=== PATIENT | male | born 1945 | race Caucasian/White ===

== ENCOUNTER → 2017-05-29 12:20 | Outpatient (CLI) | payer MEDICARE, OTHER, SELFPAY ==
[2017-05-29 12:52] LABS: Basophils # 0.1 K/mm3 (0-0.2); Basophils % 0.8 % (0.1-2.0); Eosinophils # 0.3 K/mm3 (0.0-0.4); Eosinophils % 3.7 % (0.1-12.0); Hematocrit 47.1 % (42.0-52.0); Hemoglobin 15.2 g/dL (14.1-18.0); Lymphocytes # 3.8 K/mm3 (0.7-4.5); Lymphocytes % 43.4 K/mm3 (10-50); Mean Corpuscular HGB Conc 32.3 g/dL (31.8-35.4); Mean Corpuscular Hemoglobin 28.6 pg (27.0-31.2); Mean Corpuscular Volume 88.5 fl (80-94); Mean Platelet Volume 9.5 fl (7.4-10.4); Monocytes # 0.6 K/mm3 (0.1-1.0); Monocytes % 6.9 % (1.7-9.3); Neutrophils % 45.2 % (37.0-80.0); Platelet Count 217 K/mm3 (142-424); Red Blood Count 5.32 M/mm3 (4.60-6.20); White Blood Count 8.8 K/mm3 (4.8-10.8)
[2017-05-29 14:01] LABS: Alanine Aminotransferase 44 U/L (12-78); Albumin Level 3.7 gm/dL (3.4-5.0); Alkaline Phosphatase 70 U/L (46-116); Amylase 60 U/L (25-125); Anion Gap 8.4 mEq/L (5-15); Aspartate Amino Transferase 29 U/L (15-37); Bilirubin,Total 0.7 mg/dL (0.2-1.0); Blood Urea Nitrogen 17 mg/dL (7-18); Calcium 9.2 mg/dL (8.5-10.1); Carbon Dioxide 32 mmol/L (21.0-32.0); Chloride 104 mmol/L (98-107); Estimated Glomerular Filt Rate > 60 ml/min (>60); GFR (African American) > 60 ML/MIN (>60); Globulin 3.8 gm/dl (1.3-3.2); Glucose 97 mg/dL (74-106); Lipase 125 u/L (73-393); Potassium 4.4 mmoL/L (3.5-5.1); Sodium 140 mmol/L (136-145); Total Protein,Serum 7.5 gm/dL (6.4-8.2)
== END ==
PROVIDERS: PCP Internal Medicine Adolescent Medicine; Visit Provider Internal Medicine Adolescent Medicine
DX: R10.11 Right upper quadrant pain (principal)
CPT/HCPCS: 36415; 80053; 82150; 83690; 85025

== ENCOUNTER → 2018-08-11 09:55 | Outpatient (CLI) | payer MEDICARE, OTHER, SELFPAY ==
--- NOTE | 2018-08-11 10:04 | XR_ITS ---
XR calcaneus RT min 2V CLINICAL INDICATION: ITS.REASON: ACHILLES TENDINITIS ORDERING PHYSICIAN: Rakesh Jones MD PATIENT AGE: 73 years Comparison: None FINDINGS: Prominent enthesophyte is present at the Achilles insertion. Calcaneal spur is noted at 8 mm. Anterior to the spur there is a lobular area of calcification measuring 1.9 x 0.4 cm consistent with calcification within the plantar fascia which may be seen with chronic plantar fasciitis or old trauma trauma. IMPRESSION: Calcification along the plantar fascia suggesting chronic plantar fasciitis or old trauma
== END ==
PROVIDERS: PCP Internal Medicine Adolescent Medicine; Visit Provider Internal Medicine Adolescent Medicine
DX: M76.61 Achilles tendinitis, right leg (principal)
CPT/HCPCS: 73650

== ENCOUNTER 2018-10-07 08:00 | Outpatient (RCR) | payer MEDICARE, OTHER, SELFPAY ==
--- NOTE | 2018-08-30 08:51 | HMH.PTOPEV ---
PT Outpatient Evaluation Rehab PT Outpatient Evaluation Start: 08/30/18 08:26 Freq: Status: Active Protocol: Document 08/30/18 08:26 WIL (Rec: 08/30/18 08:50 WIL [id number]) Electronically Signed By Case Ozuna, PT 08/30/18 08:26 Outpatient Therapy Subjective History Subjective History Pt reports h/o chronic heel pain since exacerbation ~2 months ago. Pt reports using shoe horn to don R shoe, 'I've got a calcium deposit back there, and I irriatated putting that shoe on'. Pt reports posterior R heel pain since insult, and reports some R heel pain on bottom of heel intermittently d/t 'bone spur '. Chief Complaint Pain Symptom Type Ache Dull Symptoms Relieved By Rest/Positioning Symptoms Aggravated By Standing Walking Prior Functional Limitations Housework Standing Walking Current Functional Limitations Housework Standing Walking Stairs Symptom Description Constant but Variable Level of pain today (0-10) 5 Pain scale - at its best (0-10) 5 Pain scale - at its worst (0-10) 7 Ankle/Foot Eval Gait Observation General Gait Pattern Observation Antalgic Gait Assistive Device Ambulation Assistive Device None Palpation Tenderness right Ankle/Foot Palpation Findings Tenderness Ankle/Foot Palpation Overall Comment 2-3/4 ACHILLES INSERTION/ CALCIUM DEPOSIT ROM Ankle/Foot Dorsiflexion w/Knee Extended 0-5 Active Range Motion (degrees) Ankle/Foot Plantar Flexion Active Range 0-45 of Motion (degrees) Ankle/Foot Eversion Active Range of 0-15 Motion (degrees) Ankle/Foot Inversion Active Range of 0-25 Motion (degrees) MMT Ankle Dorsiflexion Strength Grade 4 Good Ankle Plantarflexion Strength Grade 4 Good Foot Eversion Strength Grade 4 Good Foot Inversion Strength Grade 4 Good Special Tests Talar Tilt Test Negative Left Negative Right Ankle Posterior Drawer Test Negative Left Negative Right Foot Compression Test Negative Left Negative Right Foot/Heel Tap/Percussion Test Negative Left
== END 2018-10-07 08:15 | disposition home or self-care (01) ==
LOC: PT 08:00
PROVIDERS: Visit Provider Podiatrist
DX: M76.61 Achilles tendinitis, right leg (principal)
CPT/HCPCS: 97010; 97014; 97033; 97035; 97110; 97163; G0283

== ENCOUNTER 2019-06-05 10:55 | Observation (INO) ==
[2019-06-05 11:41] LABS: Basophils # 0.1 K/mm3 (0-0.2); Basophils % 0.6 % (0.1-2.0); Eosinophils # 0.3 K/mm3 (0.0-0.4); Eosinophils % 2.6 % (0.1-12.0); Hematocrit 51.9 % (42.0-52.0); Hemoglobin 16.4 g/dL (14.1-18.0); Lymphocytes # 4.6 K/mm3 (0.7-4.5); Lymphocytes % 46.6 % (10-50); Mean Corpuscular HGB Conc 31.6 g/dL (31.8-35.4); Mean Corpuscular Volume 90.4 fl (80-94); Mean Platelet Volume 8.9 fl (7.4-10.4); Monocytes # 0.5 K/mm3 (0.1-1.0); Monocytes % 4.6 % (1.7-9.3); Neutrophils # 4.5 K/mm3 (1.8-7.8); Neutrophils % 45.5 % (37.0-80.0); Platelet Count 257 K/mm3 (142-424); Red Blood Count 5.74 M/mm3 (4.60-6.20); Red Cell Distribution Width 13.3 % (11.5-17.5); White Blood Count 9.8 K/mm3 (4.8-10.8)
[2019-06-05 11:58] LABS: Anion Gap 11.9 mEq/L (5-15); Blood Urea Nitrogen 15 mg/dL (7-18); Calcium 8.9 mg/dL (8.5-10.1); Carbon Dioxide 29 mmol/L (21.0-32.0); Chloride 100 mmol/L (98-107); Glucose 180 mg/dL (74-106); Sodium 137 mmol/L (136-145); Thyroid Stimulating Hormone 1.69 uIU/ml (0.358-3.740)
--- NOTE | 2019-06-05 12:28 | Emergency Department Note ---
ED Disposition Clinical Impression: Obesity (BMI 30.0-34.9) Chest pain Qualifiers: Chest pain type: precordial pain Qualified Code(s): R07.2 - Precordial pain HTN (hypertension) Qualifiers: Hypertension type: essential hypertension Qualified Code(s): I10 - Essential (primary) hypertension Hyperlipidemia Qualifiers: Hyperlipidemia type: unspecified Qualified Code(s): E78.5 - Hyperlipidemia, unspecified Disposition: Admitted as Observation Condition on Discharge: Good Referrals: Rakesh Jones MD [Primary Care Provider] - - Critical Care Critical Care Time: No Attestation: On 06/05/19, the high probability of a clinically significant, sudden or life threatening deterioration of the following system(s) required my full and direct attention, intervention and personal management. The time I documented below is in addition to time spent performing reported procedures but includes the following listed in this critical care notation. Medical Decision Making - Medical Records Medical records reviewed: Yes: I reviewed the patient's medical records. - Colt Inquiry Pt receiving controlled substance: No Vital Signs: 06/05/19 10:56 06/05/19 11:56 06/05/19 12:00 Temperature 98 F Temperature Source Oral Pulse Rate [Right] 95 H 84 83 Respiratory Rate 18 Blood Pressure [Right Arm] 133/94 H 121/70 136/64 Blood Pressure Mean [Right Arm] 107 87 88 02 Sat by Pulse Oximetry 97 93 L 95 Oxygen Delivery Method Room Air 06/05/19 12:30 06/05/19 13:00 06/05/19 13:30 Temperature Temperature Source Pulse Rate [Right] 85 85 90 Respiratory Rate Blood Pressure [Right Arm] 153/72 H 151/86 H 154/87 H Blood Pressure Mean [Right Arm] 99 107 109 02 Sat by Pulse Oximetry 95 95 95 Oxygen Delivery Method 06/05/19 13:44 06/05/19 14:30 Temperature Temperature Source Pulse Rate [Right] 85 82 Respiratory Rate Blood Pressure [Right Arm] 159/82 H 159/90 H Blood Pressure Mean [Right Arm] 107 113 02 Sat by Pulse Oximetry 96 95 Oxygen Delivery Method - Lab Data Lab results reviewed: Yes: I reviewed the patient's lab results. Lab Results 06/05/19 11:08: WBC 9.8, RBC 5.74, Hgb 16.4, Hct 51.9, MCV 90.4, MCH 28.6, MCHC 31.6 L, RDW 13.3, Plt Count 257, MPV 8.9, Neut % (Auto) 45.5, Lymph % (Auto) 46.6, [place] % (Auto) 4.6, Eos % (Auto) 2.6, Baso % (Auto) 0.6, Neut # (Auto) 4.5, Lymph # (Auto) 4.6 H, [place] # (Auto) 0.5, Eos # (Auto) 0.3, Baso # (Auto) 0.1 06/05/19 11:08: Sodium 137, Potassium 3.9, Chloride 100, Carbon Dioxide 29, Anion Gap 11.9, BUN 15, Creatinine 1.05, Estimated Creat Clear 89, Estimated GFR 69, Est GFR ( Amer) 83, Glucose 180 H, Calcium 8.9, Troponin I < 0.02, T SH 1.69, Thyroxine (T4) 8.4 06/05/19 11:08: Hemoglobin A1c 6.3 06/05/19 14:15: Troponin I < 0.02 Result diagrams: 06/05/19 11:08 06/05/19 11:08 Orders (Tests/Meds): ED MEDICATIONS Discontinued Medications Generic Name Dose Route Start Last Admin Trade Name Freq PRN Reason Stop Dose Admin Aspirin 324 mg 06/05/19 11:12 06/05/19 11:29 Aspirin 81mg Chewable Tablet PO 06/05/19 11:13 Not Given ONCE ONE Aspirin 243 mg 06/06/19 09:00 Aspirin 81mg Enteric Coated Tablet PO 07/06/19 08:59 DAILY CARLOS ALBERTO Aspirin 243 mg 06/05/19 11:28 06/05/19 11:33 Aspirin 81mg Chewable Tablet PO 06/05/19 11:29 243 mg ONCE ONE Administration ORDERS Category Date Time Status Troponin I Q3H Lab 06/05/19 17:15 Ordered - Radiology Data #1 Image(s): Chest Image Reviewed: Yes I reviewed the patient's radiology image Preliminary Findings: Normal/NAD - ECG Data Tracing #1 Normal Sinus Rhythm: Yes Ischemic changes: non-specific ST-T wave changes Chest Pain HPI - General Chief Complaint: Chest Pain Stated Complaint: High blood pressure and tightness in chest Time Seen by Provider: 06/05/19 12:00 Mode of Arrival: Ambulatory Source of Information: Patient, Spouse, Medical Record Limitations: No Limitations Description of Symptoms (Recalled from ER Triage Doc. by RN): Pt states this morning pt began to have sweats and feeling a tightness in his chest and a fluttering in his heart. PT states he tooks his BP at 10am this morning and it was elevated. Pt states he did take his BP medication this morning. Denies feve r, NVD, or any pain. - History of Present Illness HPI narrative: pt with episode of diaphoresis last pm and he has chest tightness for 20-30 min this am with no other c/o - had cath several yrs ago- no stents MD complaint: chest pain indicative of cardiac Onset (ago): hour(s) Duration: now resolved Activity at onset: during rest Pain location: substernal Severity: moderate Quality: tightness Pain radiation: none Associated symptoms: diaphoresis Risk Factors for CAD: Hypertension, Hypercholesterolemia, Family Hx of CAD Treatments prior to or on arrival for Cardiac Chest Pain: none - WARNER Score for Non-Stemi Age of Patient: 70-79 years old Heart Rate: 90-109 bpm Systolic Blood Pressure: 120-139 mmhg Serum Creatinine: 0.80-1.19 mg/dl CHF [place] Class: I-No CHF Other Risk Factors: None Non-Stemi Risk Score: 131 - Related Data Prior Cardiac Testing/Procedures: Cardiac Angiogram Home Medications Medication Instructions Recorded Confirmed aspirin 81 mg tablet,delayed 81 mg PO ONCE 07/27/17 06/05/19 release lisinopril 20 mg tablet 20 mg PO ONCE 07/27/17 06/05/19 rosuvastatin 20 mg tablet 20 mg PO DAILY 90 Days #90 tab 08/23/18 06/05/19 Allergies Allergy/AdvReac Type Severity Reaction Status Date / Time No Known Allergies Allergy Verified 08/23/18 08:19 [facility] History - Hepatitis A Screen Drug use history?: No High risk sexual behaviors?: No History of sexually transmitted infection?: No Currently employed?: No Childcare worker?: No Do you have indoor plumbing?: Yes Do you have electricity?: Yes Attestation statement:: This patient has been screened for Hepatitis A risk factors. I have reviewed the patient's past medical history: Yes Medical History: Reports:: Diabetes Mellitus Type 2, Hyperlipidemia, Hypertension Other Medical History: Reports: Arthritis Laterality Cases: Right: Cataract Other Surgeries: Yes: Cholecystectomy Comment: RT thumb, Heart cath 2015, back sx 2016, Gallbladder removed 2017, RT elbow ulnar nerve 2017, - Social History Smoking Status: Former smoker Tobacco Type: cigarettes Alcohol Intake: never Alcohol Intake Frequency:: holidays/special occasions only Occupational Status: retired Family Hx:: Cancer, Coronary Artery Disease, Heart Attack ROS Obtained: Yes All systems reviewed & no additional complaints - Constitutional Constitutional: Denies fever(s) - Eyes Eyes: Denies change in vision - ENT Ears, Nose, Mouth, and Throat: Denies sore throat - Cardiovascular Cardiovascular: Reports as per HPI, Reports chest pain, Reports diaphoresis - Respiratory Respiratory: No cough - Gastrointestinal Gastrointestingal: Denies: abdominal pain - Genitourinary Male Genitourinary: Denies hematuria - Musculoskeletal Musculoskeletal: Denies joint pain, Denies joint swelling - Integumentary/Breasts Skin/Breast: Denies rash - Neurologic Neurologic: Denies seizure-like activity Physical Exam - General General appearance: alert, obese - Head Head exam: normocephalic - Eye Eye exam: Present: PERRL, EOMI - ENT ENT exam: Present: mucous membranes moist - Neck Neck exam: Present: trachea midline - Respiratory Respiratory exam: Present: normal lung sounds bilaterally. Absent: respiratory distress - Cardiovascular Cardiovascular exam: Present: regular rate, systolic murmur, +S4 - Abdominal Exam Abdominal exam: Present: soft - Extremities Exam Extremities exam: Present: full ROM. Absent: pedal edema - Neurological Exam Neurological exam: Present: alert, oriented X3, CN II-XII intact - Psychiatric Psychiatric exam: Present: normal affect - Skin Skin exam: Absent: rash
[2019-06-06 05:56] LABS: Basophils # 0.1 K/mm3 (0-0.2); Basophils % 0.6 % (0.1-2.0); Eosinophils # 0.3 K/mm3 (0.0-0.4); Eosinophils % 3.1 % (0.1-12.0); Hematocrit 47.1 % (42.0-52.0); Hemoglobin 14.8 g/dL (14.1-18.0); Lymphocytes # 3.6 K/mm3 (0.7-4.5); Lymphocytes % 39.1 % (10-50); Mean Corpuscular HGB Conc 31.4 g/dL (31.8-35.4); Mean Corpuscular Volume 88.2 fl (80-94); Mean Platelet Volume 8.4 fl (7.4-10.4); Monocytes # 0.6 K/mm3 (0.1-1.0); Monocytes % 6.4 % (1.7-9.3); Neutrophils # 4.7 K/mm3 (1.8-7.8); Neutrophils % 50.9 % (37.0-80.0); Platelet Count 233 K/mm3 (142-424); Red Blood Count 5.34 M/mm3 (4.60-6.20); Red Cell Distribution Width 13.4 % (11.5-17.5); White Blood Count 9.3 K/mm3 (4.8-10.8)
[2019-06-06 06:10] LABS: Anion Gap 10.4 mEq/L (5-15); Blood Urea Nitrogen 13 mg/dL (7-18); Calcium 8.9 mg/dL (8.5-10.1); Carbon Dioxide 30 mmol/L (21.0-32.0); Chloride 104 mmol/L (98-107); Chol/HDL Ratio 3.4 (1-3.5); Cholesterol 146 mg/dL (140-200); Glucose 131 mg/dL (74-106); HDL Cholesterol 43 mg/dL (27-67); LDL Cholesterol 70 mg/dL (0-130); Sodium 140 mmol/L (136-145); Triglycerides 165 mg/dL (30-200); VLDL Cholesterol 33 mg/dL (0-40)
--- NOTE | 2019-06-06 07:53 | Pharmacy Consult Notes ---
[facility] Pharmacy VTE Monitoring - Patient Demographics Admission date: 06/06/19 Report Date: 06/06/19 Time: 07:53 Allergies/Adverse Reactions: Patient Allergies No Known Allergies Allergy (Verified 08/23/18 08:19) Height: 1.7 m Weight: 103.901 kg Patient Problems: Current Active Problems Chest pain (Acute) HTN (hypertension) (Acute) Hyperlipidemia (Acute) Obesity (BMI 30.0-34.9) (Acute) - VTE Risk Labs: VTE Related Lab Results Hgb 14.8 g/dL (14.1-18.0) 06/06/19 05:24 Hct 47.1 % (42.0-52.0) 06/06/19 05:24 Plt Count 233 K/mm3 (142-424) 06/06/19 05:24 BUN 13 mg/dL (7-18) 06/06/19 05:24 Creatinine 1.09 mg/dL (0.70-1.30) 06/06/19 05:24 Estimated Creat Clear 85 mL/min (50-200) 06/06/19 05:24 Was VTE Risk Assessment Performed: Yes VTE Score: 2 VTE Risk Level: Very Low Risk Clinical Trial Participant: No - Prophylaxis VTE Prophylaxis Ordered?: Yes Types of VTE Prophylaxis: TEDS Knee High Location of Applied Device: Bilateral Lower Extremeties, Refused
--- NOTE | 2019-06-06 07:58 | Pharmacy Consult Notes ---
[facility] Pharmacy VTE Monitoring - Patient Demographics Admission date: 06/05/19 Report Date: 06/06/19 Time: 07:57 Allergies/Adverse Reactions: Patient Allergies No Known Allergies Allergy (Verified 08/23/18 08:19) Height: 1.7 m Weight: 103.901 kg Patient Problems: Current Active Problems Chest pain (Acute) HTN (hypertension) (Acute) Hyperlipidemia (Acute) Obesity (BMI 30.0-34.9) (Acute) - VTE Risk Labs: VTE Related Lab Results Hgb 14.8 g/dL (14.1-18.0) 06/06/19 05:24 Hct 47.1 % (42.0-52.0) 06/06/19 05:24 Plt Count 233 K/mm3 (142-424) 06/06/19 05:24 BUN 13 mg/dL (7-18) 06/06/19 05:24 Creatinine 1.09 mg/dL (0.70-1.30) 06/06/19 05:24 Estimated Creat Clear 85 mL/min (50-200) 06/06/19 05:24 Was VTE Risk Assessment Performed: Yes VTE Score: 2 VTE Risk Level: Very Low Risk Clinical Trial Participant: No - Prophylaxis VTE Prophylaxis Ordered?: Yes Types of VTE Prophylaxis: TEDS Knee High Location of Applied Device: Bilateral Lower Extremeties
--- NOTE | 2019-06-06 08:50 | History & Physical Report ---
*Admission Date: 06/05/19 *Chief complaint: Chest pain and sweating *History of present illness: 74-year-old white male with history of diabetes, hyperlipidemia and hypertension who awoke at 3 AM yesterday morning with sweating and chest pain with some nausea. This improved but throughout the rest of the day his blood pressure remained high and he came to the emergency department last night where he was admitted for rule out AL. [facility] History I have reviewed the patient's past medical history: Yes Medical History: Reports:: Coronary Artery Disease, Hyperlipidemia, Hypertension Denies:: Diabetes Mellitus Type 2 *Have you ever received a pneumonia vaccine?: Yes *Have you received a flu vaccine this season?: Yes Other Medical History: Reports: Arthritis, Cataracts Laterality Cases: Right: Cataract, Other Other Surgeries: Yes: Cardiac Catheterization, Cholecystectomy Amputation: No Fractures: No ((R) thumb, nose) - *Social History Educational Level: Attended College Smoking Status: Former smoker Tobacco Type: cigarettes Alcohol Intake: never Alcohol Intake Frequency:: holidays/special occasions only *Occupational Status:: retired Housing: house Household Members: spouse *Travel in the last 8 weeks: None Family Hx:: Cancer, Coronary Artery Disease, Heart Attack Review of Systems - Review of Systems Review of systems:: pertinent systems reviewed and negative unless documented below 10 point review of systems negative except as detailed in HPI - *Neurologic Denies seizure-like activity Meds Home Medications Medication Instructions Recorded Confirmed Type aspirin 81 mg tablet,delayed 81 mg PO HS 07/27/17 06/06/19 History release lisinopril 20 mg tablet 20 mg PO DAILY 07/27/17 06/06/19 History Pitavastatin Calcium [Livalo] 4 mg PO HS 06/06/19 06/06/19 History Allergies Allergy/AdvReac Type Severity Reaction Status Date / Time No Known Allergies Allergy Verified 08/23/18 08:19 Exam Vital signs and Labs for Last 24 Hours: Temp Pulse Resp BP Pulse Ox 97.9 F 65 18 115/60 97 06/06/19 08:00 06/06/19 08:00 06/06/19 08:00 06/06/19 08:00 06/06/19 08:00 Laboratory Results - last 24 hr 06/05/19 11:08: WBC 9.8, RBC 5.74, Hgb 16.4, Hct 51.9, MCV 90.4, MCH 28.6, MCHC 31.6 L, RDW 13.3, Plt Count 257, MPV 8.9, Neut % (Auto) 45.5, Lymph % (Auto) 46.6, [place] % (Auto) 4.6, Eos % (Auto) 2.6, Baso % (Auto) 0.6, Neut # (Auto) 4.5, Lymph # (Auto) 4.6 H, [place] # (Auto) 0.5, Eos # (Auto) 0.3, Baso # (Auto) 0.1 06/05/19 11:08: Sodium 137, Potassium 3.9, Chloride 100, Carbon Dioxide 29, Anion Gap 11.9, BUN 15, Creatinine 1.05, Estimated Creat Clear 89, Estimated GFR 69, Est GFR ( Amer) 83, Glucose 180 H, Calcium 8.9, Troponin I < 0.02, TSH 1.69, Thyroxine (T4) 8.4 06/05/19 11:08: Hemoglobin A1c 6.3 06/05/19 14:15: Troponin I < 0.02 06/05/19 17:30: Troponin I < 0.02 06/06/19 05:24: WBC 9.3, RBC 5.34, Hgb 14.8, Hct 47.1, MCV 88.2, MCH 27.7, MCHC 31.4 L, RDW 13.4, Plt Count 233, MPV 8.4, Neut % (Auto) 50.9, Lymph % (Auto) 39.1, [place] % (Auto) 6.4, Eos % (Auto) 3.1, Baso % (Auto) 0.6, Neut # (Auto) 4.7, Lymph # (Auto) 3.6, [place] # (Auto) 0.6, Eos # (Auto) 0.3, Baso # (Auto) 0.1 06/06/19 05:24: Sodium 140, Potassium 4.4, Chloride 104, Carbon Dioxide 30, Anion Gap 10.4, BUN 13, Creatinine 1.09, Estimated Creat Clear 85, Estimated GFR 66, Est GFR ( Amer) 80, Glucose 131 H D, Calcium 8.9, Magnesium 2.1, Troponin I < 0.02, Triglycerides 165, Cholesterol 146, LDL Cholesterol 70, VLDL Cholesterol 33, HDL Cholesterol 43, Cholesterol/HDL Ratio 3.4 I & O for Last 24 hours: Intake & Output 06/03/19 06/04/19 06/05/19 06/06/19 11:59 11:59 11:59 11:59 Intake Total 900 / 900 Balance 900 / 900 Weight 232 lb 229 lb 1 oz - *Routine HEENT Exam Head: Present: normocephalic Eye: Present: EOMI, PERRL ENT: Present: mucous membranes moist - *Routine Neck Exam Present: supple. Absent: lymphadenopathy - *Routine Respiratory Exam Present: CTA bilaterally - *Routine Cardiovascular Exam Present: RRR - *Routine Abdominal Exam Present: soft, normoactive bowel sounds. Absent: tenderness - *Routine Extremities Exam Absent: cyanosis, clubbing, edema - *Routine Skin Exam Present: warm. Absent: rash - *Routine Neurological Exam Present: alert, oriented X3 - Detailed Eye Exam Eyelids: Left normal inspection Assessment and Plan (1) Diabetes mellitus type 2, noninsulin dependent Current visit: Yes Status: Acute Category: Medical Code(s): E11.9 - Type 2 diabetes mellitus without complications Well-controlled at home. However is a cardiac risk factor (2) Chest pain Current visit: Yes Status: Acute Qualifiers: Chest pain type: precordial pain Qualified Code(s): R07.2 - Precordial pain Category: Medical Code(s): R07.9 - Chest pain, unspecified Given risk factors and history of abnormal stress test in the past we will evaluate for cardiac cath through cardiology service (3) HTN (hypertension) Current visit: Yes Status: Acute Qualifiers: Hypertension type: essential hypertension Qualified Code(s): I10 - Essential (primary) hypertension Category: Medical Code(s): I10 - Essential (primary) hypertension (4) Hyperlipidemia Current visit: Yes Status: Acute Qualifiers: Hyperlipidemia type: unspecified Qualified Code(s): E78.5 - Hyperlipidemia, unspecified Category: Medical Code(s): E78.5 - Hyperlipidemia, unspecified (5) Obesity (BMI 30.0-34.9) Current visit: Yes Status: Acute Category: Medical Code(s): E66.9 - Obesity, unspecified Complicates all aspects of his care
--- NOTE | 2019-06-06 09:11 | Consult Report ---
History of Present Illness Consult date: 06/06/19 Requesting physician: Rakesh Jones Consult reason: chest pain Chief complaint: chest pain Additional Medical History:: 1. Hypertension 2. Remote tobacco use, [id number] history, discontinued 30 years ago 3. Diabetes mellitus, treated for greater than 10 years 4. Hyperlipidemia 5. Family history of coronary artery disease 6. History of knee surgery 7. Abnormal stress test, 2016 with subsequent cardiac catheterization without need for intervention History of present illness: 74-year-old white male with history of diabetes, hyperlipidemia and hypertension who awoke at 3 AM yesterday morning with sweating and chest pain with some nausea. This improved but throughout the rest of the day his blood pressure remained high and he came to the emergency department last night where he was admitted for rule out MD. The above per Dr. Jones Patient relates waking up in the last few days with some discomfort in the chest which he does not relate as pain but more of a tightness or pressure that has been associated with diaphoresis. He has been under some stress due to family issues but is concerned about heart disease. Patient had a abnormal stress test in 2016 for which he went to see Dr. Jorgensen in [place] and reportedly had a cardiac catheterization but did not need coronary stents. He was told he had some calcifications but does not remember if he was told how much blockage was noted. He has been trying to exercise lately, walking about 10 minutes/day. He denies chest pain with this but does note some shortness of breath. He has been intolerant of most statin therapy and until recently has not been taking a statin on a regular basis. He is currently on Livalo without complications. He has been a diabetic for more than 10 years. He did smoke up to 4 packs/day for about 20 years but discontinued approximately 30 years ago. EKG is sinus with ST segment depression in the colette-lateral leads. Troponins have been normal. [facility] History Medical History: Reports:: Coronary Artery Disease, Hyperlipidemia, Hypertension Denies:: Diabetes Mellitus Type 2 *Have you ever received a pneumonia vaccine?: Yes *Have you received a flu vaccine this season?: Yes Other Medical History: Reports: Arthritis, Cataracts Laterality Cases: Right: Cataract, Other Other Surgeries: Yes: Cardiac Catheterization, Cholecystectomy Amputation: No Fractures: No ((R) thumb, nose) - *Social History Educational Level: Attended College Smoking Status: Former smoker Tobacco Type: cigarettes Alcohol Intake: never Alcohol Intake Frequency:: holidays/special occasions only *Occupational Status:: retired Housing: house Household Members: spouse *Travel in the last 8 weeks: None Family Hx:: Cancer, Coronary Artery Disease, Heart Attack Meds Home Medications Medication Instructions Recorded Confirmed Type aspirin 81 mg tablet,delayed 81 mg PO HS 07/27/17 06/06/19 History release lisinopril 20 mg tablet 20 mg PO DAILY 07/27/17 06/06/19 History Pitavastatin Calcium [Livalo] 4 mg PO HS 06/06/19 06/06/19 History Allergies Allergy/AdvReac Type Severity Reaction Status Date / Time No Known Allergies Allergy Verified 08/23/18 08:19 Review of Systems - Review of Systems Review of systems:: pertinent systems reviewed and negative unless documented below - *Cardiovascular Reports chest pain, Reports shortness of breath - *Respiratory Reports shortness of breath with activity - *Gastrointestinal Denies abdominal pain, Denies nausea, Denies vomiting - *Genitourinary Denies blood in urine - *Musculoskeletal Reports joint pain, Reports back pain - *Neurologic Denies seizure-like activity Exam Vital signs and Labs for Last 24 Hours: Temp Pulse Resp BP Pulse Ox 97.9 F 65 18 115/60 97 06/06/19 08:00 06/06/19 08:00 06/06/19 08:00 06/06/19 08:00 06/06/19 08:00 Laboratory Results - last 24 hr 06/05/19 11:08: WBC 9.8, RBC 5.74, Hgb 16.4, Hct 51.9, MCV 90.4, MCH 28.6, MCHC 31.6 L, RDW 13.3, Plt Count 257, MPV 8.9, Neut % (Auto) 45.5, Lymph % (Auto) 46.6, [place] % (Auto) 4.6, Eos % (Auto) 2.6, Baso % (Auto) 0.6, Neut # (Auto) 4.5, Lymph # (Auto) 4.6 H, [place] # (Auto) 0.5, Eos # (Auto) 0.3, Baso # (Auto) 0.1 06/05/19 11:08: Sodium 137, Potassium 3.9, Chloride 100, Carbon Dioxide 29, An ion Gap 11.9, BUN 15, Creatinine 1.05, Estimated Creat Clear 89, Estimated GFR 69, Est GFR ( Amer) 83, Glucose 180 H, Calcium 8.9, Troponin I < 0.02, TSH 1.69, Thyroxine (T4) 8.4 06/05/19 11:08: Hemoglobin A1c 6.3 06/05/19 14:15: Troponin I < 0.02 06/05/19 17:30: Troponin I < 0.02 06/06/19 05:24: WBC 9.3, RBC 5.34, Hgb 14.8, Hct 47.1, MCV 88.2, MCH 27.7, MCHC 31.4 L, RDW 13.4, Plt Count 233, MPV 8.4, Neut % (Auto) 50.9, Lymph % (Auto) 39.1, [place] % (Auto) 6.4, Eos % (Auto) 3.1, Baso % (Auto) 0.6, Neut # (Auto) 4.7, Lymph # (Auto) 3.6, [place] # (Auto) 0.6, Eos # (Auto) 0.3, Baso # (Auto) 0.1 06/06/19 05:24: Sodium 140, Potassium 4.4, Chloride 104, Carbon Dioxide 30, Anion Gap 10.4, BUN 13, Creatinine 1.09, Estimated Creat Clear 85, Estimated GFR 66, Est GFR ( Amer) 80, Glucose 131 H D, Calcium 8.9, Magnesium 2.1, Troponin I < 0.02, Triglycerides 165, Cholesterol 146, LDL Cholesterol 70, VLDL Cholesterol 33, HDL Cholesterol 43, Cholesterol/HDL Ratio 3.4 I & O for Last 24 hours: Intake & Output 06/03/19 06/04/19 06/05/19 06/06/19 11:59 11:59 11:59 11:59 Intake Total 900 / 900 Balance 900 / 900 Weight 232 lb 229 lb 1 oz - *Routine HEENT Exam Head: Present: normocephalic Eye: Present: EOMI, PERRL ENT: Present: mucous membranes moist - *Routine Neck Exam Present: supple. Absent: JVD, carotid bruit - *Routine Respiratory Exam Present: CTA bilaterally. Absent: accessory muscle use, rales, rhonchi, wheezes - *Routine Cardiovascular Exam Present: RRR. Absent: murmur, gallop, rubs - *Routine Abdominal Exam Present: soft. Absent: tenderness, distended, guarding - *Routine Extremities Exam Absent: edema, calf tenderness - *Routine Neurological Exam Present: alert, oriented X3, moving all extremities Assessment and Plan (1) Diabetes mellitus type 2, noninsulin dependent Current visit: Yes Status: Acute Category: Medical Code(s): E11.9 - Type 2 diabetes mellitus without complications (2) Chest pain Current visit: Yes Status: Acute Qualifiers: Chest pain type: precordial pain Qualified Code(s): R07.2 - Precordial pain Category: Medical Code(s): R07.9 - Chest pain, unspecified (3) HTN (hypertension) Current visit: Yes Status: Acute Qualifiers: Hypertension type: essential hypertension Qualified Code(s): I10 - Essential (primary) hypertension Category: Medical Code(s): I10 - Essential (primary) hypertension (4) Hyperlipidemia Current visit: Yes Status: Acute Qualifiers: Hyperlipidemia type: unspecified Qualified Code(s): E78.5 - Hyperlipidemia, unspecified Category: Medical Code(s): E78.5 - Hyperlipidemia, unspecified (5) Obesity (BMI 30.0-34.9) Current visit: Yes Status: Acute Category: Medical Code(s): E66.9 - Obesity, unspecified - Assessment and plan all Dx Assessment and Plan for all problems:: 1. 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 Troponins normal x3, EKG is sinus with some nonspecific ST-T abnorm alities and preliminary echocardiogram showing preserved ejection fraction. Patient would not be able to exercise on a treadmill (back and knee pain) and does not wish to have chemical stress testing. Would recommend proceeding with left heart catheterization to evaluate coronary artery disease. 2. Further recommendations to follow pending above results.
--- NOTE | 2019-06-06 15:56 | Discharge Summary ---
General - General Admission date:: 06/05/19 Discharge date: 06/06/19 HPI HPI: 74-year-old white male with history of diabetes, hyperlipidemia and hypertension who awoke at 3 AM yesterday morning with sweating and chest pain with some nausea. This improved but throughout the rest of the day his blood pressure remained high and he came to the emergency department last night where he was admitted for rule out CA. Hospital Course Hospital Course: Patient was admitted, ruled out for CA, given his abnormal stress test patient was subjected to heart cath, results noted below: IMPRESSION Mild to moderate ostial left main disease which is [id number] Mild and moderate disease in the mid LAD with a moderate to severe stenosis in the distal LAD as the LAD wraps the apex Normal ejection fraction Normal left ventricular end-diastolic pressure PLAN 1. Medical management 2. The distal LAD is best treated medically. Should patient experience recalcitrant angina pectoris refractory to maximum medications only then would I consider stenting. I believe this medicine will be perfectly amenable to medical management 3. LDL less than 55 4. Avoidance of tobacco products Patient did well post cath, recovered well, he will be discharged home with pravastatin therapy given his intolerance to rosuvastatin and atorvastatin, will also do very low-dose beta-mikayla, I will see him in 2 weeks. Objective Vital signs: Temp Pulse Resp BP Pulse Ox 98.5 F 61 16 122/56 L 96 06/06/19 12:00 06/06/19 12:00 06/06/19 12:00 06/06/19 12:00 06/06/19 12:00 no acute distress - *Routine HEENT Exam Head: Present: normocephalic, facial swelling - *Routine Neck Exam Present: supple - *Routine Respiratory Exam Present: CTA bilaterally. Absent: accessory muscle use - *Routine Cardiovascular Exam Present: RRR, Normal S1, Normal S2 - *Routine Abdominal Exam Present: soft, normoactive bowel sounds - *Routine Neurological Exam Present: alert, oriented X3 - Detailed Eye Exam Eyelids: Left normal inspection Results Labs on day of discharge: Labs from last 24 hours 06/06/19 06/06/19 06/05/19 05:24 05:24 17:30 WBC 9.3 RBC 5.34 Hgb 14.8 Hct 47.1 MCV 88.2 MCH 27.7 MCHC 31.4 L RDW 13.4 Plt Count 233 MPV 8.4 Neut % (Auto) 50.9 Lymph % (Auto) 39.1 [place] % (Auto) 6.4 Eos % (Auto) 3.1 Baso % (Auto) 0.6 Neut # (Auto) 4.7 Lymph # (Auto) 3.6 [place] # (Auto) 0.6 Eos # (Auto) 0.3 Baso # (Auto) 0.1 Sodium 140 Potassium 4.4 Chloride 104 Carbon Dioxide 30 Anion Gap 10.4 BUN 13 Creatinine 1.09 Estimated Creat Clear 85 Estimated GFR 66 Est GFR ( Amer) 80 Glucose 131 H D Calcium 8.9 Magnesium 2.1 Troponin I < 0.02 < 0.02 Triglycerides 165 Cholesterol 146 LDL Cholesterol 70 VLDL Cholesterol 33 HDL Cholesterol 43 Cholesterol/HDL Ratio 3.4 DS: Diagnosis - Discharge Diagnosis (1) Diabetes mellitus type 2, noninsulin dependent Status: Chronic (2) Chest pain Status: Resolved (3) HTN (hypertension) Status: Acute (4) Hyperlipidemia Status: Chronic (5) Obesity (BMI 30.0-34.9) Status: Chronic (6) Coronary atherosclerosis of [place] coronary artery Status: Chronic Discharge Plan - Patient Discharge Instructions ACTIVITY: Continue current activity DIET: continue same diet Patient Instructions: DI for Chest Pain - Follow up Plan Follow up with: Rakesh Jones MD [Primary Care Provider] - 2 weeks Disposition: Home, Self-Intermediate Medications: Home Medications Medication Instructions Recorded Confirmed Type aspirin 81 mg tablet,delayed 81 mg PO HS 07/27/17 06/06/19 History release lisinopril 20 mg tablet 20 mg PO DAILY 07/27/17 06/06/19 History Bisoprolol Fumarate [Bisoprolol 5 mg PO DAILY #30 tab 06/06/19 Rx 5mg Tablet] Pitavastatin Calcium [Livalo] 4 mg PO HS 06/06/19 06/06/19 History Pravastatin Sodium 80 mg PO DAILY #30 tab 06/06/19 Rx Prescriptions/Medication Reconciliation: New Bisoprolol Fumarate [Bisoprolol 5mg Tablet] 5 mg PO DAILY #30 tab Pravastatin Sodium 80 mg PO DAILY #30 tab Continued lisinopril 20 mg tablet 20 mg PO DAILY aspirin 81 mg tablet,delayed release 81 mg PO HS Discontinued Pitavastatin Calcium [Livalo] 4 mg PO HS - Problem Reconciliation Problems Reviewed?: Yes
--- NOTE | 2019-06-07 05:52 | Cardiology Report ---
APPROVED REPORT EXAM: Comprehensive 2D, Doppler, and color-flow Echocardiogram Teacher Resource: Eileen Shah CRT Ht: 5 ft 10 in Wt: 232lbs BSA: 2.22 BP: 159/90 mmHg Indications: cp, htn, hld 2D Dimensions LVOT 1.33 cm (M/F) 1.5-2.5 M-Mode Dimensions RVDd 3.29 cm (0.9-2.6)LVDd 4.59 cm (3.5-5.7) LVDs 2.85 cm (3.5-5.7)IVSd 1.71 cm (0.6-1.1) PWd 1.31 cm (0.6-1.1)EF (Teich) 68.10% FS 37.90% EDV (Teich) 96.80 mL ESV (Teich) 30.90 mL LV Diastology E/A Ratio 0.78 Mitral Valve MV A Velocity 81.00 (40-130 cm/s) Left Ventricle Left atrium is mildly enlarged, left ventricle is normal size, mild concentric left ventricular hypertrophy, visually estimated ejection fraction 55% with no regional wall motion abnormality. Grade 1 diastolic dysfunction seen without tissue Doppler evidence of raise left atrial pressure. Right Ventricle Right atrium and right ventricular normal size and contractility. Aortic Valve Aortic valve is thickened and calcified leaflet continue to display mobility, there is no aortic stenosis or aortic insufficiency. Mitral Valve Mitral valve leaflets are minimally thickened, there is mild mitral regurgitation. Tricuspid Valve Tricuspid valve is grossly normal, there is mild tricuspid regurgitation. Pulmonic Valve Pulmonic valve is poorly visualized. Great Vessels Aortic root is normal size. Pericardium No significant pericardial effusion noted. Conclusion 1. Mildly enlarged left atrium, normal left ventricular size, mild concentric left ventricular hypertrophy, visually estimated ejection fraction 55% with no regional wall motion abnormality, grade 1 diastolic dysfunction seen without tissue Doppler evidence of raise left atrial pressure. 2. Thickened and calcified aortic valve without aortic stenosis or aortic insufficiency. 3. Mild mitral and tricuspid regurgitation. 4. No significant pericardial effusion noted. Electronically signed by : Serafin Jaimes, 06/07/2019 05:51:54
--- NOTE | 2019-06-09 07:42 | Electrocardiograph Report ---
APPROVED REPORT Exam: Resting ECG HR:96 bpm ECG Measurements Heart Rate 96 AXES NH 198 P 46 QRSd 78 QRS 13 QT 346 T52 QTc 437 <Conclusion> Normal sinus rhythm ST abnormality, possible digitalis effect Abnormal ECG Electronically signed by : Rakesh Jones, 06/09/2019 07:41:31
== END 2019-06-06 20:30 | disposition home or self-care (01) ==
LOC: 2ND 10:55 → ER 10:55 → 2ND 15:11
PROVIDERS: ADMIT Emergency Medicine; ATTEND Internal Medicine Adolescent Medicine
CPT/HCPCS: 36415; 71020; 71046; 80048; 80061; 83036; 83735; 84436; 84443; 84484; 85025; 93005; 93306; 93458; 99152; 99285; C1725; C1760; C1769; G0378; J1644; Q9967

== ENCOUNTER → 2019-06-17 17:44 | Outpatient (CLI) | payer MEDICARE, OTHER, SELFPAY ==
[2019-06-17 18:10] LABS: Basophils # 0.1 K/mm3 (0-0.2); Basophils % 0.7 % (0.1-2.0); Eosinophils # 0.3 K/mm3 (0.0-0.4); Eosinophils % 2.3 % (0.1-12.0); Hematocrit 46.9 % (42.0-52.0); Hemoglobin 14.9 g/dL (14.1-18.0); Lymphocytes # 4.6 K/mm3 (0.7-4.5); Lymphocytes % 42.1 % (10-50); Mean Corpuscular HGB Conc 31.9 g/dL (31.8-35.4); Mean Corpuscular Hemoglobin 28.6 pg (27.0-31.2); Mean Corpuscular Volume 89.8 fl (80-94); Mean Platelet Volume 8.7 fl (7.4-10.4); Monocytes # 0.6 K/mm3 (0.1-1.0); Monocytes % 5.2 % (1.7-9.3); Neutrophils # 5.4 K/mm3 (1.8-7.8); Neutrophils % 49.8 % (37.0-80.0); Platelet Count 250 K/mm3 (142-424); Red Blood Count 5.23 M/mm3 (4.60-6.20); Red Cell Distribution Width 13.4 % (11.5-17.5); White Blood Count 10.9 K/mm3 (4.8-10.8)
[2019-06-17 18:20] LABS: Anion Gap 10.2 mEq/L (5-15); Blood Urea Nitrogen 18 mg/dL (7-18); CKMB Relative Index 1.3 U/L (0-4.0); Calcium 8.6 mg/dL (8.5-10.1); Carbon Dioxide 30 mmol/L (21.0-32.0); Chloride 107 mmol/L (98-107); Creatine Kinase 108 U/L (39-308); Creatine Kinase MB 1.4 ng/ml (0.0-3.6); Creatinine,Serum 1.26 mg/dL (0.70-1.30); Estimated Glomerular Filt Rate 56 ml/min (>60); GFR (African American) 67 ML/MIN (>60); Glucose 119 mg/dL (74-106); Potassium 4.2 mmoL/L (3.5-5.1); Sodium 143 mmol/L (136-145); Troponin I < 0.02 ng/ml (0.00-0.06)
== END ==
PROVIDERS: Visit Provider Internal Medicine Adolescent Medicine
DX: I25.118 Atherosclerotic heart disease of native coronary artery with other forms of angina pectoris (principal)
CPT/HCPCS: 36415; 80048; 82550; 82553; 84484; 85025

== ENCOUNTER → 2020-06-04 11:39 | Outpatient (CLI) | payer MEDICARE, OTHER, SELFPAY ==
--- NOTE | 2020-06-04 12:00 | XR_ITS ---
PROCEDURE: XR CHEST PORTABLE CLINICAL HISTORY: COVID TESTING Cough COMPARISON: CR CXR CHEST(2 VIEWS-NOT PORTABLE) from 07/30/2016 CR XR CHEST 2V from 06/05/2019 CR XR CHEST 2V from 06/25/2019 FINDINGS: The cardiomediastinal silhouette and pulmonary vascularity are within normal limits. Patchy infiltrate is present in the left lung base laterally. There is a small sclerotic focus overlying the medial aspect of the left humeral head and could be due to a bone island. This could also be within the glenoid fossa. IMPRESSION: Left lower lobe pneumonia Dictated by: Dany Vick MD 06/04/2020 14:17 Dany Vick MD in [place] 06/04/2020 14:17
[2020-06-04 14:25] LABS: Basophils # 0.1 K/mm3 (0-0.2); Basophils % 0.5 % (0.1-2.0); Hematocrit 49.7 % (42.0-52.0); Hemoglobin 16.4 g/dL (14.1-18.0); Lymphocytes # 1.5 K/mm3 (0.7-4.5); Mean Corpuscular Hemoglobin 29.8 pg (27.0-31.2); Mean Corpuscular Volume 90.3 fl (80-94); Mean Platelet Volume 9.6 fl (7.4-10.4); Monocytes # 0.9 K/mm3 (0.1-1.0); Neutrophils # 12.2 K/mm3 (1.8-7.8); Neutrophils % 83.5 % (37.0-80.0); Platelet Count 224 K/mm3 (142-424); Red Blood Count 5.51 M/mm3 (4.60-6.20); Red Cell Distribution Width 13.7 % (11.5-17.5); White Blood Count 14.6 K/mm3 (4.8-10.8)
[2020-06-04 15:26] LABS: Chloride 96 mmol/L (98-107); Potassium 4.3 mmoL/L (3.5-5.1); Sodium 135 mmol/L (136-145)
[2020-06-04 15:28] LABS: Alanine Aminotransferase 37 U/L (12-78); Aspartate Amino Transferase 47 U/L (17-59); Blood Urea Nitrogen 16 mg/dl (9-20); Estimated Glomerular Filt Rate 49 ml/min (>60); GFR (African American) 59 ML/MIN (>60)
[2020-06-04 15:29] LABS: Albumin Level 4.2 g/dl (3.5-5.0); Albumin/Globulin Ratio 1.3 (1.1-1.8); Alkaline Phosphatase 69 U/L (38-126); Anion Gap 18.3 mEq/L (5-15); Bilirubin,Total 2.5 mg/dl (0.2-1.3); Calcium 9.2 mg/dl (8.4-10.2); Carbon Dioxide 25 mmol/L (22.0-30.0); Globulin 3.2 g/dL (1.3-3.2); Glucose 145 mg/dl (74-100); Total Protein,Serum 7.4 g/dl (6.3-8.2)
== END ==
PROVIDERS: PCP Internal Medicine Adolescent Medicine; Visit Provider Internal Medicine Adolescent Medicine
DX: Z20.822 Contact with and (suspected) exposure to COVID-19 (principal); J18.0 Bronchopneumonia, unspecified organism
CPT/HCPCS: 36415; 71045; 80053; 85025; U0003

== ENCOUNTER 2020-06-05 13:51 | Observation (INO) | payer MEDICARE, OTHER, SELFPAY ==
[2020-06-05] VITALS (8 sets, daily range): BP systolic 119–135; BP diastolic 57–68; PULSE 68–80; RESP 14–17; TEMP 36.5–36.8; O2SAT 91–100; BMI 29.1
--- NOTE | 2020-06-05 14:04 | HMH.EDGENADL ---
ED Disposition Clinical Impression: Dehydration, Weakness Pneumonia Qualifiers: Pneumonia type: due to unspecified organism Laterality: left Lung location: lower lobe of lung Qualified Code(s): J18.9 - Pneumonia, unspecified organism Disposition: Admitted as Observation Condition on Discharge: Fair Referrals: Rakesh Jones MD [Primary Care Provider] - - Critical Care Critical Care Time: No Attestation: On , the high probability of a clinically significant, sudden or life threatening deterioration of the following system(s) required my full and direct attention, intervention and personal management. The time I documented below is in addition to time spent performing reported procedures but includes the following listed in this critical care notation. Medical Decision Making - Medical Records Medical records reviewed: Yes: I reviewed the patient's medical records. MR Comment: Reviewed chest x-ray report from yesterday as well as CBC and Covid PCR. Leukocytosis noted. PCR negative. Chest x-ray shows left lower lobe infiltrate. - Colt Inquiry Pt receiving controlled substance: No Vital Signs: 06/05/20 13:52 06/05/20 14:33 06/05/20 16:36 Temperature 97.7 F Temperature Source Oral Pulse Rate [Right] 77 76 72 Respiratory Rate 16 Blood Pressure [Right Arm] 126/61 119/60 135/68 Blood Pressure Mean [Right Arm] 82 79 90 Blood Pressure Source [Right Arm] Automatic Cuff Automatic Cuff Blood Pressure Position [Right Arm] Sitting Sitting 02 Sat by Pulse Oximetry 95 91 L 94 L Oxygen Delivery Method Room Air Room Air Room Air 06/05/20 17:00 Temperature Temperature Source Pulse Rate [Right] 72 Respiratory Rate Blood Pressure [Right Arm] 119/67 Blood Pressure Mean [Right Arm] 84 Blood Pressure Source [Right Arm] Automatic Cuff Blood Pressure Position [Right Arm] Sitting 02 Sat by Pulse Oximetry 92 L Oxygen Delivery Method Room Air - Lab Data Lab Results 06/05/20 14:10: WBC 12.7 H, RBC 5.08, Hgb 15.1, Hct 45.5, MCV 89.5, MCH 29.8, MCHC 33.2, RDW 13.7, Plt Count 200, MPV 8.7, Neut % (Auto) 82.0 H, Lymph % (Auto) 10.9, [place] % (Auto) 6.4, Eos % (Auto) 0.5, Baso % (Auto) 0.1, Neut # (Auto) 10.4 H, Lymph # (Auto) 1.4, [place] # (Auto) 0.8, Eos # (Auto) 0.1, Baso # (Auto) 0.0 06/05/20 14:10: Sodium 131 L, Potassium 3.9, Chloride 98, Carbon Dioxide 24, Anion Gap 12.9, BUN 21 H D, Creatinine 1.20, Estimated Creat Clear 71, Estimated GFR 59, Est GFR ( Amer) 71 D, Glucose 154 H, Calcium 9.3, Total Bilirubin 1.5 H, AST 55, ALT 42, Alkaline Phosphatase 76, Troponin I < 0.01, Total Protein 7.8, Albumin 4.1, Globulin 3.7 H, Albumin/Globulin Ratio 1.1 06/05/20 14:10: Lactate 1.6 06/05/20 14:10: SARS-CoV-2 IgG Ab (Rapid) Negative, SARS-CoV-2 IgM Ab (Rapid) Negative 06/05/20 15:55: Urine Color Dk yellow, Urine Appearance Clear, Urine pH 6.5, Ur Specific [place] >= 1.030, Urine Protein 2+, Urine Glucose (UA) Negative, Urine Ketones Trace, Urine Blood 3+, Urine Nitrate Negative, Urine Bilirubin Negative, Urine Urobilinogen 0.2, Ur Leukocyte Esterase Negative, Urine WBC 3-5, Urine Bacteria Trace Result diagrams: 06/05/20 14:10 06/05/20 14:10 Orders (Tests/Meds): ED MEDICATIONS Generic Name Dose Route Start Last Admin Trade Name Freq PRN Reason Stop Dose Admin Ceftriaxone Sodium 1 gm/ 50 mls @ 100 mls/hr 06/05/20 14:30 06/05/20 15:23 Sodium Chloride IV 06/19/20 14:29 100 mls/hr Q24H CARLOS ALBERTO Administration Protocol Azithromycin 500 mg/ Sodium 250 mls @ 250 mls/hr 06/05/20 14:30 06/05/20 15:53 Chloride IV 06/19/20 14:29 250 mls/hr Q24H CARLOS ALBERTO Administration Protocol Discontinued Medications Generic Name Dose Route Start Last Admin Trade Name Freq PRN Reason Stop Dose Admin Sodium Chloride 1,000 mls @ 999 mls/hr 06/05/20 14:30 06/05/20 14:25 Sod Chlor 0.9% 1000ml Bag IV 06/05/20 15:30 999 mls/hr .Q1H1M CARLOS ALBERTO Administration Ondansetron HCl 4 mg 06/05/20 14:19 06/05
--- NOTE | 2020-06-05 14:15 | XR_ITS ---
PROCEDURE: XR CHEST AP CLINICAL HISTORY: weakness Fall with injury and pain COMPARISON: CR XR CHEST 2V from 06/05/2019 CR XR CHEST 2V from 06/25/2019 CR XR CHEST PORTABLE from 06/04/2020 FINDINGS: The cardiomediastinal silhouette and pulmonary vascularity are within normal limits. The lungs are clear without infiltrates, suspicious nodules, or pleural effusions. No acute bony abnormalities. IMPRESSION: No acute findings. Dictated by: Dany Vick MD 06/05/2020 16:23 Dany Vick MD in [facility] 06/05/2020 16:23
--- NOTE | 2020-06-05 14:15 | CT_ITS ---
PROCEDURE: CT HEAD/BRAIN WO CON CLINICAL INDICATION: fall Head injury with headache/pain, contusion, abrasion or hematoma COMPARISON: No exams were available for comparison TECHNIQUE: Axial images obtained. All CT scans at the facility use one or more dose reduction, viz: automated exposure control, ma/kV adjustment per patient size (including targeted exams where dose is matched to indication, i.e. head), or iterative reconstruction technique. FINDINGS: No midline shift, mass effect, intracranial hemorrhage, hydrocephalus, or extra-axial fluid collection is evident. There is generalized atrophy with hypoattenuation of the periventricular white matter consistent with microangiopathic changes. The calvarium has an unremarkable appearance. No mastoid effusion. There is mild mucosal thickening of the ethmoid sinuses. IMPRESSION: No acute intracranial finding Dictated by: Dany Vick MD 06/05/2020 15:35 Dany Vick MD in [facility] 06/05/2020 15:35
--- NOTE | 2020-06-05 14:18 | CT_ITS ---
PROCEDURE: CT CERVICAL SPINE WO CON CLINICAL INDICATION: fall Neck injury with pain, contusion/abrasion or hematoma, cervical sprain/strain the COMPARISON: No exams were available for comparison TECHNIQUE: Axial images obtained with sagittal and coronal reformats. All CT scans at the facility use one or more dose reduction, viz: automated exposure control, ma/kV adjustment per patient size (including targeted exams where dose is matched to indication, i.e. head), or iterative reconstruction technique. Axial spiral CT scanning performed of the cervical spine beginning at the base of the skull and continuing to the upper T-spine. 3-D multiplanar reconstruction with 3-D manipulation of volumetric data set in image rendering was completed by the radiologist and/or technologist with the supervision of the radiologist on independent workstation. FINDINGS: There is normal alignment. No acute fracture or dislocation is evident. Hypertrophic changes are present along the superior aspect of the atlantoaxial joint. Small central disc protrusion versus prominent posterior longitudinal ligament is present at C2-C3 with mild degenerative disc disease and mild right foraminal narrowing from facet hypertrophy. C3-C4: Mild degenerative disc disease with mild right-sided foraminal narrowing from facet hypertrophy. C4-C5: Degenerate disc disease with right-sided facet and uncovertebral hypertrophy with right foraminal narrowing. C5-C6: Mild degenerative disc disease. C6-C7: Degenerative disc disease with left-sided lateral recess and foraminal narrowing from uncovertebral hypertrophy. C7-T1: Degenerative disc disease. There is degenerative disc disease at T1-T2 and T2-T3. Lung apices are clear. IMPRESSION: There is multilevel cervical spondylosis as detailed above. No acute fracture or dislocation is evident. Dictated by: Dany Vick MD 06/05/2020 15:39 Dany Vick MD in [facility] 06/05/2020 15:39
[2020-06-05 14:28] LABS: Basophils % 0.1 % (0.1-2.0); Eosinophils # 0.1 K/mm3 (0.0-0.4); Eosinophils % 0.5 % (0.1-12.0); Hematocrit 45.5 % (42.0-52.0); Hemoglobin 15.1 g/dL (14.1-18.0); Lymphocytes # 1.4 K/mm3 (0.7-4.5); Lymphocytes % 10.9 % (10-50); Mean Corpuscular HGB Conc 33.2 g/dL (31.8-35.4); Mean Corpuscular Hemoglobin 29.8 pg (27.0-31.2); Mean Corpuscular Volume 89.5 fl (80-94); Mean Platelet Volume 8.7 fl (7.4-10.4); Monocytes # 0.8 K/mm3 (0.1-1.0); Monocytes % 6.4 % (1.7-9.3); Neutrophils # 10.4 K/mm3 (1.8-7.8); Platelet Count 200 K/mm3 (142-424); Red Blood Count 5.08 M/mm3 (4.60-6.20); Red Cell Distribution Width 13.7 % (11.5-17.5); White Blood Count 12.7 K/mm3 (4.8-10.8)
[2020-06-05 14:33] LABS: Chloride 98 mmol/L (98-107); Potassium 3.9 mmoL/L (3.5-5.1); Sodium 131 mmol/L (136-145)
[2020-06-05 14:36] LABS: Alanine Aminotransferase 42 U/L (12-78); Albumin Level 4.1 g/dl (3.5-5.0); Albumin/Globulin Ratio 1.1 (1.1-1.8); Alkaline Phosphatase 76 U/L (38-126); Anion Gap 12.9 mEq/L (5-15); Aspartate Amino Transferase 55 U/L (17-59); Bilirubin,Total 1.5 mg/dl (0.2-1.3); Blood Urea Nitrogen 21 mg/dl (9-20); Calcium 9.3 mg/dl (8.4-10.2); Carbon Dioxide 24 mmol/L (22.0-30.0); Creatinine Clearance Estimated 71 mL/min (50-200); Estimated Glomerular Filt Rate 59 ml/min (>60); GFR (African American) 71 ML/MIN (>60); Globulin 3.7 g/dL (1.3-3.2); Glucose 154 mg/dl (74-100); Lactic Acid 1.6 mmol/L (0.7-2.1); Total Protein,Serum 7.8 g/dl (6.3-8.2)
[2020-06-05 14:49] LABS: Troponin I < 0.01 ng/ml (0.00-0.034)
[2020-06-05 14:52] LABS: Coronavirus 19 IgG Antibody Negative (Negative); Coronavirus 19 IgM Antibody Negative (Negative)
--- NOTE | 2020-06-05 15:15 | PC.NURSE ---
pt gone to CT
--- NOTE | 2020-06-05 15:31 | ECG_ITS ---
APPROVED REPORT Exam: Resting ECG HR:76 bpm ECG Measurements Heart Rate 76 AXES MS 188 P 47 QRSd 78 QRS 25 QT 386 T 16 QTc 434 Conclusion Normal sinus rhythm Left atrial abnormality Borderline ECG Electronically signed by : Rakesh Jones, 06/07/2020 19:31:34
[2020-06-05 16:13] LABS: Microscopic, Urine URINE MICROSCOPIC (MICROSCOPIC)
--- NOTE | 2020-06-05 16:14 | PC.NURSE ---
[facility] office for Dr. Shannan MD speaking with him at this time
[2020-06-05 16:17] LABS: Appearance,Urine CLEAR (Clear); Blood, Urine 3+ (Negative); Color,Urine DK YELLOW (Yellow); Glucose,Urine (UA) Negative (Negative); Ketones,Urine TRACE (Negative); Leukocyte Esterase,Urine Negative (Negative); Nitrate,Urine Negative (Negative); PH,Urine 6.5 (5.0-8.5); Protein,Urine 2+ (Negative); Specific Gravity, Urine >= 1.030 (1.005-1.030); Urobilinogen,Urine 0.2 EU/dl (0.2)
[2020-06-05 16:30] LABS: Bilirubin,Urine Negative (Negative)
[2020-06-05 16:31] LABS: Bacteria,Urine Trace /lpf
--- NOTE | 2020-06-05 17:17 | PC.NURSE ---
energy assistant for Dr Karen brito.
--- NOTE | 2020-06-05 17:18 | PC.NURSE ---
LEEROY ROSA speaking with Dr. Lala
--- NOTE | 2020-06-05 17:25 | PC.NURSE ---
Pt up to restroom
[2020-06-05 18:10] LABS: Troponin I < 0.01 ng/ml (0.00-0.034)
--- NOTE | 2020-06-05 21:25 | PC.NURSE ---
PT ARRIVED TO THE FLOOR VIA W/C FROM ED W/STAFF AT 2122.
[2020-06-05 21:30] LABS: Troponin I < 0.01 ng/ml (0.00-0.034)
[2020-06-06] VITALS: BP 140/67; PULSE 75; PULSE 80; RESP 17; TEMP 36.6; O2SAT 94
[2020-06-06 03:17] VITALS: O2SAT 94
[2020-06-06 04:00] VITALS: BP 134/67; PULSE 79; PULSE 80; RESP 17; TEMP 36.6; O2SAT 94
--- NOTE | 2020-06-06 06:05 | PC.NURSE ---
Pt is A&ox4. Pt continues to tolerate RA w/ o2 sats >94%. Lung sounds are diminished t/o all lung resendiz per auscultation. No cough noted this shift. IS brought into pt's room this shift. Pt educated on it's purpose and how to use it. Pt verbalized understanding. IS @ best 1750 cc. Active bowel sounds in all 4 quads, no BM noted this shift. Pt has had a slightly unsteady gait this shift and has required standby assistance to the bathroom. No other acute change or complaints at this time.
[2020-06-06 06:42] VITALS: BMI 29.1
--- NOTE | 2020-06-06 07:34 | HMH.PHAVTE ---
[facility] VTE Monitoring - Patient Demographics Admission date: 06/06/20 Report Date: 06/06/20 Time: 07:34 Allergies/Adverse Reactions: Patient Allergies No Known Allergies Allergy (Verified 02/13/20 13:53) Height: 1.83 m Weight: 97.522 kg Patient Problems: Current Active Problems Pneumonia (Acute) Dehydration (Acute) Weakness (Acute) - VTE Risk Labs: VTE Related Lab Results Hgb 15.1 g/dL (14.1-18.0) 06/05/20 14:10 Hct 45.5 % (42.0-52.0) 06/05/20 14:10 Plt Count 200 K/mm3 (142-424) 06/05/20 14:10 BUN 21 mg/dl (9-20) H D 06/05/20 14:10 Creatinine 1.20 mg/dl (0.66-1.25) 06/05/20 14:10 Estimated Creat Clear 71 mL/min (50-200) 06/05/20 14:10 Was VTE Risk Assessment Performed: Yes VTE Score: 5 VTE Risk Level: Low Risk Clinical Trial Participant: No - Prophylaxis VTE Prophylaxis Ordered?: Yes Types of VTE Prophylaxis: TEDS Knee High
[2020-06-06 07:43] LABS: Lymphocytes # 1.5 K/mm3 (0.7-4.5); Monocytes # 0.7 K/mm3 (0.1-1.0); Red Cell Distribution Width 13.5 % (11.5-17.5); White Blood Count 9.2 K/mm3 (4.8-10.8)
[2020-06-06 07:56] LABS: Anion Gap 10.8 mEq/L (5-15); Blood Urea Nitrogen 15 mg/dl (9-20); Calcium 8.5 mg/dl (8.4-10.2); Carbon Dioxide 27 mmol/L (22.0-30.0); Chloride 99 mmol/L (98-107); Creatinine Clearance Estimated 85 mL/min (50-200); Estimated Glomerular Filt Rate 72 ml/min (>60); GFR (African American) 88 ML/MIN (>60); Glucose 104 mg/dl (74-100); Potassium 3.8 mmoL/L (3.5-5.1); Sodium 133 mmol/L (136-145)
[2020-06-06 08:00] VITALS: BP 125/67; PULSE 74; RESP 16; TEMP 37.7; O2SAT 91
[2020-06-06 08:00] LABS: Basophils % 0.3 % (0.1-2.0); Eosinophils % 0.3 % (0.1-12.0); Hematocrit 43.1 % (42.0-52.0); Mean Corpuscular HGB Conc 31.4 g/dL (31.8-35.4); Mean Corpuscular Hemoglobin 28.8 pg (27.0-31.2); Mean Corpuscular Volume 91.6 fl (80-94); Mean Platelet Volume 9.5 fl (7.4-10.4); Neutrophils % 75.4 % (37.0-80.0); Platelet Count 190 K/mm3 (142-424); Red Blood Count 4.71 M/mm3 (4.60-6.20)
[2020-06-06 08:06] LABS: Hemoglobin 13.6 g/dL (14.1-18.0)
--- NOTE | 2020-06-06 08:19 | HMH.HPDC ---
General - General Admission date:: 06/05/20 Discharge date: 06/06/20 *Admission Date: 06/06/20 *Chief complaint: Weakness diarrhea, falls *History of present illness: 75-year-old white male with well-controlled diabetes, hyperlipidemia and nonobstructive coronary disease who presented to my office 3 days ago with weakness, chills, low-grade fever, suspicious for coronavirus 19 infection but was evaluated with negative PCR test, normal lab work except for mild leukocytosis and normal electrolytes. I prescribed azithromycin and dexamethasone because of his cough and symptomatology, but he has not picked this up yet. Over the past couple of days has become weaker and had some diarrhea, had a couple of falls at home, did not strike his head or become unconscious but his was unable to get him up out of the floor and she called my office and I recommended coming to the emergency department. In the ER he was found to be feeling a little better but was extremely weak and his was very concerned about safety at home and he was admitted overnight for further observation. [facility] History I have reviewed the patient's past medical history: Yes Medical History: Reports:: Coronary Artery Disease, Diabetes Mellitus Type 2, Hyperlipidemia, Hypertension Denies:: Cancer, MRSA *Have you ever received a pneumonia vaccine?: Yes *Have you received a flu vaccine this season?: Yes Other Medical History: Reports: Arthritis, Cataracts Laterality Cases: Right: Other, Bilateral: Cataract Other Surgeries: Yes: Cardiac Catheterization, Cholecystectomy Amputation: No Fractures: No ((R) thumb, nose) - *Social History Last grade of school completed: Some college Smoking Status: Former smoker Tobacco Type: cigarettes # Packs/Day (cigarettes): 4 Alcohol Intake: current Alcohol Intake Frequency:: holidays/special occasions only *Occupational Status:: retired Housing: house Household Members: spouse *Travel in the last 8 weeks: None Family Hx:: Cancer, Diabetes, Heart Attack, Hyperlipidemia, Hypertension, Stroke, Thyroid Disorder Review of Systems - Review of Systems Review of systems:: pertinent systems reviewed and negative unless documented below Detailed 10 point review of systems performed. Negative except as indicated in HPI. - *Neurologic Reports weakness, Denies localized weakness, Denies headache(s), Denies numbness Exam Vital signs and Labs for Last 24 Hours: Temp Pulse Resp BP Pulse Ox 97.9 F 79 17 134/67 94 L 06/06/20 04:00 06/06/20 04:00 06/06/20 04:00 06/06/20 04:00 06/06/20 04:00 Laboratory Results - last 24 hr 06/05/20 14:10: WBC 12.7 H, RBC 5.08, Hgb 15.1, Hct 45.5, MCV 89.5, MCH 29.8, MCHC 33.2, RDW 13.7, Plt Count 200, MPV 8.7, Neut % (Auto) 82.0 H, Lymph % (Auto) 10.9, [place] % (Auto) 6.4, Eos % (Auto) 0.5, Baso % (Auto) 0.1, Neut # (Auto) 10.4 H, Lymph # (Auto) 1.4, [place] # (Auto) 0.8, Eos # (Auto) 0.1, Baso # (Auto) 0.0 06/05/20 14:10: Sodium 131 L, Potassium 3.9, Chloride 98, Carbon Dioxide 24, Anion Gap 12.9, BUN 21 H D, Creatinine 1.20, Estimated Creat Clear 71, Estimated GFR 59, Est GFR ( Amer) 71 D, Glucose 154 H, Calcium 9.3, Total Bilirubin 1.5 H, AST 55, ALT 42, Alkaline Phosphatase 76, Troponin I < 0.01, Total Protein 7.8, Albumin 4.1, Globulin 3.7 H, Albumin/Globulin Ratio 1.1 06/05/20 14:10: Lactate 1.6 06/05/20 14:10: SARS-CoV-2 IgG Ab (Rapid) Negative, SARS-CoV-2 IgM Ab (Rapid) Negative 06/05/20 15:55: Urine Color Dk yellow, Urine Appearance Clear, Urine pH 6.5, Ur Specific [place] >= 1.030, Urine Protein 2+, Urine Glucose (UA) Negative, Urine Ketones Trace, Urine Blood 3+, Urine Nitrate Negative, Urine Bilirubin Negative, Urine Urobilinogen 0.2, Ur Leukocyte Esterase Negative, Urine WBC 3-5, Urine Bacteria Trace 06/05/20 17:40: Troponin I < 0.01 06/05/20 20:55: Troponin I < 0.01 06/06/20 07:08: WBC 9.2 D, RBC 4.71, Hgb 13.6 L, Hct 43.1, MCV 91.6, MCH 28.8, MCHC 31.4 L, RDW 13.5, Plt Count 190, MPV
--- NOTE | 2020-06-06 11:08 | PC.NURSE ---
Instructed pt to start meds ordered as directed today, to p/u at clinic pharmacy.
== END 2020-06-06 10:40 | disposition home or self-care (01) ==
LOC: ER 17:29 → 2ND 21:16
PROVIDERS: Admitting Provider Emergency Medicine; Emergency Provider Emergency Medicine; PCP Internal Medicine Adolescent Medicine; Visit Provider Internal Medicine Adolescent Medicine
DX: J18.9 Pneumonia, unspecified organism (principal); E86.0 Dehydration; I25.10 Atherosclerotic heart disease of native coronary artery without angina pectoris; I10 Essential (primary) hypertension; E78.5 Hyperlipidemia, unspecified; E87.1 Hypo-osmolality and hyponatremia; Z79.82 Long term (current) use of aspirin; Z87.891 Personal history of nicotine dependence; E11.9 Type 2 diabetes mellitus without complications; Z79.899 Other long term (current) drug therapy; R55 Syncope and collapse; Z91.81 History of falling; R29.6 Repeated falls
CPT/HCPCS: 36415; 70450; 71045; 72125; 80048; 80053; 81001; 83605; 84484; 85025; 86328; 87040; 93005; 96365; 96375; 99284; G0378; J0456; J2405

== ENCOUNTER 2020-09-02 10:39 | Emergency (ER) | payer MEDICARE, OTHER, SELFPAY ==
[2020-09-02 10:45] VITALS: BP 117/59; PULSE 66; RESP 16; TEMP 36.6; O2SAT 97; BMI 27.8
[2020-09-02 11:28] VITALS: BP 117/59; PULSE 66; RESP 16; TEMP 36.6; O2SAT 97; BMI 30.1
--- NOTE | 2020-09-02 11:44 | HMH.EDUTC ---
[facility] [place] Disposition Clinical Impression: Diarrhea Qualifiers: Diarrhea type: unspecified type Qualified Code(s): R19.7 - Diarrhea, unspecified Disposition: Home, Self-Care Condition on Discharge: Good Instructions: Diarrhea Additional Instructions: Drink plenty of fluids. Water or a sports drink like gatorade would be best. We will call you about the results of your stool sample when it is done in 2 hours or so. Take tylenol or ibuprofen for pain or fever. Take the medications as directed. Follow up with your regular doctor. GO TO THE ER FOR ANY WORSENING SYMPTOMS Referrals: Rakesh Jones MD [Primary Care Provider] - Time of Disposition: 11:56 Medical Decision Making - Medical Records Medical records reviewed: No: I reviewed the patient's medical records. - Colt Inquiry Pt receiving controlled substance: No Vital Signs: 09/02/20 10:45 09/02/20 11:28 09/02/20 11:58 Temperature 97.8 F 97.8 F 98.1 F Temperature Source Oral Oral Oral Pulse Rate 82 Pulse Rate [Right] 66 66 Respiratory Rate 16 16 16 Blood Pressure 117/79 Blood Pressure [Right Arm] 117/59 L 117/59 L Blood Pressure Mean [Right Arm] 78 78 02 Sat by Pulse Oximetry 97 97 Oxygen Delivery Method Room Air Room Air Room Air - Lab Data Lab Results 09/02/20 11:30: Stl Aeromonas (PCR) Not detected, Stl C. cayetanensis PCR Not detected, Stool Rotavirus (PCR) Not detected, Stl Adenov F 40/41 PCR Not detected, Stool Astrovirus (PCR) Not detected, Stool Campylobacter PCR Not detected, Stl C.difficile Tox PCR Not detected, Stool Cryptosporidium PCR Not detected, Stl E.coli Shiga Tox PCR Not detected, Stool E coli O157 PCR Not detected, Stl Enterotoxigenic E PCR Not detected, Stool EPEC (PCR) Not detected, Stool EAEC (PCR) Not detected, Stl E. histolytica PCR Not detected, Stool Giardia Lamblia PCR Not detected, Stool Salmonella PCR Not detected, Stool Sapovirus (PCR) Not detected, Stl P. shigelloides PCR Not detected, Stl Shigella/EIEC PCR Not detected, St Y.enterocolitica PCR Not detected, Stool Vibrio (PCR) Not detected, Stl Vibrio cholerae PCR Not detected, Stl Norovirus GI/GII PCR Detected A Medical Decision Narrative: He refused an iv and iv fluids. He states that he is able to drink fluids and not vomit them back up, so he would rather just get his fluids by drinking them. [facility] [place] HPI - General Stated complaint: diarrhea Time Seen by Provider: 09/02/20 11:44 Mode of Arrival: Ambulatory Source of Information: Patient Limitations: No Limitations Description of Symptoms (Recalled from Triage Doc. by RN): Diarrhea HEENT Symptoms (Recalled from RN notes): No Resp Symptoms (Recalled from RN notes): No Skin Symptoms (Recalled from RN notes): No MS Symptoms (Recalled from RN notes): No Functional Status (Recalled from RN notes): na - History of Present Illness Provider Complaint: He states that for the past 2 days he has had frequent diarrhea stools. He denies any abdominal pain. He denies any fever/chills and any other complaints. He has not been on antibiotics recently. He denies any history of c.diff. - Related Data Home Medications Medication Instructions Recorded Confirmed aspirin 81 mg tablet,delayed 81 mg PO HS 07/27/17 06/05/20 release Bisoprolol Fumarate [Bisoprolol 5 mg PO DAILY 06/26/19 06/05/20 5mg Tablet] Pravastatin Sodium 80 mg PO HS 06/26/19 06/06/20 terbinafine HCl 250 mg tablet 250 mg PO DAILY tab 02/13/20 06/05/20 Escitalopram Oxalate 10 mg PO DAILY 06/06/20 06/06/20 Isosorbide Mononitrate [Imdur 60mg 60 mg PO DAILY 06/06/20 06/06/20 ER tablet] lisinopriL [Lisinopril 10mg Tab] 10 mg PO DAILY 06/06/20 06/06/20 Allergies Allergy/AdvReac Type Severity Reaction Status Date / Time No Known Allergies Allergy Verified 02/13/20 13:53 - Worker's Comp Is this a Worker's Comp case?: No [facility] History - Hepatitis A Screen Drug use history?: No High risk sexual behaviors?: No Hist
[2020-09-02 11:51] LABS: Adenovirus F 40/41, stool Not Detected (NotDetected); Astrovirus Not Detected (NotDetected); Campylobacter Not Detected (NotDetected); Clostridium Difficile A/B, PCR Not Detected (NotDetected); Cryptosporidium Not Detected (NotDetected); Cyclospora Cayetanesis Not Detected (NotDetected); Entamoeba histolytica Not Detected (NotDetected); Enteroaggregative E coli Not Detected (NotDetected); Enteropathogenic E coli Not Detected (NotDetected); Enterotoxigenic E coli Not Detected (NotDetected); Giardia lamblia Not Detected (NotDetected); Plesimonas Shigalloides, PCR Not Detected (NotDetected); Rotavirus A Not Detected (NotDetected); Salmonella, PCR Not Detected (NotDetected); Sapovirus Not Detected (NotDetected); Shiga-like toxin E coli Not Detected (NotDetected); Shigella Enterovasive E coli Not Detected (NotDetected); Vibrio Cholerae Not Detected (NotDetected); Vibrio, PCR Not Detected (NotDetected); Yersinia Entercolitica, PCR Not Detected (NotDetected)
[2020-09-02 11:58] VITALS: BP 117/79; PULSE 82; RESP 16; TEMP 36.7; O2SAT 99
[2020-09-02 13:50] LABS: Norovirus Detected (NotDetected)
--- NOTE | 2020-09-02 15:06 | PC.NURSE ---
PATIENT NOTIFIED OF POSITIVE NOROVIRUS FROM DIARRHEA PANEL
== END 2020-09-02 12:00 | disposition home or self-care (01) ==
LOC: ER 10:46 → UTC 10:47
PROVIDERS: Emergency Provider Nurse Practitioner Family; PCP Internal Medicine Adolescent Medicine
DX: A08.11 Acute gastroenteropathy due to Norwalk agent (principal); E78.5 Hyperlipidemia, unspecified; I10 Essential (primary) hypertension; Z87.891 Personal history of nicotine dependence; E11.9 Type 2 diabetes mellitus without complications; Z79.899 Other long term (current) drug therapy
CPT/HCPCS: 87507; 99202; G0463

== ENCOUNTER 2020-09-03 09:30 | Emergency (ER) | payer MEDICARE, OTHER, SELFPAY ==
[2020-09-03 09:32] VITALS: BP 125/70; PULSE 68; RESP 18; TEMP 36.8; O2SAT 98; BMI 29.0
--- NOTE | 2020-09-03 09:37 | HMH.EDGENADL ---
ED Disposition Clinical Impression: Enteritis, Viral illness, Hypokalemia Disposition: Home, Self-Care Condition on Discharge: Good Referrals: Rakesh Jones MD [Primary Care Provider] - 3 days Time of Disposition: 10:58 - Critical Care Critical Care Time: No Attestation: On 09/03/20, the high probability of a clinically significant, sudden or life threatening deterioration of the following system(s) required my full and direct attention, intervention and personal management. The time I documented below is in addition to time spent performing reported procedures but includes the following listed in this critical care notation. Medical Decision Making - Medical Records Medical records reviewed: Yes: I reviewed the patient's medical records. - Colt Inquiry Pt receiving controlled substance: No Vital Signs: 09/03/20 09:32 Temperature 98.2 F Temperature Source Oral Pulse Rate [Right] 68 Respiratory Rate 18 Blood Pressure [Right Arm] 125/70 Blood Pressure Mean [Right Arm] 88 02 Sat by Pulse Oximetry 98 - Lab Data Lab results reviewed: Yes: I reviewed the patient's lab results. Lab Results 09/03/20 10:08: WBC 10.5, RBC 5.44, Hgb 15.3, Hct 46.8, MCV 86.1, MCH 28.1, MCHC 32.7, RDW 14.2, Plt Count 211, MPV 8.5, Neut % (Auto) 65.6, Lymph % (Auto) 25.4, [place] % (Auto) 7.8, Eos % (Auto) 0.9, Baso % (Auto) 0.3, Neut # (Auto) 6.9, Lymph # (Auto) 2.7, [place] # (Auto) 0.8, Eos # (Auto) 0.1, Baso # (Auto) 0.0 09/03/20 10:08: Troponin I < 0.01, NT-Pro-B Natriuret Pep 136 09/03/20 10:08: Sodium 136, Potassium 3.3 L, Chloride 106, Carbon Dioxide 23, Anion Gap 10.3, BUN 16, Creatinine 1.00, Estimated Creat Clear 83, Estimated GFR 72, Est GFR ( Amer) 88, Glucose 125 H, Calcium 8.9 Result diagrams: 09/03/20 10:08 09/03/20 10:08 Orders (Tests/Meds): ED MEDICATIONS Discontinued Medications Generic Name Dose Route Start Last Admin Trade Name Noelle PRN Reason Stop Dose Admin Sodium Chloride 500 mls @ 999 mls/hr 09/03/20 10:15 09/03/20 10:33 Sod Chlor 0.9% 1000ml Bag IV 09/03/20 10:45 999 mls/hr .Q31M CARLOS ALBERTO Administration Potassium Chloride 40 meq 09/03/20 10:41 Potassium Chloride 20meq Tab PO 09/03/20 10:42 ONCE ONE ORDERS Category Date Time Status Urinalysis and Microscopic Stat Lab 09/03/20 09:39 Ordered Medical Decision Narrative: 75yo M evaluated for diarrheal illness and concern for dehydration. Patient in no acute distress on initial evaluation. He reports he is tolerating p.o. intake, however he just has diarrhea immediately thereafter. Denies any fever pain. Patient's exam is benign. Routine labs have been collected. Patient is receiving 500 mL of normal saline at this time. Patient has potassium of 3.3. Will be treated with p.o. repletion. Remainder of patient labs are unremarkable. Patient is appropriate and stable for discharge home. General Adult HPI - General Stated complaint: possible dehydration, weakness Time Seen by Provider: 09/03/20 09:37 Mode of Arrival: Ambulatory - History of Present Illness HPI narrative: 75yo M presents to the emergency department secondary to diarrhea and dehydration. Patient was seen yesterday in the [facility] and told he had a GI viral illness. Patient states his diarrhea has been somewhat slowed down. His appetite is mildly decreased. He denies any fever. Denies any abdominal pain. Reports he still has urinary output. He complains today of bilateral thigh cramps that began this morning. He reports drinking Gatorade. - Related Data Home Medications Medication Instructions Recorded Confirmed aspirin 81 mg tablet,delayed 81 mg PO HS 07/27/17 06/05/20 release Bisoprolol Fumarate [Bisoprolol 5 mg PO DAILY 06/26/19 06/05/20 5mg Tablet] Pravastatin Sodium 80 mg PO HS 06/26/19 06/06/20 terbinafine HCl 250 mg tablet 250 mg PO DAILY tab 02/13/20 06/05/20 Escitalopram Oxalate 10 mg PO DAILY 06/06/20 06/06/20 [place]
[2020-09-03 10:22] LABS: Basophils % 0.3 % (0.1-2.0); Eosinophils # 0.1 K/mm3 (0.0-0.4); Eosinophils % 0.9 % (0.1-12.0); Hematocrit 46.8 % (42.0-52.0); Hemoglobin 15.3 g/dL (14.1-18.0); Lymphocytes # 2.7 K/mm3 (0.7-4.5); Lymphocytes % 25.4 % (10-50); Mean Corpuscular HGB Conc 32.7 g/dL (31.8-35.4); Mean Corpuscular Hemoglobin 28.1 pg (27.0-31.2); Mean Corpuscular Volume 86.1 fl (80-94); Mean Platelet Volume 8.5 fl (7.4-10.4); Monocytes # 0.8 K/mm3 (0.1-1.0); Monocytes % 7.8 % (1.7-9.3); Neutrophils # 6.9 K/mm3 (1.8-7.8); Neutrophils % 65.6 % (37.0-80.0); Platelet Count 211 K/mm3 (142-424); Red Blood Count 5.44 M/mm3 (4.60-6.20); Red Cell Distribution Width 14.2 % (11.5-17.5); White Blood Count 10.5 K/mm3 (4.8-10.8)
[2020-09-03 10:27] LABS: Chloride 106 mmol/L (98-107); Sodium 136 mmol/L (136-145)
[2020-09-03 10:28] LABS: Potassium 3.3 mmoL/L (3.5-5.1)
[2020-09-03 10:30] LABS: Blood Urea Nitrogen 16 mg/dl (9-20); Creatinine Clearance Estimated 83 mL/min (50-200); Estimated Glomerular Filt Rate 72 ml/min (>60); GFR (African American) 88 ML/MIN (>60)
[2020-09-03 10:31] LABS: Anion Gap 10.3 mEq/L (5-15); Calcium 8.9 mg/dl (8.4-10.2); Carbon Dioxide 23 mmol/L (22.0-30.0); Glucose 125 mg/dl (74-100)
[2020-09-03 10:45] LABS: NT Pro Brain Natriuretic Pep. 136 pg/mL (0-450)
[2020-09-03 10:49] LABS: Troponin I < 0.01 ng/ml (0.00-0.034)
[2020-09-03 11:04] LABS: Microscopic, Urine URINE MICROSCOPIC (MICROSCOPIC)
[2020-09-03 11:14] LABS: Appearance,Urine CLEAR (Clear); Bilirubin,Urine Negative (Negative); Blood, Urine 1+ (Negative); Color,Urine YELLOW (Yellow); Glucose,Urine (UA) Negative (Negative); Ketones,Urine Negative (Negative); Leukocyte Esterase,Urine Negative (Negative); Nitrate,Urine Negative (Negative); Protein,Urine TRACE (Negative); Specific Gravity, Urine 1.025 (1.005-1.030); Urobilinogen,Urine 0.2 EU/dl (0.2)
[2020-09-03 12:01] VITALS: BP 122/75; PULSE 87; RESP 15; TEMP 36.6; O2SAT 98
== END 2020-09-03 12:00 | disposition home or self-care (01) ==
PROVIDERS: Emergency Provider Family Medicine; PCP Internal Medicine Adolescent Medicine
DX: K52.9 Noninfective gastroenteritis and colitis, unspecified (principal); E86.0 Dehydration; I10 Essential (primary) hypertension; E78.5 Hyperlipidemia, unspecified; E87.6 Hypokalemia; Z87.891 Personal history of nicotine dependence
CPT/HCPCS: 80048; 81001; 83880; 84484; 85025; 99281

== ENCOUNTER 2020-10-20 12:02 | Observation (INO) | payer MEDICARE, OTHER, SELFPAY ==
[2020-10-20] VITALS (18 sets, daily range): BP systolic 91–142; BP diastolic 41–71; PULSE 59–72; RESP 16–18; TEMP 36.9–37.8; O2SAT 94–98; BMI 34.3; BMI 27.1
[2020-10-20 12:23] LABS: Basophils % 0.2 % (0.1-2.0); Eosinophils % 0.2 % (0.1-12.0); Hematocrit 50.1 % (42.0-52.0); Hemoglobin 16.4 g/dL (14.1-18.0); Lymphocytes # 1.7 K/mm3 (0.7-4.5); Lymphocytes % 11.1 % (10-50); Mean Corpuscular HGB Conc 32.8 g/dL (31.8-35.4); Mean Corpuscular Hemoglobin 28.3 pg (27.0-31.2); Mean Corpuscular Volume 86.4 fl (80-94); Mean Platelet Volume 9.2 fl (7.4-10.4); Monocytes # 0.8 K/mm3 (0.1-1.0); Monocytes % 5.2 % (1.7-9.3); Neutrophils # 12.9 K/mm3 (1.8-7.8); Neutrophils % 83.3 % (37.0-80.0); Platelet Count 234 K/mm3 (142-424); Red Cell Distribution Width 13.4 % (11.5-17.5); White Blood Count 15.4 K/mm3 (4.8-10.8)
--- NOTE | 2020-10-20 12:31 | HMH.EDGENADL ---
ED Disposition Clinical Impression: Near syncope, Productive cough, H/O oral surgery Hypotension Qualifiers: Hypotension type: unspecified hypotension type Qualified Code(s): I95.9 - Hypotension, unspecified Fever Qualifiers: Fever type: unspecified Qualified Code(s): R50.9 - Fever, unspecified Disposition: Admitted as Observation Condition on Discharge: Fair Referrals: Rakesh Jones MD [Primary Care Provider] - - Critical Care Critical Care Time: Yes Attestation: On 10/20/20, the high probability of a clinically significant, sudden or life threatening deterioration of the following system(s) required my full and direct attention, intervention and personal management. The time I documented below is in addition to time spent performing reported procedures but includes the following listed in this critical care notation. Total Critical Care Time: 30 Vital system(s) involved:: Circulatory Failure My critical care processes included: Assessment & monitoring of V/S, Initial and Re-exams, Data Review/Interpretation, Coordinating Care, Medication Orders and management, Documentation Medical Decision Making - Colt Inquiry Pt receiving controlled substance: No Vital Signs: 10/20/20 12:05 10/20/20 12:08 10/20/20 12:27 Temperature 98.4 F Temperature Source Oral Pulse Rate 71 67 Pulse Rate [Right] 72 Respiratory Rate 16 Blood Pressure 96/50 L 91/46 L Blood Pressure [Right Arm] 96/50 L Blood Pressure Mean 61 Blood Pressure Mean [Right Arm] 65 02 Sat by Pulse Oximetry 95 98 95 Oxygen Delivery Method Room Air 10/20/20 12:30 10/20/20 12:46 10/20/20 14:04 Temperature 98.5 F Temperature Source Oral Pulse Rate 69 66 72 Pulse Rate [Right] Respiratory Rate 16 Blood Pressure 93/49 L 91/41 L 101/71 L Blood Pressure [Right Arm] Blood Pressure Mean Blood Pressure Mean [Right Arm] 02 Sat by Pulse Oximetry 94 L 94 L 96 Oxygen Delivery Method Room Air - Lab Data Lab Results 10/20/20 11:38: WBC 15.4 H, RBC 5.80, Hgb 16.4, Hct 50.1, MCV 86.4, MCH 28.3, MCHC 32.8, RDW 13.4, Plt Count 234, MPV 9.2, Neut % (Auto) 83.3 H, Lymph % (Auto) 11.1, [place] % (Auto) 5.2, Eos % (Auto) 0.2, Baso % (Auto) 0.2, Neut # (Auto) 12.9 H, Lymph # (Auto) 1.7, [place] # (Auto) 0.8, Eos # (Auto) 0.0, Baso # (Auto) 0.0, Total Counted 100, Neutrophils % (Manual) 78 H, Band Neutrophils % 2.0, Lymphocytes % (Manual) 16, Monocytes % (Manual) 4, Platelet Estimate Normal, RBC Morphology Normal 10/20/20 11:38: Sodium 137, Potassium 4.5, Chloride 99, Carbon Dioxide 28, Anion Gap 14.5, BUN 16, Creatinine 1.10, Estimated Creat Clear 72, Estimated GFR 65, Est GFR ( Amer) 79, Glucose 138 H, Calcium 9.3, Total Bilirubin 1.7 H, AST 30, ALT 21, Alkaline Phosphatase 69, Total Protein 8.0, Albumin 4.8, Globulin 3.2, Albumin/Globulin Ratio 1.5 10/20/20 11:38: Procalcitonin 0.267 10/20/20 12:27: Lactate 1.2 10/20/20 13:40: Urine Color Yellow, Urine Appearance Clear, Urine pH 5.5, Ur Specific [place] 1.025, Urine Protein Trace, Urine Glucose (UA) Negative, Urine Ketones Trace, Urine Blood 1+, Urine Nitrate Negative, Urine Bilirubin 1+ A, Urine Urobilinogen 0.2, Ur Leukocyte Esterase Negative, Urine RBC Occasional, Urine WBC Occasional, Ur Squamous Epith Cells None, Urine Bacteria None Result diagrams: 10/20/20 11:38 10/20/20 11:38 Orders (Tests/Meds): ED MEDICATIONS Generic Name Dose Route Start Last Admin Trade Name Freq PRN Reason Stop Dose Admin Ceftriaxone Sodium 1 gm/ 50 mls @ 100 mls/hr 10/20/20 13:30 10/20/20 13:45 Sodium Chloride IV 11/03/20 13:29 100 mls/hr Q24H CARLOS ALBERTO Administration Protocol Azithromycin 500 mg/ Sodium 250 mls @ 250 mls/hr 10/20/20 13:30 10/20/20 13:44 Chloride IV 11/03/20 13:29 250 mls/hr Q24H CARLOS ALBERTO Administration Protocol Sodium Chloride 3 ml 10/20/20 12:40 Sodium Chloride 3% 15ml Neb 11/19/20 12:39 ONCE PRN INDUCE SPUTUM COLLECTION Disc
[2020-10-20 12:39] LABS: Chloride 99 mmol/L (98-107); Potassium 4.5 mmoL/L (3.5-5.1); Sodium 137 mmol/L (136-145)
[2020-10-20 12:40] LABS: MANUAL DIFFERENTIAL MANUAL DIFFERENTIAL (MANUAL DIFF)
--- NOTE | 2020-10-20 12:40 | XR_ITS ---
PROCEDURE INFORMATION: Exam: XR Chest Exam date and time: 10/20/2020 12:40 PM Age: 75 years old Clinical indication: Cough TECHNIQUE: Imaging protocol: XR of the chest. Views: 1 view. COMPARISON: CR XR CHEST AP 06/05/2020 2:53 PM FINDINGS: Lungs: No consolidation. Pleural spaces: No pleural effusion. No pneumothorax. Heart/Mediastinum: No cardiomegaly. Bones/joints: There are degenerative changes the spine. IMPRESSION: 1. There is no evidence of active pulmonary disease. 2. A followup PA and lateral radiograph is recommended when the patient is clinically able.
[2020-10-20 12:42] LABS: Alanine Aminotransferase 21 U/L (12-78); Albumin Level 4.8 g/dl (3.5-5.0); Albumin/Globulin Ratio 1.5 (1.1-1.8); Alkaline Phosphatase 69 U/L (38-126); Anion Gap 14.5 mEq/L (5-15); Aspartate Amino Transferase 30 U/L (17-59); Bilirubin,Total 1.7 mg/dl (0.2-1.3); Blood Urea Nitrogen 16 mg/dl (9-20); Calcium 9.3 mg/dl (8.4-10.2); Carbon Dioxide 28 mmol/L (22.0-30.0); Creatinine Clearance Estimated 72 mL/min (50-200); Estimated Glomerular Filt Rate 65 ml/min (>60); GFR (African American) 79 ML/MIN (>60); Globulin 3.2 g/dL (1.3-3.2); Glucose 138 mg/dl (74-100)
[2020-10-20 12:51] LABS: Lymphocytes % 16 % (10-50); Monocytes % 4 % (2-9); Neutrophils % 78 % (42-76); Platelet Estimate Normal; RBC Morphology Normal; Total Cells Counted 100
[2020-10-20 12:53] LABS: Lactic Acid 1.2 mmol/L (0.7-2.1)
[2020-10-20 12:58] LABS: Procalcitonin 0.267 ng/mL (0.0-2.0)
[2020-10-20 13:45] LABS: Microscopic, Urine URINE MICROSCOPIC (MICROSCOPIC)
[2020-10-20 13:49] LABS: Appearance,Urine CLEAR (Clear); Blood, Urine 1+ (Negative); Color,Urine YELLOW (Yellow); Glucose,Urine (UA) Negative (Negative); Ketones,Urine TRACE (Negative); Leukocyte Esterase,Urine Negative (Negative); Nitrate,Urine Negative (Negative); PH,Urine 5.5 (5.0-8.5); Protein,Urine TRACE (Negative); Specific Gravity, Urine 1.025 (1.005-1.030); Urobilinogen,Urine 0.2 EU/dl (0.2)
[2020-10-20 13:55] LABS: Bilirubin,Urine 1+ (Negative)
[2020-10-20 14:01] LABS: RBC,Urine Occasional #/hpf (0-3); WBC,Urine Occasional #/hpf (0-3)
--- NOTE | 2020-10-20 14:20 | PC.NURSE ---
called for a bed to superintendent house
--- NOTE | 2020-10-20 15:20 | PC.NURSE ---
LAB STATED THE PATIENT'S COVID SWAB WILL BE 57 MINUTES
--- NOTE | 2020-10-20 16:03 | PC.NURSE ---
REPORT CALLED TO HOMERO BETANCOURT AT THIS TIME
--- NOTE | 2020-10-20 16:25 | PC.NURSE ---
Pt arrived to the floor at this time.
--- NOTE | 2020-10-21 03:20 | PC.NURSE ---
shift summary pt is alert and oriented X4. pts lung sounds are clear with sats maintained 95% or above on room air. pt has been cooperative with treatment. pt has slept for most of the shift. pt denies any pain, nausea, vomiting, or diarrhea.
[2020-10-21 04:00] VITALS: BP 125/62; PULSE 71; RESP 16; TEMP 36.9; O2SAT 94
[2020-10-21 04:53] VITALS: BMI 27.6
[2020-10-21 07:44] LABS: Basophils % 0.4 % (0.1-2.0); Eosinophils # 0.2 K/mm3 (0.0-0.4); Eosinophils % 1.5 % (0.1-12.0); Lymphocytes # 2.9 K/mm3 (0.7-4.5); Lymphocytes % 24.5 % (10-50); Mean Corpuscular HGB Conc 32.7 g/dL (31.8-35.4); Mean Corpuscular Hemoglobin 28.2 pg (27.0-31.2); Mean Corpuscular Volume 86.3 fl (80-94); Mean Platelet Volume 8.8 fl (7.4-10.4); Monocytes # 0.6 K/mm3 (0.1-1.0); Monocytes % 4.7 % (1.7-9.3); Neutrophils # 8.2 K/mm3 (1.8-7.8); Neutrophils % 68.9 % (37.0-80.0); Platelet Count 173 K/mm3 (142-424); Red Blood Count 4.75 M/mm3 (4.60-6.20); Red Cell Distribution Width 13.4 % (11.5-17.5); White Blood Count 11.9 K/mm3 (4.8-10.8)
[2020-10-21 07:59] VITALS: BP 125/66; PULSE 73; RESP 15; TEMP 37.6; O2SAT 93
[2020-10-21 08:00] VITALS: O2SAT 93
[2020-10-21 08:12] LABS: Hemoglobin 13.4 g/dL (14.1-18.0)
--- NOTE | 2020-10-21 08:54 | P.CONPHA_ITS ---
[facility] Pharm[facility] VTE Monitoring - Patient Demographics Admission date: 10/21/20 Report Date: 10/21/20 Time: 08:54 Allergies/Adverse Reactions: Patient Allergies No Known Allergies Allergy (Verified 10/20/20 17:04) Height: 1.8 m Weight: 89.443 kg Patient Problems: Current Active Problems Hypotension (Acute) Near syncope (Acute) Fever (Acute) Productive cough (Acute) H/O oral surgery (Acute) - VTE Risk Labs: VTE Related Lab Results Hgb 13.4 g/dL (14.1-18.0) L D 10/21/20 07:19 Hct 41.0 % (42.0-52.0) L 10/21/20 07:19 Plt Count 173 K/mm3 (142-424) D 10/21/20 07:19 BUN 16 mg/dl (9-20) 10/20/20 11:38 Creatinine 1.10 mg/dl (0.66-1.25) 10/20/20 11:38 Estimated Creat Clear 72 mL/min (50-200) 10/20/20 11:38 Was VTE Risk Assessment Performed: Yes VTE Score: 2 VTE Risk Level: Very Low Risk - Prophylaxis Types of VTE Prophylaxis: TEDS Knee High Location of Applied Device: Bilateral Lower Extremeties (JENNIE HOSE ORDERED)
--- NOTE | 2020-10-21 13:25 | HMH.HPDC ---
General - General Admission date:: 10/20/20 Discharge date: 10/21/20 *Admission Date: 10/21/20 *Chief complaint: Fatigue, fever *History of present illness: 75-year-old gentleman who had oral surgery on Thursday to remove remaining mandibular teeth. Had been doing well since surgery, seen by his oral surgeon multiple times. Unfortunately Thursday evening began to develop some fatigue, weakness, dizziness and low blood pressure. Subjective fevers at home. Denies nausea or vomiting but was not staying well-hydrated. Presented to the ER yesterday due to progressive fatigue and feverish symptoms. On arrival was found to have slight leukocytosis, normal blood pressure and vitals. Admitted for IV fluids and antibiotics. Observed overnight with improvement in symptoms. Blood pressure medications held, blood pressure normal on assessment this morning. at bedside. Overall patient states he feels better this morning. [facility] History I have reviewed the patient's past medical history: Yes Medical History: Reports:: Coronary Artery Disease, Diabetes Mellitus Type 2, Hyperlipidemia, Hypertension Denies:: Cancer, Diabetes Mellitus Type 1, MRSA *Have you ever received a pneumonia vaccine?: Yes *Have you received a flu vaccine this season?: Yes Other Medical History: Reports: Arthritis, Cataracts Laterality Cases: Right: Other Other Surgeries: Yes: Cardiac Catheterization, Cholecystectomy Amputation: No Fractures: Yes ((R) thumb, nose) - *Social History Last grade of school completed: Some college Smoking Status: Former smoker Tobacco Type: cigarettes # Packs/Day (cigarettes): 4 Alcohol Intake: never Alcohol Intake Frequency:: holidays/special occasions only *Occupational Status:: retired Housing: house Household Members: spouse *Travel in the last 8 weeks: None Family Hx:: Cancer, Diabetes, Heart Attack, Hyperlipidemia, Hypertension, Stroke, Thyroid Disorder Review of Systems - Review of Systems Review of systems:: pertinent systems reviewed and negative unless documented below (14 point review of systems performed, pertinent positives and negatives as per HPI) - *Neurologic Reports weakness Exam Vital signs and Labs for Last 24 Hours: Temp Pulse Resp BP Pulse Ox 99.7 F H 73 15 125/66 93 L 10/21/20 07:59 10/21/20 07:59 10/21/20 07:59 10/21/20 07:59 10/21/20 08:00 Laboratory Results - last 24 hr 10/20/20 13:40: Urine Color Yellow, Urine Appearance Clear, Urine pH 5.5, Ur Specific [place] 1.025, Urine Protein Trace, Urine Glucose (UA) Negative, Urine Ketones Trace, Urine Blood 1+, Urine Nitrate Negative, Urine Bilirubin 1+ A, Urine Urobilinogen 0.2, Ur Leukocyte Esterase Negative, Urine RBC Occasional, Urine WBC Occasional, Ur Squamous Epith Cells None, Urine Bacteria None 10/21/20 07:19: WBC 11.9 H, RBC 4.75, Hgb 13.4 L D, Hct 41.0 L, MCV 86.3, MCH 28.2, MCHC 32.7, RDW 13.4, Plt Count 173 D, MPV 8.8, Neut % (Auto) 68.9, Lymph % (Auto) 24.5, [place] % (Auto) 4.7, Eos % (Auto) 1.5, Baso % (Auto) 0.4, Neut # (Auto) 8.2 H, Lymph # (Auto) 2.9, [place] # (Auto) 0.6, Eos # (Auto) 0.2, Baso # (Auto) 0.0 I & O for Last 24 hours: Intake & Output 10/18/20 10/19/20 10/20/20 10/21/20 23:59 23:59 23:59 23:59 Intake Total 360 / 360 60 / 60 Balance 360 / 360 60 / 60 Weight 88.167 kg 89.443 kg Microbiology Reports for the Last 24 Hours: Microbiology 10/20/20 13:20 Sputum - Expectorated Sputum Gram Stain - Final 10/20/20 13:20 Sputum - Expectorated Sputum Sputum Culture - Preliminary 10/20/20 13:07 Nasopharyngeal Coronavirus COVID-19 PCR - Final - Constitutional no acute distress - *Routine HEENT Exam Head: Present: normocephalic Eye: Present: EOMI, PERRL ENT: Present: mucous membranes moist Comments: Edentulous, healing excision along gumline of mandible, no significant swelling or drainage. - *Routine Neck Exam Present: supple. Absent: lymphadenopathy - *Routine Respiratory Exam Pr
== END 2020-10-21 14:15 | disposition home or self-care (01) ==
LOC: ER 14:11 → 2ND 14:28
PROVIDERS: Admitting Provider Emergency Medicine; Emergency Provider Emergency Medicine; PCP Internal Medicine Adolescent Medicine; Visit Provider Internal Medicine Adolescent Medicine
DX: I95.9 Hypotension, unspecified (principal); B99.9 Unspecified infectious disease; R50.9 Fever, unspecified; I10 Essential (primary) hypertension; E78.5 Hyperlipidemia, unspecified; Z87.891 Personal history of nicotine dependence; I25.10 Atherosclerotic heart disease of native coronary artery without angina pectoris; E11.9 Type 2 diabetes mellitus without complications; M19.90 Unspecified osteoarthritis, unspecified site
CPT/HCPCS: 71045; 80053; 81001; 83605; 84145; 85007; 85025; 87040; 87070; 87205; 96365; 99284; G0378; J0456; U0003

== ENCOUNTER → 2021-04-15 16:53 | Outpatient (CLI) | payer MEDICARE, OTHER, SELFPAY ==
[2021-04-15 17:18] LABS: Basophils # 0.1 K/mm3 (0-0.2); Basophils % 0.7 % (0.1-2.0); Eosinophils # 0.2 K/mm3 (0.0-0.4); Hematocrit 46.4 % (42.0-52.0); Lymphocytes # 3.8 K/mm3 (0.7-4.5); Lymphocytes % 38.3 % (10-50); Mean Corpuscular HGB Conc 32.4 g/dL (31.8-35.4); Mean Corpuscular Hemoglobin 28.9 pg (27.0-31.2); Mean Corpuscular Volume 89.2 fl (80-94); Monocytes # 0.6 K/mm3 (0.1-1.0); Monocytes % 6.5 % (1.7-9.3); Neutrophils # 5.2 K/mm3 (1.8-7.8); Neutrophils % 52.5 % (37.0-80.0); Platelet Count 229 K/mm3 (142-424); Red Cell Distribution Width 13.6 % (11.5-17.5); White Blood Count 9.9 K/mm3 (4.8-10.8)
[2021-04-15 17:48] LABS: Erythrocyte Sedimentation Rate 16 mm/hr (0-20)
[2021-04-15 17:53] LABS: Alanine Aminotransferase 8 U/L (12-78); Albumin Level 4.2 g/dl (3.5-5.0); Albumin/Globulin Ratio 1.8 (1.1-1.8); Alkaline Phosphatase 57 U/L (38-126); Anion Gap 8.4 mEq/L (5-15); Aspartate Amino Transferase 24 U/L (17-59); Bilirubin,Total 0.8 mg/dl (0.2-1.3); Blood Urea Nitrogen 21 mg/dl (9-20); Calcium 9.2 mg/dl (8.4-10.2); Carbon Dioxide 32 mmol/L (22.0-30.0); Chloride 104 mmol/L (98-107); Estimated Glomerular Filt Rate 65 ml/min (>60); GFR (African American) 78 ML/MIN (>60); Globulin 2.4 g/dL (1.3-3.2); Glucose 105 mg/dl (74-100); Potassium 4.4 mmoL/L (3.5-5.1); Sodium 140 mmol/L (136-145); Total Protein,Serum 6.6 g/dl (6.3-8.2)
[2021-04-15 17:58] LABS: C-Reactive Protein 49.8 mg/L (0-4)
== END ==
PROVIDERS: Visit Provider Internal Medicine Adolescent Medicine
DX: I95.1 Orthostatic hypotension (principal)
CPT/HCPCS: 36415; 80053; 85025; 85651; 86140

== ENCOUNTER → 2021-05-23 10:16 | Outpatient (CLI) | payer MEDICARE, OTHER, SELFPAY ==
[2021-05-23 10:46] LABS: Basophils # 0.1 K/mm3 (0-0.2); Basophils % 1.4 % (0.1-2.0); Eosinophils # 0.2 K/mm3 (0.0-0.4); Eosinophils % 2.9 % (0.1-12.0); Hematocrit 48.7 % (42.0-52.0); Hemoglobin 15.8 g/dL (14.1-18.0); Lymphocytes # 2.8 K/mm3 (0.7-4.5); Lymphocytes % 36.5 % (10-50); Mean Corpuscular HGB Conc 32.4 g/dL (31.8-35.4); Mean Corpuscular Volume 89.3 fl (80-94); Mean Platelet Volume 9.5 fl (7.4-10.4); Monocytes # 0.5 K/mm3 (0.1-1.0); Monocytes % 6.8 % (1.7-9.3); Neutrophils % 52.3 % (37.0-80.0); Platelet Count 237 K/mm3 (142-424); Red Blood Count 5.46 M/mm3 (4.60-6.20); Red Cell Distribution Width 13.6 % (11.5-17.5); White Blood Count 7.7 K/mm3 (4.8-10.8)
[2021-05-23 11:21] LABS: Alanine Aminotransferase 19 U/L (12-78); Albumin Level 4.4 g/dl (3.5-5.0); Albumin/Globulin Ratio 1.8 (1.1-1.8); Alkaline Phosphatase 66 U/L (38-126); Anion Gap 12.5 mEq/L (5-15); Aspartate Amino Transferase 27 U/L (17-59); Bilirubin,Total 0.7 mg/dl (0.2-1.3); Blood Urea Nitrogen 20 mg/dl (9-20); Calcium 9.4 mg/dl (8.4-10.2); Carbon Dioxide 31 mmol/L (22.0-30.0); Chloride 102 mmol/L (98-107); Chol/HDL Ratio 3.1 (1-3.5); Cholesterol 175 mg/dl (140-200); Creatine Kinase 75 U/L (55-170); Estimated Glomerular Filt Rate 72 ml/min (>60); GFR (African American) 87 ML/MIN (>60); Globulin 2.4 g/dL (1.3-3.2); Glucose 95 mg/dl (74-100); HDL Cholesterol 56 mg/dl (40-60); Potassium 4.5 mmoL/L (3.5-5.1); Sodium 141 mmol/L (136-145); Total Protein,Serum 6.8 g/dl (6.3-8.2); Triglycerides 120 mg/dl (30-150); VLDL Cholesterol 24 mg/dL (0-40)
[2021-05-23 11:51] LABS: Prostate Specific Ag Screen 1.1 ng/ml (0.0-4.0)
[2021-05-23 11:57] LABS: Direct LDL Cholesterol 99.79 mg/dL (100-129)
[2021-05-23 13:12] LABS: Hemoglobin A1C 5.7 % (4.0-6.0)
== END ==
PROVIDERS: Visit Provider Internal Medicine Adolescent Medicine
DX: E11.9 Type 2 diabetes mellitus without complications (principal); E78.5 Hyperlipidemia, unspecified; N40.1 Benign prostatic hyperplasia with lower urinary tract symptoms; Z12.5 Encounter for screening for malignant neoplasm of prostate
CPT/HCPCS: 36415; 80053; 80061; 82550; 83036; 85025; G0103

== ENCOUNTER 2021-09-17 21:39 | Emergency (ER) | payer MEDICARE, OTHER, SELFPAY ==
[2021-09-17 21:40] VITALS: BP 183/93; PULSE 70; RESP 18; TEMP 36.8; O2SAT 98; BMI 27.8
[2021-09-17 21:49] VITALS: BMI 25.8
--- NOTE | 2021-09-17 21:51 | CT_ITS ---
PROCEDURE INFORMATION: Exam: CT Abdomen And Pelvis Without Contrast Exam date and time: 09/17/2021 9:58 PM Age: 76 years old Clinical indication: Abdominal pain; Flank; Right; Additional info: R flank pain, HX kidney stone TECHNIQUE: Imaging protocol: Computed tomography of the abdomen and pelvis without contrast. Radiation optimization: All CT scans at this facility use at least one of these dose optimization techniques: automated exposure control; mA and/or kV adjustment per patient size (includes targeted exams where dose is matched to clinical indication); or iterative reconstruction. COMPARISON: ABDPELW/O CT ABD PELVIS W/O CONTRAST 07/27/2016 8:04 PM FINDINGS: Heart: Coronary artery calcifications. Liver: Multiple hepatic calcifications. 6 mm hypoattenuating right inferior [place] lesion which is too small to characterize. Gallbladder and bile ducts: No calcified stones. No ductal dilation. Pancreas: Parenchymal enhancement is not evaluated without contrast. No ductal dilation. Spleen: There are multiple splenic calcifications likely on the basis of prior granulomatous exposure. Adrenal glands: No mass. Kidneys and ureters: Cystic renal lesions measuring up to 4.2 cm which are incompletely characterized but grossly stable. Punctate nonobstructing renal calcifications bilaterally. Mild right-sided hydronephrosis with 4 mm calcification along the posterior right paramedian bladder wall near the UVJ. Stomach and bowel: No obstruction. No mucosal thickening. Appendix: No evidence of appendicitis. Intraperitoneal space: No free air. No significant fluid collection. Arteries: Calcified atherosclerosis. No aneurysm. Lymph nodes: No enlarged lymph nodes. Urinary bladder: See above. Reproductive: No acute abnormality. Bones/joints: No acute fracture. Soft tissues: 3.4 cm fat containing left inguinal hernia. IMPRESSION: Mild right-sided hydronephrosis with 4 mm calcification along the posterior right paramedian bladder wall near the UVJ.
--- NOTE | 2021-09-17 21:59 | PC.NURSE ---
Pt gone to RAD
[2021-09-17 22:00] LABS: Microscopic, Urine URINE MICROSCOPIC (MICROSCOPIC)
[2021-09-17 22:04] LABS: Basophils # 0.1 K/mm3 (0-0.2); Basophils % 0.8 % (0.1-2.0); Eosinophils # 0.3 K/mm3 (0.0-0.4); Eosinophils % 2.4 % (0.1-12.0); Hematocrit 50.2 % (42.0-52.0); Hemoglobin 16.3 g/dL (14.1-18.0); Lymphocytes # 5.8 K/mm3 (0.7-4.5); Lymphocytes % 52.6 % (10-50); Mean Corpuscular HGB Conc 32.5 g/dL (31.8-35.4); Mean Corpuscular Hemoglobin 28.6 pg (27.0-31.2); Mean Corpuscular Volume 87.7 fl (80-94); Mean Platelet Volume 8.2 fl (7.4-10.4); Monocytes # 0.6 K/mm3 (0.1-1.0); Monocytes % 5.4 % (1.7-9.3); Neutrophils # 4.3 K/mm3 (1.8-7.8); Neutrophils % 38.8 % (37.0-80.0); Platelet Count 229 K/mm3 (142-424); Red Blood Count 5.72 M/mm3 (4.60-6.20); Red Cell Distribution Width 13.2 % (11.5-17.5); White Blood Count 11.1 K/mm3 (4.8-10.8)
[2021-09-17 22:08] LABS: Alanine Aminotransferase 23 U/L (12-78); Albumin Level 4.5 g/dl (3.5-5.0); Albumin/Globulin Ratio 1.6 (1.1-1.8); Alkaline Phosphatase 74 U/L (38-126); Anion Gap 10.9 mEq/L (5-15); Aspartate Amino Transferase 39 U/L (17-59); Bilirubin,Total 0.7 mg/dl (0.2-1.3); Blood Urea Nitrogen 22 mg/dl (9-20); Carbon Dioxide 30 mmol/L (22.0-30.0); Chloride 105 mmol/L (98-107); Creatinine Clearance Estimated 70 mL/min (50-200); Estimated Glomerular Filt Rate 72 ml/min (>60); GFR (African American) 87 ML/MIN (>60); Globulin 2.9 g/dL (1.3-3.2); Glucose 160 mg/dl (74-100); Potassium 3.9 mmoL/L (3.5-5.1); Sodium 142 mmol/L (136-145); Total Protein,Serum 7.4 g/dl (6.3-8.2)
[2021-09-17 22:10] LABS: MANUAL DIFFERENTIAL MANUAL DIFFERENTIAL (MANUAL DIFF)
[2021-09-17 22:13] LABS: C-Reactive Protein 1.5 mg/L (0-4)
--- NOTE | 2021-09-17 22:25 | HMH.EDNVD ---
ED Disposition Clinical Impression: Renal colic on right side Disposition: Home, Self-Care Condition on Discharge: Good Instructions: DI for Kidney Stones Additional Instructions: fluids and use meds and call pcp and urology for follow up Prescriptions: Tamsulosin HCl [Flomax 0.4mg capsule] 0.4 mg PO HS #10 cap Transmission Status: Pending to [id number] Referrals: Rakesh Jones MD [Primary Care Provider] - Pravin Perea MD [Staff Physician] - - Critical Care Critical Care Time: No Attestation: On 09/17/21, the high probability of a clinically significant, sudden or life threatening deterioration of the following system(s) required my full and direct attention, intervention and personal management. The time I documented below is in addition to time spent performing reported procedures but includes the following listed in this critical care notation. Medical Decision Making - Medical Records Medical records reviewed: Yes: I reviewed the patient's medical records. - [place]t Inquiry Pt receiving controlled substance: No Vital Signs: 09/17/21 21:40 Temperature 98.3 F Temperature Source Oral Pulse Rate [Right] 70 Respiratory Rate 18 Blood Pressure [Right Arm] 183/93 H Blood Pressure Mean [Right Arm] 123 02 Sat by Pulse Oximetry 98 - Lab Data Lab results reviewed: Yes: I reviewed the patient's lab results. Lab Results 09/17/21 21:45: ESR 7 09/17/21 21:45: C-Reactive Protein 1.5, Procalcitonin 0.064 09/17/21 21:45: WBC 11.1 H, RBC 5.72, Hgb 16.3, Hct 50.2, MCV 87.7, MCH 28.6, MCHC 32.5, RDW 13.2, Plt Count 229, MPV 8.2, Neut % (Auto) 38.8, Lymph % (Auto) 52.6 H, [place] % (Auto) 5.4, Eos % (Auto) 2.4, Baso % (Auto) 0.8, Neut # (Auto) 4.3, Lymph # (Auto) 5.8 H, [place] # (Auto) 0.6, Eos # (Auto) 0.3, Baso # (Auto) 0.1 09/17/21 21:45: Sodium 142, Potassium 3.9, Chloride 105, Carbon Dioxide 30, Anion Gap 10.9, BUN 22 H, Creatinine 1.00, Estimated Creat Clear 70, Estimated GFR 72, Est GFR ( Amer) 87, Glucose 160 H, Calcium 9.0, Total Bilirubin 0.7, AST 39, ALT 23, Alkaline Phosphatase 74, Total Protein 7.4, Albumin 4.5, Globulin 2.9, Albumin/Globulin Ratio 1.6 Result diagrams: 09/17/21 21:45 09/17/21 21:45 Orders (Tests/Meds): ED MEDICATIONS Generic Name Dose Route Start Last Admin Trade Name Freq PRN Reason Stop Dose Admin Lactated Ringer's 1,000 mls @ 999 mls/hr 09/17/21 22:00 09/17/21 22:03 Lactated Ringer's 1000 Ml Bag IV 09/17/21 23:00 999 mls/hr .Q1H1M CARLOS ALBERTO Administration Discontinued Medications Generic Name Dose Route Start Last Admin Trade Name Freq PRN Reason Stop Dose Admin Acetaminophen/Codeine Phosphate 1 bulmaro 09/17/21 23:01 Acetaminophen 300mg W/Codeine 30mg Take Home Pack (6) PO 09/17/21 23:02 ONCE ONE Hydrocodone Bitart/Acetaminophen 1 tab 09/17/21 23:01 Hydrocodone/Apap 5/325 Mg Tablet PO 09/17/21 23:02 ONCE ONE Ketorolac Tromethamine 30 mg 09/17/21 21:51 09/17/21 22:03 Ketorolac 30mg/Ml Vial IV 09/17/21 21:52 30 mg ONCE ONE Administration Ondansetron HCl 4 mg 09/17/21 21:51 09/17/21 22:03 Ondansetron 4mg/2ml Vial IV 09/17/21 21:52 4 mg ONCE ONE Administration ORDERS Category Date Time Status Complete Blood Count Auto Diff Stat Lab 09/17/21 21:45 Results Urinalysis and Microscopic Stat Lab 09/17/21 21:45 Received - CT Data CT Scan: Abdomen, Pelvis Time Received: 23:[address] Reviewed: Yes: I have viewed the radiologist's interpretation Preliminary Findings: Abnormal (4 mm rt renal colic ) Medical Decision Narrative: has acute rt renal colic and stable exam and will d/c at this time Nausea/Vomiting/Diarrhea HPI - General Chief complaint: Abdominal Pain Stated complaint: possible kidney stones, sick at stomach Time Seen by Provider: 09/17/21 22:26 Mode of Arrival: Ambulatory Source of Information: Patient, Spouse, Medical Record Limitations: No Limitations Description of Sy
[2021-09-17 22:27] LABS: Procalcitonin 0.064 ng/mL (0.0-2.0)
[2021-09-17 22:42] LABS: Erythrocyte Sedimentation Rate 7 mm/hr (0-20)
[2021-09-17 23:02] LABS: Appearance,Urine CLEAR (Clear); Bilirubin,Urine Negative (Negative); Blood, Urine 1+ (Negative); Color,Urine YELLOW (Yellow); Glucose,Urine (UA) Negative (Negative); Ketones,Urine Negative (Negative); Leukocyte Esterase,Urine Negative (Negative); Nitrate,Urine Negative (Negative); Protein,Urine Negative (Negative); Specific Gravity, Urine >= 1.030 (1.005-1.030); Urobilinogen,Urine 0.2 EU/dl (0.2)
[2021-09-17 23:06] VITALS: BP 164/83; PULSE 64; RESP 20; TEMP 36.9; O2SAT 95
[2021-09-17 23:34] LABS: Eosinophils % 1 % (0-3); Lymphocytes % 62 % (10-50); Monocytes % 3 % (2-9); Neutrophils % 33 % (42-76); Platelet Estimate Normal; Stomatocytes 1+; Total Cells Counted 100
[2021-09-17 23:36] LABS: Squamous Epithelial Cell,Urine Occasional #/hpf (0-5); WBC,Urine Occasional #/hpf (0-3)
== END 2021-09-17 23:13 | disposition home or self-care (01) ==
PROVIDERS: Emergency Provider Emergency Medicine; PCP Internal Medicine Adolescent Medicine
DX: N23 Unspecified renal colic (principal); R11.2 Nausea with vomiting, unspecified; I10 Essential (primary) hypertension; I25.10 Atherosclerotic heart disease of native coronary artery without angina pectoris; E78.5 Hyperlipidemia, unspecified; E11.9 Type 2 diabetes mellitus without complications; M19.90 Unspecified osteoarthritis, unspecified site; H26.9 Unspecified cataract; Z79.82 Long term (current) use of aspirin; Z79.899 Other long term (current) drug therapy; Z87.442 Personal history of urinary calculi; Z82.49 Family history of ischemic heart disease and other diseases of the circulatory system; Z87.891 Personal history of nicotine dependence; Z80.9 Family history of malignant neoplasm, unspecified; Z83.3 Family history of diabetes mellitus; Z83.49 Family history of other endocrine, nutritional and metabolic diseases; Z83.438 Family history of other disorder of lipoprotein metabolism and other lipidemia
CPT/HCPCS: 74176; 80053; 81001; 84145; 85007; 85025; 85651; 86140; 96361; 96374; 96375; 99285; J2405

== ENCOUNTER → 2022-08-15 11:48 | Outpatient (CLI) | payer MEDICARE, OTHER, SELFPAY ==
--- NOTE | 2022-08-15 11:53 | XR_ITS ---
FINAL REPORT CLINICAL HISTORY: wrist pain FINDINGS: Right wrist Three views were obtained. There is no acute fracture or dislocation. There are moderate hypertrophic changes at the basilar joint. The radiocarpal joint is intact. No soft tissue abnormality is identified. IMPRESSION: Moderate hypertrophic changes at the basilar joint. Reviewed, Interpreted and Dictated by Yordy Sung MD Transcribed by Ana Mckeon Authenticated and [facility]
== END ==
PROVIDERS: PCP Internal Medicine Adolescent Medicine; Visit Provider Orthopaedic Surgery
DX: M25.531 Pain in right wrist (principal)
CPT/HCPCS: 73110

== ENCOUNTER → 2023-01-28 09:42 | Outpatient (CLI) | payer MEDICARE, OTHER, SELFPAY ==
--- NOTE | 2023-01-28 09:48 | XR_ITS ---
FINAL REPORT CLINICAL HISTORY: ARTHRITIS Left knee pain in the last month COMPARISON: None FINDINGS: Three views of the left knee reveal no evidence of fracture or dislocation. The bony alignment is normal. Moderate degenerative change. Vascular calcifications are noted. There is no evidence of joint effusion. No localized soft tissue abnormality is seen. IMPRESSION: Moderate degenerative change without acute abnormality identified. Reviewed, Interpreted and Dictated by Varun Edmonds III, MD Transcribed by Renate Pierson Authenticated and [facility]
--- NOTE | 2023-01-28 09:48 | XR_ITS ---
FINAL REPORT CLINICAL HISTORY: ARTHRITIS Right pain since 1965 COMPARISON: None FINDINGS: Three views of the right knee reveal no evidence of fracture or dislocation. The bony alignment is normal. There is mild degenerative change. Mild vascular calcifications are noted. There is no evidence of joint effusion. No localized soft tissue abnormality is identified. IMPRESSION: Mild degenerative change without acute abnormality identified. Reviewed, Interpreted and Dictated by Varun Edmonds III, MD Transcribed by Renate Pierson Authenticated and [facility]
== END ==
PROVIDERS: PCP Internal Medicine Adolescent Medicine; Visit Provider Internal Medicine Adolescent Medicine
DX: M17.0 Bilateral primary osteoarthritis of knee (principal)
CPT/HCPCS: 73562

== ENCOUNTER 2023-03-27 02:07 | Emergency (ER) | payer MEDICARE, OTHER, SELFPAY ==
[2023-03-27 02:08] VITALS: BP 186/101; PULSE 87; RESP 12; TEMP 37.1; O2SAT 96; BMI 29.5
--- NOTE | 2023-03-27 02:33 | CT_ITS ---
PROCEDURE INFORMATION: Exam: CT Abdomen And Pelvis Without Contrast Exam date and time: 03/27/2023 2:50 AM Age: 77 years old Clinical indication: Abdominal pain; Flank; Left; Prior surgery; Surgery date: 6+ months; Surgery type: Cholecystectomy; Additional info: Left flank pain poss stone TECHNIQUE: Imaging protocol: Computed tomography of the abdomen and pelvis without contrast. Radiation optimization: All CT scans at this facility use at least one of these dose optimization techniques: automated exposure control; mA and/or kV adjustment per patient size (includes targeted exams where dose is matched to clinical indication); or iterative reconstruction. REPORTING DATA: Count of CT and Cardiac NM exams in prior 12 months: This patient has received 0 known CTs and 0 known cardiac nuclear medicine studies in the 12 months prior to the current study. COMPARISON: CT ABDOMEN PELVIS WO CON 09/17/2021 9:58 PM FINDINGS: Coronary arteries: Coronary atherosclerosis. Liver: Normal. No mass. Gallbladder and bile ducts: Prior cholecystectomy. Pancreas: Normal. No ductal dilation. Spleen: Normal. No splenomegaly. Adrenal glands: Normal. No mass. Kidneys and ureters: Bilateral simple appearing renal cysts. Multiple intrarenal stones are present bilaterally measuring up to 3 mm in maximum diameter. 4 mm left UVJ stone with moderate left-sided hydroureter and hydronephrosis. Stomach and bowel: Unremarkable. No obstruction. No mucosal thickening. Appendix: No evidence of appendicitis. Intraperitoneal space: Unremarkable. No free air. No significant fluid collection. Vasculature: Unremarkable. No abdominal aortic aneurysm. Lymph nodes: Unremarkable. No enlarged lymph nodes. Urinary bladder: Unremarkable as visualized. Reproductive: Unremarkable as visualized. Bones/joints: Unremarkable. No acute fracture. Soft tissues: Unremarkable. IMPRESSION: 1. 4 mm left UVJ stone with moderate left-sided hydroureter and hydronephrosis. 2. Bilateral nephrolithiasis. 3. Coronary atherosclerosis. 4. Prior cholecystectomy. COMMENTS: Consistent with the [employer]'s Incidental Findings Committee white paper (J Am Patrizia Radiol 2018): Any incidental renal lesion less than 1 cm or classified as too small to characterize, or any incidental cystic renal lesion characterized as simple-appearing, is likely benign. No follow-up imaging is recommended for these lesions per consensus recommendations based on imaging criteria.
--- NOTE | 2023-03-27 02:38 | HMH.EDGENADL ---
Discharge Plan Disposition Patient Disposition: Home, Self-Care Prescriptions Prescriptions: New tamsulosin 0.4 mg capsule 0.4 mg PO DAILY Qty: 10 0RF ondansetron HCl 4 mg tablet 4 mg PO Q8H PRN (Reason: nausea and vomiting) 5 Days Qty: 30 0RF No Action terbinafine HCl 250 mg tablet 250 mg PO DAILY Patient Comments: TAKE ONE TABLET BY MOUTH EVERY DAY escitalopram oxalate 10 MG tablet 10 mg PO DAILY atorvastatin 40 mg tablet 40 mg PO DAILY Patient Comments: TAKE ONE TABLET BY MOUTH EVERY DAY Referrals Follow up/Referrals: Rakesh Jones MD [Primary Care Provider] - See instructions Activity Restrictions/Add. Instructions Additional Instructions/Restrictions: You have a small stone on the left side. It will almost certainly pass on its own. Please take Zofran as needed for nausea and vomiting. Please take tamsulosin as it might help the stone pass. Please take Tylenol and ibuprofen as needed for pain. Please follow-up with your primary care provider. Please return to the emergency department if you develop any new or worsening symptoms or become concerned for your health. Clinical Impressions Clinical Impression: Ureterolithiasis, HTN (hypertension), Acute flank pain Instructions Patient Instructions: DI for Urinary Tract Infection (UTI), DI for Urinary Tract Infection in Children Discharge ED Provider: Peter Lopez Adult HPI General Chief complaint: Urogenital-Male Stated complaint: left side/back pain Time Seen by Provider: 03/27/23 02:08 Mode of Arrival: Ambulatory Source of Information: Patient Limitations: No Limitations Description of Symptoms (Recalled from ER Triage Doc. by RN): Patient is having left flank pain that he thinks is a kidney stone. History of Present Illness HPI narrative: 77-year-old male, history as reported below including prior kidney stones that have not required any surgical intervention, presents with acute onset of left flank pain. He reports walking around at home to try to relieve the pain for approximately 3 hours prior to arrival. He reports mild nausea without vomiting. Reports no recent fevers. Reports no history of aortic issues. He was able to urinate prior to arrival without any symptoms. Related Data Home Medications Medication Instructions Recorded Confirmed terbinafine HCl 250 mg tablet 250 mg PO DAILY FUNGAL INFECTION 02/13/20 03/27/23 escitalopram oxalate 10 mg tablet 10 mg PO DAILY Depression 10/21/20 03/27/23 atorvastatin 40 mg tablet 40 mg PO DAILY 03/27/23 03/27/23 Previous Rx's Medication Instructions Recorded ondansetron HCl 4 mg tablet 4 mg PO Q8H PRN nausea and 03/27/23 vomiting 5 days #30 tabs tamsulosin 0.4 mg capsule 0.4 mg PO DAILY #10 caps 03/27/23 Allergies Allergy/AdvReac Type Severity Reaction Status Date / Time No Known Allergies Allergy Verified 02/26/23 11:37 [facility] Disclaimer: The information contained in this section may have been updated after the patient was seen, as this information can be updated by other users. Medical History CAD (coronary artery disease) Social History Smoking Status: Never smoker second hand exposure: No alcohol intake: current substance use type: denies use current occupational status: retired Travel in the last 8 weeks: None household members: spouse housing: house current occupational exposures/hazards: No caffeine: Yes ROS Obtained: Yes All systems reviewed & no additional complaints except as documented Physical Exam General General appearance: alert and in no apparent distress Head Head exam: atraumatic and normocephalic Eye Eye exam: Present normal appearance, PERRL and EOMI ENT ENT exam: Present normal oropharynx and normal external ear exam Neck Neck exam: Present normal inspection
[2023-03-27 02:57] LABS: Microscopic, Urine URINE MICROSCOPIC (MICROSCOPIC)
[2023-03-27 02:58] LABS: Basophils # 0.1 K/mm3 (0-0.2); Basophils % 0.8 % (0.1-2.0); Eosinophils # 0.2 K/mm3 (0.0-0.4); Eosinophils % 1.9 % (0.1-12.0); Hematocrit 47.2 % (42.0-52.0); Hemoglobin 16.1 g/dL (14.1-18.0); Lymphocytes # 5.8 K/mm3 (0.7-4.5); Lymphocytes % 47.3 % (10-50); Mean Corpuscular HGB Conc 34.2 g/dL (31.8-35.4); Mean Corpuscular Hemoglobin 29.8 pg (27.0-31.2); Mean Corpuscular Volume 87.1 fl (80-94); Mean Platelet Volume 8.7 fl (7.4-10.4); Monocytes # 0.7 K/mm3 (0.1-1.0); Monocytes % 5.3 % (1.7-9.3); Neutrophils # 5.5 K/mm3 (1.8-7.8); Neutrophils % 44.6 % (37.0-80.0); Platelet Count 206 K/mm3 (142-424); Red Blood Count 5.42 M/mm3 (4.60-6.20); Red Cell Distribution Width 14.2 % (11.5-17.5); White Blood Count 12.3 K/mm3 (4.8-10.8)
[2023-03-27 03:00] LABS: Chloride 105 mmol/L (98-107); Potassium 3.9 mmoL/L (3.5-5.1); Sodium 140 mmol/L (136-145)
[2023-03-27 03:01] VITALS: BP 150/67
[2023-03-27 03:03] LABS: Alanine Aminotransferase 30 U/L (12-78); Albumin Level 4.5 g/dl (3.5-5.0); Albumin/Globulin Ratio 1.6 (1.1-1.8); Alkaline Phosphatase 95 U/L (38-126); Anion Gap 11.9 mEq/L (5-15); Aspartate Amino Transferase 39 U/L (17-59); Bilirubin,Total 0.6 mg/dl (0.2-1.3); Blood Urea Nitrogen 23 mg/dl (9-20); Carbon Dioxide 27 mmol/L (22.0-30.0); Creatinine Clearance Estimated 68 mL/min (50-200); Estimated Glomerular Filt Rate 58 ml/min (>60); GFR (African American) 71 ML/MIN (>60); Globulin 2.9 g/dL (1.3-3.2); Total Protein,Serum 7.4 g/dl (6.3-8.2)
[2023-03-27 03:04] LABS: Glucose 144 mg/dl (74-100)
[2023-03-27 03:05] LABS: Appearance,Urine CLEAR (Clear); Blood, Urine 2+ (Negative); Color,Urine YELLOW (Yellow); Glucose,Urine (UA) Negative (Negative); Ketones,Urine Negative (Negative); Leukocyte Esterase,Urine Negative (Negative); Nitrate,Urine Negative (Negative); Protein,Urine Negative (Negative); Specific Gravity, Urine >= 1.030 (1.005-1.030); Urobilinogen,Urine 0.2 EU/dl (0.2)
[2023-03-27 03:06] LABS: Bilirubin,Urine Negative (Negative)
[2023-03-27 03:10] LABS: Bacteria,Urine Trace /lpf; WBC,Urine Occasional #/hpf (0-3)
[2023-03-27 03:30] VITALS: BP 161/82; PULSE 82; RESP 12; O2SAT 92
[2023-03-27 03:54] VITALS: BP 161/82; PULSE 82; RESP 12; TEMP 36.8; O2SAT 92
== END 2023-03-27 03:59 | disposition home or self-care (01) ==
PROVIDERS: Emergency Provider Emergency Medicine; PCP Internal Medicine Adolescent Medicine
DX: N13.0 Hydronephrosis with ureteropelvic junction obstruction (principal); N13.4 Hydroureter; N20.2 Calculus of kidney with calculus of ureter; R10.32 Left lower quadrant pain; R11.0 Nausea; I11.9 Hypertensive heart disease without heart failure; I25.10 Atherosclerotic heart disease of native coronary artery without angina pectoris; E11.9 Type 2 diabetes mellitus without complications
CPT/HCPCS: 74176; 80053; 81001; 85025; 96374; 96375; 99284; J2405

== ENCOUNTER 2023-09-15 06:48 | Outpatient (CLI) | payer MEDICARE, OTHER, SELFPAY ==
--- NOTE | 2023-09-15 | CT_ITS ---
FINAL REPORT TECHNIQUE: Thin section axial CT images with coronal reformats were obtained through the neck after the administration of IV contrast. This study was performed with techniques to keep radiation doses as low as reasonably achievable (ALARA). Individualized dose reduction techniques using automated exposure control or adjustment of mA and/or kV according to the patient''s size were employed. CLINICAL HISTORY: SWELLING OF LEFT PAROTID GLAND COMPARISON: None FINDINGS: The parotid glands are prominent bilaterally. There is no definite parotid mass is seen. There is no adenopathy or mass lesion present. The thyroid is unremarkable. There are dense vascular calcifications of the carotid bifurcations. Limited images of the lung apices are unremarkable. The glottis and supraglottic areas are unremarkable. No acute osseous abnormality is identified. IMPRESSION: No significant parotid mass or adenopathy. Reviewed, Interpreted and Dictated by Yordy Sung MD Transcribed by Renate Pierson Authenticated and [facility]
--- NOTE | 2023-09-15 | CT_ITS ---
FINAL REPORT CLINICAL HISTORY: SWELLING OF LEFT PAROTID GLAND COMPARISON: None FINDINGS: The paranasal sinuses are well aerated. The ostiomeatal units are patent. There are no air-fluid levels. There is no fracture. IMPRESSION: Unremarkable. Reviewed, Interpreted and Dictated by Yordy Sung MD Transcribed by Renate Pierson Authenticated and [facility]
[2023-09-15 07:34] LABS: Blood Urea Nitrogen 21 mg/dl (9-20); Estimated Glomerular Filt Rate 72 ml/min (>60); GFR (African American) 87 ML/MIN (>60)
[2023-09-15] MEDS: SODIUM CHLORIDE 0.9% 10ML SYR (RAD ONLY) 10 ML IV (08:08)
[2023-09-15] MEDS: IOPAMIDOL-370 (76%);100ML BOTTLE 75 ML IV (08:08)
== END 2023-09-15 23:59 | disposition home or self-care (01) ==
LOC: RAD 06:48
PROVIDERS: PCP Internal Medicine Adolescent Medicine; Visit Provider Internal Medicine Adolescent Medicine
DX: R22.1 Localized swelling, mass and lump, neck (principal); I88.9 Nonspecific lymphadenitis, unspecified
CPT/HCPCS: 36415; 70486; 70491; 82565; 84520; Q9967

== ENCOUNTER 2023-10-01 06:50 | Outpatient (CLI) | payer MEDICARE, OTHER, SELFPAY ==
--- NOTE | 2023-10-01 06:55 | CT_ITS ---
FINAL REPORT CLINICAL HISTORY: ALZHEIMERS DEMENTIA COMPARISON: 06/05/2020 FINDINGS: Axial images of the head were obtained without contrast. Coronal reformatted images were also obtained. This study was performed with techniques to keep radiation doses as low as reasonably achievable (ALARA). Individualized dose reduction techniques using automated exposure control or adjustment of mA and/or kV according to the patient''s size were employed. There is generalized age-appropriate atrophy. Periventricular low-attenuation areas are seen consistent with mild chronic ischemic changes. There is no evidence of intracranial hemorrhage or mass. There is no evidence of acute infarct. There is no evidence of shift of the midline structures. No skull abnormality is seen on the bone window images. IMPRESSION: Atrophy and mild periventricular chronic ischemic changes. No acute intracranial abnormality identified. Reviewed, Interpreted and Dictated by Varun Edmonds III, MD Transcribed by Ana Mckeon Authenticated and . [facility]
== END 2023-10-01 23:59 | disposition home or self-care (01) ==
LOC: RAD 06:51
PROVIDERS: PCP Internal Medicine Adolescent Medicine; Visit Provider Internal Medicine Adolescent Medicine
DX: G30.9 Alzheimer's disease, unspecified (principal)
CPT/HCPCS: 70450

== ENCOUNTER 2023-10-11 06:36 | Observation (INO) | payer MEDICARE, OTHER, SELFPAY ==
[2023-10-11] VITALS (9 sets, daily range): BP systolic 114–145; BP diastolic 57–72; PULSE 56–79; RESP 12–18; TEMP 36.4–36.7; O2SAT 95–98; BMI 30.1; BMI 29.7
--- NOTE | 2023-10-11 06:46 | CT_ITS ---
PROCEDURE INFORMATION: Exam: CTA Abdomen and Pelvis With Contrast Exam date and time: 10/11/2023 7:57 AM Age: 78 years old Clinical indication: Other: Bleed; Additional info: Gi bleed TECHNIQUE: Imaging protocol: Computed tomographic angiography of the abdomen and pelvis with contrast. Exam focused on the arteries. 3D rendering (Not supervised by radiologist): MIP and/or 3D reconstructed images were created by the technologist. Radiation optimization: All CT scans at this facility use at least one of these dose optimization techniques: automated exposure control; mA and/or kV adjustment per patient size (includes targeted exams where dose is matched to clinical indication); or iterative reconstruction. Contrast material: ISOVUE; Contrast volume: 75 ml; Contrast route: INTRAVENOUS (IV); COMPARISON: CT ABDOMEN PELVIS WO CON 03/27/2023 2:50 AM FINDINGS: Lungs: Atelectasis in the lingula Heart: There is calcification of the aortic valve annulus. Coronary arteries: Coronary artery calcifications may indicate coronary artery disease. Aorta: No aortic aneurysm. No aortic dissection. Celiac trunk and mesenteric arteries: No occlusion or significant stenosis. Renal arteries: No occlusion or significant stenosis. Right iliac arteries: No occlusion or significant stenosis. Left iliac arteries: No occlusion or significant stenosis. Liver: No mass. Gallbladder and bile ducts: Cholecystectomy Pancreas: Unremarkable. No mass. No ductal dilation. Spleen: The spleen demonstrates punctate calcifications, consistent with remote granulomatous organism exposure. Adrenal glands: Unremarkable. No mass. Kidneys and ureters: Simple cysts in the kidneys. 4.7 cm on the right; 2.1 cm on the left; 3.5 cm on the left; 12 mm on the left . No follow-up imaging recommended . Nonobstructing renal calculi bilaterally Stomach and bowel: Unremarkable. No obstruction. No mucosal thickening. Appendix: Normal appendix Intraperitoneal space: Unremarkable. No free air. No significant fluid collection. Lymph nodes: Unremarkable. No enlarged lymph nodes. Urinary bladder: Bladder measures 8.8 cm Reproductive: The prostate is enlarged, greater than 5 cm. Recommend urology consult Bones/joints: No acute fracture. Soft tissues: Unremarkable. Other findings: No evidence of active extravasation. IMPRESSION: No evidence of active extravasation.
--- NOTE | 2023-10-11 06:46 | ED_ITS ---
Discharge Plan Disposition Patient Disposition: Admitted Prescriptions Prescriptions: No Action terbinafine HCl 250 mg tablet 250 mg PO DAILY Patient Comments: TAKE ONE TABLET BY MOUTH EVERY DAY escitalopram oxalate 10 MG tablet 10 mg PO DAILY atorvastatin 40 mg tablet 40 mg PO DAILY Patient Comments: TAKE ONE TABLET BY MOUTH EVERY DAY tamsulosin 0.4 mg capsule 0.4 mg PO DAILY Qty: 10 0RF ondansetron HCl 4 mg tablet 4 mg PO Q8H PRN (Reason: nausea and vomiting) 5 Days Qty: 30 0RF Referrals Follow up/Referrals: Rakesh Jones MD [Primary Care Provider] - See instructions Clinical Impressions Clinical Impression: GI bleed Instructions Patient Instructions: DI for Gastrointestinal Bleeding Discharge ED Provider: Peter Lopez General Adult HPI <Peter Lopez MD - Last Filed: 10/11/23 07:01> General Chief complaint: GI Bleed Stated complaint: rectal bleeding Time Seen by Provider: 10/11/23 06:40 History of Present Illness HPI narrative: 78-year-old male with history of hypertension, type 2 diabetes, coronary artery disease presents for GI bleeding. He reports that he had to bloody bowel movements yesterday, a mixture of dark and light. Reports they were moderate volume. He had a episode this morning where he had more bleeding and he felt fainted briefly. He did not pass out. He denies any abdominal pain. He reports that he has never had any blood in his stool before. He denies any history of coagulopathy. He is on baby aspirin daily. His last colonoscopy was 6 or 7 years ago and was normal. He has had a cholecystectomy but no other abdominal surgery. No recent fever or illness. No history of constipation. Related Data Home Medications Medication Instructions Recorded Confirmed terbinafine HCl 250 mg tablet 250 mg PO DAILY FUNGAL INFECTION 02/13/20 09/10/23 escitalopram oxalate 10 mg tablet 10 mg PO DAILY Depression 10/21/20 09/10/23 atorvastatin 40 mg tablet 40 mg PO DAILY 03/27/23 09/10/23 Previous Rx's Medication Instructions Recorded ondansetron HCl 4 mg tablet 4 mg PO Q8H PRN nausea and 03/27/23 vomiting 5 days #30 tabs tamsulosin 0.4 mg capsule 0.4 mg PO DAILY #10 caps 03/27/23 Allergies Allergy/AdvReac Type Severity Reaction Status Date / Time No Known Allergies Allergy Verified 09/10/23 10:08 [facility] <Peter Lopez MD - Last Filed: 10/11/23 07:01> [facility] Disclaimer: The information contained in this section may have been updated after the patient was seen, as this information can be updated by other users. Medical History CAD (coronary artery disease) Social History Smoking Status: Former smoker tobacco type: cigarettes packs per day: 4 second hand exposure: No alcohol intake: current alcohol intake frequency: holidays/special occasions only substance use type: denies use current occupational status: retired Travel in the last 8 weeks: None household members: spouse housing: house current occupational exposures/hazards: No caffeine: Yes <Peter Lopez MD - Last Filed: 10/11/23 07:01> ROS Obtained: Yes All systems reviewed & no additional complaints except as documented Physical Exam <Peter Lopez MD - Last Filed: 10/11/23 07:01> General General appearance: alert and in no apparent distress Head Head exam: atraumatic and normocephalic Eye Eye exam: Present normal appearance, PERRL and EOMI ENT ENT exam: Present normal oropharynx and normal external ear exam Neck Neck exam: Present normal inspection and full ROM Chest Chest inspection: Present normal inspection and symmetric chest wall rise; Absent tenderness Respiratory Respiratory exam: Present normal lung sounds bilaterally; Absent respiratory distress Cardiovascular Cardiovascular exam: Present regular rate and normal rhythm Abdominal Exam Abdominal exam: Present soft; Absent distention, tenderness or guarding exam: Present other (No anal fissure or hemorrhoid, dried dark blood noted) Extremities Exam Extremities exam: Present normal inspection; Absent edema or joint swelling Back Exam Back exam: Present normal inspection; Absent tenderness Neurological Exam Neurological exam: Present alert and oriented X3; Absent motor sensory deficit Psychiatric Psychiatric exam: Present normal affect and normal mood Skin Skin exam: Present warm, dry and normal color Lymphatic Lymphatic Findings: no adenopathy Medical Decision Making <Peter Lopez MD - Last Filed: 10/11/23 07:01> Medical Records Medical records reviewed: Yes I reviewed the patient's medical records. Colt Inquiry Pt receiving controlled substance: No Colt was queried for this patient: No Vital Signs: 10/11/23 06:36 10/11/23 07:01 10/11/23 08:23 Temperature 97.8 F Temperature Source Oral Pulse Rate 63 60 Pulse Rate [Left Radial] 69 Respiratory Rate 18 16 16 Blood Pressure 130/66 145/72 H Blood Pressure [Right Arm] 137/57 L Blood Pressure Mean 87 83 Blood Pressure Mean [Right Arm] 83 Blood Pressure Source [Right Arm] Automatic Cuff Blood Pressure Position [Right Arm] Sitting 02 Sat by Pulse Oximetry 97 97 97 10/11/23 09:00 Temperature Temperature Source Pulse Rate Pulse Rate [Left Radial] Respiratory Rate 12 Blood Pressure 131/70 Blood Pressure [Right Arm] Blood Pressure Mean 90 Blood Pressure Mean [Right Arm] Blood Pressure Source [Right Arm] Blood Pressure Position [Right Arm] 02 Sat by Pulse Oximetry 98 Lab Data Lab results reviewed: Yes I reviewed the patient's lab results. Lab Results 10/11/23 06:47: WBC 10.7, RBC 3.54 L, Hgb 12.5 L, Hct 33.3 L, MCV 94.0, MCH 35.2 H, MCHC 37.4 H, RDW 14.5, Plt Count 203, MPV 8.7, Neut % (Auto) 65.8, Lymph % (Auto) 26.2, [place] % (Auto) 5.6, Eos % (Auto) 1.6, Baso % (Auto) 0.8, Neut # (Auto) 7.0, Lymph # (Auto) 2.8, [place] # (Auto) 0.6, Eos # (Auto) 0.2, Baso # (Auto) 0.1, PT 11.0, INR 1.02, APTT 23.5, Sodium 139, Potassium 4.2, Chloride 108 H, Carbon Dioxide 27, Anion Gap 8.2, BUN 32 H, Creatinine 1.10, Estimated Creat Clear 74, Estimated GFR 64, Est GFR ( Amer) 78, Glucose 122 H, Lactate 1.6, Calcium 8.4, Magnesium 1.9, Total Bilirubin 0.5, AST 36, ALT 20, Alkaline Phosphatase 74, Total Protein 5.6 L, Albumin 3.2 L, Globulin 2.4, Albumin/Globulin Ratio 1.3, Lipase 82 10/11/23 06:58: Blood Type A Positive 10/11/23 06:47 10/11/23 06:47 Orders (Tests/Meds): ED MEDICATIONS Discontinued Medications Generic Name Dose Route Start Last Admin Trade Name Noelle PRN Reason Stop Dose Admin Pantoprazole Sodium 80 mg/ 100 mls @ 100 mls/hr 10/11/23 06:46 10/11/23 07:48 Sodium Chloride IV 10/11/23 07:45 100 mls/hr ONCE ONE Administration Iopamidol 70 ml 10/11/23 08:09 10/11/23 08:10 Iopamidol-370 (76%);100ml Bottle IV 10/11/23 08:10 70 ml ONCE ONE Administration Sodium Chloride 10 ml 10/11/23 08:09 10/11/23 08:10 Sodium Chloride 0.9% 10ml Syr (Rad Only) IV 10/11/23 08:10 10 ml ONCE ONE Administration ORDERS Category Date Time Status Type and Screen Stat BBK 10/11/23 06:[address] angio abdomen pelvis Stat Cat Scan 10/11/23 06:46 Completed CBC w/Auto Diff [Complete Blood Count Auto Diff] Stat Lab 10/11/23 06:47 Completed CMP [Comprehensive Metabolic Panel] Stat Lab 10/11/23 06:47 Completed INR [Prothrombin Time INR] Stat Lab 10/11/23 06:47 Completed Lactic Acid Stat Lab 10/11/23 06:47 Completed Lipase Stat Lab 10/11/23 06:47 Completed Magnesium Stat Lab 10/11/23 06:47 Completed PTT [Activated Partial Thrombo Time] Stat Lab 10/11/23 06:47 Completed Medical Decision Narrative: 78-year-old male with history of hypertension coronary artery disease and type 2 diabetes presents with GI bleeding.. History was obtained interactive discussion with patient, EMS, chart review. On arrival, patient is [afebrile, hemodynamically stable, satting appropriately, alert, oriented x4, GCS 15], moving all extremities spontaneously. Full physical exam performed and significant for dried blood around the anus, benign abdominal exam Differential includes but is not limited to upper GI bleeding, lower GI bleeding, coagulopathy, anemia. Patient was given 1 L fluid bolus, IV PPI for symptomatic management and correction of underlying abnormalities. Workup initiated including CBC CMP PT/INR PTT type and screen CTA abdomen pelvis. At this time care is handed off to oncoming physician. <Alex Fajardo MD - Last Filed: 10/11/23 09:30> Vital Signs: 10/11/23 06:36 10/11/23 07:01 10/11/23 08:23 Temperature 97.8 F Temperature Source Oral Pulse Rate 63 60 Pulse Rate [Left Radial] 69 Respiratory Rate 18 16 16 Blood Pressure 130/66 145/72 H Blood Pressure [Right Arm] 137/57 L Blood Pressure Mean 87 83 Blood Pressure Mean [Right Arm] 83 Blood Pressure Source [Right Arm] Automatic Cuff Blood Pressure Position [Right Arm] Sitting 02 Sat by Pulse Oximetry 97 97 97 10/11/23 09:00 Temperature Temperature Source Pulse Rate Pulse Rate [Left Radial] Respiratory Rate 12 Blood Pressure 131/70 Blood Pressure [Right Arm] Blood Pressure Mean 90 Blood Pressure Mean [Right Arm] Blood Pressure Source [Right Arm] Blood Pressure Position [Right Arm] 02 Sat by Pulse Oximetry 98 Lab Data Lab results reviewed: Yes I reviewed the patient's lab results. Lab Results 10/11/23 06:47: WBC 10.7, RBC 3.54 L, Hgb 12.5 L, Hct 33.3 L, MCV 94.0, MCH 35.2 H, MCHC 37.4 H, RDW 14.5, Plt Count 203, MPV 8.7, Neut % (Auto) 65.8, Lymph % (Auto) 26.2, [place] % (Auto) 5.6, Eos % (Auto) 1.6, Baso % (Auto) 0.8, Neut # (Auto) 7.0, Lymph # (Auto) 2.8, [place] # (Auto) 0.6, Eos # (Auto) 0.2, Baso # (Auto) 0.1, PT 11.0, INR 1.02, APTT 23.5, Sodium 139, Potassium 4.2, Chloride 108 H, Carbon Dioxide 27, Anion Gap 8.2, BUN 32 H, Creatinine 1.10, Estimated Creat Clear 74, Estimated GFR 64, Est GFR ( Amer) 78, Glucose 122 H, Lactate 1.6, Calcium 8.4, Magnesium 1.9, Total Bilirubin 0.5, AST 36, ALT 20, Alkaline Phosphatase 74, Total Protein 5.6 L, Albumin 3.2 L, Globulin 2.4, Albumin/Globulin Ratio 1.3, Lipase 82 10/11/23 06:58: Blood Type A Positive Orders (Tests/Meds): ED MEDICATIONS Discontinued Medications Generic Name Dose Route Start Last Admin Trade Name Noelle PRN Reason Stop Dose Admin Pantoprazole Sodium 80 mg/ 100 mls @ 100 mls/hr 10/11/23 06:46 10/11/23 07:48 Sodium Chloride IV 10/11/23 07:45 100 mls/hr ONCE ONE Administration Iopamidol 70 ml 10/11/23 08:09 10/11/23 08:10 Iopamidol-370 (76%);100ml Bottle IV 10/11/23 08:10 70 ml ONCE ONE Administration Sodium Chloride 10 ml 10/11/23 08:09 10/11/23 08:10 Sodium Chloride 0.9% 10ml Syr (Rad Only) IV 10/11/23 08:10 10 ml ONCE ONE Administration ORDERS Category Date Time Status Type and Screen Stat BBK 10/11/23 06:[address] angio abdomen pelvis Stat Cat Scan 10/11/23 06:46 Completed CBC w/Auto Diff [Complete Blood Count Auto Diff] Stat Lab 10/11/23 06:47 Completed CMP [Comprehensive Metabolic Panel] Stat Lab 10/11/23 06:47 Completed INR [Prothrombin Time INR] Stat Lab 10/11/23 06:47 Completed Lactic Acid Stat Lab 10/11/23 06:47 Completed Lipase Stat Lab 10/11/23 06:47 Completed Magnesium Stat Lab 10/11/23 06:47 Completed PTT [Activated Partial Thrombo Time] Stat Lab 10/11/23 06:47 Completed Medical Decision Narrative: 78-year-old male with history of hypertension coronary artery disease and type 2 diabetes presents with GI bleeding.. History was obtained interactive discussion with patient, EMS, chart review. On arrival, patient is [afebrile, hemodynamically stable, satting appropriately, alert, oriented x4, GCS 15], moving all extremities spontaneously. Full physical exam performed and significant for dried blood around the anus, benign abdominal exam Differential includes but is not limited to upper GI bleeding, lower GI bleeding, coagulopathy, anemia. Patient was given 1 L fluid bolus, IV PPI for symptomatic management and correction of underlying abnormalities. Workup initiated including CBC CMP PT/INR PTT type and screen CTA abdomen pelvis. At this time care is handed off to oncoming physician. This is Dr. Fajardo I took over from Dr. Lopez at [address] scan was performed which I first interpreted shows no active extravasation or other intra-abdominal pathology. Patient's hemoglobin is 12 baseline seems to be around 16 so it is acutely lower than normal. Also patient's BUN is above 30 with BUN/creatinine ratio of around 30. The suggests likely an upper gastrointestinal bleed with the patient's history. After further discussion he does believe it has been very dark and Dr. Lopez also did a rectal exam and felt as though it was melena. Patient remains very hemodynamically stable. We are attempting to contact Dr. Albarado to discuss this with him but the patient has no need to be transferred elsewhere at the moment and I spoke with Dr. Huddleston with hospital medicine who agreed to admit the patient for further evaluation and management. Procedures <Peter Lopez MD - Last Filed: 10/11/23 07:01> Risk/Benefits of Procedure(s) Were Explained: Yes Critical Care <Peter Lopez MD - Last Filed: 10/11/23 07:01> Critical Care Time Critical Care Time: No <Alex Fajardo MD - Last Filed: 10/11/23 09:30> Critical Care Time Critical Care Time: Yes Attestation: On 10/11/23, the high probability of a clinically significant, sudden or life threatening deterioration of the following system(s) required my full and direct attention, intervention and personal management. The time I documented below is in addition to time spent performing reported procedures but includes the following listed in this critical care notation. Total Time Total Critical Care Time: 35
[2023-10-11 07:13] LABS: Basophils # 0.1 K/mm3 (0-0.2); Basophils % 0.8 % (0.1-2.0); Eosinophils # 0.2 K/mm3 (0.0-0.4); Eosinophils % 1.6 % (0.1-12.0); Hematocrit 33.3 % (42.0-52.0); Hemoglobin 12.5 g/dL (14.1-18.0); Lymphocytes # 2.8 K/mm3 (0.7-4.5); Lymphocytes % 26.2 % (10-50); Mean Corpuscular HGB Conc 37.4 g/dL (31.8-35.4); Mean Corpuscular Hemoglobin 35.2 pg (27.0-31.2); Mean Platelet Volume 8.7 fl (7.4-10.4); Monocytes # 0.6 K/mm3 (0.1-1.0); Monocytes % 5.6 % (1.7-9.3); Neutrophils % 65.8 % (37.0-80.0); Platelet Count 203 K/mm3 (142-424); Red Blood Count 3.54 M/mm3 (4.60-6.20); Red Cell Distribution Width 14.5 % (11.5-17.5); White Blood Count 10.7 K/mm3 (4.8-10.8)
[2023-10-11 07:14] LABS: Chloride 108 mmol/L (98-107); Potassium 4.2 mmoL/L (3.5-5.1); Sodium 139 mmol/L (136-145)
[2023-10-11 07:16] LABS: Lipase 82 U/L (23-300)
[2023-10-11 07:17] LABS: Alanine Aminotransferase 20 U/L (12-78); Albumin Level 3.2 g/dl (3.5-5.0); Albumin/Globulin Ratio 1.3 (1.1-1.8); Alkaline Phosphatase 74 U/L (38-126); Anion Gap 8.2 mEq/L (5-15); Aspartate Amino Transferase 36 U/L (17-59); Bilirubin,Total 0.5 mg/dl (0.2-1.3); Blood Urea Nitrogen 32 mg/dl (9-20); Calcium 8.4 mg/dl (8.4-10.2); Carbon Dioxide 27 mmol/L (22.0-30.0); Creatinine Clearance Estimated 74 mL/min (50-200); Estimated Glomerular Filt Rate 64 ml/min (>60); GFR (African American) 78 ML/MIN (>60); Globulin 2.4 g/dL (1.3-3.2); Glucose 122 mg/dl (74-100); Lactic Acid 1.6 mmol/L (0.7-2.1); Magnesium 1.9 mg/dl (1.6-2.3); Total Protein,Serum 5.6 g/dl (6.3-8.2)
[2023-10-11 07:19] LABS: Activated Partial Thrombo Time 23.5 seconds (22.8-30.6); INR 1.02 (0.9-1.1)
--- NOTE | 2023-10-11 07:30 | PC.NURSE ---
Pt gone to RAD via wheelchair
[2023-10-11] MEDS: PANTOPRAZOLE SODIUM 80 MG in 0.9 % SODIUM CHLORIDE 100 ML 100 MG IV (07:48)
[2023-10-11] MEDS: IOPAMIDOL-370 (76%);100ML BOTTLE 70 ML IV (08:10)
[2023-10-11] MEDS: SODIUM CHLORIDE 0.9% 10ML SYR (RAD ONLY) 10 ML IV (08:10)
--- NOTE | 2023-10-11 08:20 | PC.NURSE ---
Pt returned from RAD
--- NOTE | 2023-10-11 09:06 | PC.NURSE ---
Dr. Fajardo at BS to update pt/family on POC
--- NOTE | 2023-10-11 09:17 | PC.NURSE ---
DR RUSH PAGED AT THIS TIME
--- NOTE | 2023-10-11 09:24 | PC.NURSE ---
DR VALENCIA SPEAKING WITH DR BLANKENSHIP
--- NOTE | 2023-10-11 09:26 | PC.NURSE ---
CABLE DISPATCHER NOTIFIED OF BED REQUEST
--- NOTE | 2023-10-11 09:32 | PC.NURSE ---
DR VALENCIA SPEAKING WITH DR RUSH
--- NOTE | 2023-10-11 09:38 | PC.NURSE ---
report called to Richy BETANCOURT, tech coming to get pt for transportation
--- NOTE | 2023-10-11 09:54 | PC.NURSE ---
Pt arrived to the floor at this time via w/c
[2023-10-11] MEDS: 0.9 % SODIUM CHLORIDE 1000ML 1,000 ML 50 ML IV (10:08)
[2023-10-11] MEDS: PANTOPRAZOLE 40MG VIAL 40 MG IV ×2 (11:10→21:24)
--- NOTE | 2023-10-11 11:19 | EXP.SURG.CON ---
History of Present Illness *Admission Date: 10/11/23 *Reason for visit:: GI bleed *History of present illness: Mr. Walters is an 78-year-old gentleman that presents with bloody bowel movements. He had 3 episodes of bleeding yesterday and 1 large episode this morning. He admits to cold chills and nearly passing out this morning. The stool is dark maroon in color. His last colonoscopy was 6 or 7 years ago and he had a few polyps. He denies any weight loss or other episodes similar to this. He denies taking ibuprofen or other NSAIDs. He did have a steroid injection in his knee last month. [facility] Disclaimer: The information contained in this section may have been updated after the patient was seen, as this information can be updated by other users. Medical History CAD (coronary artery disease) Social History Smoking Status: Former smoker tobacco type: cigarettes packs per day: 4 second hand exposure: No alcohol intake: current alcohol intake frequency: holidays/special occasions only substance use type: denies use current occupational status: retired Travel in the last 8 weeks: None household members: spouse housing: house current occupational exposures/hazards: No caffeine: Yes Review of Systems Review of Systems Review of systems:: pertinent systems reviewed and negative unless documented below Meds Home Medications and Allergies Home Medications Medication Instructions Recorded Confirmed Type terbinafine HCl 250 mg tablet 250 mg PO DAILY FUNGAL INFECTION 02/13/20 10/11/23 History escitalopram oxalate 10 mg tablet 10 mg PO DAILY Depression 10/21/20 10/11/23 History atorvastatin 40 mg tablet 40 mg PO DAILY 03/27/23 10/11/23 History ondansetron HCl 4 mg tablet 4 mg PO Q8H PRN nausea and 03/27/23 09/10/23 Rx vomiting 5 days #30 tabs tamsulosin 0.4 mg capsule 0.4 mg PO DAILY #10 caps 03/27/23 09/10/23 Rx donepezil 5 mg tablet 5 mg PO HS 10/11/23 10/11/23 History memantine 10 mg tablet 10 mg PO BID 10/11/23 10/11/23 History nystatin 100,000 unit/gram topical 1 applic topical TID 10/11/23 10/11/23 History ointment New Prescriptions to Start Prescriptions: Allergies Allergy/AdvReac Type Severity Reaction Status Date / Time No Known Allergies Allergy Verified 09/10/23 10:08 Exam (Inpt) Vital signs and Labs for Last 24 Hours: Temp Pulse Resp BP Pulse Ox O2 Del Method 97.5 F L 79 18 134/63 97 Room Air 10/11/23 09:54 10/11/23 09:54 10/11/23 09:54 10/11/23 09:54 10/11/23 09:54 10/11/23 09:54 Laboratory Results - last 24 hr 10/11/23 06:47: WBC 10.7, RBC 3.54 L, Hgb 12.5 L, Hct 33.3 L, MCV 94.0, MCH 35.2 H, MCHC 37.4 H, RDW 14.5, Plt Count 203, MPV 8.7, Neut % (Auto) 65.8, Lymph % (Auto) 26.2, [place] % (Auto) 5.6, Eos % (Auto) 1.6, Baso % (Auto) 0.8, Neut # (Auto) 7.0, Lymph # (Auto) 2.8, [place] # (Auto) 0.6, Eos # (Auto) 0.2, Baso # (Auto) 0.1, PT 11.0, INR 1.02, APTT 23.5, Sodium 139, Potassium 4.2, Chloride 108 H, Carbon Dioxide 27, Anion Gap 8.2, BUN 32 H, Creatinine 1.10, Estimated Creat Clear 74, Estimated GFR 64, Est GFR ( Amer) 78, Glucose 122 H, Lactate 1.6, Calcium 8.4, Magnesium 1.9, Total Bilirubin 0.5, AST 36, ALT 20, Alkaline Phosphatase 74, Total Protein 5.6 L, Albumin 3.2 L, Globulin 2.4, Albumin/Globulin Ratio 1.3, Lipase 82 10/11/23 06:58: Blood Type A Positive I & O for Labs for Last 24 Hours: Intake & Output 10/08/23 10/09/23 10/10/23 10/11/23 23:59 23:59 23:59 23:59 Weight 212 lb 5 oz Constitutional: no acute distress Head: Present normocephalic and atraumatic Respiratory: Present CTA bilaterally Cardiac: Present Reg Rate and Rhythm GI: Present soft; Absent distention, tenderness or guarding Comments:: Dark maroon stool in the rectal vault Extremities: Present normal inspection Results Labs 10/11/23 06:47 10/11/23 06:47 Labs: Laboratory Results - last 24 hr 10/11/23 06:47: WBC 10.7, RBC 3.54 L, Hgb 12.5 L, Hct 33.3 L, MCV 94.0, MCH 35.2 H, MCHC 37.4 H, RDW 14.5, Plt Count 203, MPV 8.7, Neut % (Auto) 65.8, Lymph % (Auto) 26.2, [place] % (Auto) 5.6, Eos % (Auto) 1.6, Baso % (Auto) 0.8, Neut # (Auto) 7.0, Lymph # (Auto) 2.8, [place] # (Auto) 0.6, Eos # (Auto) 0.2, Baso # (Auto) 0.1, PT 11.0, INR 1.02, APTT 23.5, Sodium 139, Potassium 4.2, Chloride 108 H, Carbon Dioxide 27, Anion Gap 8.2, BUN 32 H, Creatinine 1.10, Estimated Creat Clear 74, Estimated GFR 64, Est GFR ( Amer) 78, Glucose 122 H, Lactate 1.6, Calcium 8.4, Magnesium 1.9, Total Bilirubin 0.5, AST 36, ALT 20, Alkaline Phosphatase 74, Total Protein 5.6 L, Albumin 3.2 L, Globulin 2.4, Albumin/Globulin Ratio 1.3, Lipase 82 10/11/23 06:58: Blood Type A Positive Imaging US - abdomen: report reviewed Assessment and Plan *Assessment and plan (1) GI bleed: Problem Comment: This most likely represents an upper GI bleed given his signs and symptoms. This could also be a diverticular bleed or lower GI but this is less likely. I would recommend twice daily Protonix and every 6 hours H&H. Plan for EGD in the morning. Status: Acute Category: Medical Code(s): K92.2 - Gastrointestinal hemorrhage, unspecified Plan: Protonix, serial hemoglobin, EGD in a.m.
--- NOTE | 2023-10-11 15:53 | P.HP_ITS ---
History of Present Illness *Admission Date: 10/11/23 *Reason for visit:: blood in stool *History of present illness: Patient is a 78-year-old male who presented to hospital due to concern for bleeding per rectum. According to the patient he has been noticing a lot of blood, he also has noticed some fresh blood. Denies chest pain shortness of breath nausea vomiting diarrhea constipation dysuria fevers and chills. He denies any abdominal discomfort. [facility] Disclaimer: The information contained in this section may have been updated after the patient was seen, as this information can be updated by other users. Medical History CAD (coronary artery disease) Social History Smoking Status: Former smoker tobacco type: cigarettes packs per day: 4 second hand exposure: No alcohol intake: current alcohol intake frequency: holidays/special occasions only substance use type: denies use current occupational status: retired Travel in the last 8 weeks: None household members: spouse housing: house current occupational exposures/hazards: No caffeine: Yes Review of Systems Review of Systems Review of systems:: pertinent systems reviewed and negative unless documented below Meds Home Medications and Allergies Home Medications Medication Instructions Recorded Confirmed Type terbinafine HCl 250 mg tablet 250 mg PO DAILY FUNGAL INFECTION 02/13/20 10/11/23 History escitalopram oxalate 10 mg tablet 10 mg PO DAILY Depression 10/21/20 10/11/23 History atorvastatin 40 mg tablet 40 mg PO DAILY 03/27/23 10/11/23 History ondansetron HCl 4 mg tablet 4 mg PO Q8H PRN nausea and 03/27/23 09/10/23 Rx vomiting 5 days #30 tabs tamsulosin 0.4 mg capsule 0.4 mg PO DAILY #10 caps 03/27/23 09/10/23 Rx donepezil 5 mg tablet 5 mg PO HS 10/11/23 10/11/23 History memantine 10 mg tablet 10 mg PO BID 10/11/23 10/11/23 History nystatin 100,000 unit/gram topical 1 applic topical TID 10/11/23 10/11/23 History ointment New Prescriptions to Start Prescriptions: Allergies Allergy/AdvReac Type Severity Reaction Status Date / Time No Known Allergies Allergy Verified 09/10/23 10:08 Exam Data for Last 24 hours Vital signs and Labs for Last 24 Hours: Temp Pulse Resp BP Pulse Ox O2 Del Method 97.7 F 56 L 16 125/66 96 Room Air 10/11/23 11:10/11/23 11:10/11/23 11:10/11/23 11:10/11/23 11:10/11/23 13:00 Laboratory Results - last 24 hr 10/11/23 06:47: WBC 10.7, RBC 3.54 L, Hgb 12.5 L, Hct 33.3 L, MCV 94.0, MCH 35.2 H, MCHC 37.4 H, RDW 14.5, Plt Count 203, MPV 8.7, Neut % (Auto) 65.8, Lymph % (A uto) 26.2, [place] % (Auto) 5.6, Eos % (Auto) 1.6, Baso % (Auto) 0.8, Neut # (Auto) 7.0, Lymph # (Auto) 2.8, [place] # (Auto) 0.6, Eos # (Auto) 0.2, Baso # (Auto) 0.1, PT 11.0, INR 1.02, APTT 23.5, Sodium 139, Potassium 4.2, Chloride 108 H, Carbon Dioxide 27, Anion Gap 8.2, BUN 32 H, Creatinine 1.10, Estimated Creat Clear 74, Estimated GFR 64, Est GFR ( Amer) 78, Glucose 122 H, Lactate 1.6, Calcium 8.4, Magnesium 1.9, Total Bilirubin 0.5, AST 36, ALT 20, Alkaline Phosphatase 74, Total Protein 5.6 L, Albumin 3.2 L, Globulin 2.4, Albumin/Globulin Ratio 1.3, Lipase 82 10/11/23 06:58: Blood Type A Positive, Antibody Screen Negative I & O for Last 24 hours: Intake & Output 10/08/23 10/09/23 10/10/23 10/11/23 23:59 23:59 23:59 23:59 Intake Total 540 / 540 Balance 540 / 540 Weight 96.303 kg Constitutional Constitutional: no acute distress *Routine HEENT Exam Head: Present normocephalic Eye: Present EOMI and PERRL ENT: Present mucous membranes moist *Routine Neck Exam Neck: Present supple; Absent lymphadenopathy *Routine Respiratory Exam Respiratory: Present CTA bilaterally *Routine Cardiovascular Exam Cardiovascular: Present RRR *Routine Abdominal Exam Abdominal: Present soft and normoactive bowel sounds; Absent tenderness *Routine Rectal Exam Rectal:: deferred *Routine Genitalia Exam Genitalia:: deferred *Routine Extremities Exam Extremities: Absent cyanosis, clubbing or edema *Routine Skin Exam Skin: Present warm; Absent rash *Routine Neurological Exam Neurological: Present alert and oriented X3 Assessment and Plan *Assessment and plan (1) GI bleed: Problem Comment: This most likely represents an upper GI bleed given his signs and symptoms. This could also be a diverticular bleed or lower GI but this is less likely. I would recommend twice daily Protonix and every 6 hours H&H. Plan for EGD in the morning. Status: Acute Category: Medical Code(s): K92.2 - Gastrointestinal hemorrhage, unspecified (2) HTN (hypertension): Status: Acute Category: Medical Code(s): I10 - Essential (primary) hypertension (3) Hyperlipidemia: Status: Chronic Qualifiers: Hyperlipidemia type: unspecified Qualified Code(s): E78.5 - Hyperlipidemia, unspecified Category: Medical Code(s): E78.5 - Hyperlipidemia, unspecified (4) Coronary atherosclerosis of [place] coronary artery: Status: Chronic Category: Medical Code(s): I25.10 - Atherosclerotic heart disease of [place] coronary artery without angina pectoris Plan Patient is a 78-year-old male who presented to hospital due to concern for bleeding per rectum. According to the patient he has been noticing a lot of blood, he also has noticed some fresh blood. Denies chest pain shortness of breath nausea vomiting diarrhea constipation dysuria fevers and chills. He denies any abdominal discomfort. Assessment and plan GI bleed Acute blood loss anemia Start IV Protonix IV fluids Monitor H&H Liquid diet for now Consult general surgery for possible EGD tomorrow Hold home aspirin Stool occult test performed in ED-positive History of hypertension Hyperlipidemia CAD Resume home statin, hold home aspirin DVT prophylaxis-SCDs for now due to concern for GI bleed
--- NOTE | 2023-10-11 17:23 | PC.NURSE ---
aox4, pt not requiring o2 support. currently sitting up in bed. no complaints since arrival to floor. home medications placed in omni.
[2023-10-11 17:42] LABS: Hemoglobin 11.5 g/dL (14.1-18.0)
[2023-10-11 20:36] LABS: POC Glucose,Bedside 105 (70-110)
[2023-10-11] MEDS: SODIUM CHLORIDE 0.9% 10ML VIAL 10 ML IV (21:24)
[2023-10-11] MEDS: MEMANTINE 10MG TABLET 10 MG PO (21:25)
[2023-10-11] MEDS: DONEPEZIL 5MG TAB 5 MG PO (21:25)
[2023-10-11 21:53] LABS: Hematocrit 38.1 % (42.0-52.0); Hemoglobin 12.3 g/dL (14.1-18.0)
[2023-10-11 23:32] LABS: Hematocrit 33.4 % (42.0-52.0)
[2023-10-11 23:55] LABS: Hemoglobin 10.7 g/dL (14.1-18.0)
[2023-10-12] VITALS (15 sets, daily range): BP systolic 91–133; BP diastolic 37–79; PULSE 57–90; RESP 16–20; TEMP 36.4–36.7; O2SAT 92–99; BMI 29.9
--- NOTE | 2023-10-12 06:03 | PC.NURSE ---
Alert and oriented. Pt ambulates to the restroom. Pt reports no bowel movement, just gas that can sometimes have some bloody stool in trace amounts. Pt has had no complaints throughout the shift. Bowel sounds active, abdomen nontender and soft. SCDs bilateral lower extremities. Call light in reach.
--- NOTE | 2023-10-12 07:11 | P.PN_ITS ---
Subjective Narrative: Patient is an 78-year-old male with history of hypertension, diabetes, hyperlipidemia, coronary artery disease who presented to the emergency department yesterday with passage of blood with bowel movement. Apparently had near syncopal episode. He has had a previous colonoscopy several years ago. Denies any history of ulcer disease. He presented to the emergency department and underwent evaluation. He underwent CTA of the abdomen and pelvis which reveals no evidence of active extravasation. He was admitted for inpatient management yesterday and seen by on-call surgeon. Recommendations were for upper endoscopy. Exam Data for Last 24 hours Vital signs and Labs for Last 24 Hours: Temp Pulse Resp BP Pulse Ox O2 Del Method 98.1 F 57 L 18 119/56 L 96 Room Air 10/12/23 04:00 10/12/23 04:00 10/12/23 04:00 10/12/23 04:00 10/12/23 04:00 10/12/23 05:00 Laboratory Results - last 24 hr 10/11/23 06:47: WBC 10.7, RBC 3.54 L, Hgb 12.5 L, Hct 33.3 L, MCV 94.0, MCH 35.2 H, MCHC 37.4 H, RDW 14.5, Plt Count 203, MPV 8.7, Neut % (Auto) 65.8, Lymph % (Auto) 26.2, [place] % (Auto) 5.6, Eos % (Auto) 1.6, Baso % (Auto) 0.8, Neut # (Auto) 7.0, Lymph # (Auto) 2.8, [place] # (Auto) 0.6, Eos # (Auto) 0.2, Baso # (Auto) 0.1, PT 11.0, INR 1.02, APTT 23.5, Sodium 139, Potassium 4.2, Chloride 108 H, Carbon Dioxide 27, Anion Gap 8.2, BUN 32 H, Creatinine 1.10, Estimated Creat Clear 74, Estimated GFR 64, Est GFR ( Amer) 78, Glucose 122 H, Lactate 1.6, Calcium 8.4, Magnesium 1.9, Total Bilirubin 0.5, AST 36, ALT 20, Alkaline Phosphatase 74, Total Protein 5.6 L, Albumin 3.2 L, Globulin 2.4, Albumin/Globulin Ratio 1.3, Lipase 82 10/11/23 06:58: Blood Type A Positive, Antibody Screen Negative 10/11/23 17:15: Hgb 11.5 L, Hct 35.0 L 10/11/23 20:04: POC Glucose 105 10/11/23 21:30: Hgb 12.3 L, Hct 38.1 L 10/11/23 23:00: Hgb 10.7 L D, Hct 33.4 L I & O for Last 24 hours: Intake & Output 10/09/23 10/10/23 10/11/23 10/12/23 11:59 11:59 11:59 11:59 Intake Total 1728 / 1728 Output Total 0 / 0 Balance 1728 / 1728 Weight 212 lb 5 oz 213 lb 12.8 oz Constitutional Constitutional: no acute distress *Routine Abdominal Exam Abdominal: Present soft Progress Note: A&P Assessment and plan (1) GI bleed: Problem details: This most likely represents an upper GI bleed given his signs and symptoms. This could also be a diverticular bleed or lower GI but this is less likely. I would recommend twice daily Protonix and every 6 hours H&H. Plan for EGD in the morning. Status: Acute (2) HTN (hypertension): Status: Acute (3) Hyperlipidemia: Status: Chronic (4) Coronary atherosclerosis of [place] coronary artery: Status: Chronic
[2023-10-12 07:41] LABS: Anion Gap 8.9 mEq/L (5-15); Blood Urea Nitrogen 18 mg/dl (9-20); Calcium 8.1 mg/dl (8.4-10.2); Carbon Dioxide 27 mmol/L (22.0-30.0); Chloride 106 mmol/L (98-107); Creatinine Clearance Estimated 81 mL/min (50-200); Estimated Glomerular Filt Rate 81 ml/min (>60); GFR (African American) 98 ML/MIN (>60); Glucose 99 mg/dl (74-100); Potassium 3.9 mmoL/L (3.5-5.1); Sodium 138 mmol/L (136-145)
[2023-10-12 08:06] LABS: Basophils # 0.1 K/mm3 (0-0.2); Basophils % 0.8 % (0.1-2.0); Eosinophils # 0.2 K/mm3 (0.0-0.4); Eosinophils % 2.2 % (0.1-12.0); Hematocrit 34.5 % (42.0-52.0); Lymphocytes # 2.8 K/mm3 (0.7-4.5); Lymphocytes % 37.2 % (10-50); Mean Corpuscular HGB Conc 31.8 g/dL (31.8-35.4); Mean Corpuscular Hemoglobin 29.3 pg (27.0-31.2); Mean Corpuscular Volume 92.1 fl (80-94); Mean Platelet Volume 9.3 fl (7.4-10.4); Monocytes # 0.4 K/mm3 (0.1-1.0); Monocytes % 5.2 % (1.7-9.3); Neutrophils % 54.6 % (37.0-80.0); Platelet Count 185 K/mm3 (142-424); Red Blood Count 3.74 M/mm3 (4.60-6.20); Red Cell Distribution Width 14.5 % (11.5-17.5); White Blood Count 7.4 K/mm3 (4.8-10.8)
[2023-10-12] MEDS: PANTOPRAZOLE 40MG VIAL 40 MG IV ×2 (09:00→21:00)
[2023-10-12] MEDS: ESCITALOPRAM 10 MG 1 EACH PO (09:01)
[2023-10-12] MEDS: MEMANTINE 10 MG 1 EACH PO ×2 (09:01→21:01)
[2023-10-12 11:24] LABS: Hematocrit 33.6 % (42.0-52.0); Hemoglobin 10.7 g/dL (14.1-18.0)
--- NOTE | 2023-10-12 12:56 | HMH.PHAINT1 ---
Pharmacy Intervention Comments: MEDICATION RECONCILIATION COMPLETED ON PATIENT USING EXTERNAL FILL HISTORY FROM PHARMACY. -MANASA WINN, JJD
--- NOTE | 2023-10-12 14:01 | P.PN_ITS ---
Subjective *Date: 10/12/23 *Time: 14:01 Interval history: patient is seen at bedside, denied CP, SOB, denied rectal bleed Exam Data for Last 24 hours Vital signs and Labs for Last 24 Hours: Temp Pulse Resp BP Pulse Ox O2 Del Method 97.6 F 57 L 16 133/65 92 L Room Air 10/12/23 07:48 10/12/23 07:48 10/12/23 07:48 10/12/23 07:48 10/12/23 07:48 10/12/23 13:55 Laboratory Results - last 24 hr 10/11/23 06:58: Antibody Screen Negative 10/11/23 17:15: Hgb 11.5 L, Hct 35.0 L 10/11/23 20:04: POC Glucose 105 10/11/23 21:30: Hgb 12.3 L, Hct 38.1 L 10/11/23 23:00: Hgb 10.7 L D, Hct 33.4 L 10/12/23 06:50: WBC 7.4 D, RBC 3.74 L, Hgb Cancelled 10/12/23 06:50: Hgb 11.0 L, Hct Cancelled 10/12/23 06:50: Hct 34.5 L, MCV 92.1, MCH 29.3, MCHC 31.8, RDW 14.5, Plt Count 185, MPV 9.3, Neut % (Auto) 54.6, Lymph % (Auto) 37.2, [place] % (Auto) 5.2, Eos % (Auto) 2.2, Baso % (Auto) 0.8, Neut # (Auto) 4.0, Lymph # (Auto) 2.8, [place] # (Auto) 0.4, Eos # (Auto) 0.2, Baso # (Auto) 0.1, Sodium 138, Potassium 3.9, Chloride 106, Carbon Dioxide 27, Anion Gap 8.9, BUN 18 D, Creatinine 0.90, Estimated Creat Clear 81, Estimated GFR 81, Est GFR ( Amer) 98 D, Glucose 99, Calcium 8.1 L 10/12/23 10:55: Hgb 10.7 L, Hct 33.6 L I & O for Last 24 hours: Intake & Output 10/09/23 10/10/23 10/11/23 10/12/23 23:59 23:59 23:59 23:59 Intake Total 1313 / 1313 415 / 415 Output Total 0 / 0 500 / 500 Balance 1313 / 1313 -85 / -85 Weight 96.303 kg 96.978 kg Constitutional Constitutional: no acute distress *Routine HEENT Exam Head: Present normocephalic Eye: Present EOMI and PERRL ENT: Present mucous membranes moist *Routine Neck Exam Neck: Present supple; Absent lymphadenopathy *Routine Respiratory Exam Respiratory: Present CTA bilaterally *Routine Cardiovascular Exam Cardiovascular: Present RRR *Routine Abdominal Exam Abdominal: Present soft and normoactive bowel sounds; Absent tenderness *Routine Extremities Exam Extremities: Absent cyanosis, clubbing or edema *Routine Skin Exam Skin: Present warm; Absent rash *Routine Neurological Exam Neurological: Present alert and oriented X3 Assessment and Plan *Assessment and plan (1) GI bleed: Problem Comment: This most likely represents an upper GI bleed given his signs and symptoms. This could also be a diverticular bleed or lower GI but this is less likely. I would recommend twice daily Protonix and every 6 hours H&H. Plan for EGD in the morning. Status: Acute Category: Medical Code(s): K92.2 - Gastrointestinal hemorrhage, unspecified (2) HTN (hypertension): Status: Acute Category: Medical Code(s): I10 - Essential (primary) hypertension (3) Hyperlipidemia: Status: Chronic Qualifiers: Hyperlipidemia type: unspecified Qualified Code(s): E78.5 - Hyperlipidemia, unspecified Category: Medical Code(s): E78.5 - Hyperlipidemia, unspecified (4) Coronary atherosclerosis of [place] coronary artery: Status: Chronic Category: Medical Code(s): I25.10 - Atherosclerotic heart disease of [place] coronary artery without angina pectoris Plan Patient is a 78-year-old male who presented to hospital due to concern for bleeding per rectum. According to the patient he has been noticing a lot of blood, he also has noticed some fresh blood. Denies chest pain shortness of breath nausea vomiting diarrhea constipation dysuria fevers and chills. He denies any abdominal discomfort. Assessment and plan GI bleed Acute blood loss anemia continue IV Protonix IV fluids Monitor H&H Liquid diet for now Consult general surgery for possible EGD tomorrow, NPO after MN, plan for EGD tomorrow per Hold home aspirin Stool occult test performed in ED-positive History of hypertension Hyperlipidemia CAD Resume home statin, hold home aspirin DVT prophylaxis- SCDs for now due to concern for GI bleed potential dc tomorrow after EGD
[2023-10-12 14:06] LABS: Hematocrit 31.4 % (42.0-52.0); Hemoglobin 10.5 g/dL (14.1-18.0)
--- NOTE | 2023-10-12 14:06 | PC.NURSE ---
1406- Pt off floor with pre op staff for scheduled EGD
--- NOTE | 2023-10-12 14:16 | EXP.ANES.CKL ---
[facility] Disclaimer: The information contained in this section may have been updated after the patient was seen, as this information can be updated by other users. Medical History CAD (coronary artery disease) Social History Smoking Status: Former smoker tobacco type: cigarettes packs per day: 4 second hand exposure: No alcohol intake: current alcohol intake frequency: holidays/special occasions only substance use type: denies use current occupational status: retired Travel in the last 8 weeks: None household members: spouse housing: house current occupational exposures/hazards: No caffeine: Yes [facility] Anesthesia Checklist Patient Identification Patient Identification: Arm Band and Verbal (Name & ) Structural Data Admitted From: Inpatient Planned Operative Procedure/s: EGD Consent for Planned Operative Procedure(s) Verified: Yes Verified Documents: Surgical Consent and History and Physical NPO Status Verified Time NPO: 00:00 Chart Verification Results Verified: CBC and BMP Additional verifications Anesthesia Reactions: No Airway Assessment Mallampati Score:: Class III C-Spine Mobility Assessed: Yes TMJ Mobility Assessed: Yes Dentition: Edentulous Neurological Assessment Level of Consciousness: Awake Hx Seizures: No Numbness or tingling in extremities: No Anesthesia Plan Anesthesia Risk discussed: Yes Anesthesia Plan: Verified ASA Class: III (III E) Anesthesia Type: MAC
--- NOTE | 2023-10-12 15:33 | HMH.SCOPE ---
Procedure: Date: 10/12/23 Patient Date of :: 1945 Procedure Performed:: Esophagogastroduodenoscopy Indications:: Patient is an 78-year-old male with history of hypertension, diabetes, hyperlipidemia, coronary artery disease who presented to the emergency department yesterday with passage of blood with bowel movement. Apparently had near syncopal episode. He has had a previous colonoscopy several years ago. Denies any history of ulcer disease. He presented to the emergency department and underwent evaluation. He underwent CTA of the abdomen and pelvis which reveals no evidence of active extravasation. He was admitted for inpatient management yesterday and seen by on-call surgeon. Recommendations were for upper endoscopy. Performing Provider:: Varun Edwards MD Referring Provider:: . Sedation:: MAC sedation Procedure:: Patient history was obtained and appropriate physical examination was performed. Patient's medications and allergies were reviewed. Informed consent was obtained after explaining the benefits, alternatives, and risks of the procedure including, but not limited to, bleeding, perforation, missed lesions, and adverse reaction to anesthesia medications. Patient was transported to endoscopy procedure room. Patient was connected to monitoring devices. Throughout the procedure the patient's blood pressure, pulse, and oxygen saturations were monitored continuously. Patient identification and planned procedure were verified by the staff. Patient was positioned in lateral decubitus position. Olympus endoscope was inserted. Esophagus was cannulated. There was some minor tortuosity to the esophagus consistent with mild esophageal dysmotility. Gastroesophageal junction was encountered at approximately 43 cm from the incisors. Stomach was cannulated and insufflated. There were a few scattered polyps consistent with fundic gland polyps. Retroflexion revealed no evidence of any appreciable hiatal hernia. There was moderate nonerosive diffuse gastropathy. There was evidence of some mild bile reflux. Pylorus was traversed. Duodenal bulb and duodenal sweep was carefully inspected. Ampulla of Vater was noted and appeared to be normal. There was no evidence of any appreciable duodenitis or ulcers. Stomach was desufflated and the endoscope was withdrawn. . Findings:: Gastroesophageal junction at 43 cm. Diffuse gastropathy Probable fundic gland polyps . Recommendations:: Essentially no source of active or obvious recent bleeding on upper endoscopy. Source may be distal. He has seemingly stabilized with negative CT angiogram at this time. Continue to monitor and treat medically. May need follow-up colonoscopy and if negative could potentially need small bowel evaluation as an outpatient in the near future. Complications:: None immediately apparent Estimated blood obtained (mL): 0 Colonoscopy Component Colonoscopy Component Was a colonoscopy performed during today's procedure?: No
--- NOTE | 2023-10-12 17:25 | PC.NURSE ---
Pt returned from his EGD at 1605 this afternoon. He tolerated the procedure well and has ambulated to the bathroom twice with standby assist. He has not had any bloody stool noted today. Diet was advanced to full liquids this evening. Post MAC VS are stable as charted.
--- NOTE | 2023-10-12 18:59 | PC.NURSE ---
18:20- Called to pt's room by his . Patient was sitting on toilet in the bathroom and copious amounts of dark tarry diarrhea was noted in and around toilet. Assisted pt in cleaning up. Dr Edwards notified, no new orders.
[2023-10-12] MEDS: SODIUM CHLORIDE 0.9% 10ML VIAL 10 ML IV (21:00)
[2023-10-12] MEDS: DONEPEZIL 5 MG 1 EACH PO (21:01)
[2023-10-12 21:21] LABS: Hematocrit 24.6 % (42.0-52.0); Hemoglobin 9.9 g/dL (14.1-18.0)
[2023-10-13] VITALS: BP 126/62; PULSE 63; RESP 16; TEMP 36.9; O2SAT 97
[2023-10-13 04:00] VITALS: BP 122/63; PULSE 63; RESP 17; TEMP 36.4; O2SAT 95; BMI 30.6
--- NOTE | 2023-10-13 06:04 | PC.NURSE ---
Pt is alert and oriented. Ambulates to the restroom. No bloody stools throughout the night. Pt has rested well through the night. No complaints. SCDs in place. Remains on room air. Call light in reach.
--- NOTE | 2023-10-13 07:35 | EXP.SURG.PN ---
Subjective Patient reports: no new complaints Narrative: Patient is tolerating full liquid diet. Reportedly had a dark bowel movement characterized by dark tarry diarrhea. Patient states that he has some right suprapubic tenderness . This is nothing new. Labs are pending this morning. EGD yesterday relatively unremarkable. Exam Data for Last 24 hours Vital signs and Labs for Last 24 Hours: Temp Pulse Resp BP Pulse Ox O2 Del Method 97.6 F 63 17 122/63 95 Room Air 10/13/23 04:00 10/13/23 04:00 10/13/23 04:00 10/13/23 04:00 10/13/23 04:00 10/13/23 06:49 Laboratory Results - last 24 hr 10/12/23 06:50: WBC 7.4 D, RBC 3.74 L, Hgb Cancelled 10/12/23 06:50: Hgb 11.0 L, Hct Cancelled 10/12/23 06:50: Hct 34.5 L, MCV 92.1, MCH 29.3, MCHC 31.8, RDW 14.5, Plt Count 185, MPV 9.3, Neut % (Auto) 54.6, Lymph % (Auto) 37.2, [place] % (Auto) 5.2, Eos % (Auto) 2.2, Baso % (Auto) 0.8, Neut # (Auto) 4.0, Lymph # (Auto) 2.8, [place] # (Auto) 0.4, Eos # (Auto) 0.2, Baso # (Auto) 0.1, Sodium 138, Potassium 3.9, Chloride 106, Carbon Dioxide 27, Anion Gap 8.9, BUN 18 D, Creatinine 0.90, Estimated Creat Clear 81, Estimated GFR 81, Est GFR ( Amer) 98 D, Glucose 99, Calcium 8.1 L 10/12/23 10:55: Hgb 10.7 L, Hct 33.6 L 10/12/23 13:25: Hgb 10.5 L, Hct 31.4 L 10/12/23 21:11: Hgb 9.9 L, Hct 24.6 L I & O for Last 24 hours: Intake & Output 10/10/23 10/11/23 10/12/23 10/13/23 11:59 11:59 11:59 11:59 Intake Total 1728 / 1728 475 / 475 Output Total 250 / 250 550 / 550 Balance 1478 / 1478 -75 / -75 Weight 212 lb 5 oz 213 lb 12.8 oz 218 lb 14.4 oz *Routine Abdominal Exam Abdominal: Present soft; Absent tenderness Progress Note: A&P Assessment and plan (1) GI bleed: Status: Acute Assessment and plan: Check labs today. Continue medical management. No source for active GI bleeding on upper endoscopy yesterday. Possible he had a small upper GI source which had stopped such as a [place] lesion. May need colonoscopy as an outpatient at the near future but no indications for inpatient colonoscopy at this time. Potential exists for small bowel etiology. (2) HTN (hypertension): Status: Acute (3) Hyperlipidemia: Status: Chronic (4) Coronary atherosclerosis of [place] coronary artery: Status: Chronic
[2023-10-13 07:50] LABS: Basophils % 0.6 % (0.1-2.0); Eosinophils # 0.2 K/mm3 (0.0-0.4); Eosinophils % 2.3 % (0.1-12.0); Hematocrit 32.9 % (42.0-52.0); Hemoglobin 10.6 g/dL (14.1-18.0); Lymphocytes # 2.5 K/mm3 (0.7-4.5); Lymphocytes % 35.3 % (10-50); Mean Corpuscular HGB Conc 32.2 g/dL (31.8-35.4); Mean Corpuscular Hemoglobin 29.5 pg (27.0-31.2); Mean Corpuscular Volume 91.7 fl (80-94); Mean Platelet Volume 9.1 fl (7.4-10.4); Monocytes # 0.4 K/mm3 (0.1-1.0); Monocytes % 5.9 % (1.7-9.3); Neutrophils % 55.9 % (37.0-80.0); Platelet Count 201 K/mm3 (142-424); Red Blood Count 3.59 M/mm3 (4.60-6.20); Red Cell Distribution Width 14.4 % (11.5-17.5); White Blood Count 7.2 K/mm3 (4.8-10.8)
[2023-10-13 08:00] VITALS: BP 119/65; PULSE 57; RESP 16; TEMP 36.6; O2SAT 96
[2023-10-13 08:00] LABS: Anion Gap 7.7 mEq/L (5-15); Blood Urea Nitrogen 18 mg/dl (9-20); Calcium 8.4 mg/dl (8.4-10.2); Carbon Dioxide 30 mmol/L (22.0-30.0); Chloride 104 mmol/L (98-107); Creatinine Clearance Estimated 83 mL/min (50-200); Estimated Glomerular Filt Rate 72 ml/min (>60); GFR (African American) 87 ML/MIN (>60); Glucose 102 mg/dl (74-100); Potassium 3.7 mmoL/L (3.5-5.1); Sodium 138 mmol/L (136-145)
[2023-10-13] MEDS: ESCITALOPRAM 10 MG 1 EACH PO (08:11)
[2023-10-13] MEDS: PANTOPRAZOLE 40MG VIAL 40 MG IV (08:11)
[2023-10-13] MEDS: MEMANTINE 10 MG 1 EACH PO (08:11)
[2023-10-13 11:38] VITALS: BP 116/61; PULSE 56; RESP 16; TEMP 36.7; O2SAT 94
--- NOTE | 2023-10-13 11:48 | P.DS_ITS ---
General Admission date:: 10/11/23 Discharge date: 10/13/23 HPI HPI HPI: Patient is a 78-year-old male who presented to hospital due to concern for bleeding per rectum. According to the patient he has been noticing a lot of blood, he also has noticed some fresh blood. Denies chest pain shortness of breath nausea vomiting diarrhea constipation dysuria fevers and chills. He denies any abdominal discomfort. Hospital Course Hospital Course Hospital Course: Patient is a 78-year-old male who presented to hospital due to concern for bleeding per rectum. According to the patient he has been noticing a lot of blood, he also has noticed some fresh blood. Denies chest pain shortness of breath nausea vomiting diarrhea constipation dysuria fevers and chills. He denies any abdominal discomfort. Does report that he takes a baby aspirin daily. Surgery was consulted. Hemoglobin stable. Meeting criteria for d ischarge home with further management as an outpatient. Problems addressed as follows: GI bleed Acute blood loss anemia -Patient admitted to medicine. Serial labs obtained showing hemoglobin change from 12.5 on admission to 9.5 on 10/11. Surgery consulted, patient was taken for EGD on 10/11. Found to have mild gastropathy. No active source of bleeding on the upper endoscopy. With discussion with surgery, suspect he may have had a small upper GI source which had stopped such as a [place]ul[place] lesion. Repeat hemoglobin on morning of discharge increased to 10.6. No transfusions administered during admission. Patient was started on pantoprazole during admission. Will continue pantoprazole at discharge. Recommend close follow-up with surgery in 1 to 2 weeks for consideration of colonoscopy. Will have repeat labs in 3 days to monitor stability of hemoglobin. Recommend close follow-up with primary care for further management as an outpatient. Okay to resume regular diet and advance to normal on discharge. Recommend avoiding NSAIDs, aspirin. Continue medic and for hyperlipidemia, memory, mood. Stable to discharge home. Exam Data for Last 24 hours Vital signs and Labs for Last 24 Hours: Temp Pulse Resp BP Pulse Ox O2 Del Method 98.0 F 56 L 16 116/61 94 L Room Air 10/13/23 11:38 10/13/23 11:38 10/13/23 11:38 10/13/23 11:38 10/13/23 11:38 10/13/23 11:38 Laboratory Results - last 24 hr 10/12/23 10:55: Hgb 10.7 L, Hct 33.6 L 10/12/23 13:25: Hgb 10.5 L, Hct 31.4 L 10/12/23 21:11: Hgb 9.9 L, Hct 24.6 L 10/13/23 06:41: WBC 7.2, RBC 3.59 L, Hgb 10.6 L, Hct 32.9 L, MCV 91.7, MCH 29.5, MCHC 32.2, RDW 14.4, Plt Count 201, MPV 9.1, Neut % (Auto) 55.9, Lymph % (Auto) 35.3, [place] % (Auto) 5.9, Eos % (Auto) 2.3, Baso % (Auto) 0.6, Neut # (Auto) 4.0, Lymph # (Auto) 2.5, [place] # (Auto) 0.4, Eos # (Auto) 0.2, Baso # (Auto) 0.0, Sodium 138, Potassium 3.7, Chloride 104, Carbon Dioxide 30, Anion Gap 7.7, BUN 18, Creatinine 1.00, Estimated Creat Clear 83, Estimated GFR 72, Est GFR ( Amer) 87, Glucose 102 H, Calcium 8.4 I & O for Last 24 hours: Intake & Output 10/10/23 10/11/23 10/12/23 10/13/23 23:59 23:59 23:59 23:59 Intake Total 1313 / 1313 890 / 890 120 / 120 Output Total 0 / 0 800 / 800 0 / 0 Balance 1313 / 1313 90 / 90 120 / 120 Weight 96.303 kg 96.978 kg 99.291 kg Constitutional Constitutional: no acute distress, obese and cooperative *Routine HEENT Exam Head: Present normocephalic Eye: Present EOMI and PERRL ENT: Present mucous membranes moist *Routine Neck Exam Neck: Present supple; Absent lymphadenopathy *Routine Respiratory Exam Respiratory: Present CTA bilaterally; Absent rhonchi, wheezes or crackles *Routine Cardiovascular Exam Cardiovascular: Present RRR *Routine Abdominal Exam Abdominal: Present soft and normoactive bowel sounds; Absent tenderness *Routine Rectal Exam Patient deferred: visual exam *Routine Exam Patient deferred: penile exam *Routine Extremities Exam Extremities: Absent cyanosis, clubbing or edema *Routine Skin Exam Skin: Present warm; Absent rash *Routine Neurological Exam Neurological: Present alert, oriented X3 and moving all extremities; Absent altered mental status Results Data Completed and Pending Labs on day of discharge: Labs from last 24 hours 10/13/23 10/12/23 10/12/23 06:41 21:11 13:25 WBC 7.2 RBC 3.59 L Hgb 10.6 L 9.9 L 10.5 L Hct 32.9 L 24.6 L 31.4 L MCV 91.7 MCH 29.5 MCHC 32.2 RDW 14.4 Plt Count 201 MPV 9.1 Neut % (Auto) 55.9 Lymph % (Auto) 35.3 [place] % (Auto) 5.9 Eos % (Auto) 2.3 Baso % (Auto) 0.6 Neut # (Auto) 4.0 Lymph # (Auto) 2.5 [place] # (Auto) 0.4 Eos # (Auto) 0.2 Baso # (Auto) 0.0 Sodium 138 Potassium 3.7 Chloride 104 Carbon Dioxide 30 Anion Gap 7.7 BUN 18 Creatinine 1.00 Estimated Creat Clear 83 Estimated GFR 72 Est GFR ( Amer) 87 Glucose 102 H Calcium 8.4 10/12/23 10:55 WBC RBC Hgb 10.7 L Hct 33.6 L MCV MCH MCHC RDW Plt Count MPV Neut % (Auto) Lymph % (Auto) [place] % (Auto) Eos % (Auto) Baso % (Auto) Neut # (Auto) Lymph # (Auto) [place] # (Auto) Eos # (Auto) Baso # (Auto) Sodium Potassium Chloride Carbon Dioxide Anion Gap BUN Creatinine Estimated Creat Clear Estimated GFR Est GFR ( Amer) Glucose Calcium DS: Diagnosis Discharge Diagnosis (1) GI bleed: Status: Acute Code(s): K92.2 - Gastrointestinal hemorrhage, unspecified (2) HTN (hypertension): Status: Acute Code(s): I10 - Essential (primary) hypertension (3) Hyperlipidemia: Status: Chronic Code(s): E78.5 - Hyperlipidemia, unspecified Qualifiers: Hyperlipidemia type: unspecified Qualified Code(s): E78.5 - Hyperlipidemia, unspecified (4) Coronary atherosclerosis of [place] coronary artery: Status: Chronic Code(s): I25.10 - Atherosclerotic heart disease of [place] coronary artery without angina pectoris Meds Home Medications and Allergies Home Medications Medication Instructions Recorded Confirmed Type escitalopram oxalate 10 mg tablet 10 mg PO DAILY 10/21/20 10/11/23 History atorvastatin 40 mg tablet 40 mg PO DAILY 03/27/23 10/11/23 History donepezil 5 mg tablet 5 mg PO HS 10/11/23 10/11/23 History memantine 10 mg tablet 10 mg PO BID 10/11/23 10/11/23 History Bifidobacterium infantis 4 mg 4 mg PO DAILY 10/12/23 10/12/23 History capsule (Align) cyanocobalamin (vitamin B-12) 1,000 mcg PO DAILY 10/12/23 10/12/23 History 1,000 mcg tablet thiamine HCl (vitamin B1) 50 mg 50 mg PO DAILY 10/12/23 10/12/23 History tablet pantoprazole 40 mg tablet,delayed 40 mg PO DAILY #30 tabs 10/13/23 Rx release New Prescriptions to Start Prescriptions: Gian Adamson Allergies Allergy/AdvReac Type Severity Reaction Status Date / Time No Known Allergies Allergy Verified 09/10/23 10:08 Discharge Plan Disposition Patient Disposition: Home, Self-Care Condition: Fair Follow up Plan Follow up with: Varun Edwards MD [Staff Physician] - 11/03/23 9:00 am Rakesh Jones MD [Primary Care Provider] - 10/21/23 3:15 pm Prescriptions/Medication Reconciliation: New pantoprazole 40 mg tablet,delayed release (DR/EC) 40 mg PO DAILY Qty: 30 0RF Continued escitalopram oxalate 10 MG tablet 10 mg PO DAILY atorvastatin 40 mg tablet 40 mg PO DAILY Patient Comments: TAKE ONE TABLET BY MOUTH EVERY DAY donepezil 5 mg tablet 5 mg PO HS Patient Comments: TAKE ONE TABLET BY MOUTH EVERY DAY AT BEDTIME memantine 10 mg tablet 10 mg PO BID Patient Comments: TAKE ONE TABLET BY MOUTH TWICE DAILY cyanocobalamin (vitamin B-12) 1,000 mcg Tablet 1,000 mcg PO DAILY thiamine HCl (vitamin B1) 50 mg Tablet 50 mg PO DAILY Align 4 mg Capsule 4 mg PO DAILY Other Ambulatory Orders: Complete Blood Count Auto Diff (Routine) Timeframe: 3 Days Facility: [facility] - Location: Laboratory Ordered By: Gian Campbell Problem Reconciliation Problems Reviewed?: Yes Patient Discharge Instructions ACTIVITY: Continue current activity DIET: continue same diet Patient Instructions: DI for Gastrointestinal Bleeding Providers Primary Care Provider: Rakesh Jones Admmurali Provider: Kaveh Huddleston Attending Provider: Kaveh Huddleston
--- NOTE | 2023-10-14 13:20 | CARE MANAGER ---
Contacted patient/ related to hospital discharge. He is doing well. Aware of medications and follow up appointments. Denies any questions or concerns at this time. ASIA Guzman
== END 2023-10-13 13:00 | disposition home or self-care (01) ==
LOC: ER 09:27 → 2ND 10:33
PROVIDERS: Student in an Organized Health Care Education/Training Program; Surgery; Admitting Provider Internal Medicine; Emergency Provider Emergency Medicine; PCP Internal Medicine Adolescent Medicine; Visit Provider Internal Medicine
PROC: 0DJ08ZZ Inspection of Upper Intestinal Tract, Via Natural or Artificial Opening Endoscopic (ICD-10-PCS; CPT 43235; principal; 2023-10-12 13:00)
DX: K92.2 Gastrointestinal hemorrhage, unspecified (principal); I10 Essential (primary) hypertension; E78.5 Hyperlipidemia, unspecified; I25.10 Atherosclerotic heart disease of native coronary artery without angina pectoris; Z87.891 Personal history of nicotine dependence; E11.9 Type 2 diabetes mellitus without complications; F17.210 Nicotine dependence, cigarettes, uncomplicated; D62 Acute posthemorrhagic anemia
CPT/HCPCS: 43235; 36415; 74174; 80048; 80053; 82962; 83605; 83690; 83735; 85014; 85018; 85025; 85610; 85730; 86850; 99291; G0378; Q9967

== ENCOUNTER 2023-10-16 11:41 | Outpatient (CLI) | payer MEDICARE, OTHER, SELFPAY ==
[2023-10-16 12:02] LABS: Basophils # 0.1 K/mm3 (0-0.2); Basophils % 0.7 % (0.1-2.0); Eosinophils # 0.2 K/mm3 (0.0-0.4); Eosinophils % 2.3 % (0.1-12.0); Hematocrit 33.6 % (42.0-52.0); Hemoglobin 10.7 g/dL (14.1-18.0); Lymphocytes # 3.8 K/mm3 (0.7-4.5); Lymphocytes % 36.4 % (10-50); Mean Corpuscular HGB Conc 31.9 g/dL (31.8-35.4); Mean Corpuscular Hemoglobin 29.8 pg (27.0-31.2); Mean Corpuscular Volume 93.4 fl (80-94); Mean Platelet Volume 8.9 fl (7.4-10.4); Monocytes # 0.5 K/mm3 (0.1-1.0); Neutrophils # 5.8 K/mm3 (1.8-7.8); Neutrophils % 55.6 % (37.0-80.0); Platelet Count 291 K/mm3 (142-424); Red Cell Distribution Width 15.3 % (11.5-17.5); White Blood Count 10.5 K/mm3 (4.8-10.8)
== END 2023-10-16 23:59 | disposition home or self-care (01) ==
LOC: LAB 11:43
PROVIDERS: PCP Internal Medicine Adolescent Medicine; Visit Provider Internal Medicine Adolescent Medicine
DX: K92.2 Gastrointestinal hemorrhage, unspecified (principal)
CPT/HCPCS: 36415; 85025

== ENCOUNTER 2023-11-23 07:03 | Day surgery (SDC) | payer MEDICARE, OTHER, SELFPAY ==
[2023-11-23] VITALS (7 sets, daily range): BP systolic 100–134; BP diastolic 59–78; PULSE 51–58; RESP 16–18; TEMP 36.1–37.2; O2SAT 95–98; BMI 29.2
--- NOTE | 2023-11-23 08:29 | P.PNANES_ITS ---
[facility] Disclaimer: The information contained in this section may have been updated after the patient was seen, as this information can be updated by other users. Medical History CAD (coronary artery disease) Surgical History History of cholecystectomy Family History Father Family history of cancer Mother Family history of acute congestive heart failure Mother Family history of diabetes mellitus type II Social History Smoking Status: Former smoker tobacco type: cigarettes packs per day: 4 second hand exposure: No alcohol intake: current alcohol intake frequency: holidays/special occasions only substance use type: denies use current occupational status: retired Travel in the last 8 weeks: None household members: spouse housing: house current occupational exposures/hazards: No caffeine: Yes [facility] Anesthesia Checklist Patient Identification Patient Identification: Arm Band and Verbal (Name & ) Structural Data Admitted From: Home Planned Operative Procedure/s: Colonoscopy Consent for Planned Operative Procedure(s) Verified: Yes NPO Status Verified Time NPO: 00:00 Additional verifications Anesthesia Reactions: No Airway Assessment Mallampati Score:: Class III C-Spine Mobility Assessed: Yes TMJ Mobility Assessed: Yes Dentition: Edentulous Neurological Assessment Level of Consciousness: Awake Hx Seizures: No Numbness or tingling in extremities: No Anesthesia Plan Anesthesia Risk discussed: Yes Anesthesia Plan: Verified ASA Class: III Anesthesia Type: MAC
--- NOTE | 2023-11-23 09:22 | P.HP_ITS ---
HPI HPI HPI: Patient presents for colonoscopy. Patient is an 78-year-old male with history of hypertension, diabetes, hyperlipidemia, coronary artery disease who presented to the emergency department on 10/11/2023 with passage of blood with bowel movement. Apparently had near syncopal episode. He has had a previous colonoscopy several years ago. Denies any history of ulcer disease. He presented to the emergency department and underwent evaluation. He underwent CTA of the abdomen and pelvis which reveals no evidence of active extravasation. He was admitted for inpatient management yesterday and seen by on-call surgeon. He underwent upper endoscopy on 10/12/2023 which revealed some diffuse gastropathy and fundic gland polyps but no active bleeding. It was felt that he may need follow-up colonoscopy as an outpatient with possible small bowel evaluation. His hemoglobin on admission was 12.5 and had decreased to 9.5. He did not require transfusion and hemoglobin on discharge was 10.6. He had a follow-up outpatient hemoglobin and several days later on 10/16/2023 which was 10.7. [facility] Disclaimer: The information contained in this section may have been updated after the patient was seen, as this information can be updated by other users. Medical History CAD (coronary artery disease) Surgical History History of cholecystectomy Family History Father Family history of cancer Mother Family history of acute congestive heart failure Mother Family history of diabetes mellitus type II Social History Smoking Status: Former smoker tobacco type: cigarettes packs per day: 4 second hand exposure: No alcohol intake: current alcohol intake frequency: holidays/special occasions only substance use type: denies use current occupational status: retired Travel in the last 8 weeks: None household members: spouse housing: house current occupational exposures/hazards: No caffeine: No Review of Systems Review of Systems Review of systems:: pertinent systems reviewed and negative unless documented below Meds Home Medications and Allergies Home Medications Medication Instructions Recorded Confirmed Type escitalopram oxalate 10 mg tablet 10 mg PO DAILY 10/21/20 11/23/23 History (Lexapro) atorvastatin 40 mg tablet 40 mg PO DAILY 03/27/23 11/23/23 History donepezil 5 mg tablet (Aricept) 5 mg PO HS 10/11/23 11/23/23 History memantine 10 mg tablet 10 mg PO BID 10/11/23 11/23/23 History Bifidobacterium infantis 4 mg 4 mg PO DAILY 10/12/23 11/23/23 History capsule (Align) cyanocobalamin (vitamin B-12) 1,000 mcg PO DAILY 10/12/23 11/23/23 History 1,000 mcg tablet thiamine HCl (vitamin B1) 50 mg 50 mg PO DAILY 10/12/23 11/23/23 History tablet New Prescriptions to Start Prescriptions: Allergies Allergy/AdvReac Type Severity Reaction Status Date / Time No Known Allergies Allergy Verified 11/23/23 08:36 Exam Data for Last 24 hours Vital signs and Labs for Last 24 Hours: Temp Pulse Resp BP Pulse Ox O2 Del Method 97 F L 58 L 18 134/62 98 Room Air 11/23/23 08:27 11/23/23 08:27 11/23/23 08:27 11/23/23 08:27 11/23/23 08:27 11/23/23 08:27 I & O for Last 24 hours: Intake & Output 11/20/23 11/21/23 11/22/23 11/23/23 11:59 11:59 11:59 11:59 Weight 210 lb Constitutional Constitutional: no acute distress *Routine HEENT Exam Head: Present normocephalic Eye: Present EOMI and PERRL ENT: Present mucous membranes moist *Routine Neck Exam Neck: Present supple; Absent lymphadenopathy *Routine Respiratory Exam Respiratory: Present CTA bilaterally *Routine Cardiovascular Exam Cardiovascular: Present RRR *Routine Abdominal Exam Abdominal: Present soft and normoactive bowel sounds; Absent tenderness *Routine Rectal Exam Rectal:: deferred *Routine Genitalia Exam Genitalia:: deferred *Routine Extremities Exam Extremities: Absent cyanosis, clubbing or edema *Routine Skin Exam Skin: Present warm; Absent rash *Routine Neurological Exam Neurological: Present alert and oriented X3 Assessment and Plan *Assessment and plan (1) GI bleed: Status: Acute Category: Medical Code(s): K92.2 - Gastrointestinal hemorrhage, unspecified Plan Plan to proceed with colonoscopy.
[2023-11-23 09:24] LABS: POC Glucose,Bedside 106 (70-110)
--- NOTE | 2023-11-23 10:20 | P.PCN_ITS ---
Procedure: Date: 11/23/23 Patient Date of :: 1945 Procedure Performed:: Total colonoscopy to ileocecal valve with polypectomy using snare and biopsy forceps Indications:: Patient presents for colonoscopy. Patient is an 78-year-old male with history of hypertension, diabetes, hyperlipidemia, coronary artery disease who presented to the emergency department on 10/11/2023 with passage of blood with bowel movement. Apparently had near syncopal episode. He has had a previous colonoscopy several years ago. Denies any history of ulcer disease. He presented to the emergency department and underwent evaluation. He underwent CTA of the abdomen and pelvis which reveals no evidence of active extravasation. He was admitted for inpatient management yesterday and seen by on-call surgeon. He underwent upper endoscopy on 10/12/2023 which revealed some diffuse gastropathy and fundic gland polyps but no active bleeding. It was felt that he may need follow-up colonoscopy as an outpatient with possible small bowel evaluation. His hemoglobin on admission was 12.5 and had decreased to 9.5. He did not require transfusion and hemoglobin on discharge was 10.6. He had a follow-up outpatient hemoglobin and several days later on 10/16/2023 which was 10.7. . Performing Provider:: Varun Edwards MD Referring Provider:: Rakesh Jones MD Sedation:: MAC sedation Procedure:: Patient history was obtained and appropriate physical examination was performed. Patient's medications and allergies were reviewed. Informed consent was obtained after explaining the benefits, alternatives, and risks of the procedure including, but not limited to, bleeding, perforation, missed lesions, and adverse reaction to anesthesia medications. Patient was transported to endoscopy procedure room. Patient was connected to monitoring devices. Throughout the procedure the patient's blood pressure, pulse, and oxygen saturations were monitored continuously. Patient identification and planned procedure were verified by the staff. Patient was positioned in lateral decubitus position. Digital anorectal exam was performed. Variable stiffness Olympus colonoscope was inserted and advanced under direct visualization to the cecum. Adequacy of the colonic preparation was noted. The colonoscope was advanced a short distance into the terminal ileum. The colonoscope was then slowly withdrawn while carefully exam ining the color, texture, anatomy, and integrity of the mucosoa circumferentially. Within the rectum retroflexion was performed. Colonoscope was then withdrawn. Impression: Colonic preparation was good. However there was appreciable amount of liquid with bubbles throughout the colon. This required high-volume trans colonoscopic irrigation and suctioning. There was also some hyperperistalsis and lack of relaxation. The colonoscope could only be advanced brief distance into the ileocecal valve. In the distal transverse colon there was a small possible adenomatous appearing polyp removed with cold snare. There were a few sigmoid diverticulosis. Within the rectum there were some potential rectal varices and minimal internal hemorrhoids. Colonoscope was withdrawn. . Findings:: Tiny distal transverse polyp Mild sigmoid diverticulosis Potential rectal varices Internal hemorrhoids . Recommendations:: Follow-up colonoscopy pending pathology. Given the nature of his rectal bleeding previously with the findings on colonoscopy this could have been a self-limited diverticular bleed or bleeding from potential rectal varices or less likely internal hemorrhoids. If he has recurrent anemia with blood loss may require small bowel evaluation. Complications:: None immediately apparent Estimated blood obtained (mL): 1 Colonoscopy Component Colonoscopy Component Was a colonoscopy performed during today's procedure?: Yes Recommended follow up colonoscopy of at least 10 years?: No If no, follow up colonoscopy recommended in ___ years?: See above Reason for not recommending >/= 10 yr follow-up interval?: See above
== END 2023-11-23 10:55 | disposition home or self-care (01) ==
PROVIDERS: PCP Internal Medicine Adolescent Medicine; Visit Provider Surgery
PROC: 0DJD8ZZ Inspection of Lower Intestinal Tract, Via Natural or Artificial Opening Endoscopic (ICD-10-PCS; CPT 45385; principal; 2023-11-23 09:30)
DX: K62.5 Hemorrhage of anus and rectum (principal); D12.7 Benign neoplasm of rectosigmoid junction; D12.3 Benign neoplasm of transverse colon; K57.30 Diverticulosis of large intestine without perforation or abscess without bleeding; K64.8 Other hemorrhoids; E11.9 Type 2 diabetes mellitus without complications
CPT/HCPCS: 45385; 82962; J2704

== ENCOUNTER 2024-01-01 08:48 | Outpatient (CLI) | payer MEDICARE, OTHER, SELFPAY ==
--- NOTE | 2024-01-01 08:48 | FL_ITS ---
FINAL REPORT CLINICAL HISTORY: NAUSEA 150.47 MGY DAP 3034.93 FT: 2:34 FINDINGS: UPPER GI WITH SBFT UPPER GI EXAM HISTORY: Abdominal pain, nausea. PROCEDURE: The patient ingested barium. Effervescent crystals were also administered. Spot and overhead films were obtained. FINDINGS: The esophagus is normal. There is a small sliding type hiatal hernia. There is mild gastroesophageal reflux. Peristalsis is normal. The rugal fold pattern of the stomach is normal. The duodenal bulb is normal. Fluoroscopy time: 2 minutes 34 seconds Radiation exposure in Reference air Kerma: 150.47 mGy IMPRESSION: Normal upper GI. SBFT: The marine equipment engineer film is normal. There is no evidence of obstruction. The mucosal fold pattern is normal. The terminal ilium is not well demonstrated despite contrast throughout the small bowel and in the cecum. There is a small diverticulum seen in the distal small bowel. IMPRESSION: 1. No obstruction. 2. Small bowel diverticulosis. Films reviewed , interpreted and dictated by Dr. Edmonds Transcribed by Harley Mckeon PA-C. Reviewed, Interpreted and Dictated by Varun Edmonds III, MD Transcribed by JACOB Aldana Authenticated and [facility]
[2024-01-01] MEDS: BARIUM SULFATE(LIQUID E-Z-PAQUE);355ML BOTTLE 355 ML PO (10:05)
[2024-01-01] MEDS: BARIUM SULFATE (E-Z-HD 340GM);135ML BOTTLE 135 ML PO (10:05)
[2024-01-01] MEDS: E-Z-GASII EFFERVESCENT GRANULES;1PK 1 EACH PO (10:05)
== END 2024-01-01 23:59 | disposition home or self-care (01) ==
LOC: RAD 08:48
PROVIDERS: PCP Internal Medicine Adolescent Medicine; Visit Provider Surgery
DX: K92.2 Gastrointestinal hemorrhage, unspecified (principal)
CPT/HCPCS: 74246; 74248

== ENCOUNTER 2024-02-09 13:58 | Emergency (ER) | payer MEDICARE, OTHER, SELFPAY ==
[2024-02-09] VITALS (9 sets, daily range): BP systolic 97–181; BP diastolic 50–102; PULSE 55–85; RESP 18; TEMP 36.6; O2SAT 88–98; BMI 30.4
--- NOTE | 2024-02-09 13:59 | ECG_ITS ---
APPROVED REPORT Exam: Resting ECG HR:55 bpm ECG Measurements Heart Rate 55 AXES WV 233 P 60 QRSd 85 QRS 33 QT 421 T 35 QTc 411 Conclusion SINUS BRADYCARDIA WITH FIRST DEGREE AV BLOCK ABNORMAL ECG Electronically signed by : HALEY MADRIGAL, 02/09/2024 23:25:53
--- NOTE | 2024-02-09 14:06 | XR_ITS ---
FINAL REPORT CLINICAL HISTORY: CP COMPARISON: 10/10/2020 FINDINGS: TWO-VIEW CHEST The heart size is normal. The mediastinum is normal. The lungs are clear. There is no pneumothorax. IMPRESSION: No acute cardiopulmonary process. Reviewed, Interpreted and Dictated by Yordy Sung MD Transcribed by Ana Mckeon Authenticated and [facility]
--- NOTE | 2024-02-09 14:17 | CT_ITS ---
FINAL REPORT TECHNIQUE: After the administration of oral and intravenous contrast, axial images were obtained through the abdomen and pelvis by computed tomography. The study was performed with techniques to keep radiation dose as low as reasonably achievable, (ALARA). Individual dose reduction techniques using automated exposure control or adjustment of mA and/or kV according to the patient's size were employed. CLINICAL HISTORY: abd pain COMPARISON: 10/11/2023 FINDINGS: Abdomen: There is scarring in the left lung base. The liver parenchyma is homogeneous. The gallbladder is absent. There are calcified granulomas in the spleen. The adrenals are normal. The pancreas is unremarkable. There are multiple small bilateral nonobstructing kidney stones. Bilateral benign-appearing cysts are seen measuring up to 5 cm. The aorta is normal in caliber. There is no free fluid or adenopathy. Pelvis: The appendix is normal. There is scattered diverticula in the sigmoid colon. The urinary bladder is incompletely distended. There is no free fluid or adenopathy. Streak artifact is seen from posterior fusion hardware bridging L4-5. IMPRESSION: Bilateral nephrolithiasis. Bilateral renal cysts. Reviewed, Interpreted and Dictated by Yordy Sung MD Transcribed by Ana Mckeon Authenticated and . [facility]
[2024-02-09 14:18] LABS: Basophils # 0.1 K/mm3 (0-0.2); Basophils % 1.1 % (0.1-2.0); Eosinophils # 0.5 K/mm3 (0.0-0.4); Eosinophils % 4.5 % (0.1-12.0); Hematocrit 52.2 % (42.0-52.0); Hemoglobin 16.2 g/dL (14.1-18.0); Lymphocytes # 3.9 K/mm3 (0.7-4.5); Lymphocytes % 37.8 % (10-50); Mean Corpuscular HGB Conc 31.1 g/dL (31.8-35.4); Mean Corpuscular Hemoglobin 27.6 pg (27.0-31.2); Mean Corpuscular Volume 88.7 fl (80-94); Mean Platelet Volume 7.8 fl (7.4-10.4); Monocytes # 0.6 K/mm3 (0.1-1.0); Monocytes % 5.9 % (1.7-9.3); Neutrophils # 5.2 K/mm3 (1.8-7.8); Neutrophils % 50.6 % (37.0-80.0); Platelet Count 249 K/mm3 (142-424); Red Blood Count 5.88 M/mm3 (4.60-6.20); Red Cell Distribution Width 15.1 % (11.5-17.5); White Blood Count 10.3 K/mm3 (4.8-10.8)
--- NOTE | 2024-02-09 14:19 | ED_ITS ---
<Statement entered by Carolina Canales DO - 02/09/24 18:30> I was consulted by the AUGUSTINE, and we discussed the complexity of the problems being addressed. I approved the treatment and management plan for this patient's care in the emergency department, thus performing a substantive portion of the medical decision making. Carolina Canales DO Discharge Plan Disposition Patient Disposition: Home, Self-Care Condition: Good Prescriptions Prescriptions: New sucralfate [Carafate] 1 gram tablet 1 g PO ONCE Qty: 14 0RF Rx Instructions: Take once a day for 2 weeks omeprazole 20 mg capsule,delayed release(DR/EC) 20 mg PO DAILY Qty: 30 0RF Rx Instructions: Take daily for 4 weeks No Action escitalopram oxalate [Lexapro] 10 MG tablet 10 mg PO DAILY atorvastatin 40 mg tablet 40 mg PO DAILY Patient Comments: TAKE ONE TABLET BY MOUTH EVERY DAY donepezil [Aricept] 5 mg tablet 5 mg PO HS Patient Comments: TAKE ONE TABLET BY MOUTH EVERY DAY AT BEDTIME memantine 10 mg tablet 10 mg PO BID Patient Comments: TAKE ONE TABLET BY MOUTH TWICE DAILY cyanocobalamin (vitamin B-12) 1,000 mcg Tablet 1,000 mcg PO DAILY thiamine HCl (vitamin B1) 50 mg Tablet 50 mg PO DAILY Align 4 mg Capsule 4 mg PO DAILY Referrals Follow up/Referrals: Rakesh Jones MD [Primary Care Provider] - See instructions Activity Restrictions/Add. Instructions Additional Instructions/Restrictions: Follow-up with Dr. Gibson follow-up with GI physician as directed. Return to the emergency department any worsening signs or symptoms. Take medicine as prescribed. Clinical Impressions Clinical Impression: Chest pain, Abdominal pain Instructions Patient Instructions: DI for Abdominal Pain-Adult, DI for Atypical Chest Pain Print Language Print Language: Thai Discharge ED Provider: Carolina Canales General Adult HPI General Chief complaint: Chest Pain Stated complaint: Chest pain Time Seen by Provider: 02/09/24 14:09 Mode of Arrival: Ambulatory Source of Information: Patient Limitations: No Limitations Description of Symptoms (Recalled from ER Triage Doc. by RN): c/o right chest pain that started one hour ago, reports it as a burning. History of Present Illness HPI narrative: 78-year-old male presents the emergency department with a 1 hour history of chest pain/midepigastric right upper quadrant pain, patient states nothing makes this pain better or worse, he noticed it when he was driving, he denies any real shortness of breath, fever chills, admits to nausea, denies vomiting, has any recent illness, cough congestion, sore throat, denies any hematochezia, hematemesis, melena, hematuria, urinary symptomatology, no dizziness, no headache, no lower extremity swelling. Other past medical history consistent with prior GI bleed, recent endoscopy this last , hypertension, osteoarthritis, CAD, type 2 diabetes, hyperlipidemia. Patient is a former smoker, denies any alcohol or drug use, initial triage vitals are notable for bradycardia 55 bpm otherwise grossly unremarkable. Onset (ago): hour(s) Related Data Home Medications ?Medication ?Instructions ?Recorded ?Confirmed escitalopram oxalate 10 mg tablet 10 mg PO DAILY 10/21/20 12/15/23 (Lexapro) atorvastatin 40 mg tablet 40 mg PO DAILY 03/27/23 12/15/23 donepezil 5 mg tablet (Aricept) 5 mg PO HS 10/11/23 12/15/23 memantine 10 mg tablet 10 mg PO BID 10/11/23 12/15/23 Bifidobacterium infantis 4 mg 4 mg PO DAILY 10/12/23 12/15/23 capsule (Align) cyanocobalamin (vitamin B-12) 1,000 mcg PO DAILY 10/12/23 12/15/23 1,000 mcg tablet thiamine HCl (vitamin B1) 50 mg 50 mg PO DAILY 10/12/23 12/15/23 tablet Previous Rx's ?Medication ?Instructions ?Recorded omeprazole 20 mg capsule,delayed 20 mg PO DAILY #30 caps 02/09/24 release sucralfate 1 gram tablet (Carafate) 1 g PO ONCE #14 tabs 02/09/24 Allergies Allergy/AdvReac Type Severity Reaction Status Date / Time No Known Allergies Allergy Verified 12/15/23 10:41 [facility] Disclaimer: The information contained in this section may have been updated after the patient was seen, as this information can be updated by other users. Medical History (Updated 02/09/24 @ 18:17 by JACOB Felipe) CAD (coronary artery disease) Surgical History (Updated 12/15/23 @ 10:41 by AYAZ Ospina) History of colonoscopy History of cholecystectomy Family History Father Family history of cancer Mother Family history of acute congestive heart failure Mother Family history of diabetes mellitus type II Social History Smoking Status: Former smoker tobacco type: cigarettes packs per day: 4 second hand exposure: No alcohol intake: current alcohol intake frequency: holidays/special occasions only substance use type: denies use current occupational status: retired Travel in the last 8 weeks: None household members: spouse housing: house current occupational exposures/hazards: No caffeine: No ROS Obtained: Yes All systems reviewed & no additional complaints except as documented Physical Exam General General appearance: alert and in no apparent distress Head Head exam: atraumatic and normocephalic Eye Eye exam: Present normal appearance, PERRL and EOMI Neck Neck exam: Present full ROM; Absent meningismus Chest Chest inspection: Present normal inspection Respiratory Respiratory exam: Absent respiratory distress, wheezes, stridor, accessory muscle use or prolonged expiratory phase Cardiovascular Cardiovascular exam: Present bradycardia and other (Pulses equal and symmetric in bilateral upper and lower extremities) Abdominal Exam Abdominal exam: Present tenderness and guarding; Absent distention or rebound Abdominal tenderness: Present RUQ and epigastrium Comment: Mild voluntary guarding Extremities Exam Extremities exam: Absent edema Neurological Exam Neurological exam: Present alert Psychiatric Psychiatric exam: Present normal affect Skin Skin exam: Present warm and dry Medical Decision Making Medical Records Screening: Per USPSTF and CDC recommendations, given the prevalence of disease in our region, it is our hospital?s policy to screen for HIV and viral Hepatitis for all patients aged 18 and over and those with ongoing risk factors. Colt Inquiry Pt receiving controlled substance: No Colt was queried for this patient: No Vital Signs: 02/09/24 13:58 02/09/24 14:31 02/09/24 15:01 Temperature 97.8 F Temperature Source Oral Pulse Rate 63 60 Pulse Rate [Left Radial] 58 L Respiratory Rate 18 Blood Pressure 181/90 H 174/88 H Blood Pressure [Right Arm] 180/102 H Blood Pressure Mean 109 110 Blood Pressure Mean [Right Arm] 128 Blood Pressure Source [Right Arm] Automatic Cuff Blood Pressure Position [Right Arm] Sitting 02 Sat by Pulse Oximetry 98 95 96 Oxygen Delivery Method Room Air Room Air Room Air 02/09/24 15:30 02/09/24 16:01 02/09/24 16:31 Temperature Temperature Source Pulse Rate 55 L 66 75 Pulse Rate [Left Radial] Respiratory Rate Blood Pressure 176/90 H 158/75 H 132/64 Blood Pressure [Right Arm] Blood Pressure Mean 107 102 86 Blood Pressure Mean [Right Arm] Blood Pressure Source [Right Arm] Blood Pressure Position [Right Arm] 02 Sat by Pulse Oximetry 96 96 91 L Oxygen Delivery Method Room Air Room Air Room Air 02/09/24 17:00 02/09/24 18:13 Temperature Temperature Source Pulse Rate 74 85 Pulse Rate [Left Radial] Respiratory Rate Blood Pressure 122/55 L 97/50 L Blood Pressure [Right Arm] Blood Pressure Mean Blood Pressure Mean [Right Arm] Blood Pressure Source [Right Arm] Blood Pressure Position [Right Arm] 02 Sat by Pulse Oximetry 94 L 88 L Oxygen Delivery Method Room Air Lab Data Lab results reviewed: Yes I reviewed the patient's lab results. Lab Results 02/09/24 14:02: WBC 10.3, RBC 5.88, Hgb 16.2, Hct 52.2 H, MCV 88.7, MCH 27.6, M CHC 31.1 L, RDW 15.1, Plt Count 249, MPV 7.8, Neut % (Auto) 50.6, Lymph % (Auto) 37.8, Cuming % (Auto) 5.9, Eos % (Auto) 4.5, Baso % (Auto) 1.1, Neut # (Auto) 5.2, Lymph # (Auto) 3.9, Cuming # (Auto) 0.6, Eos # (Auto) 0.5 H, Baso # (Auto) 0.1, Sodium 140, Potassium 4.0, Chloride 106, Carbon Dioxide 30, Anion Gap 8.0, BUN 17, Creatinine 1.10, Estimated Creat Clear 75, Estimated GFR 64, Est GFR ( Amer) 78, Glucose 119 H, Calcium 9.1, Total Bilirubin 0.8, AST 34, ALT 19, Alkaline Phosphatase 85, Troponin I < 0.01 02/09/24 14:02: Troponin I < 0.01, NT-Pro-B Natriuret Pep 279, Total Protein 7.4 D, Albumin 4.3, Globulin 3.1, Albumin/Globulin Ratio 1.4, Lipase 88, HIV 1&2 Antibody Rapid Nonreactive 02/09/24 16:05: Lactate 1.4 02/09/24 17:10: Troponin I < 0.01 02/09/24 14:02 02/09/24 14:02 Orders (Tests/Meds): ED MEDICATIONS Discontinued Medications Generic Name Dose Route Start Last Admin Trade Name Noelle PRN Reason Stop Dose Admin Aspirin 324 mg 02/09/24 14:06 02/09/24 15:18 Aspirin 81mg Chewable Tablet PO 02/09/24 14:07 Not Given ONCE ONE Belladonna Alkaloids 60 ml 02/09/24 18:03 Belladonna Alkaloids 60 Ml Ml PO 02/09/24 18:04 ONCE ONE Iopamidol 75 ml 02/09/24 14:47 02/09/24 14:48 Iopamidol-370 (76%);100ml Bottle IV 02/09/24 14:48 75 ml ONCE ONE Administration Morphine Sulfate 4 mg 02/09/24 15:32 02/09/24 15:40 Morphine 4mg/Ml Syringe IV 02/09/24 15:33 4 mg ONCE ONE Administration Ondansetron HCl 4 mg 02/09/24 14:41 02/09/24 15:40 Ondansetron 4mg/2ml Vial IV 02/09/24 14:42 4 mg ONCE ONE Administration Sodium Chloride 10 ml 02/09/24 14:47 02/09/24 14:48 Sodium Chloride 0.9% 10ml Syr (Rad Only) IV 02/09/24 14:48 10 ml ONCE ONE Administration ORDERS Category Date Time Status CT abdomen pelvis w con Stat Cat Scan 02/09/24 14:17 Completed XR chest 2V Stat Exams 02/09/24 14:06 Completed Complete Blood Count Auto Diff Stat Lab 02/09/24 14:02 Completed Comprehensive Metabolic Panel Stat Lab 02/09/24 14:02 Completed HIV (1&2) Antibody Rapid Stat Lab 02/09/24 14:02 Completed Hep C Ab with Reflex to RNA Stat Lab 02/09/24 14:02 Received Lactic Acid Stat Lab 02/09/24 16:05 Completed Lipase Stat Lab 02/09/24 14:02 Completed NT Pro Brain Natriuretic Pep. Stat Lab 02/09/24 14:02 Completed Troponin I Q3H Lab 02/09/24 17:10 Completed Troponin I Q3H Lab 02/09/24 20:15 Ordered Troponin I Stat Lab 02/09/24 14:02 Completed HEART Score History (anamnesis): Moderately suspicious ECG: Normal Age: >65 years Risk factors: 3 or more risk factors Medical Decision Narrative: 78-year-old male presents emergency department with chest pain/midepigastric pain started 1 hour ago, differential diagnose include but not limited to, ACS, pneumonia, gastritis, GERD, GI disorder, cholelithiasis, arrhythmia, electrolyte disturbance, costochondritis. Discussed patient case with attending physician Dr. Han and Dr. 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 There is no STEMI. Will give 4 mg IV Zofran for nausea. HIV, rapid antigen is nonreactive. Initial troponin within normal limits Patient complaining of pain after come back from CT scan, will give 4 mg morphine IV. He states that the pain has now migrated to the abdomen generally, moved from epigastric region, will add on lactic acid level. Repeat troponin within normal limits I reviewed the patient's chest x-ray along the corresponding radiologic report, there is no acute cardiopulmonary process The patient CT abdomen pelvis with and without contrast on the corresponding radiologic report, bilateral nephrolithiasis, bilateral renal cyst, appearing to be measured up to 5 cm. Otherwise no acute process. Lactic acid and lipase level are normal. Final repeat troponin within normal limits. Will give GI cocktail/dermatitis cocktail for gastrointestinal pain. I along with the attending physician had a long discussion with the patient and family the bedside, patient most likely has gastritis, hemodynamically stable throughout his time in the emergency department, ruled out acute GI bleed, any abdominal pelvic process, and cardiopulmonary process, low risk for cardiac ischemia. Will sent patient home on PPI and Carafate for PUD prophylaxis until he obtains the results of his endoscopic strict ED return precaution discussed with the patient at the bedside, patient in agreement current treatment plan/discharge plan, follow-up PCP and GI as directed. Critical Care Critical Care Time Critical Care Time: No
[2024-02-09 14:28] LABS: Alanine Aminotransferase 19 U/L (12-78); Albumin Level 4.3 g/dl (3.5-5.0); Albumin/Globulin Ratio 1.4 (1.1-1.8); Alkaline Phosphatase 85 U/L (38-126); Aspartate Amino Transferase 34 U/L (17-59); Bilirubin,Total 0.8 mg/dl (0.2-1.3); Blood Urea Nitrogen 17 mg/dl (9-20); Calcium 9.1 mg/dl (8.4-10.2); Carbon Dioxide 30 mmol/L (22.0-30.0); Chloride 106 mmol/L (98-107); Creatinine Clearance Estimated 75 mL/min (50-200); Estimated Glomerular Filt Rate 64 ml/min (>60); GFR (African American) 78 ML/MIN (>60); Globulin 3.1 g/dL (1.3-3.2); Glucose 119 mg/dl (74-100); Sodium 140 mmol/L (136-145); Total Protein,Serum 7.4 g/dl (6.3-8.2)
[2024-02-09 14:34] LABS: NT Pro Brain Natriuretic Pep. 279 pg/mL (0-450)
[2024-02-09 14:37] LABS: Troponin I < 0.01 ng/ml (0.00-0.034)
[2024-02-09] MEDS: IOPAMIDOL-370 (76%);100ML BOTTLE 75 ML IV (14:48)
[2024-02-09] MEDS: SODIUM CHLORIDE 0.9% 10ML SYR (RAD ONLY) 10 ML IV (14:48)
[2024-02-09 14:56] LABS: HIV (1&2) Antibody Rapid NONREACTIVE (NONREACTIVE)
[2024-02-09] MEDS: ONDANSETRON 4MG/2ML VIAL 4 MG IV (15:40)
[2024-02-09] MEDS: MORPHINE 4MG/ML SYRINGE 4 MG IV (15:40)
[2024-02-09 16:19] LABS: Lipase 88 U/L (23-300)
[2024-02-09 16:25] LABS: Lactic Acid 1.4 mmol/L (0.7-2.1)
[2024-02-09 17:53] LABS: Troponin I < 0.01 ng/ml (0.00-0.034)
[2024-02-09] MEDS: BELLADONNA ALKALOIDS 60 ML ML PO (18:19)
[2024-02-10 08:21] LABS: HCV Ab Non Reactive (Non Reactive)
== END 2024-02-09 18:57 | disposition home or self-care (01) ==
PROVIDERS: Emergency Medicine; Physician Assistant; Emergency Provider Emergency Medicine; PCP Internal Medicine Adolescent Medicine
DX: R07.89 Other chest pain (principal); R10.11 Right upper quadrant pain; I44.0 Atrioventricular block, first degree; R00.1 Bradycardia, unspecified
CPT/HCPCS: 71046; 74177; 80053; 83605; 83690; 83880; 84484; 85025; 86803; 87389; 93005; 96374; 96375; 99285; J2270; J2405; Q9967

== ENCOUNTER 2024-02-16 10:39 | Outpatient (POV) | payer MEDICARE, OTHER, SELFPAY | END 2024-02-16 23:59 | disposition home or self-care (01) | LOC: SC 10:39 | PROVIDERS: Visit Provider Dermatology | DX: Z00.00 Encounter for general adult medical examination without abnormal findings (principal) ==

== ENCOUNTER 2024-04-26 15:00 | Outpatient (POV) | payer MEDICARE, OTHER, SELFPAY | END 2024-04-26 23:59 | disposition home or self-care (01) | LOC: SC 04-27 07:09 | PROVIDERS: Visit Provider Dermatology | DX: Z00.00 Encounter for general adult medical examination without abnormal findings (principal) ==

== ENCOUNTER 2024-06-14 11:04 | Outpatient (CLI) | payer MEDICARE, OTHER, SELFPAY ==
--- NOTE | 2024-06-14 11:09 | XR_ITS ---
FINAL REPORT CLINICAL HISTORY: left knee pain COMPARISON: 01/28/2023 FINDINGS: LEFT KNEE 3 views of the left knee were obtained. There is no acute fracture or dislocation. There is moderately advanced medial compartment joint space narrowing. Subchondral sclerosis is noted. There is small osteophyte formation along the undersurface of the patella. Mild genu varum is noted. Soft tissues are unremarkable. IMPRESSION: Degenerative changes without acute bony abnormality. Reviewed, Interpreted and Dictated by Yordy Sung MD Transcribed by Renate Pierson Authenticated and [facility]
== END 2024-06-14 23:59 | disposition home or self-care (01) ==
LOC: RAD 11:05
PROVIDERS: PCP Internal Medicine Adolescent Medicine; Visit Provider Physician Assistant
DX: M25.562 Pain in left knee (principal)
CPT/HCPCS: 73562

== ENCOUNTER 2024-08-07 09:11 | Emergency (ER) | payer MEDICARE, OTHER, SELFPAY ==
--- NOTE | 2024-08-07 09:20 | ED_ITS ---
Discharge Plan Disposition Patient Disposition: Home, Self-Care Condition: Good Prescriptions Prescriptions: No Action escitalopram oxalate [Lexapro] 10 MG tablet 10 mg PO DAILY atorvastatin 40 mg tablet 40 mg PO DAILY Patient Comments: TAKE ONE TABLET BY MOUTH EVERY DAY donepezil [Aricept] 5 mg tablet 5 mg PO HS Patient Comments: TAKE ONE TABLET BY MOUTH EVERY DAY AT BEDTIME memantine 10 mg tablet 10 mg PO BID Patient Comments: TAKE ONE TABLET BY MOUTH TWICE DAILY cyanocobalamin (vitamin B-12) 1,000 mcg Tablet 1,000 mcg PO DAILY thiamine HCl (vitamin B1) 50 mg Tablet 50 mg PO DAILY Align (B.infantis) 4 mg Capsule 4 mg PO DAILY sucralfate [Carafate] 1 gram tablet 1 g PO ONCE Qty: 14 0RF Rx Instructions: Take once a day for 2 weeks omeprazole 20 mg capsule,delayed release(DR/EC) 20 mg PO DAILY Qty: 30 0RF Rx Instructions: Take daily for 4 weeks Referrals Follow up/Referrals: Rakesh Jones MD [Primary Care Provider] - See instructions Activity Restrictions/Add. Instructions Additional Instructions/Restrictions: Follow-up with Dr. Jones for evaluation of your high blood pressure. You may need to be started on high blood pressure medicine if your blood pressure continues to remain elevated. If you develop any new or worsening symptoms, such as chest pain, shortness of breath, confusion, blurry vision, or if you become concerned for your health for any reason, return to the emergency department for evaluation Clinical Impressions Clinical Impression: High blood pressure Print Language Print Language: Macanese Discharge ED Provider: Elmo Kothari General Adult HPI General Chief complaint: Recheck/Abnormal Lab/Rx Stated complaint: High blood pressure Time Seen by Provider: 08/07/24 09:20 History of Present Illness HPI narrative: Cole Walters is an 79-year-old male with a past medical history of coronary artery disease on daily baby aspirin who presents to the emergency department for complaints of high blood pressure. Patient states that he has had high blood pressure in the past and was previously on medication for it but was taken off because his medication causes blood pressure to drop too low. He states that last night, his blood pressure before bed was over 200 systolic. He slept well throughout the night and then checked his blood pressure again this morning and it was 211 systolic. He states his blood pressure is normally 110 systolic. He states that throughout all this, he has been completely asymptomatic, denying any chest pain, chest tightness, shortness of breath, abdominal pain, vomiting, blurry vision, confusion. He states that he tried to go to the urgent treatment center but was told that he needed to come to the emergency department for evaluation. He does note that he has done more strenuous activity over the last several days, such as shoveling gravel and watching [employer] basketball late into the night. Related Data Home Medications ?Medication ?Instructions ?Recorded ?Confirmed escitalopram oxalate 10 mg tablet 10 mg PO DAILY 10/21/20 06/14/24 (Lexapro) atorvastatin 40 mg tablet 40 mg PO DAILY 03/27/23 06/14/24 donepezil 5 mg tablet (Aricept) 5 mg PO HS 10/11/23 06/14/24 memantine 10 mg tablet 10 mg PO BID 10/11/23 06/14/24 Bifidobacterium infantis 4 mg 4 mg PO DAILY 10/12/23 06/14/24 capsule (Align (B.infantis)) cyanocobalamin (vitamin B-12) 1,000 mcg PO DAILY 10/12/23 06/14/24 1,000 mcg tablet thiamine HCl (vitamin B1) 50 mg 50 mg PO DAILY 10/12/23 06/14/24 tablet Previous Rx's ?Medication ?Instructions ?Recorded omeprazole 20 mg capsule,delayed 20 mg PO DAILY #30 caps 02/09/24 release sucralfate 1 gram tablet (Carafate) 1 g PO ONCE #14 tabs 02/09/24 Allergies Allergy/AdvReac Type Severity Reaction Status Date / Time No Known Allergies Allergy Verified 06/14/24 10:15 [facility] Disclaimer: The information contained in this section may have been updated after the patient was seen, as this information can be updated by other users. Medical History CAD (coronary artery disease) Surgical History History of colonoscopy History of cholecystectomy Family History Father Family history of cancer Mother Family history of acute congestive heart failure Mother Family history of diabetes mellitus type II Social History Smoking Status: Former smoker tobacco type: cigarettes packs per day: 4 second hand exposure: No alcohol intake: current alcohol intake frequency: holidays/special occasions only substance use type: denies use current occupational status: retired Travel in the last 8 weeks: None household members: spouse housing: house current occupational exposures/hazards: No caffeine: No Have you lived/traveled outside [place] in past 30 days?: No Contact w/someone who lives/traveled outside US past 30 days?: No Exposure to someone with infectious disease in past 14 days?: No Do you have a fever (greater than 100.4 F or 38 C)?: No Have you tested positive for COVID-19: No Exposed to someone with COVID-19 in past 14 days?: No Do you have a sore throat?: No Do you have a cough?: No Do you have any weakness?: No Do you have any diarrhea?: No Are you experiencing any unusual bleeding?: No Do you have any muscle aches/pain?: No Do you have any abdominal pain?: No Are you experiencing loss of taste or smell?: No Other Medical History Have you received the Flu Vaccine for this season: No Have you received the Pneumonia Vaccine: Yes ROS Obtained: Yes Systems reviewed as appropriate & no additional complaints except as documented Physical Exam General General appearance: alert and in no apparent distress Head Head exam: atraumatic Eye Eye exam: Present normal appearance ENT ENT exam: Present normal external ear exam Neck Neck exam: Present full ROM Chest Chest inspection: Present symmetric chest wall rise Respiratory Respiratory exam: Present normal lung sounds bilaterally; Absent respiratory distress Cardiovascular Cardiovascular exam: Present regular rate and normal rhythm Abdominal Exam Abdominal exam: Present soft; Absent tenderness or guarding exam: Present deferred Extremities Exam Extremities exam: Present normal inspection Back Exam Back exam: Present normal inspection Neurological Exam Neurological exam: Present alert and oriented X3 Psychiatric Psychiatric exam: Present normal affect Skin Skin exam: Present warm and dry Medical Decision Making Medical Records Screening: Per USPSTF and CDC recommendations, given the prevalence of disease in our region, it is our hospital?s policy to screen for HIV and viral Hepatitis for all patients aged 18 and over and those with ongoing risk factors. Colt Inquiry Pt receiving controlled substance: No Vital Signs: 08/07/24 09:21 08/07/24 09:21 08/07/24 09:31 Temperature 98 F 98 F Temperature Source Oral Pulse Rate 81 76 Pulse Rate [Right Radial] 76 Respiratory Rate 15 15 Blood Pressure 145/72 H 131/68 Blood Pressure [Right Arm] 177/110 H Blood Pressure Mean [Right Arm] 132 Blood Pressure Source [Right Arm] Automatic Cuff Blood Pressure Position [Right Arm] Supine 02 Sat by Pulse Oximetry 97 97 97 Oxygen Delivery Method Room Air Room Air Medical Decision Narrative: Cole Walters is an 79-year-old male with a past medical history of coronary artery disease on daily baby aspirin who presents to the emergency department for complaints of high blood pressure. Patient states that he has had high blood pressure in the past and was previously on medication for it but was taken off because his medication causes blood pressure to drop too low. He states that last night, his blood pressure before bed was over 200 systolic. He slept well throughout the night and then checked his blood pressure again this morning and it was 211 systolic. He states his blood pressure is normally 110 systolic. He states that throughout all this, he has been completely asymptomatic, denying any chest pain, chest tightness, shortness of breath, abdominal pain, vomiting, blurry vision, confusion. He states that he tried to go to the urgent treatment center but was told that he needed to come to the emergency department for evaluation. He does note that he has done more strenuous activity over the last several days, such as shoveling gravel and watching [employer] basketball late into the night. On arrival patient's initial blood pressure was 177/110 but improved to 131/68 without intervention. Heart rate within normal limits, breathing comfortably on room air with oxygen saturation at 97% SpO2. Afebrile. Physical exam, stated above, revealed a completely well-appearing male in no distress. Cardiopulmonary exam is unremarkable. Abdomen is soft and nontender. He is not confused and is answering questions appropriately. Completely unremarkable physical exam. Given patient is asymptomatic in the setting of transient elevations in blood pressure, there is low concern for hypertensive emergency/end organ damage at this time. Discussed with patient that there is no indication for lab work or CT imaging at this time given that he is asymptomatic and blood pressure is improving without intervention. He was also discussed that he may need to be on chronic antihypertensive medications if his blood pressure continues to remain elevated. He has to follow-up with his primary care physician and was encouraged to continue monitoring of his blood pressure. Patient notes that he is going to buy a new blood pressure machine to use at home and was advised to ensure that he has the proper cuff size and is following the directions appropriately to ensure accurate measurements. He was given strict return precautions on when to return to the emergency department. All questions were answered. He demonstrated understanding and was in agreement with this plan. He was then discharged from the emergency department in stable condition Critical Care Critical Care Time Critical Care Time: No
[2024-08-07 09:21] VITALS: BP 145/72; BP 177/110; PULSE 76; PULSE 81; RESP 15; TEMP 36.6; O2SAT 97; BMI 30.7
[2024-08-07 09:31] VITALS: BP 131/68; PULSE 76; RESP 15; TEMP 36.6; O2SAT 97
[2024-08-07 09:49] VITALS: BP 125/68; PULSE 65; RESP 15; TEMP 36.6
[2024-08-07 09:51] VITALS: BP 125/68; PULSE 65; RESP 15; TEMP 36.6; O2SAT 95
== END 2024-08-07 09:50 | disposition home or self-care (01) ==
PROVIDERS: Emergency Provider Student in an Organized Health Care Education/Training Program; PCP Internal Medicine Adolescent Medicine
DX: R03.0 Elevated blood-pressure reading, without diagnosis of hypertension (principal)
CPT/HCPCS: 99283

== ENCOUNTER 2024-09-15 13:13 | Outpatient (CLI) | payer MEDICARE, OTHER, SELFPAY ==
--- OUTSIDE RECORDS SUMMARY | 2024-09-15 13:15 | XMS_ITS ---
Author Name [facility] Organization [facility] [place] Address [address] [place] [id number] Care Team Providers Care Cleaning Custodian Name Role Phone COMERPERI Primary Care Provider Unavailabl e Insurance Providers: All historical and current Section Date Range: From patient's date of to the date document was created. This section includes the names of all active insurance providers for the patient. Insurance Provider Type of Coverage Plan Name Start of Policy Coverage End of Policy Coverage Group Number Member ID Insurance Provider's Telephone Number Policy Chávez's Name Patient's Relationship to Policy Chávez MEDICARE (WNR) MEDICARE (M) PART A Mar 25, 2008 PART A [id number] [place] PATIENT MEDICARE (WNR) MEDICARE (M) PART B Mar 25, 2008 PART B [id number] [phone] [place] PATIENT MEDICARE ([place]NR) MEDICARE (M) PART A Mar 25, 2008 PART A [id number] [place] PATIENT MEDICARE ([place]NR) MEDICARE (M) PART B Mar 25, 2008 PART B [id number] [place] PATIENT MEDICARE (WNR) MEDICARE (M) PART A Mar 25, 2008 PART A [id number] [phone] [place] PATIENT MEDICARE ([place]NR) MEDICARE (M) PART B Mar 25, 2008 PART B [id number] [place] PATIENT MEDICARE PART D (WNR) PRESCRIPT ION PART D May 25, 2016 PART D [id number] [place] PATIENT MEDICARE PART D (WNR) PRESCRIPT ION PART D May 25, 2016 PART D [id number] [place] PATIENT MEDICARE PART D (WNR) MEDICARE (M) PART D May 25, 2016 PART D [id number] [place] PATIENT MEDICARE PART D (WNR) MEDICARE (M) PART D May 25, 2016 PART D [id number] [place] PATIENT [facility] [facility] PLAN G MED SUPP Mar 25, 2008 PLAN G [id number] [place] PATIENT Selected Encounter This section includes the information on record at [place] for the Encounter. Date/Time Encounter Type Encounter Description Reason Pro vider Source Mar 22, 2024 11:32 AM Outpatient Encounter ADMIN PAT ACTIVTIES (MASNONCT) [facility] Encounter Template [facility] not used by [facility] Lab Results: +/- 30 days of the encounter This section includes the Chemistry and Hematology Lab Results on record with [place] for the patient. Radiology Reports and Pathology Reports are provided separately, in subsequent sections. Lab Results This section contains the Chemistry/Hematology Results that were resulted 30 days before or 30 daysafter the date of the Encounter. Date/Time Source Result Type Result - Unit Interpretation Reference Range Specimen Type Comment Mar 10, 2024 12:08 PM [facility] GLYCOHEMOGLOBIN BLOOD Specimen Type: BLOOD Comment: [place] guidelines for A1c interpretation: Glycemic control targets are based on Shared Decision Making between clinicians and patients. Criteria used to establish an A1c target recommendation can be found at https://www.wy.g ov/qualityandpat ientsafety/ and include the use of result accuracy and precision(CV) of the A1c tests clinicians utilize at their own sites of practice. Values obtained from A1C measurements can vary. For typical A1C assays, a reported value of 7.0 could actually be between 6.72 and 7.28 if measured by a reference method. A reported value of 9.0 could actually be between 8.73 and 9.27. Ref: https://ngsp.org /CAPdata.asp. The in-house [employer] D-100 analyzer has a historical CV <= 2%. Contact the laboratory for further performance characteristics of this assay. Ordering Provider: PERI GARVEY Report Released Date/Time: Mar 10, 2024 11:35 AM Reporting Lab: [address] [id number] Performing Lab: [address] [address] GLYCOHEMOGLOBIN 6.3 4.4-6.4 Mar 10, 2024 12:08 PM [facility] LIPID PROFILE PLASMA Specimen Type: PLASM A Comment: Estimated Glomerular Filtration Rate (eGFR) calculated using the 2020 Chronic Kidney Disease-Epidemiology (CKD-EPI) Collaboration creatinine equation; units of measure are mL/min/1.73 m2. Results are only valid for adults (>=18 years) whose serum creatinine is in a steady state. eGFR calculations are not valid for patients with acute kidney injury and for patients on dialysis. Creatinine-based estimates of kidney function may also be inaccurate in patients with reduced creatinine generation due to decreased muscle mass (e.g., malnutrition, severe hypoalbuminemia, sarcopenia, chronic neuromuscular disease, amputations, severe heart failure or liver disease) and in patients with increased creatinine generation due to increased muscle mass (e.g., muscle builders, anabolic steroids) or increased dietary intake. As drug clearance is proportional to total GFR and not GFR indexed to body surface area (BSA), in individuals with a BSA substantially different than 1.73 m2, drug dosing should be based on the reported eGFR value de-indexed from BSA by multiplying by the individual's BSA and dividing by 1.73. CKD is diagnosed based on abnormalities of kidney structure or function, present for >3 months, with implications for health and disease. CKD is classified and staged based on cause, eGFR and albuminuria (quantified as urine albumin to creatinine ratio). An eGFR >60 mL/min/1.73 m2 in the absence of increased urine albumin excretion or structural abnormalities does not represent CKD. eGFR CKD Interpretation (mL/min/1.73 m2) stage >=90 G1 Normal 60-89 G2 Mild decrease 45-59 G3A Mild to moderate decrease 30-44 G3B Moderate to severe decrease 15-29 G4 Severe decrease <15 G5 Kidney failure Vitamin B12 test may not yield results when protein level of sample is too elevated. Ordering Provider: PERI GARVEY Report Released Date/Time: Mar 10, 2024 11:35 AM Reporting Lab: [address] [phone] Performing Lab: [address] [phone] CHOLESTEROL 158 mg/dL 0-199 TRIGLYCERIDE 214 mg/dL H 0-149 HDL CHOLESTEROL 45 mg/dL 40-69 DIRECT LDL CHOL. 88 mg/dL 0-100 Mar 10, 2024 12:08 PM [facility] CBC/PLT BLOOD Specimen Type: BLOOD No comment entered. Ordering Provider: PERI GARVEY Report Released Date/Time: Mar 10, 2024 11:35 AM Reporting Lab: [address] [phone] Performing Lab: [address] [phone] WBC 9.1 10*3/uL 5.0-10.0 RBC 5.67 10*6/uL 4.6-6.2 HGB 15.3 g/dL 14.0-18.0 HCT 48.9 42.0-52.0 MCV 86.2 fL 80.0-94.0 MCH 27.0 pg 27.0-31.0 MCHC 31.3 g/dL L 32.0-36.0 PLT 225 10*3/uL 150-450 MPV 11.1 fL 9.0-13.1 RDW 15.7 11.0-16.0 NRBC 0.0 0.0-0.0 Mar 10, 2024 12:08 PM [facility] PANEL 5 PLASMA Specimen Type: PLASM A Comment: Estimated Glomerular Filtration Rate (eGFR) calculated using the 2020 Chronic Kidney Disease-Epidemiology (CKD-EPI) Collaboration creatinine equation; units of measure are mL/min/1.73 m2. Results are only valid for adults (>=18 years) whose serum creatinine is in a steady state. eGFR calculations are not valid for patients with acute kidney injury and for patients on dialysis. Creatinine-based estimates of kidney function may also be inaccurate in patients with reduced creatinine generation due to decreased muscle mass (e.g., malnutrition, severe hypoalbuminemia, sarcopenia, chronic neuromuscular disease, amputations, severe heart failure or liver disease) and in patients with increased creatinine generation due to increased muscle mass (e.g., muscle builders, anabolic steroids) or increased dietary intake. As drug clearance is proportional to total GFR and not GFR indexed to body surface area (BSA), in individuals with a BSA substantially different than 1.73 m2, drug dosing should be based on the reported eGFR value de-indexed from BSA by multiplying by the individual's BSA and dividing by 1.73. CKD is diagnosed based on abnormalities of kidney structure or function, present for >3 months, with implications for health and disease. CKD is classified and staged based on cause, eGFR and albuminuria (quantified as urine albumin to creatinine ratio). An eGFR >60 mL/min/1.73 m2 in the absence of increased urine albumin excretion or structural abnormalities does not represent CKD. eGFR CKD Interpretation (mL/min/1.73 m2) stage >=90 G1 Normal 60-89 G2 Mild decrease 45-59 G3A Mild to moderate decrease 30-44 G3B Moderate to severe decrease 15-29 G4 Severe decrease <15 G5 Kidney failure Vitamin B12 test may not yield results when protein level of sample is too elevated. Ordering Provider: PERI GARVEY Report Released Date/Time: Mar 10, 2024 11:35 AM Reporting Lab: [address] [phone] Performing Lab: [address] [address] CREATININE 1.20 mg/dL 0.72-1.25 UREA NITROGEN 14 mg/dL 9-25 GLUCOSE 106 mg/dL H 74-100 SODIUM 140 mmol/L 136-145 POTASSIUM 4.1 mmol/L 3.5-5.1 CHLORIDE 107 mmol/L 98-107 CO2 28 mmol/L 22-29 CALCIUM 9.5 mg/dL 8.4-10.2 TOTAL PROTEIN 7.2 g/dL 6.4-8.3 ALBUMIN 4.1 g/dL 3.5-5.2 TOTAL BILIRUBIN 1.0 mg/dL 0.2-1.2 AST 22 U/L 5-34 ALT 17 U/L 0-55 ANION GAP 5 meq/L 3-19 ALK PHOS 90 U/L 40-150 eGFR (CKD-EPI) 61 Mar 10, 2024 12:08 PM [facility] 25-OH VITAMIN D SERUM Specime n Type: SERUM Comment: The National Institutes of Health (NIH) recommendations state: <12 ng/mL - Deficient 20 - 50 ng/mL - Optimal Levels - adequate for most people. >50 ng/mL - Increased risk of hypercalciuria/other health problems - clinical correlation is required. These reference ranges represent clinical decision values rather than population-based reference values. Ordering Provider: PERI GARVEY Report Released Date/Time: Mar 10, 2024 11:35 AM Reporting Lab: [address] [phone] Performing Lab: [address] [phone] 25-OH VITAMIN D 33.4 ng/mL 20.0-50.0 Mar 10, 2024 12:08 PM [facility] B12 VITAMIN PLASMA Specimen Type: PLASM A Comment: Estimated Glomerular Filtration Rate (eGFR) calculated using the 2020 Chronic Kidney Disease-Epidemiology (CKD-EPI) Collaboration creatinine equation; units of measure are mL/min/1.73 m2. Results are only valid for adults (>=18 years) whose serum creatinine is in a steady state. eGFR calculations are not valid for patients with acute kidney injury and for patients on dialysis. Creatinine-based estimates of kidney function may also be inaccurate in patients with reduced creatinine generation due to decreased muscle mass (e.g., malnutrition, severe hypoalbuminemia, sarcopenia, chronic neuromuscular disease, amputations, severe heart failure or liver disease) and in patients with increased creatinine generation due to increased muscle mass (e.g., muscle builders, anabolic steroids) or increased dietary intake. As drug clearance is proportional to total GFR and not GFR indexed to body surface area (BSA), in individuals with a BSA substantially different than 1.73 m2, drug dosing should be based on the reported eGFR value de-indexed from BSA by multiplying by the individual's BSA and dividing by 1.73. CKD is diagnosed based on abnormalities of kidney structure or function, present for >3 months, with implications for health and disease. CKD is classified and staged based on cause, eGFR and albuminuria (quantified as urine albumin to creatinine ratio). An eGFR >60 mL/min/1.73 m2 in the absence of increased urine albumin excretion or structural abnormalities does not represent CKD. eGFR CKD Interpretation (mL/min/1.73 m2) stage >=90 G1 Normal 60-89 G2 Mild decrease 45-59 G3A Mild to moderate decrease 30-44 G3B Moderate to severe decrease 15-29 G4 Severe decrease <15 G5 Kidney failure Vitamin B12 test may not yield results when protein level of sample is too elevated. Ordering Provider: PERI GARVEY Report Released Date/Time: Mar 10, 2024 11:35 AM Reporting Lab: [address] [phone] Performing Lab: [address] [address] B12 VITAMIN 688 pg/mL 213-816 Mar 10, 2024 12:08 PM [facility] TSH PLASMA Specimen Type: PLASM A Comment: Estimated Glomerular Filtration Rate (eGFR) calculated using the 2020 Chronic Kidney Disease-Epidemiology (CKD-EPI) Collaboration creatinine equation; units of measure are mL/min/1.73 m2. Results are only valid for adults (>=18 years) whose serum creatinine is in a steady state. eGFR calculations are not valid for patients with acute kidney injury and for patients on dialysis. Creatinine-based estimates of kidney function may also be inaccurate in patients with reduced creatinine generation due to decreased muscle mass (e.g., malnutrition, severe hypoalbuminemia, sarcopenia, chronic neuromuscular disease, amputations, severe heart failure or liver disease) and in patients with increased creatinine generation due to increased muscle mass (e.g., muscle builders, anabolic steroids) or increased dietary intake. As drug clearance is proportional to total GFR and not GFR indexed to body surface area (BSA), in individuals with a BSA substantially different than 1.73 m2, drug dosing should be based on the reported eGFR value de-indexed from BSA by multiplying by the individual's BSA and dividing by 1.73. CKD is diagnosed based on abnormalities of kidney structure or function, present for >3 months, with implications for health and disease. CKD is classified and staged based on cause, eGFR and albuminuria (quantified as urine albumin to creatinine ratio). An eGFR >60 mL/min/1.73 m2 in the absence of increased urine albumin excretion or structural abnormalities does not represent CKD. eGFR CKD Interpretation (mL/min/1.73 m2) stage >=90 G1 Normal 60-89 G2 Mild decrease 45-59 G3A Mild to moderate decrease 30-44 G3B Moderate to severe decrease 15-29 G4 Severe decrease <15 G5 Kidney failure Ordering Provider: PERI GARVEY Report Released Date/Time: Mar 10, 2024 11:35 AM Reporting Lab: [address] [phone] Performing Lab: [address] [address] TSH 1.2729 m[IU]/mL 0.3500-4.9400 Encounter Notes: All associated encounter notes This section contains the clinical notes associated to the Encounter. Date/Time Encounter Note(s) Provider Source Mar 22, 2024 11:32 AM ADMINISTRATIVE NOT E: LOCAL TITLE: HEALTH BENEFITS ADMINISTRATIVE NOTE STANDARD TITLE: ADMINISTRATIVE NOTE DATE OF NOTE: MAR 22, 2024@11:32 ENTRY DATE: MAR 22, 2024@11:32:29 AUTHOR: RON AYERS EXP COSIGNER: URGENCY: STATUS: COMPLETED HEALTH BENEFITS ADMINISTRATIVE NOTE Has ADDENDA Eligible for enrollment: Yes has been enrolled and assigned to priority group 8C HBA enrolled Feb /eva/ RON AYERS Signed: 03/22/2024 11:32 03/22/2024 ADDENDUM STATUS: COMPLETED [place] presesnted for a new ID card. Card submitted. /eva/ RON AYERS Signed: 03/22/2024 11:33 RON AYERS-CDD [facility]
--- OUTSIDE RECORDS SUMMARY | 2024-09-15 13:15 | XMS_ITS | Data Portability ---
Author Organization [facility] [place] Address [address] [place] [address] Care Team Providers Care Promotion Specialist Name Role Phone RAKESH CARRILLO Primary Care Provider [phone] Assessment No assessment recorded. Plan of Treatment Reminders Order Date Submit Date Provider Last Modified By Organization Details Last Modified Time Details Appointments None record ed. Lab None record ed. Referral None record ed. Procedures None record ed. Surgeries None record ed. Imaging None record ed. Medication Orders None record ed. Patient TargetsNo targets recorded. Patient Instructions Encounter Date Encounter Id Patient Instructions Last Modified By Organization Details Last Modified Time 02/17/2024 [id number] Arthritis Thumb-LC sum[place]ky Not available 02/17/2024 14:26:55 Trigger Finger-LC sum[place]ky Not availabl e 02/17/2024 14:26:54 Reason for Referral None Reported. Results Created Date Observation Date Name Description Value Unit Range Abnormal Flag Note LastModifiedBy Organization Detail LastModifiedTime 03/02/20 23 03/02/2023 XR, wrist , 3 or more view [place] [facility] [address] [place] [address] Triston son Name: JACK son : 941 Patialex t 0 Orderi ng Provid er: JOSE RIOS Y EXAM DATE: 2022 EXAM: XR RT WRIST COMPLE TE HISTOR Y: Follow up of prior surger y. COMPAR PARISH: Intrao perati ve images dated 023 FINDIN GS: The patien t is status post right first carpom etacar pal arthro plasty . There is no eviden ce of compli cation . There are mild residu al degene rative change s. No fractu re is identi fied. IMPRES RIZWAN: 1. The patien t is status post right first carpom etacar pal arthro plasty withou t eviden ce of compli cation . Interp reted By: Roberto oh MD Electr onical ly Signed By: Roberto oh MD on 023 9:39 AM [facility] [place] [address] , [place], [address], 03/02/2023 10:00:00 02/05/20 24 07/28/2022 elect romyo gram + nerve condu ction study No observ ation record ed. [email or web address] Not Available 2023 12:52:10 Result Notes None recorded. Problems Name Problem SNOMED Code Status Onset Date Resolution Date Notes Provider Name and Address Organization Details Recorded Time Chest pain Active 2015 From Automated Load;Provi zuleika: Richy Jorgensen;Statu s: Active Not Available [facility]ly [facility] 7 07:42:16 Spinal stenosis of lumbar region 89172252 Active 2014 From Automated Load;Provi zuleika: Dg Arambula;St atus: Active Not Available [facility] 6 03:10:55 Problem Notes None recorded. Procedures Surgical History Date Name Laterality Status Provider Name and Address Organization Details Recorded Time 3 Orthotic Management; Subsequent Encounter completed GORDY HOLM JR, OTR/L, CHT [address] [place] [address], [phone], [facility] 03/02/2023 10:13:07 3 Op Note completed RAKESH KAUR MD [address] [place] [address], [phone], [facility] 02/17/2023 11:54:24 3 Op Note completed RAKESH KAUR MD [address] [place] [address], [phone], [facility] 12/04/2022 09:21:15 Orthotic, WHFO, Static Custom completed GORDY HOLM JR, OTR/L, CHT [address] [place], [address], [facility] 09/03/2022 13:59:27 Imaging Results Imaging Date Name Status LastModified by Organization Details LastModified Time 03/02/2023 XR, wrist, 3 or more view completed [facility] [place] [address] , [place], [address], 03/02/2023 10:00:00 07/28/2022 electromyogram + nerve conduction study completed Information not available 02/05/2024 12:52:10 Procedure Notes None recorded. Medical Equipment None Reported. Allergies No known drug allergies Medications Name Sig Start Date Stop Date Status Note LastModified by Organization Details LastModified Time lisinopri l 20 mg tablet Bedtime 09/03 completed Duration : 30 days;Dennis quency: hs;Medic ation Descript ion: lisinopr il; Dosage:1 ; Route:or al; refills: 5; Quantity :30 tablet Not Available Not Available Not Available hydrocodo ne 10 mg-acetam inophen 325 mg tablet TAKE 1/2 - 1 TABLET EVERY 6 HOURS NEEDED FOR SEVERE POST SURGICAL PAIN 03/02 completed Not Available Not Available Not Available simvastat in 40 mg tablet 09/03 completed Medicati on Descript ion: simvasta tin; Route:or al; refills: 0 Not Available Not Available Not Available meloxicam 7.5 mg tablet TAKE 1 TABLET PO DAILY WITH FOOD REGARDLE SS OF PAIN FOR 1 WEEK, THEN ONLY NEEDED FOR PAIN RELIEF THEREAFT ER 03/02 completed Not Available Not Available Not Available terbinafi ne HCl 250 mg tablet Take 1 tablet every day by oral route. active Not Available Not Available No t Available aspirin 81 mg tablet Daily active Duration : 30 days;Dennis quency: daily;Me dication Descript ion: aspirin; Dosage:1 ; Route:or al; refills: 0; Quantity :30 tablet Not Available Not Available Not Available gabapenti n 100 mg capsule TAKE 1 CAPSULE EVERY NIGHT BEFORE BED FOR 1 WEEK 03/02 completed Not Available Not Available Not Available escitalop albaro 10 mg tablet Take 1 tablet every day by oral route. active Not Available Not Available No t Available atorvasta tin active Not Available Not Available Not Available nystatin active Not Available Not Avai lable Not Available tamsulosi n active Not Available Not Available Not Available mupirocin active Not Available Not Kari ilable Not Available Vitals Date Recorded Body height Body mass index (BMI) Body weight Provider Name and Address Organization Details Last Updated DateTime 03/02/2023 180.34 cm 28.6 kg/m2 21260.44 g [facility] 03/02/2023 09:29:36 Date Recorded Body height Body mass index (BMI) Body weight Pain severity - 0-10 verbal numeric rating [Score] - Reported Provider Name and Address Organization Details Last Updated DateTime 03/30/2023 180.34 cm 28.6 kg/m2 85868.44 g Nusrat Kirkpatrick [facility] 03/30/2023 13:39:17 Date Recorded Body height Body mass index (BMI) Body weight Provider Name and Address Organization Details Last Updated DateTime 02/17/2024 180.34 cm 30.1 kg/m2 89299.95 g [facility] 02/17/2024 14:06:29 Social History None recorded. Functional Status None recorded. Mental Status None recorded. Family History Nothing Reported. Medical History No medical history recorded. Past Encounters Encounter ID Performer Location Encounter Start Date Encounter Closed Date Diagnosis/Indication Diagnosis SNOMED-CT Code Diagnosis ICD10 Code Diagnosis Note [id number] RAKESH KAUR MD [facility]EDI [facility] [place] [address] [place] [address] 09/03/2022 12:52:00 09/03/2022 13:54:28 Osteoarthrosis of the carpometacarpal joint of the thumb 07521198 M18.9 And STT joint. 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-year status post ulnar nerve release, recommend subcutaneo us ulnar nerve transposit ion Acquired t direct support staff member finger 4501426 M65.30 Long andRight ring finger, release at the same time as cubital tunnel surgery, can consider basal joint surgery as a second stage after recovery if still symptomati c despite splint [id number] GORDY HOLM JR, OTR/L, CHT PHYSICAL THERAPY / HAND THERAPY [place] [address] [place] [address] 09/03/2022 13:48:23 09/04/2022 04:21:09 Osteoarthrosis of the carpometacarpal joint of the thumb 62778122 M18.9 [id number] RAKESH KAUR MD [facility]THOPEDI [place] [address] [place] [address] 12/03/2022 11:28:55 12/03/2022 11:58:15 Abrasion of skin of hand 023166341 S60.511A I assured him this injury will not interfere with trigger finger release schedule for tomorrow. Minor injury; no interventi on necessary. F/U PRN. Acquired t direct support staff member finger [id number] M65.30 Upcoming Surgery Scheduled for 12/04/22 [id number] RAKESH KAUR MD SURGERY SCHEDULE [address] [place] [address] 1 12/04/2022 06:39:31 12/04/2022 06:40:05 [id number] RAKESH KAUR MD [facility]THOPEDI [place] [address] [place] [address] 12/17/2022 13:17:20 12/17/2022 14:04:37 Postoperative care [id number] Z48.89 2 weeks s/p Release right long and ring trigger finger; Right subcutaneo us ulnar nerve transposit ion.Doing well, wants to schedule basal joint arthroplas ty. We will set this up. [id number] RAKESH KAUR MD SURGERY SCHEDULE [address] [place] [address] 1 02/17/2023 08:47:22 02/17/2023 08:48:55 [id number] RAKESH KAUR MD ORTHOPEDI [facility] [place] [address] 03/02/2023 09:05:58 03/02/2023 09:59:56 Postoperative care [id number] Z48.89 2 week s/p right thumb CMC arthroplas ty, suture suspensiop lasty, and partial trapezoid excision. Doing well postoperat ively. able to get incision wet now.We reviewed and discussed {{x-ray* E MG MRI}} imaging in the office today, which showed good alignment. Discontinu e sling. Referred to hand therapist to be fitted for a splint for 4 weeks.Rest ricted to heavy lifting, nothing over 5lbs.Follo w up 4 weeks [id number] GORDY HOLM JR, OTR/L, CHT PHYSICAL THERAPY / HAND THERAPY [place] [address] [place] [address] 03/02/2023 10:03:33 03/03/2023 04:54:31 Osteoarthrosis of the carpometacarpal joint of the thumb 25618329 M18.9 [id number] OLE CAVAZOS PA-C [place] [address] [place] [address] 03/30/2023 13:36:50 03/30/2023 13:51:04 Postoperative care [id number] Z48.89 6 weeks status post right thumb CMC arthroplas ty with FCR ligament reconstruc tion, partial trapezoid excision. He can begin using his hand normally over the next several weeks. He will work on motion on his own. We will schedule him to follow-up only as needed. He is reminded that he can have some swelling and some soreness for up to 6 months after the surgery. 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 If this bothers him enough or gets worse then he would benefit from a repeat EMG/NCV Health Concerns Section Related Observation LastModified by Organization Detai ls LastModified Time None Recorded Concern Status LastModified by Organization Details LastModified Time None Recorded Advance Directives Directive None Recorded Payers Encounter Date Sequence Insurance Name Policy Number Policy Chávez Covered Member ID Chávez Member ID Guarantor Name 02/17/2023 1 [place] Gene R Romeo [id number] Gene R Romeo 02/17/2023 2 [employer] (MEDICARE SUPPLEMENT) Gene R Romeo [id number] Gene R Romeo 03/02/2023 1 [place] Gene R Romeo [id number] Gene R Romeo 03/02/2023 2 [employer] (MEDICARE SUPPLEMENT) Gene R Romeo [id number] Gene R Romeo 03/02/2023 1 [place] Gene R Romeo [id number] Gene R Romeo 03/02/2023 2 [employer] (MEDICARE SUPPLEMENT) Gene R Romeo [id number] Gene R Romeo 03/30/2023 1 [place] Gene R Romeo [id number] Gene R Romeo 03/30/2023 2 [employer] (MEDICARE SUPPLEMENT) Gene R Romeo [id number] Gene R Romeo 02/17/2024 1 [place] Gene R Romeo [id number] Gene R Romeo 02/17/2024 2 [employer] (MEDICARE SUPPLEMENT) Gene R Romeo [id number] Gene R Romeo Notes Date Note Type Note Provider Name and Address Organization Details Recorded Time text/html POST OP GLOBAL VISITDATE OF SURGERY: 02/17/2023TIME POST SURGERY:{{10-14 DAYS* 2 WKS 6 WKS 12WKS OTHER:}}SURGERY:R ight thumb CMC arthroplastySuture suspensioplastyPartial trapezoid excisionINTERVAL HISTORY: PREOP SYMPTOMS{{RESOLVED BETTER* WORSE SAME}} PAIN LEVEL (VAS)2/10 OVERALL ASSESSMENT{{IMPROVING* WORS ENING SAME}} NEW SYMPTOMS OR QUESTIONS: Mr. Walters is here for a post op visit. XOA. He says he feels better than before. Has some soreness and swelling. OTHER RECENT SURGERIES: EMPLOYMENT STATUS: RAKESH KAUR MD [address] [place] [address], [phone], [facility] 03/02/2023 09:57:49 3 text/html [id number] THUMB CMC ARTHROPLASTY, PARTIAL TRAPEZOID EXCISION, FCR LIG RECONSTRUCTIONPerformed by MD GORDY Hernandez JR, OTR/L, T [address] [place] [address], [address] [place] [address], [facility] 03/02/2023 10:35:35 3 text/html Patient arrives for scheduled follow-up 6 weeks status post surgery as listed below. He has been compliant with the splint. He reports very minimal pain. He is pleased with his results at this point. POST OP GLOBAL VISIT DATE OF SURGERY: 02/17/2023 TIME POST SURGERY:{{10-14 DAYS 2 WKS 6 WKS 12WKS OTHER: 6 wks#}}SURGERY: Right thumb CMC arthroplasty ; Suture suspensioplasty ; Partial trapezoid excision INTERVAL HISTORY: PREOP SYMPTOMS{{RESOLVED BETTER* WORSE SAME}} PAIN LEVEL minimal (VAS) /10 OVERALL ASSESSMENT{{IMPROVING* WORS ENING SAME}} NEW SYMPTOMS OR QUESTIONS: Mr. Walters is here for a post op visit. OTHER RECENT SURGERIES: na EMPLOYMENT STATUS: Retired OLE CAVAZOS PA-C [address] [place] [address], [phone], [facility] 03/30/2023 16:06:18 4 text/html Consult [facility] Phys[facility]: Dr. Rakesh Carrillo Hand dominance: {{Right* Left ambidextrous} }Location: {{Right* Left Bilateral}} {{Hand* Wrist Elbow Other}} Pain level: {{0 1* 2 3 4 5 6 7 8 9 10}} /10 Duration: a few months Recent Surgery: {{Yes No*}}Procedure:Date of surgery:Surgeon(If Known): In office procedure? {{Yes No*}} Previous upper extremity surgery? {{Yes* No}}Procedure: Right thumb CMC arthroplastySuture suspensionplastyPartial trapezoid excisionApproximate date of surgery: 02/17/2023Surgeon (if known): Dr. Kaur Procedure: Release right long trigger fingerRelease right ring trigger fingerRight subcutaneous ulnar nerve transpositionDate: 12/04/2022Have you or an immediate family member ever seen our hand surgeons before? 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 Walters is here for n/t in rt hand and elbow. He reports he still has n/t in his fingers and have occasional catching. He also reports the pain radiates up to his elbow. He reports his lt thumb has started to bother him like the right side did. No new EMG. No injury RAKESH KAUR MD [facility] [place], [address], [facility] 02/17/2024 14:27:07
--- OUTSIDE RECORDS SUMMARY | 2024-09-15 13:15 | XMS_ITS | Continuity of Care Document ---
Author Name [facility] Organization [facility] Care Team Providers Care Manager Ecommerce Name Role Phone [facility] Unavailable Unavailable Problems Combined list of problems from [facility] and [facility] facilities. It does not include entries that were removed or entered in error. Problem Status Onset Date Problem Type Date of Resolution Comments Source Age-related cognitive decline Active Condition [place] [facility] Elev Bp W/O Dx Hypertension Active Condition [facility] Generalized anxiety disorder Active Condition [facility] Hearing loss Active Condition [facility] Hyperlipidemia Active Condition [place] [facility] Hyperlipidemia Active [facility] [place] [facility] Hypertension Active Condition [facility] Obesity Active Condition [facility] Simple obesity Active Condition [place] [facility] Vision, Subnormal * (ICD-9-CM 369.9/369.20) Active Condition [facility] Diagnosis: ICD-10-CM Z65.9 Problem related to unspecified psychosocial circumstances Active Diagnosis [facility] Diagnosis: ICD-10-CM Z71.89 Other specified counseling Active Diagnosis [facility] Diagnosis: ICD-10-CM R41.81 Age-related cognitive decline Active Diagnosis [place] [facility] Medications Combined list of outpatient medications from Department [facility] and [facility] facilities.Medications provided include 1) outpatient medications from the last 15 months, and 2) patient-reported medications. Medication Details Route Status Patient Instructions Prescription Expires Prescription Number Last Dispense Date Ordering Provider Order Date Order Qty Source ACETYLCYSTE INE 600MG CAP,ORAL TAKE 1 CAPSULE BY MOUTH DAILY ORAL ACTIVE PERI GARVEY 2023 [place] [facility] ASPIRIN 81MG TAB,EC TAKE ONE TABLET BY MOUTH DAILY ORAL ACTIVE JOSE G CASTELLANO 2015 [place] [facility] ATORVASTATI N CA 40MG TAB TAKE ONE TABLET BY MOUTH AT BEDTIME ORAL ACTIVE COMER,PERI Reaves 2023 [place] [facility] CAMPHOR 0.2%/MENTHO L 3.5% GEL,TOP APPLY APPLY TO AFFECTED AREA DIRECTED TOPICA L ACTIVE COMER,PERI Reaves 2023 [place] [facility] CYANOCOBALA MIN 1000MCG TAB TAKE ONE TABLET BY MOUTH DAILY ORAL ACTIVE COMER,PERI Reaves 2023 [place] [facility] DICLOFENAC NA 1% GEL,TOP APPLY 4 GRAM STRIP TO AFFECTED AREA EVERY 6 HOURS NEEDED TOPICA L ACTIVE COMER,PERI Reaves 2023 [place] [facility] DONEPEZIL HCL 10MG TAB TAKE ONE-HALF TABLET BY MOUTH AT BEDTIME ORAL ACTIVE COMER,PERI Reaves 2023 [place] [facility] ESCITALOPRA M OXALATE 10MG TAB TAKE ONE TABLET BY MOUTH DAILY ORAL ACTIVE COMER,PERI Reaves 2023 [place] [facility] FLUTICASONE PROPIONATE 50MCG/SPRAY SOLN,NASAL, 16GM USE 2 SPRAYS IN EACH NOSTRIL DAILY NASAL ACTIVE COMER,PERI Reaves 2023 [place] [facility] MEMANTINE HCL 10MG TAB TAKE ONE TABLET BY MOUTH DAILY ORAL ACTIVE COMER,PERI Reaves 2023 [place] [facility] MUPIROCIN 2% OINT,TOP APPLY SMALL AMOUNT TO NARES TO AFFECTED AREA DAILY NEEDED TOPICA L ACTIVE COMER,PERI Reaves 2023 [place] [facility] NYSTATIN [id number] M CREAM,TOP APPLY SMALL AMOUNT TO AFFECTED AREA DAILY NEEDED TOPICA L ACTIVE COMER,PERI Reaves 2023 [place] [facility] THIAMINE 50MG TAB TAKE ONE TABLET BY MOUTH EVERY MORNING ORAL ACTIVE COMER,PERI Reaves 2023 [place] [facility] Immunizations Combined list of available immunizations from the Department of Defense and Veterans Affairs facilities. Immunization Series Date Given Administered By Site Reaction Lot Number CVX Code Drug Patient Financial Services Specialist Status Comments Source INFLUENZA, HIGH-DOSE, TRIVALENT, PF 6 2023 135 complet ed HISTORICA L INFORMATI ON - [facility] [place] [facility], RECOMBINANT, PROTEIN SUBUNIT RSVPREF, ADJUVANT RECONSTITUTED , 0.5 ML, PF 2023 303 complet ed HISTORICA L INFORMATI ON - FROM OTHER REGISTRY, [place] [facility] [place] ZOSTER RECOMBINANT 2 2023 187 complet ed HISTORICA L INFORMATI ON - [facility] OTHER REGISTRY, [place] [facility], RECOMBINANT, PROTEIN SUBUNIT RSVPREF, ADJUVANT RECONSTITUTED , 0.5 ML, PF 1 2022 303 complet ed HISTORICA L INFORMATI ON - FROM OTHER REGISTRY, [place] [facility] [place] INFLUENZA, HIGH-DOSE, TRIVALENT, PF 5 2022 135 complet ed HISTORICA L INFORMATI ON - FROM OTHER REGISTRY, [place] [facility] [place] ZOSTER RECOMBINANT 1 2022 187 complet ed HISTORICA L INFORMATI ON - FROM OTHER REGISTRY, [place] [facility] [place] INFLUENZA, HIGH-DOSE, TRIVALENT, PF 4 2021 135 complet ed HISTORICA L INFORMATI ON - [facility] OTHER REGISTRY, [place] [facility] COVID-19 ([facility]le), MRNA, LNP-S, PF, 30 MCG/0.3 ML DOSE, JOSE G-SUCROSE (AGES 12+ YEARS) 4 2021 217 complet ed HISTORICA L INFORMATI ON - FROM OTHER REGISTRY, [place] [facility] COVID-19 (Workle), MRNA, LNP-S, PF, 30 MCG/0.3 ML DOSE 3 2020 208 complet ed HISTORICA L INFORMATI ON - FROM OTHER REGISTRY, [place] [facility] [place] COVID-19 (Workle), MRNA, LNP-S, PF, 30 MCG/0.3 ML DOSE 2 2020 208 complet ed HISTORICA L INFORMATI ON - FROM OTHER REGISTRY, [place] [facility] COVID-19 (Workle), MRNA, LNP-S, PF, 30 MCG/0.3 ML DOSE 1 2020 208 complet ed HISTORICA L INFORMATI ON - FROM OTHER REGISTRY, [place] [facility] INFLUENZA, HIGH-DOSE, TRIVALENT, PF 3 2019 135 complet ed HISTORICA L INFORMATI ON - FROM OTHER REGISTRY, [place] [facility] INFLUENZA, SEASONAL, INJECTABLE 2018 141 complet ed [place] [facility] INFLUENZA, SEASONAL, INJECTABLE 2017 141 complet ed [place] [facility] INFLUENZA, SPLIT VIRUS, QUADRIVALENT, PRESERVATIVE 2 2017 158 complet ed HISTORICA L INFORMATI ON - FROM OTHER REGISTRY, [place] [facility] PNEUMOCOCCAL POLYSACCHARID E PPV23 1 2016 33 complet ed HISTORICA L INFORMATI ON - FROM OTHER REGISTRY, [place] [facility] INFLUENZA, SPLIT VIRUS, QUADRIVALENT, PRESERVATIVE 1 2016 158 complet ed HISTORICA L INFORMATI ON - FROM OTHER REGISTRY, [place] [facility] INFLUENZA A & B (HISTORICAL) 2015 88 complet ed locally [place] [facility] TD(ADULT) UNSPECIFIED FORMULATION 2006 139 complet ed [place] [facility] TDAP (HISTORICAL) 2006 115 complet ed [place] [facility] TD (ADULT), 2 LF TETANUS TOXOID, PRESERVATIVE FREE, ADSORBED 1 1996 09 complet ed HISTORICA L INFORMATI ON - FROM OTHER REGISTRY, [place] [facility] Results Combined list of recent chemistry, hematology and other laboratory results from Department of Defense and Veterans Affairs, ranging from 15 months to all on record, depending upon the facility. Order Name Results Value Reference Range Date Interpretation Specimen Comments Source GLYCOHEMO GLOBIN HEMOGLOBIN A1C/HEMOGLO BIN.TOTAL IN BLOOD BY HPLC 6.3 4.4 - 6.4 03/10 Specimen Type: BLOOD Comment: [place]-Do[place] guidelines for A1c interpretat ion: Glycemic control targets are based on Shared Decision Making between clinicians and patients. Criteria used to establish an A1c target recommendat ion can be found at https://www .va.gov/sis lityandpati entsafety/ and include the use of result accuracy and precision(C V) of the A1c tests clinicians utilize at their own sites of practice. Values obtained from A1C measurement s can vary. For typical A1C assays, a reported value of 7.0 could actually be between 6.72 and 7.28 if measured by a reference method. A reported value of 9.0 could actually be between 8.73 and 9.27. Ref: https://ngs p.org/CAPda ta.asp. The in-house [employer]metricks-[employer] D-100 analyzer has a historical CV <= 2%. Contact the laboratory for further performance characteris tics of this assay. Ordering Provider: PERI GARVEY Report Released Date/Time: Mar 10, 2024 11:35 AM Reporting Lab: [facility] [address] [address] Performing Lab: [address] [address] [facility] LIPID PROFILE CHOLESTEROL [MASS/VOLUM E] IN SERUM OR PLASMA 158 mg/dL 0 - 199 03/10 Specimen Type: PLASMA Comment: Estimated Glomerular Filtration Rate (eGFR) calculated using the 2020 Chronic Kidney Disease-Epi demiology (CKD-EPI) Collaborati on creatinine equation; units of measure are mL/min/1.73 m2. Results are only valid for adults (>=18 years) whose serum creatinine is in a steady state. eGFR calculation s are not valid for patients with acute kidney injury and for patients on dialysis. Creatinine- based estimates of kidney function may also be inaccurate in patients with reduced creatinine generation due to decreased muscle mass (e.g., malnutritio n, severe hypoalbumin emia, sarcopenia, chronic neuromuscul ar disease, amputations , severe heart failure or liver disease) and in patients with increased creatinine generation due to increased muscle mass (e.g., muscle builders, anabolic steroids) or increased dietary intake. As drug clearance is proportiona l to total GFR and not GFR indexed to body surface area (BSA), in individuals with a BSA substantial ly different than 1.73 m2, drug dosing should be based on the reported eGFR value de-indexed from BSA by multiplying by the individual' s BSA and dividing by 1.73. CKD is diagnosed based on abnormaliti es of kidney structure or function, present for >3 months, with implication s for health and disease. CKD is classified and staged based on cause, eGFR and albuminuria (quantified as urine albumin to creatinine ratio). An eGFR >60 mL/min/1.73 m2 in the absence of increased urine albumin excretion or structural abnormaliti es does not represent CKD. eGFR CKD Interpretat ion (mL/min/1.7 3 m2) stage >=90 G1 Normal 60-89 G2 Mild decrease 45-59 G3A Mild to moderate decrease 30-44 G3B Moderate to severe decrease 15-29 G4 Severe decrease <15 G5 Kidney failure Vitamin B12 test may not yield results when protein level of sample is too elevated. Ordering Provider: PERI GARVEY Report Released Date/Time: Mar 10, 2024 11:35 AM Reporting Lab: [facility] [address] [address] Performing Lab: [facility] [address] [address] [facility] LIPID PROFILE TRIGLYCERID E [MASS/VOLUM E] IN SERUM OR PLASMA 214 mg/dL 0 - 149 03/10 H Specimen Type: PLASMA Comment: Estimated Glomerular Filtration Rate (eGFR) calculated using the 2020 Chronic Kidney Disease-Epi demiology (CKD-EPI) Collaborati on creatinine equation; units of measure are mL/min/1.73 m2. Results are only valid for adults (>=18 years) whose serum creatinine is in a steady state. eGFR calculation s are not valid for patients with acute kidney injury and for patients on dialysis. Creatinine- based estimates of kidney function may also be inaccurate in patients with reduced creatinine generation due to decreased muscle mass (e.g., malnutritio n, severe hypoalbumin emia, sarcopenia, chronic neuromuscul ar disease, amputations , severe heart failure or liver disease) and in patients with increased creatinine generation due to increased muscle mass (e.g., muscle builders, anabolic steroids) or increased dietary intake. As drug clearance is proportiona l to total GFR and not GFR indexed to body surface area (BSA), in individuals with a BSA substantial ly different than 1.73 m2, drug dosing should be based on the reported eGFR value de-indexed from BSA by multiplying by the individual' s BSA and dividing by 1.73. CKD is diagnosed based on abnormaliti es of kidney structure or function, present for >3 months, with implication s for health and disease. CKD is classified and staged based on cause, eGFR and albuminuria (quantified as urine albumin to creatinine ratio). An eGFR >60 mL/min/1.73 m2 in the absence of increased urine albumin excretion or structural abnormaliti es does not represent CKD. eGFR CKD Interpretat ion (mL/min/1.7 3 m2) stage >=90 G1 Normal 60-89 G2 Mild decrease 45-59 G3A Mild to moderate decrease 30-44 G3B Moderate to severe decrease 15-29 G4 Severe decrease <15 G5 Kidney failure Vitamin B12 test may not yield results when protein level of sample is too elevated. Ordering Provider: PERI GARVEY Report Released Date/Time: Mar 10, 2024 11:35 AM Reporting Lab: [facility] [address] [address] Performing Lab: [facility] [address] [address] [facility] LIPID PROFILE CHOLESTEROL IN HDL [MASS/VOLUM E] IN SERUM OR PLASMA 45 mg/dL 40 - 69 03/10 Specimen Type: PLASMA Comment: Estimated Glomerular Filtration Rate (eGFR) calculated using the 2020 Chronic Kidney Disease-Epi demiology (CKD-EPI) Collaborati on creatinine equation; units of measure are mL/min/1.73 m2. Results are only valid for adults (>=18 years) whose serum creatinine is in a steady state. eGFR calculation s are not valid for patients with acute kidney injury and for patients on dialysis. Creatinine- based estimates of kidney function may also be inaccurate in patients with reduced creatinine generation due to decreased muscle mass (e.g., malnutritio n, severe hypoalbumin emia, sarcopenia, chronic neuromuscul ar disease, amputations , severe heart failure or liver disease) and in patients with increased creatinine generation due to increased muscle mass (e.g., muscle builders, anabolic steroids) or increased dietary intake. As drug clearance is proportiona l to total GFR and not GFR indexed to body surface area (BSA), in individuals with a BSA substantial ly different than 1.73 m2, drug dosing should be based on the reported eGFR value de-indexed from BSA by multiplying by the individual' s BSA and dividing by 1.73. CKD is diagnosed based on abnormaliti es of kidney structure or function, present for >3 months, with implication s for health and disease. CKD is classified and staged based on cause, eGFR and albuminuria (quantified as urine albumin to creatinine ratio). An eGFR >60 mL/min/1.73 m2 in the absence of increased urine albumin excretion or structural abnormaliti es does not represent CKD. eGFR CKD Interpretat ion (mL/min/1.7 3 m2) stage >=90 G1 Normal 60-89 G2 Mild decrease 45-59 G3A Mild to moderate decrease 30-44 G3B Moderate to severe decrease 15-29 G4 Severe decrease <15 G5 Kidney failure Vitamin B12 test may not yield results when protein level of sample is too elevated. Ordering Provider: PERI GARVEY Report Released Date/Time: Mar 10, 2024 11:35 AM Reporting Lab: [facility] [address] [address] Performing Lab: [facility] [address] [address] [facility] LIPID PROFILE CHOLESTEROL IN LDL [MASS/VOLUM E] IN SERUM OR PLASMA BY DIRECT ASSAY 88 mg/dL 0 - 100 03/10 Specimen Type: PLASMA Comment: Estimated Glomerular Filtration Rate (eGFR) calculated using the 2020 Chronic Kidney Disease-Epi demiology (CKD-EPI) Collaborati on creatinine equation; units of measure are mL/min/1.73 m2. Results are only valid for adults (>=18 years) whose serum creatinine is in a steady state. eGFR calculation s are not valid for patients with acute kidney injury and for patients on dialysis. Creatinine- based estimates of kidney function may also be inaccurate in patients with reduced creatinine generation due to decreased muscle mass (e.g., malnutritio n, severe hypoalbumin emia, sarcopenia, chronic neuromuscul ar disease, amputations , severe heart failure or liver disease) and in patients with increased creatinine generation due to increased muscle mass (e.g., muscle builders, anabolic steroids) or increased dietary intake. As drug clearance is proportiona l to total GFR and not GFR indexed to body surface area (BSA), in individuals with a BSA substantial ly different than 1.73 m2, drug dosing should be based on the reported eGFR value de-indexed from BSA by multiplying by the individual' s BSA and dividing by 1.73. CKD is diagnosed based on abnormaliti es of kidney structure or function, present for >3 months, with implication s for health and disease. CKD is classified and staged based on cause, eGFR and albuminuria (quantified as urine albumin to creatinine ratio). An eGFR >60 mL/min/1.73 m2 in the absence of increased urine albumin excretion or structural abnormaliti es does not represent CKD. eGFR CKD Interpretat ion (mL/min/1.7 3 m2) stage >=90 G1 Normal 60-89 G2 Mild decrease 45-59 G3A Mild to moderate decrease 30-44 G3B Moderate to severe decrease 15-29 G4 Severe decrease <15 G5 Kidney failure Vitamin B12 test may not yield results when protein level of sample is too elevated. Ordering Provider: PERI GARVEY Report Released Date/Time: Mar 10, 2024 11:35 AM Reporting Lab: [facility] [address] [address] Performing Lab: [facility] [address] [address] [facility] CBC/PLT LEUKOCYTES [#/VOLUME] IN BLOOD BY AUTOMATED COUNT 9.1 10*3/u L 5.0 - 10.0 03/10 Specimen Type: BLOOD No comment entered. Ordering Provider: PERI GARVEY Report Released Date/Time: Mar 10, 2024 11:35 AM Reporting Lab: [facility] [address] [address] Performing Lab: [address] [address] [facility] CBC/PLT ERYTHROCYTE S [#/VOLUME] IN BLOOD BY AUTOMATED COUNT 5.67 10*6/u L 4.6 - 6.2 03/10 Specimen Type: BLOOD No comment entered. Ordering Provider: PERI GARVEY Report Released Date/Time: Mar 10, 2024 11:35 AM Reporting Lab: [address] [address] Performing Lab: [address] [address] [facility] CBC/PLT HEMOGLOBIN [MASS/VOLUM E] IN BLOOD 15.3 g/dL 14.0 - 18.0 03/10 Specimen Type: BLOOD No comment entered. Ordering Provider: PERI GARVEY Report Released Date/Time: Mar 10, 2024 11:35 AM Reporting Lab: [place] [phone] Performing Lab: [address] [address] [facility] CBC/PLT HEMATOCRIT [VOLUME FRACTION] OF BLOOD BY AUTOMATED COUNT 48.9 42.0 - 52.0 03/10 Specimen Type: BLOOD No comment entered. Ordering Provider: PERI GARVEY Report Released Date/Time: Mar 10, 2024 11:35 AM Reporting Lab: [address] [address] Performing Lab: [address] [address] [facility] CBC/PLT MCV [ENTITIC VOLUME] BY AUTOMATED COUNT 86.2 fL 80.0 - 94.0 03/10 Specimen Type: BLOOD No comment entered. Ordering Provider: PERI GARVEY Report Released Date/Time: Mar 10, 2024 11:35 AM Reporting Lab: [address] [address] Performing Lab: [address] [address] [facility] CBC/PLT MCH [ENTITIC MASS] BY AUTOMATED COUNT 27.0 pg 27.0 - 31.0 03/10 Specimen Type: BLOOD No comment entered. Ordering Provider: PERI GARVEY Report Released Date/Time: Mar 10, 2024 11:35 AM Reporting Lab: [place] [address] Performing Lab: [address] CBC/PLT MCHC [MASS/VOLUM E] BY AUTOMATED COUNT 31.3 g/dL 32.0 - 36.0 03/10 L Specimen Type: BLOOD No comment entered. Ordering Provider: PERI GARVEY Report Released Date/Time: Mar 10, 2024 11:35 AM Reporting Lab: [place] [address] Performing Lab: [address] CBC/PLT PLATELETS [#/VOLUME] IN BLOOD 225 10*3/u L 150 - 450 03/10 Specimen Type: BLOOD No comment entered. Ordering Provider: PERI GARVEY Report Released Date/Time: Mar 10, 2024 11:35 AM Reporting Lab: [place] [address] Performing Lab: [address] CBC/PLT PLATELET MEAN VOLUME [ENTITIC VOLUME] IN BLOOD 11.1 fL 9.0 - 13.1 03/10 Specimen Type: BLOOD No comment entered. Ordering Provider: PERI GARVEY Report Released Date/Time: Mar 10, 2024 11:35 AM Reporting Lab: [place] [address] Performing Lab: [address] CBC/PLT ERYTHROCYTE DISTRIBUTIO N WIDTH [ENTITIC VOLUME] BY AUTOMATED COUNT 15.7 11.0 - 16.0 03/10 Specimen Type: BLOOD No comment entered. Ordering Provider: PERI GARVEY Report Released Date/Time: Mar 10, 2024 11:35 AM Reporting Lab: [address] [address] Performing Lab: [address] [address] [facility] CBC/PLT NUCLEATED ERYTHROCYTE S/100 ERYTHROCYTE S IN BLOOD 0.0 0.0 - 0.0 03/10 Specimen Type: BLOOD No comment entered. Ordering Provider: PERI GARVEY Report Released Date/Time: Mar 10, 2024 11:35 AM Reporting Lab: [address] [address] Performing Lab: [address] [address] [facility] PANEL 5 CREATININE [MASS/VOLUM E] IN SERUM OR PLASMA 1.20 mg/dL 0.72 - 1.25 03/10 Specimen Type: PLASMA Comment: Estimated Glomerular Filtration Rate (eGFR) calculated using the 2020 Chronic Kidney Disease-Epi demiology (CKD-EPI) Collaborati on creatinine equation; units of measure are mL/min/1.73 m2. Results are only valid for adults (>=18 years) whose serum creatinine is in a steady state. eGFR calculation s are not valid for patients with acute kidney injury and for patients on dialysis. Creatinine- based estimates of kidney function may also be inaccurate in patients with reduced creatinine generation due to decreased muscle mass (e.g., malnutritio n, severe hypoalbumin emia, sarcopenia, chronic neuromuscul ar disease, amputations , severe heart failure or liver disease) and in patients with increased creatinine generation due to increased muscle mass (e.g., muscle builders, anabolic steroids) or increased dietary intake. As drug clearance is proportiona l to total GFR and not GFR indexed to body surface area (BSA), in individuals with a BSA substantial ly different than 1.73 m2, drug dosing should be based on the reported eGFR value de-indexed from BSA by multiplying by the individual' s BSA and dividing by 1.73. CKD is diagnosed based on abnormaliti es of kidney structure or function, present for >3 months, with implication s for health and disease. CKD is classified and staged based on cause, eGFR and albuminuria (quantified as urine albumin to creatinine ratio). An eGFR >60 mL/min/1.73 m2 in the absence of increased urine albumin excretion or structural abnormaliti es does not represent CKD. eGFR CKD Interpretat ion (mL/min/1.7 3 m2) stage >=90 G1 Normal 60-89 G2 Mild decrease 45-59 G3A Mild to moderate decrease 30-44 G3B Moderate to severe decrease 15-29 G4 Severe decrease <15 G5 Kidney failure Vitamin B12 test may not yield results when protein level of sample is too elevated. Ordering Provider: PERI GARVEY Report Released Date/Time: Mar 10, 2024 11:35 AM Reporting Lab: [facility] [address] [address] Performing Lab: [facility] [address] [address] [facility] PANEL 5 UREA NITROGEN [MASS/VOLUM E] IN SERUM OR PLASMA 14 mg/dL 03/10 Specimen Type: PLASMA Comment: Estimated Glomerular Filtration Rate (eGFR) calculated using the 2020 Chronic Kidney Disease-Epi demiology (CKD-EPI) Collaborati on creatinine equation; units of measure are mL/min/1.73 m2. Results are only valid for adults (>=18 years) whose serum creatinine is in a steady state. eGFR calculation s are not valid for patients with acute kidney injury and for patients on dialysis. Creatinine- based estimates of kidney function may also be inaccurate in patients with reduced creatinine generation due to decreased muscle mass (e.g., malnutritio n, severe hypoalbumin emia, sarcopenia, chronic neuromuscul ar disease, amputations , severe heart failure or liver disease) and in patients with increased creatinine generation due to increased muscle mass (e.g., muscle builders, anabolic steroids) or increased dietary intake. As drug clearance is proportiona l to total GFR and not GFR indexed to body surface area (BSA), in individuals with a BSA substantial ly different than 1.73 m2, drug dosing should be based on the reported eGFR value de-indexed from BSA by multiplying by the individual' s BSA and dividing by 1.73. CKD is diagnosed based on abnormaliti es of kidney structure or function, present for >3 months, with implication s for health and disease. CKD is classified and staged based on cause, eGFR and albuminuria (quantified as urine albumin to creatinine ratio). An eGFR >60 mL/min/1.73 m2 in the absence of increased urine albumin excretion or structural abnormaliti es does not represent CKD. eGFR CKD Interpretat ion (mL/min/1.7 3 m2) stage >=90 G1 Normal 60-89 G2 Mild decrease 45-59 G3A Mild to moderate decrease 30-44 G3B Moderate to severe decrease 15-29 G4 Severe decrease <15 G5 Kidney failure Vitamin B12 test may not yield results when protein level of sample is too elevated. Ordering Provider: PERI GARVEY Report Released Date/Time: Mar 10, 2024 11:35 AM Reporting Lab: [facility] [address] [phone] Performing Lab: [facility] [address] [address] [facility] PANEL 5 GLUCOSE [MASS/VOLUM E] IN SERUM OR PLASMA 106 mg/dL 74 - 100 03/10 H Specimen Type: PLASMA Comment: Estimated Glomerular Filtration Rate (eGFR) calculated using the 2020 Chronic Kidney Disease-Epi demiology (CKD-EPI) Collaborati on creatinine equation; units of measure are mL/min/1.73 m2. Results are only valid for adults (>=18 years) whose serum creatinine is in a steady state. eGFR calculation s are not valid for patients with acute kidney injury and for patients on dialysis. Creatinine- based estimates of kidney function may also be inaccurate in patients with reduced creatinine generation due to decreased muscle mass (e.g., malnutritio n, severe hypoalbumin emia, sarcopenia, chronic neuromuscul ar disease, amputations , severe heart failure or liver disease) and in patients with increased creatinine generation due to increased muscle mass (e.g., muscle builders, anabolic steroids) or increased dietary intake. As drug clearance is proportiona l to total GFR and not GFR indexed to body surface area (BSA), in individuals with a BSA substantial ly different than 1.73 m2, drug dosing should be based on the reported eGFR value de-indexed from BSA by multiplying by the individual' s BSA and dividing by 1.73. CKD is diagnosed based on abnormaliti es of kidney structure or function, present for >3 months, with implication s for health and disease. CKD is classified and staged based on cause, eGFR and albuminuria (quantified as urine albumin to creatinine ratio). An eGFR >60 mL/min/1.73 m2 in the absence of increased urine albumin excretion or structural abnormaliti es does not represent CKD. eGFR CKD Interpretat ion (mL/min/1.7 3 m2) stage >=90 G1 Normal 60-89 G2 Mild decrease 45-59 G3A Mild to moderate decrease 30-44 G3B Moderate to severe decrease 15-29 G4 Severe decrease <15 G5 Kidney failure Vitamin B12 test may not yield results when protein level of sample is too elevated. Ordering Provider: PERI GARVEY Report Released Date/Time: Mar 10, 2024 11:35 AM Reporting Lab: [facility] [address] [phone] Performing Lab: [facility] [address] [phone] [facility] PANEL 5 SODIUM [MOLES/VOLU ME] IN SERUM OR PLASMA 140 mmol/L 136 - 145 03/10 Specimen Type: PLASMA Comment: Estimated Glomerular Filtration Rate (eGFR) calculated using the 2020 Chronic Kidney Disease-Epi demiology (CKD-EPI) Collaborati on creatinine equation; units of measure are mL/min/1.73 m2. Results are only valid for adults (>=18 years) whose serum creatinine is in a steady state. eGFR calculation s are not valid for patients with acute kidney injury and for patients on dialysis. Creatinine- based estimates of kidney function may also be inaccurate in patients with reduced creatinine generation due to decreased muscle mass (e.g., malnutritio n, severe hypoalbumin emia, sarcopenia, chronic neuromuscul ar disease, amputations , severe heart failure or liver disease) and in patients with increased creatinine generation due to increased muscle mass (e.g., muscle builders, anabolic steroids) or increased dietary intake. As drug clearance is proportiona l to total GFR and not GFR indexed to body surface area (BSA), in individuals with a BSA substantial ly different than 1.73 m2, drug dosing should be based on the reported eGFR value de-indexed from BSA by multiplying by the individual' s BSA and dividing by 1.73. CKD is diagnosed based on abnormaliti es of kidney structure or function, present for >3 months, with implication s for health and disease. CKD is classified and staged based on cause, eGFR and albuminuria (quantified as urine albumin to creatinine ratio). An eGFR >60 mL/min/1.73 m2 in the absence of increased urine albumin excretion or structural abnormaliti es does not represent CKD. eGFR CKD Interpretat ion (mL/min/1.7 3 m2) stage >=90 G1 Normal 60-89 G2 Mild decrease 45-59 G3A Mild to moderate decrease 30-44 G3B Moderate to severe decrease 15-29 G4 Severe decrease <15 G5 Kidney failure Vitamin B12 test may not yield results when protein level of sample is too elevated. Ordering Provider: PERI GARVEY Report Released Date/Time: Mar 10, 2024 11:35 AM Reporting Lab: [facility] [address] [phone] Performing Lab: [facility] [address] [phone] [facility] PANEL 5 POTASSIUM [MOLES/VOLU ME] IN SERUM OR PLASMA 4.1 mmol/L 3.5 - 5.1 03/10 Specimen Type: PLASMA Comment: Estimated Glomerular Filtration Rate (eGFR) calculated using the 2020 Chronic Kidney Disease-Epi demiology (CKD-EPI) Collaborati on creatinine equation; units of measure are mL/min/1.73 m2. Results are only valid for adults (>=18 years) whose serum creatinine is in a steady state. eGFR calculation s are not valid for patients with acute kidney injury and for patients on dialysis. Creatinine- based estimates of kidney function may also be inaccurate in patients with reduced creatinine generation due to decreased muscle mass (e.g., malnutritio n, severe hypoalbumin emia, sarcopenia, chronic neuromuscul ar disease, amputations , severe heart failure or liver disease) and in patients with increased creatinine generation due to increased muscle mass (e.g., muscle builders, anabolic steroids) or increased dietary intake. As drug clearance is proportiona l to total GFR and not GFR indexed to body surface area (BSA), in individuals with a BSA substantial ly different than 1.73 m2, drug dosing should be based on the reported eGFR value de-indexed from BSA by multiplying by the individual' s BSA and dividing by 1.73. CKD is diagnosed based on abnormaliti es of kidney structure or function, present for >3 months, with implication s for health and disease. CKD is classified and staged based on cause, eGFR and albuminuria (quantified as urine albumin to creatinine ratio). An eGFR >60 mL/min/1.73 m2 in the absence of increased urine albumin excretion or structural abnormaliti es does not represent CKD. eGFR CKD Interpretat ion (mL/min/1.7 3 m2) stage >=90 G1 Normal 60-89 G2 Mild decrease 45-59 G3A Mild to moderate decrease 30-44 G3B Moderate to severe decrease 15-29 G4 Severe decrease <15 G5 Kidney failure Vitamin B12 test may not yield results when protein level of sample is too elevated. Ordering Provider: PERI GARVEY Report Released Date/Time: Mar 10, 2024 11:35 AM Reporting Lab: [facility] [address] [phone] Performing Lab: [facility] [address] [phone] [facility] PANEL 5 CHLORIDE [MOLES/VOLU ME] IN SERUM OR PLASMA 107 mmol/L 98 - 107 03/10 Specimen Type: PLASMA Comment: Estimated Glomerular Filtration Rate (eGFR) calculated using the 2020 Chronic Kidney Disease-Epi demiology (CKD-EPI) Collaborati on creatinine equation; units of measure are mL/min/1.73 m2. Results are only valid for adults (>=18 years) whose serum creatinine is in a steady state. eGFR calculation s are not valid for patients with acute kidney injury and for patients on dialysis. Creatinine- based estimates of kidney function may also be inaccurate in patients with reduced creatinine generation due to decreased muscle mass (e.g., malnutritio n, severe hypoalbumin emia, sarcopenia, chronic neuromuscul ar disease, amputations , severe heart failure or liver disease) and in patients with increased creatinine generation due to increased muscle mass (e.g., muscle builders, anabolic steroids) or increased dietary intake. As drug clearance is proportiona l to total GFR and not GFR indexed to body surface area (BSA), in individuals with a BSA substantial ly different than 1.73 m2, drug dosing should be based on the reported eGFR value de-indexed from BSA by multiplying by the individual' s BSA and dividing by 1.73. CKD is diagnosed based on abnormaliti es of kidney structure or function, present for >3 months, with implication s for health and disease. CKD is classified and staged based on cause, eGFR and albuminuria (quantified as urine albumin to creatinine ratio). An eGFR >60 mL/min/1.73 m2 in the absence of increased urine albumin excretion or structural abnormaliti es does not represent CKD. eGFR CKD Interpretat ion (mL/min/1.7 3 m2) stage >=90 G1 Normal 60-89 G2 Mild decrease 45-59 G3A Mild to moderate decrease 30-44 G3B Moderate to severe decrease 15-29 G4 Severe decrease <15 G5 Kidney failure Vitamin B12 test may not yield results when protein level of sample is too elevated. Ordering Provider: PERI GARVEY Report Released Date/Time: Mar 10, 2024 11:35 AM Reporting Lab: [facility] [address] [phone] Performing Lab: [facility] [address] [address] [facility] PANEL 5 CARBON DIOXIDE, TOTAL [MOLES/VOLU ME] IN SERUM OR PLASMA 28 mmol/L 22 - 29 03/10 Specimen Type: PLASMA Comment: Estimated Glomerular Filtration Rate (eGFR) calculated using the 2020 Chronic Kidney Disease-Epi demiology (CKD-EPI) Collaborati on creatinine equation; units of measure are mL/min/1.73 m2. Results are only valid for adults (>=18 years) whose serum creatinine is in a steady state. eGFR calculation s are not valid for patients with acute kidney injury and for patients on dialysis. Creatinine- based estimates of kidney function may also be inaccurate in patients with reduced creatinine generation due to decreased muscle mass (e.g., malnutritio n, severe hypoalbumin emia, sarcopenia, chronic neuromuscul ar disease, amputations , severe heart failure or liver disease) and in patients with increased creatinine generation due to increased muscle mass (e.g., muscle builders, anabolic steroids) or increased dietary intake. As drug clearance is proportiona l to total GFR and not GFR indexed to body surface area (BSA), in individuals with a BSA substantial ly different than 1.73 m2, drug dosing should be based on the reported eGFR value de-indexed from BSA by multiplying by the individual' s BSA and dividing by 1.73. CKD is diagnosed based on abnormaliti es of kidney structure or function, present for >3 months, with implication s for health and disease. CKD is classified and staged based on cause, eGFR and albuminuria (quantified as urine albumin to creatinine ratio). An eGFR >60 mL/min/1.73 m2 in the absence of increased urine albumin excretion or structural abnormaliti es does not represent CKD. eGFR CKD Interpretat ion (mL/min/1.7 3 m2) stage >=90 G1 Normal 60-89 G2 Mild decrease 45-59 G3A Mild to moderate decrease 30-44 G3B Moderate to severe decrease 15-29 G4 Severe decrease <15 G5 Kidney failure Vitamin B12 test may not yield results when protein level of sample is too elevated. Ordering Provider: PERI GARVEY Report Released Date/Time: Mar 10, 2024 11:35 AM Reporting Lab: [facility] [address] [facility] [address] Performing Lab: [facility] [address] [facility] [address] [facility] PANEL 5 CALCIUM [MASS/VOLUM E] IN SERUM OR PLASMA 9.5 mg/dL 8.4 - 10.2 03/10 Specimen Type: PLASMA Comment: Estimated Glomerular Filtration Rate (eGFR) calculated using the 2020 Chronic Kidney Disease-Epi demiology (CKD-EPI) Collaborati on creatinine equation; units of measure are mL/min/1.73 m2. Results are only valid for adults (>=18 years) whose serum creatinine is in a steady state. eGFR calculation s are not valid for patients with acute kidney injury and for patients on dialysis. Creatinine- based estimates of kidney function may also be inaccurate in patients with reduced creatinine generation due to decreased muscle mass (e.g., malnutritio n, severe hypoalbumin emia, sarcopenia, chronic neuromuscul ar disease, amputations , severe heart failure or liver disease) and in patients with increased creatinine generation due to increased muscle mass (e.g., muscle builders, anabolic steroids) or increased dietary intake. As drug clearance is proportiona l to total GFR and not GFR indexed to body surface area (BSA), in individuals with a BSA substantial ly different than 1.73 m2, drug dosing should be based on the reported eGFR value de-indexed from BSA by multiplying by the individual' s BSA and dividing by 1.73. CKD is diagnosed based on abnormaliti es of kidney structure or function, present for >3 months, with implication s for health and disease. CKD is classified and staged based on cause, eGFR and albuminuria (quantified as urine albumin to creatinine ratio). An eGFR >60 mL/min/1.73 m2 in the absence of increased urine albumin excretion or structural abnormaliti es does not represent CKD. eGFR CKD Interpretat ion (mL/min/1.7 3 m2) stage >=90 G1 Normal 60-89 G2 Mild decrease 45-59 G3A Mild to moderate decrease 30-44 G3B Moderate to severe decrease 15-29 G4 Severe decrease <15 G5 Kidney failure Vitamin B12 test may not yield results when protein level of sample is too elevated. Ordering Provider: PERI GARVEY Report Released Date/Time: Mar 10, 2024 11:35 AM Reporting Lab: [facility] [address] [phone] Performing Lab: [facility] [address] [address] [facility] PANEL 5 PROTEIN [MASS/VOLUM E] IN SERUM OR PLASMA 7.2 g/dL 6.4 - 8.3 03/10 Specimen Type: PLASMA Comment: Estimated Glomerular Filtration Rate (eGFR) calculated using the 2020 Chronic Kidney Disease-Epi demiology (CKD-EPI) Collaborati on creatinine equation; units of measure are mL/min/1.73 m2. Results are only valid for adults (>=18 years) whose serum creatinine is in a steady state. eGFR calculation s are not valid for patients with acute kidney injury and for patients on dialysis. Creatinine- based estimates of kidney function may also be inaccurate in patients with reduced creatinine generation due to decreased muscle mass (e.g., malnutritio n, severe hypoalbumin emia, sarcopenia, chronic neuromuscul ar disease, amputations , severe heart failure or liver disease) and in patients with increased creatinine generation due to increased muscle mass (e.g., muscle builders, anabolic steroids) or increased dietary intake. As drug clearance is proportiona l to total GFR and not GFR indexed to body surface area (BSA), in individuals with a BSA substantial ly different than 1.73 m2, drug dosing should be based on the reported eGFR value de-indexed from BSA by multiplying by the individual' s BSA and dividing by 1.73. CKD is diagnosed based on abnormaliti es of kidney structure or function, present for >3 months, with implication s for health and disease. CKD is classified and staged based on cause, eGFR and albuminuria (quantified as urine albumin to creatinine ratio). An eGFR >60 mL/min/1.73 m2 in the absence of increased urine albumin excretion or structural abnormaliti es does not represent CKD. eGFR CKD Interpretat ion (mL/min/1.7 3 m2) stage >=90 G1 Normal 60-89 G2 Mild decrease 45-59 G3A Mild to moderate decrease 30-44 G3B Moderate to severe decrease 15-29 G4 Severe decrease <15 G5 Kidney failure Vitamin B12 test may not yield results when protein level of sample is too elevated. Ordering Provider: PERI GARVEY Report Released Date/Time: Mar 10, 2024 11:35 AM Reporting Lab: [facility] [address] [facility] [address] Performing Lab: [facility] [address] [place] [phone] [facility] PANEL 5 ALBUMIN [MASS/VOLUM E] IN SERUM OR PLASMA 4.1 g/dL 3.5 - 5.2 03/10 Specimen Type: PLASMA Comment: Estimated Glomerular Filtration Rate (eGFR) calculated using the 2020 Chronic Kidney Disease-Epi demiology (CKD-EPI) Collaborati on creatinine equation; units of measure are mL/min/1.73 m2. Results are only valid for adults (>=18 years) whose serum creatinine is in a steady state. eGFR calculation s are not valid for patients with acute kidney injury and for patients on dialysis. Creatinine- based estimates of kidney function may also be inaccurate in patients with reduced creatinine generation due to decreased muscle mass (e.g., malnutritio n, severe hypoalbumin emia, sarcopenia, chronic neuromuscul ar disease, amputations , severe heart failure or liver disease) and in patients with increased creatinine generation due to increased muscle mass (e.g., muscle builders, anabolic steroids) or increased dietary intake. As drug clearance is proportiona l to total GFR and not GFR indexed to body surface area (BSA), in individuals with a BSA substantial ly different than 1.73 m2, drug dosing should be based on the reported eGFR value de-indexed from BSA by multiplying by the individual' s BSA and dividing by 1.73. CKD is diagnosed based on abnormaliti es of kidney structure or function, present for >3 months, with implication s for health and disease. CKD is classified and staged based on cause, eGFR and albuminuria (quantified as urine albumin to creatinine ratio). An eGFR >60 mL/min/1.73 m2 in the absence of increased urine albumin excretion or structural abnormaliti es does not represent CKD. eGFR CKD Interpretat ion (mL/min/1.7 3 m2) stage >=90 G1 Normal 60-89 G2 Mild decrease 45-59 G3A Mild to moderate decrease 30-44 G3B Moderate to severe decrease 15-29 G4 Severe decrease <15 G5 Kidney failure Vitamin B12 test may not yield results when protein level of sample is too elevated. Ordering Provider: PERI GARVEY Report Released Date/Time: Mar 10, 2024 11:35 AM Reporting Lab: [facility] [address] [phone] Performing Lab: [facility] [address] [address] [facility] PANEL 5 BILIRUBIN.T OTAL [MASS/VOLUM E] IN SERUM OR PLASMA 1.0 mg/dL 0.2 - 1.2 03/10 Specimen Type: PLASMA Comment: Estimated Glomerular Filtration Rate (eGFR) calculated using the 2020 Chronic Kidney Disease-Epi demiology (CKD-EPI) Collaborati on creatinine equation; units of measure are mL/min/1.73 m2. Results are only valid for adults (>=18 years) whose serum creatinine is in a steady state. eGFR calculation s are not valid for patients with acute kidney injury and for patients on dialysis. Creatinine- based estimates of kidney function may also be inaccurate in patients with reduced creatinine generation due to decreased muscle mass (e.g., malnutritio n, severe hypoalbumin emia, sarcopenia, chronic neuromuscul ar disease, amputations , severe heart failure or liver disease) and in patients with increased creatinine generation due to increased muscle mass (e.g., muscle builders, anabolic steroids) or increased dietary intake. As drug clearance is proportiona l to total GFR and not GFR indexed to body surface area (BSA), in individuals with a BSA substantial ly different than 1.73 m2, drug dosing should be based on the reported eGFR value de-indexed from BSA by multiplying by the individual' s BSA and dividing by 1.73. CKD is diagnosed based on abnormaliti es of kidney structure or function, present for >3 months, with implication s for health and disease. CKD is classified and staged based on cause, eGFR and albuminuria (quantified as urine albumin to creatinine ratio). An eGFR >60 mL/min/1.73 m2 in the absence of increased urine albumin excretion or structural abnormaliti es does not represent CKD. eGFR CKD Interpretat ion (mL/min/1.7 3 m2) stage >=90 G1 Normal 60-89 G2 Mild decrease 45-59 G3A Mild to moderate decrease 30-44 G3B Moderate to severe decrease 15-29 G4 Severe decrease <15 G5 Kidney failure Vitamin B12 test may not yield results when protein level of sample is too elevated. Ordering Provider: PERI GARVEY Report Released Date/Time: Mar 10, 2024 11:35 AM Reporting Lab: [facility] [address] [phone] Performing Lab: [facility] [address] [address] [facility] PANEL 5 ASPARTATE AMINOTRANSF ERASE [ENZYMATIC ACTIVITY/VO LUME] IN SERUM OR PLASMA 22 U/L 5 - 34 03/10 Specimen Type: PLASMA Comment: Estimated Glomerular Filtration Rate (eGFR) calculated using the 2020 Chronic Kidney Disease-Epi demiology (CKD-EPI) Collaborati on creatinine equation; units of measure are mL/min/1.73 m2. Results are only valid for adults (>=18 years) whose serum creatinine is in a steady state. eGFR calculation s are not valid for patients with acute kidney injury and for patients on dialysis. Creatinine- based estimates of kidney function may also be inaccurate in patients with reduced creatinine generation due to decreased muscle mass (e.g., malnutritio n, severe hypoalbumin emia, sarcopenia, chronic neuromuscul ar disease, amputations , severe heart failure or liver disease) and in patients with increased creatinine generation due to increased muscle mass (e.g., muscle builders, anabolic steroids) or increased dietary intake. As drug clearance is proportiona l to total GFR and not GFR indexed to body surface area (BSA), in individuals with a BSA substantial ly different than 1.73 m2, drug dosing should be based on the reported eGFR value de-indexed from BSA by multiplying by the individual' s BSA and dividing by 1.73. CKD is diagnosed based on abnormaliti es of kidney structure or function, present for >3 months, with implication s for health and disease. CKD is classified and staged based on cause, eGFR and albuminuria (quantified as urine albumin to creatinine ratio). An eGFR >60 mL/min/1.73 m2 in the absence of increased urine albumin excretion or structural abnormaliti es does not represent CKD. eGFR CKD Interpretat ion (mL/min/1.7 3 m2) stage >=90 G1 Normal 60-89 G2 Mild decrease 45-59 G3A Mild to moderate decrease 30-44 G3B Moderate to severe decrease 15-29 G4 Severe decrease <15 G5 Kidney failure Vitamin B12 test may not yield results when protein level of sample is too elevated. Ordering Provider: PERI GARVEY Report Released Date/Time: Mar 10, 2024 11:35 AM Reporting Lab: [facility] [address] [phone] Performing Lab: [facility] [address] [address] [facility] PANEL 5 ALANINE AMINOTRANSF ERASE [ENZYMATIC ACTIVITY/VO LUME] IN SERUM OR PLASMA 17 U/L 0 - 55 03/10 Specimen Type: PLASMA Comment: Estimated Glomerular Filtration Rate (eGFR) calculated using the 2020 Chronic Kidney Disease-Epi demiology (CKD-EPI) Collaborati on creatinine equation; units of measure are mL/min/1.73 m2. Results are only valid for adults (>=18 years) whose serum creatinine is in a steady state. eGFR calculation s are not valid for patients with acute kidney injury and for patients on dialysis. Creatinine- based estimates of kidney function may also be inaccurate in patients with reduced creatinine generation due to decreased muscle mass (e.g., malnutritio n, severe hypoalbumin emia, sarcopenia, chronic neuromuscul ar disease, amputations , severe heart failure or liver disease) and in patients with increased creatinine generation due to increased muscle mass (e.g., muscle builders, anabolic steroids) or increased dietary intake. As drug clearance is proportiona l to total GFR and not GFR indexed to body surface area (BSA), in individuals with a BSA substantial ly different than 1.73 m2, drug dosing should be based on the reported eGFR value de-indexed from BSA by multiplying by the individual' s BSA and dividing by 1.73. CKD is diagnosed based on abnormaliti es of kidney structure or function, present for >3 months, with implication s for health and disease. CKD is classified and staged based on cause, eGFR and albuminuria (quantified as urine albumin to creatinine ratio). An eGFR >60 mL/min/1.73 m2 in the absence of increased urine albumin excretion or structural abnormaliti es does not represent CKD. eGFR CKD Interpretat ion (mL/min/1.7 3 m2) stage >=90 G1 Normal 60-89 G2 Mild decrease 45-59 G3A Mild to moderate decrease 30-44 G3B Moderate to severe decrease 15-29 G4 Severe decrease <15 G5 Kidney failure Vitamin B12 test may not yield results when protein level of sample is too elevated. Ordering Provider: PERI GARVEY Report Released Date/Time: Mar 10, 2024 11:35 AM Reporting Lab: [facility] [address] [address] Performing Lab: [facility] [address] [address] [facility] PANEL 5 ANION GAP 3 IN SERUM OR PLASMA 5 meq/L 3 - 19 03/10 Specimen Type: PLASMA Comment: Estimated Glomerular Filtration Rate (eGFR) calculated using the 2020 Chronic Kidney Disease-Epi demiology (CKD-EPI) Collaborati on creatinine equation; units of measure are mL/min/1.73 m2. Results are only valid for adults (>=18 years) whose serum creatinine is in a steady state. eGFR calculation s are not valid for patients with acute kidney injury and for patients on dialysis. Creatinine- based estimates of kidney function may also be inaccurate in patients with reduced creatinine generation due to decreased muscle mass (e.g., malnutritio n, severe hypoalbumin emia, sarcopenia, chronic neuromuscul ar disease, amputations , severe heart failure or liver disease) and in patients with increased creatinine generation due to increased muscle mass (e.g., muscle builders, anabolic steroids) or increased dietary intake. As drug clearance is proportiona l to total GFR and not GFR indexed to body surface area (BSA), in individuals with a BSA substantial ly different than 1.73 m2, drug dosing should be based on the reported eGFR value de-indexed from BSA by multiplying by the individual' s BSA and dividing by 1.73. CKD is diagnosed based on abnormaliti es of kidney structure or function, present for >3 months, with implication s for health and disease. CKD is classified and staged based on cause, eGFR and albuminuria (quantified as urine albumin to creatinine ratio). An eGFR >60 mL/min/1.73 m2 in the absence of increased urine albumin excretion or structural abnormaliti es does not represent CKD. eGFR CKD Interpretat ion (mL/min/1.7 3 m2) stage >=90 G1 Normal 60-89 G2 Mild decrease 45-59 G3A Mild to moderate decrease 30-44 G3B Moderate to severe decrease 15-29 G4 Severe decrease <15 G5 Kidney failure Vitamin B12 test may not yield results when protein level of sample is too elevated. Ordering Provider: PERI GARVEY Report Released Date/Time: Mar 10, 2024 11:35 AM Reporting Lab: [facility] [address] [address] Performing Lab: [facility] [address] [address] [facility] PANEL 5 ALKALINE PHOSPHATASE [ENZYMATIC ACTIVITY/VO LUME] IN SERUM OR PLASMA 90 U/L 40 - 150 03/10 Specimen Type: PLASMA Comment: Estimated Glomerular Filtration Rate (eGFR) calculated using the 2020 Chronic Kidney Disease-Epi demiology (CKD-EPI) Collaborati on creatinine equation; units of measure are mL/min/1.73 m2. Results are only valid for adults (>=18 years) whose serum creatinine is in a steady state. eGFR calculation s are not valid for patients with acute kidney injury and for patients on dialysis. Creatinine- based estimates of kidney function may also be inaccurate in patients with reduced creatinine generation due to decreased muscle mass (e.g., malnutritio n, severe hypoalbumin emia, sarcopenia, chronic neuromuscul ar disease, amputations , severe heart failure or liver disease) and in patients with increased creatinine generation due to increased muscle mass (e.g., muscle builders, anabolic steroids) or increased dietary intake. As drug clearance is proportiona l to total GFR and not GFR indexed to body surface area (BSA), in individuals with a BSA substantial ly different than 1.73 m2, drug dosing should be based on the reported eGFR value de-indexed from BSA by multiplying by the individual' s BSA and dividing by 1.73. CKD is diagnosed based on abnormaliti es of kidney structure or function, present for >3 months, with implication s for health and disease. CKD is classified and staged based on cause, eGFR and albuminuria (quantified as urine albumin to creatinine ratio). An eGFR >60 mL/min/1.73 m2 in the absence of increased urine albumin excretion or structural abnormaliti es does not represent CKD. eGFR CKD Interpretat ion (mL/min/1.7 3 m2) stage >=90 G1 Normal 60-89 G2 Mild decrease 45-59 G3A Mild to moderate decrease 30-44 G3B Moderate to severe decrease 15-29 G4 Severe decrease <15 G5 Kidney failure Vitamin B12 test may not yield results when protein level of sample is too elevated. Ordering Provider: PERI GARVEY Report Released Date/Time: Mar 10, 2024 11:35 AM Reporting Lab: [facility] [address] [address] Performing Lab: [facility] [address] [address] [facility] PANEL 5 GLOMERULAR FILTRATION RATE/1.73 SQ M.PREDICTED [VOLUME RATE/AREA] IN SERUM, PLASMA OR BLOOD BY CREATININE- BASED FORMULA (CKD-EPI 2020) 61 03/10 Specimen Type: PLASMA Comment: Estimated Glomerular Filtration Rate (eGFR) calculated using the 2020 Chronic Kidney Disease-Epi demiology (CKD-EPI) Collaborati on creatinine equation; units of measure are mL/min/1.73 m2. Results are only valid for adults (>=18 years) whose serum creatinine is in a steady state. eGFR calculation s are not valid for patients with acute kidney injury and for patients on dialysis. Creatinine- based estimates of kidney function may also be inaccurate in patients with reduced creatinine generation due to decreased muscle mass (e.g., malnutritio n, severe hypoalbumin emia, sarcopenia, chronic neuromuscul ar disease, amputations , severe heart failure or liver disease) and in patients with increased creatinine generation due to increased muscle mass (e.g., muscle builders, anabolic steroids) or increased dietary intake. As drug clearance is proportiona l to total GFR and not GFR indexed to body surface area (BSA), in individuals with a BSA substantial ly different than 1.73 m2, drug dosing should be based on the reported eGFR value de-indexed from BSA by multiplying by the individual' s BSA and dividing by 1.73. CKD is diagnosed based on abnormaliti es of kidney structure or function, present for >3 months, with implication s for health and disease. CKD is classified and staged based on cause, eGFR and albuminuria (quantified as urine albumin to creatinine ratio). An eGFR >60 mL/min/1.73 m2 in the absence of increased urine albumin excretion or structural abnormaliti es does not represent CKD. eGFR CKD Interpretat ion (mL/min/1.7 3 m2) stage >=90 G1 Normal 60-89 G2 Mild decrease 45-59 G3A Mild to moderate decrease 30-44 G3B Moderate to severe decrease 15-29 G4 Severe decrease <15 G5 Kidney failure Vitamin B12 test may not yield results when protein level of sample is too elevated. Ordering Provider: PERI GARVEY Report Released Date/Time: Mar 10, 2024 11:35 AM Reporting Lab: [address] [address] Performing Lab: [address] [address] [facility] 25-OH VITAMIN D 25-HYDROXYV ITAMIN D3 [MASS/VOLUM E] IN SERUM OR PLASMA 33.4 ng/mL 20.0 - 50.0 03/10 Specimen Type: SERUM Comment: The National Institutes of Health (NIH) recommendat ions state: <12 ng/mL - Deficient 20 - 50 ng/mL - Optimal Levels - adequate for most people. >50 ng/mL - Increased risk of hypercalciu sri/other health problems - clinical correlation is required. These reference ranges represent clinical decision values rather than population- based reference values. Ordering Provider: PERI GARVEY Report Released Date/Time: Mar 10, 2024 11:35 AM Reporting Lab: [address] [phone] Performing Lab: [address] [phone] [facility] B12 VITAMIN COBALAMIN (VITAMIN B12) [MASS/VOLUM E] IN SERUM OR PLASMA 688 pg/mL 213 - 816 03/10 Specimen Type: PLASMA Comment: Estimated Glomerular Filtration Rate (eGFR) calculated using the 2020 Chronic Kidney Disease-Epi demiology (CKD-EPI) Collaborati on creatinine equation; units of measure are mL/min/1.73 m2. Results are only valid for adults (>=18 years) whose serum creatinine is in a steady state. eGFR calculation s are not valid for patients with acute kidney injury and for patients on dialysis. Creatinine- based estimates of kidney function may also be inaccurate in patients with reduced creatinine generation due to decreased muscle mass (e.g., malnutritio n, severe hypoalbumin emia, sarcopenia, chronic neuromuscul ar disease, amputations , severe heart failure or liver disease) and in patients with increased creatinine generation due to increased muscle mass (e.g., muscle builders, anabolic steroids) or increased dietary intake. As drug clearance is proportiona l to total GFR and not GFR indexed to body surface area (BSA), in individuals with a BSA substantial ly different than 1.73 m2, drug dosing should be based on the reported eGFR value de-indexed from BSA by multiplying by the individual' s BSA and dividing by 1.73. CKD is diagnosed based on abnormaliti es of kidney structure or function, present for >3 months, with implication s for health and disease. CKD is classified and staged based on cause, eGFR and albuminuria (quantified as urine albumin to creatinine ratio). An eGFR >60 mL/min/1.73 m2 in the absence of increased urine albumin excretion or structural abnormaliti es does not represent CKD. eGFR CKD Interpretat ion (mL/min/1.7 3 m2) stage >=90 G1 Normal 60-89 G2 Mild decrease 45-59 G3A Mild to moderate decrease 30-44 G3B Moderate to severe decrease 15-29 G4 Severe decrease <15 G5 Kidney failure Vitamin B12 test may not yield results when protein level of sample is too elevated. Ordering Provider: PERI GARVEY Report Released Date/Time: Mar 10, 2024 11:35 AM Reporting Lab: [facility] [address] [address] Performing Lab: [facility] [address] [address] [facility] TSH THYROTROPIN [UNITS/VOLU ME] IN SERUM OR PLASMA 1.2729 m[IU]/ mL 0.3500 - 4.9400 03/10 Specimen Type: PLASMA Comment: Estimated Glomerular Filtration Rate (eGFR) calculated using the 2020 Chronic Kidney Disease-Epi demiology (CKD-EPI) Collaborati on creatinine equation; units of measure are mL/min/1.73 m2. Results are only valid for adults (>=18 years) whose serum creatinine is in a steady state. eGFR calculation s are not valid for patients with acute kidney injury and for patients on dialysis. Creatinine- based estimates of kidney function may also be inaccurate in patients with reduced creatinine generation due to decreased muscle mass (e.g., malnutritio n, severe hypoalbumin emia, sarcopenia, chronic neuromuscul ar disease, amputations , severe heart failure or liver disease) and in patients with increased creatinine generation due to increased muscle mass (e.g., muscle builders, anabolic steroids) or increased dietary intake. As drug clearance is proportiona l to total GFR and not GFR indexed to body surface area (BSA), in individuals with a BSA substantial ly different than 1.73 m2, drug dosing should be based on the reported eGFR value de-indexed from BSA by multiplying by the individual' s BSA and dividing by 1.73. CKD is diagnosed based on abnormaliti es of kidney structure or function, present for >3 months, with implication s for health and disease. CKD is classified and staged based on cause, eGFR and albuminuria (quantified as urine albumin to creatinine ratio). An eGFR >60 mL/min/1.73 m2 in the absence of increased urine albumin excretion or structural abnormaliti es does not represent CKD. eGFR CKD Interpretat ion (mL/min/1.7 3 m2) stage >=90 G1 Normal 60-89 G2 Mild decrease 45-59 G3A Mild to moderate decrease 30-44 G3B Moderate to severe decrease 15-29 G4 Severe decrease <15 G5 Kidney failure Ordering Provider: PERI GARVEY Report Released Date/Time: Mar 10, 2024 11:35 AM Reporting Lab: [facility] [address] [address] Performing Lab: [facility] [address] [address] [facility] Vital Signs Combined list of inpatient and outpatient Vital Signs from Department of Defense and Veterans Affairs, ranging from 12 months to all on record, depending upon the facility. Vital Sign Value Date Comments Source SYSTOLIC BLOOD PRESSURE 153 03/10/2024 10:44:04 [facility] DIASTOLIC BLOOD PRESSURE 83 03/10/2024 10:44:04 [facility] PULSE OXIMETRY 95 03/10/2024 10:44:04 Eleanor URRUTIA [facility] WEIGHT 218 03/10/2024 10:44:04 FRAN TILLMAN [facility] BMI 30 kg/m2 03/10/2024 10:44:04 FRAN TILLMAN [facility] PAIN 5 03/10/2024 10:44:04 FRAN TILLMAN [facility] TEMPERATURE 97.7 03/10/2024 10:44:04 IGOR CADENA [facility] PULSE 69 03/10/2024 10:44:04 [facility] Encounters Combined list of: 1) Encounters from Department of [facility] Affairs facilities going backup to the last 18 months, not all [place] inpatient encounters are included; 2) Encounters from the Department of [facility] facilities going backup to 280 months. Location Location Details Encounter Type Encounter Number Reason For Visit Attending Provider ADM Date DC Date Status Disposition Source [facility] Outpatient Encounter [id number] 03/[address] [place] [address] [facility] Outpatient Encounter [id number] 06/[address] [place] [address] [facility] Outpatient Encounter [id number] 01/[address] [place] [address] [facility] Outpatient Encounter [id number] 03/[address] [place] [address] [facility] Outpatient Encounter [id number] 03/02 [place] [facility] Outpatient Encounter [id number] 03/03 [place] HC PRO PHONE CALL 21-30 MIN [id number] Diagnos is: ICD-10- CM Z65.9 Problem related to unspeci fied psychos ocial circums SHAWNA Bills 03/[address] [place] [address] [facility] OFFICE O/P NEW MOD 45 MIN [id number] Diagnos is: ICD-10- CM R41.81 Age-rel ated cogniti ve decline COMER,PERI Reaves 03/[address] [place] [address] [facility] CASE MANAGEMENT [id number] Diagnos is: ICD-10- CM Z65.9 Problem related to unspeci fied psychos ocial circums tanSHAWNA Prieto J 03/[address] [place] [address] 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 HC PRO PHONE CALL 5-10 MIN [id number] Diagnos is: ICD-10- CM Z65.9 Problem related to unspeci fied psychos ocial circums SHAWNA Bills 03/11 [place] [facility] Outpatient Encounter [id number] 03/22 [place] Social History Combined list of available smoking, tobacco, and other social history from Department of Defense and [facility] Affairs facilities. Social History Type Response Date Comment Sourc e Tobacco smoking status NHIS [place] FORMER USER 03/10/2024 [facility] History of tobacco use [place]-TO[place] QUIT 15 YRS OR MORE 03/10/2024 [facility]2019 [facility] History of tobacco use V9 QUIT TOBACCO >7 YEARS AGO 01/12/2018 [facility] History of tobacco use V9 QUIT TOBACCO >7 YEARS AGO 04/21/2016 [facility] History of tobacco use V9 QUIT TOBACCO >7 YEARS AGO 05/24/2014 [facility] History of tobacco use V9 QUIT TOBACCO >7 YEARS AGO 05/03/2013 [facility] History of tobacco use V9 QUIT TOBACCO >7 YEARS AGO 02/11/2012 [facility] History of tobacco use VBennie QUIT TOBACCO >7 YEARS AGO 01/22/2011 [facility]
--- NOTE | 2024-09-15 13:30 | CT_ITS ---
FINAL REPORT CLINICAL HISTORY: Lt Knee Pre Op, my knee protocol FINDINGS: CT LEFT KNEE WITHOUT CONTRAST TECHNIQUE: Axial and reformatted sagittal and coronal images were obtained of the . This study was performed with techniques to keep radiation doses as low as reasonably achievable, (ALARA). Individualized dose reduction techniques using automated exposure control or adjustment of mA and/or kV according to the patient's size were employed. FINDINGS: No fracture is identified. There is moderate medial compartment joint space narrowing. There is subchondral sclerosis and degenerative cyst formation. There is moderate osteophyte formation at the medial joint margin. There appears to be an intra articular loose body in the intercondylar region measuring 1.3 cm in greatest dimension. There is prominent tibial tuberosity ossific density measuring 1.5 cm. IMPRESSION: Moderate changes of osteoarthritis in the medial compartment. Large intra-articular loose body. Prominent tibial tuberosity. Reviewed, Interpreted and Dictated by Yordy Sung MD Transcribed by Rea Duran Authenticated and [facility]
== END 2024-09-15 23:59 | disposition home or self-care (01) ==
LOC: RAD 13:14
PROVIDERS: PCP Internal Medicine Adolescent Medicine; Visit Provider Orthopaedic Surgery
DX: M17.12 Unilateral primary osteoarthritis, left knee (principal)
CPT/HCPCS: 73700

== ENCOUNTER 2024-09-19 11:17 | Outpatient (CLI) | payer MEDICARE, OTHER, SELFPAY ==
--- OUTSIDE RECORDS SUMMARY | 2024-09-19 11:20 | XMS_ITS | Data Portability ---
Author Organization [facility] [facility] Address 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 Plan of Treatment [...] By Organization Details Last Modified Time 02/17/2024 [id number] Arthritis Thumb-LC [email or web address] Not available 02/17/2024 14:26:55 Trigger Finger-LC [email or web address] Not availabl e 02/17/2024 14:26:54 Reason for Referral None Reported. Results Created Date Observation Date Name Description Value Unit Range Abnormal Flag Note LastModifiedBy Organization Detail LastModifiedTime 03/02/20 23 03/02/2023 XR, wrist , 3 or more view Beth carrillo [facility] [address] [place] [address] Triston son Name: JACK son : [phone] [...] Roberto oh MD on 023 9:39 AM [facility] [address] , [place], [address], 03/02/2023 10:00:00 02/05/20 24 07/28/2022 elect romyo gram + nerve condu ction study No observ ation record ed. [email or web address] Not Available 2023 12:52:10 Result Notes None recorded. Problems Name Problem SNOMED Code Status Onset Date Resolution Date Notes Provider Name and Address Organization Details Recorded Time Chest pain Active 2015 From Automated Load;Provi zuleika: Richy Jorgensen;Statu s: Active Not Available [facility] 7 07:42:16 Spinal stenosis of lumbar region 47152885 Active 2014 From Automated Load;Provi zuleika: Dg Arambula;St atus: Active Not Available [facility] 6 03:10:55 Problem Notes None recorded. Procedures Surgical History Date Name Laterality Status Provider Name and Address Organization Details Recorded Time 3 Orthotic Management; Subsequent Encounter completed GORDY HOLM JR, OTR/L, CHT [address] [place] [address], [phone], [facility] 03/02/2023 10:13:07 3 Op Note completed RAKESH KAUR MD [address] [place] [address], [phone], [facility] 02/17/2023 11:54:24 3 Op Note completed RAKESH KAUR MD [address] [place] [address], [phone], [facility] 12/04/2022 09:21:15 Orthotic, WHFO, Static Custom completed GORDY HOLM JR, OTR/L, CHT [address] [place], [phone], [facility] 09/03/2022 13:59:27 Imaging Results Imaging Date Name Status LastModified by Organization Details LastModified Time 03/02/2023 XR, wrist, 3 or more view completed [facility] [address] , [place], [address], 03/02/2023 10:00:00 07/28/2022 electromyogram + nerve conduction [...] Updated DateTime 03/02/2023 180.34 cm 28.6 kg/m2 11038.44 g [facility] 03/02/2023 09:29:36 Date Recorded Body height Body mass index (BMI) Body weight Pain severity - 0-10 verbal numeric rating [Score] - Reported Provider Name and Address Organization Details Last Updated DateTime 03/30/2023 180.34 cm 28.6 kg/m2 79610.44 g Nusrat Kirkpatrick [facility] 03/30/2023 13:39:17 Date Recorded Body height Body mass index (BMI) Body weight Provider Name and Address Organization Details Last Updated DateTime 02/17/2024 180.34 cm 30.1 kg/m2 84910.95 g [facility] 02/17/2024 14:06:29 Social History None recorded. Functional Status None recorded. Mental Status None recorded. Family History Nothing Reported. Medical History No medical history recorded. Past Encounters Encounter ID Performer Location Encounter Start Date Encounter Closed Date Diagnosis/Indication Diagnosis SNOMED-CT Code Diagnosis ICD10 Code Diagnosis Note [id number] RAKESH KAUR MD [facility] [address] [place] [address] 09/03/2022 12:52:00 09/03/2022 13:54:28 Osteoarthrosis of the carpometacarpal joint of the thumb 80926566 M18.9 And STT joint. 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 6-year status post ulnar nerve release, recommend subcutaneo us ulnar nerve transposit ion Acquired t lining vamper finger 4123949 M65.30 Long andRight ring finger, release at the same time as cubital tunnel surgery, can consider basal joint surgery as a second stage after recovery if still symptomati c despite splint [id number] GORDY HOLM JR, OTR/L, CHT PHYSICAL THERAPY / HAND THERAPY [place] [address] [address] 09/03/2022 13:48:23 09/04/2022 04:21:09 Osteoarthrosis of the carpometacarpal joint of the thumb 72895019 M18.9 [id number] RAKESH KAUR MD [facility] [place] [address] [place] [address] 12/03/2022 11:28:55 12/03/2022 11:58:15 Abrasion of skin of hand 220498799 S60.511A I assured him this injury will not interfere with trigger finger release schedule for tomorrow. Minor injury; no interventi on necessary. F/U PRN. Acquired t lining vamper finger 7463371 M65.30 Upcoming Surgery Scheduled for 12/04/22 [id number] RAKESH KAUR MD SURGERY SCHEDULE [address] [place] [address] 1 12/04/2022 06:39:31 12/04/2022 06:40:05 [id number] RAKESH KAUR MD [facility] [place] [address] [place] [address] 12/17/2022 13:17:20 12/17/2022 14:04:37 Postoperative care [id number] Z48.89 2 weeks s/p Release right long and ring trigger finger; Right subcutaneo us ulnar nerve transposit ion.Doing well, wants to schedule basal joint arthroplas ty. We will set this up. [id number] RAKESH KAUR MD SURGERY SCHEDULE [address] [place] [address] 1 02/17/2023 08:47:22 02/17/2023 08:48:55 [id number] RAKESH KAUR MD [facility]THOPED[facility] [address] 03/02/2023 09:05:58 03/02/2023 09:59:56 Postoperative care 259315913 Z48.89 2 week s/p right thumb CMC [...] nothing over 5lbs.Follo w up 4 weeks [id number] GORDY HOLM JR, OTR/L, CHT PHYSICAL THERAPY / HAND THERAPY [place] [address] [place] [address] 03/02/2023 10:03:33 03/03/2023 04:54:31 Osteoarthrosis of the carpometacarpal joint of the thumb 49074028 M18.9 [id number] OLE CAVAZOS PA-C [place] [address] [place] [address] 03/30/2023 13:36:50 03/30/2023 13:51:04 Postoperative care 887695521 Z48.89 6 weeks status post right thumb [...] up to 6 months after the surgery. 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 177356653 G56.21 6-year status post ulnar nerve release [...] 02/17/2023 1 [place] Gene R Romeo [id number] Gene R Romeo 02/17/2023 2 [employer] (MEDICARE SUPPLEMENT) Gene R Romeo [id number] Gene R Romeo 03/02/2023 1 [place] Gene R Romeo [id number] Gene R Romeo 03/02/2023 2 [employer] (MEDICARE SUPPLEMENT) Gene R Romeo [id number] Gene R Romeo 03/02/2023 1 [place] Gene R Romeo [id number] Gene R Romeo 03/02/2023 2 [employer] (MEDICARE SUPPLEMENT) Gene R Romeo [id number] Gene R Romeo 03/30/2023 1 [place] Gene R Romeo [id number] Gene R Romeo 03/30/2023 2 [employer] (MEDICARE SUPPLEMENT) Gene R Romeo [id number] Gene R Romeo 02/17/2024 1 [place] Gene R Romeo [id number] Gene R Romeo 02/17/2024 2 [employer] (MEDICARE SUPPLEMENT) Gene R Romeo [id number] Gene R Romeo Notes Date Note Type [...] RECENT SURGERIES: EMPLOYMENT STATUS: RAKESH KAUR MD [address] [place] [address], [phone], [facility] 03/02/2023 09:57:49 3 text/html [id number] THUMB CMC ARTHROPLASTY, PARTIAL TRAPEZOID EXCISION, FCR LIG RECONSTRUCTIONPerformed by MD GORDY Hernandez JR, OTR/L, T [address] [place] [address], [address] [place] [address], [facility] 03/02/2023 10:35:35 3 text/html Patient arrives [...] na EMPLOYMENT STATUS: Retired OLE CAVAZOS PA-C [address] [place] [address], [phone], [facility] 03/30/2023 16:06:18 4 text/html Consult [facility]: Dr. Rakesh Carrillo Hand dominance: [...] hand surgeons before? 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 Walters is here for n/t in rt hand and elbow. He reports he still has n/t in his fingers and have occasional catching. He also reports the pain radiates up to his elbow. He reports his lt thumb has started to bother him like the right side did. No new EMG. No injury RAKESH KAUR MD [facility] [place], [address], [facility] 02/17/2024 14:27:07
--- OUTSIDE RECORDS SUMMARY | 2024-09-19 11:20 | XMS_ITS | Continuity of Care Document ---
Author Name [facility] Organization [facility] Care Team Providers Care Ruby Software Developer Name Role Phone [facility] Unavailable Unavailable Problems Combined list of problems from [facility] and [facility] facilities. It does not include entries that were removed or entered in error. Problem Status Onset Date Problem Type Date of Resolution Comments Source Age-related cognitive decline Active Condition [place] [facility] Elev Bp W/O Dx Hypertension Active Condition [facility] Generalized anxiety disorder Active Condition [facility] Hearing loss Active Condition [facility] Hyperlipidemia Active Condition [place] [facility] Hyperlipidemia Active [place] [facility] Hypertension Active Condition [facility] Obesity Active Condition [facility] Simple obesity Active Condition [place] [facility] Vision, Subnormal * (ICD-9-CM 369.9/369.20) Active Condition [facility] Diagnosis: ICD-10-CM Z65.9 Problem related to unspecified psychosocial circumstances Active Diagnosis [facility] Diagnosis: ICD-10-CM Z71.89 Other specified counseling Active Diagnosis [facility] Diagnosis: ICD-10-CM R41.81 Age-related cognitive decline Active Diagnosis [place] [facility] Medications Combined list of outpatient medications from Department [facility] and [facility] facilities.Medications provided include 1) outpatient medications from the last 15 months, and 2) patient-reported medications. Medication Details Route Status Patient Instructions Prescription Expires Prescription Number Last Dispense Date Ordering Provider Order Date Order Qty Source ACETYLCYSTE INE 600MG CAP,ORAL TAKE 1 CAPSULE BY MOUTH DAILY ORAL ACTIVE PERI GARVEY 2023 [place] [facility] ASPIRIN 81MG TAB,EC TAKE ONE TABLET BY MOUTH DAILY ORAL ACTIVE JOSE G CASTELLANO 2015 [place] [facility] ATORVASTATI N CA 40MG TAB TAKE ONE TABLET BY MOUTH AT BEDTIME ORAL ACTIVE COMER,PERI Reaves 2023 [place] [facility] CAMPHOR 0.2%/MENTHO L 3.5% GEL,TOP APPLY APPLY TO AFFECTED AREA DIRECTED TOPICA L ACTIVE COMER,PERI Reaves 2023 [place] [facility] CYANOCOBALA MIN 1000MCG TAB TAKE ONE TABLET BY MOUTH DAILY ORAL ACTIVE COMER,PERI Reaves 2023 [place] [facility] DICLOFENAC NA 1% GEL,TOP APPLY 4 GRAM STRIP TO AFFECTED AREA EVERY 6 HOURS NEEDED TOPICA L ACTIVE COMER,PERI Reaves 2023 [place] [facility] DONEPEZIL HCL 10MG TAB TAKE ONE-HALF TABLET BY MOUTH AT BEDTIME ORAL ACTIVE COMER,PERI Reaves 2023 [place] [facility] ESCITALOPRA M OXALATE 10MG TAB TAKE ONE TABLET BY MOUTH DAILY ORAL ACTIVE COMER,PERI Reaves 2023 [place] [facility] FLUTICASONE PROPIONATE 50MCG/SPRAY SOLN,NASAL, 16GM USE 2 SPRAYS IN EACH NOSTRIL DAILY NASAL ACTIVE COMER,PERI Reaves 2023 [place] [facility] MEMANTINE HCL 10MG TAB TAKE ONE TABLET BY MOUTH DAILY ORAL ACTIVE COMER,PERI Reaves 2023 [place] [facility] MUPIROCIN 2% OINT,TOP APPLY SMALL AMOUNT TO NARES TO AFFECTED AREA DAILY NEEDED TOPICA L ACTIVE COMER,PERI Reaves 2023 [place] [facility] NYSTATIN 801258ONO/G M CREAM,TOP APPLY SMALL AMOUNT TO AFFECTED AREA DAILY NEEDED TOPICA L ACTIVE COMER,PERI Reaves 2023 [place] [facility] THIAMINE 50MG TAB TAKE ONE TABLET BY MOUTH EVERY MORNING ORAL ACTIVE COMER,PERI Reaves 2023 [place] [facility] Immunizations Combined list of available immunizations from the Department of Defense and Veterans Affairs facilities. Immunization Series Date Given Administered By Site Reaction Lot Number CVX Code Drug Director Of Integrated Marketing Status Comments Source INFLUENZA, HIGH-DOSE, TRIVALENT, PF 6 2023 135 complet ed HISTORICA L INFORMATI ON - FROM OTHER REGISTRY, [place] [facility], RECOMBINANT, PROTEIN SUBUNIT RSVPREF, ADJUVANT RECONSTITUTED , 0.5 ML, PF 2023 303 complet ed HISTORICA L INFORMATI ON - FROM OTHER REGISTRY, [place] [facility] ZOSTER RECOMBINANT 2 2023 187 complet ed HISTORICA L INFORMATI ON - FROM OTHER REGISTRY, [place] [facility], RECOMBINANT, PROTEIN SUBUNIT RSVPREF, ADJUVANT RECONSTITUTED , 0.5 ML, PF 1 2022 303 complet ed HISTORICA L INFORMATI ON - FROM OTHER REGISTRY, [place] [facility] INFLUENZA, HIGH-DOSE, TRIVALENT, PF 5 2022 135 complet ed HISTORICA L INFORMATI ON - FROM OTHER REGISTRY, [place] [facility] ZOSTER RECOMBINANT 1 2022 187 complet ed HISTORICA L INFORMATI ON - FROM OTHER REGISTRY, [place] [facility] INFLUENZA, HIGH-DOSE, TRIVALENT, PF 4 2021 135 complet ed HISTORICA L INFORMATI ON - FROM OTHER REGISTRY, [place] [facility] COVID-19 (Alive Juices), MRNA, LNP-S, PF, 30 MCG/0.3 ML DOSE, JOSE G-SUCROSE (AGES 12+ YEARS) 4 2021 217 complet ed HISTORICA L INFORMATI ON - FROM OTHER REGISTRY, [place] [facility] COVID-19 (Alive Juices), MRNA, LNP-S, PF, 30 MCG/0.3 ML DOSE 3 2020 208 complet ed HISTORICA L INFORMATI ON - FROM OTHER REGISTRY, [place] [facility] COVID-19 (Alive Juices), MRNA, LNP-S, PF, 30 MCG/0.3 ML DOSE 2 2020 208 complet ed HISTORICA L INFORMATI ON - FROM OTHER REGISTRY, [place] [facility] COVID-19 (Alive Juices), MRNA, LNP-S, PF, 30 MCG/0.3 ML DOSE 1 2020 208 complet ed HISTORICA L INFORMATI ON - FROM OTHER REGISTRY, [place] [facility] INFLUENZA, HIGH-DOSE, TRIVALENT, PF 3 2019 135 complet ed HISTORICA L INFORMATI ON - FROM OTHER REGISTRY, [place] [facility] INFLUENZA, SEASONAL, INJECTABLE 2018 141 complet ed [place] [facility] INFLUENZA, SEASONAL, INJECTABLE 2017 141 complet ed [place] [facility] INFLUENZA, SPLIT VIRUS, QUADRIVALENT, PRESERVATIVE 2 2017 158 complet ed HISTORICA L INFORMATI ON - FROM OTHER REGISTRY, [place] [facility] PNEUMOCOCCAL POLYSACCHARID E PPV23 1 2016 33 complet ed HISTORICA L INFORMATI ON - FROM OTHER REGISTRY, [place] [facility] INFLUENZA, SPLIT VIRUS, QUADRIVALENT, PRESERVATIVE 1 2016 158 complet ed HISTORICA L INFORMATI ON - FROM OTHER REGISTRY, [place] [facility] INFLUENZA A & B (HISTORICAL) 2015 88 complet ed locally [place] [facility] TD(ADULT) UNSPECIFIED FORMULATION 2006 139 complet ed [place] [facility] TDAP (HISTORICAL) 2006 115 complet ed [place] [facility] TD (ADULT), 2 LF TETANUS TOXOID, PRESERVATIVE FREE, ADSORBED 1 1996 09 complet ed HISTORICA L INFORMATI ON - FROM OTHER REGISTRY, [place] [facility] Results Combined list of recent chemistry, hematology and other laboratory results from Department of Defense and Veterans Affairs, ranging from 15 months to all on record, depending upon the facility. Order Name Results Value Reference Range Date Interpretation Specimen Comments Source GLYCOHEMO GLOBIN HEMOGLOBIN A1C/HEMOGLO BIN.TOTAL IN BLOOD BY HPLC 6.3 4.4 - 6.4 03/10 Specimen Type: BLOOD Comment: [place]-Do[place] guidelines for A1c interpretat ion: Glycemic control [...] 9.27. Ref: https://ngs p.org/CAPda ta.asp. The in-house [employer] D-100 analyzer has a historical CV <= 2%. Contact the laboratory for further performance characteris tics of this assay. Ordering Provider: PERI GARVEY Report Released Date/Time: Mar 10, 2024 11:35 AM Reporting Lab: [facility] [address] [address] Performing Lab: [address] [address] [facility] LIPID PROFILE CHOLESTEROL [MASS/VOLUM E] IN [...] 2024 11:35 AM Reporting Lab: [facility] [address] [address] Performing Lab: [facility] [address] [address] [facility] LIPID PROFILE TRIGLYCERID E [MASS/VOLUM E] [...] 2024 11:35 AM Reporting Lab: [facility] [address] [address] Performing Lab: [facility] [address] [address] [facility] LIPID PROFILE CHOLESTEROL IN HDL [MASS/VOLUM [...] 2024 11:35 AM Reporting Lab: [facility] [address] [address] Performing Lab: [facility] [address] [address] [facility] LIPID PROFILE CHOLESTEROL IN LDL [MASS/VOLUM [...] 10, 2024 11:35 AM Reporting Lab: [facility] [address] [address] Performing Lab: [facility] [address] [address] [facility] CBC/PLT LEUKOCYTES [#/VOLUME] IN BLOOD BY AUTOMATED COUNT 9.1 10*3/u L 5.0 - 10.0 03/10 Specimen Type: BLOOD No comment entered. Ordering Provider: PERI GARVEY Report Released Date/Time: Mar 10, 2024 11:35 AM Reporting Lab: [facility] [address] [address] Performing Lab: [address] [address] [facility] CBC/PLT ERYTHROCYTE S [#/VOLUME] IN BLOOD BY AUTOMATED COUNT 5.67 10*6/u L 4.6 - 6.2 03/10 Specimen Type: BLOOD No comment entered. Ordering Provider: PERI GARVEY Report Released Date/Time: Mar 10, 2024 11:35 AM Reporting Lab: [address] [address] Performing Lab: [address] [address] [facility] CBC/PLT HEMOGLOBIN [MASS/VOLUM E] IN BLOOD 15.3 g/dL 14.0 - 18.0 03/10 Specimen Type: BLOOD No comment entered. Ordering Provider: PERI GARVEY Report Released Date/Time: Mar 10, 2024 11:35 AM Reporting Lab: [place] [id number] Performing Lab: [address] [address] [facility] CBC/PLT HEMATOCRIT [VOLUME FRACTION] OF BLOOD BY AUTOMATED COUNT 48.9 42.0 - 52.0 03/10 Specimen Type: BLOOD No comment entered. Ordering Provider: PERI GARVEY Report Released Date/Time: Mar 10, 2024 11:35 AM Reporting Lab: [address] [address] Performing Lab: [address] [address] [facility] CBC/PLT MCV [ENTITIC VOLUME] BY AUTOMATED COUNT 86.2 fL 80.0 - 94.0 03/10 Specimen Type: BLOOD No comment entered. Ordering Provider: PERI GARVEY Report Released Date/Time: Mar 10, 2024 11:35 AM Reporting Lab: [address] [address] Performing Lab: [address] [address] [facility] CBC/PLT MCH [ENTITIC MASS] BY AUTOMATED COUNT 27.0 pg 27.0 - 31.0 03/10 Specimen Type: BLOOD No comment entered. Ordering Provider: PERI GARVEY Report Released Date/Time: Mar 10, 2024 11:35 AM Reporting Lab: [place] [address] Performing Lab: [address] CBC/PLT MCHC [MASS/VOLUM E] BY AUTOMATED COUNT 31.3 g/dL 32.0 - 36.0 03/10 L Specimen Type: BLOOD No comment entered. Ordering Provider: PERI GARVEY Report Released Date/Time: Mar 10, 2024 11:35 AM Reporting Lab: [place] [address] Performing Lab: [address] CBC/PLT PLATELETS [#/VOLUME] IN BLOOD 225 10*3/u L 150 - 450 03/10 Specimen Type: BLOOD No comment entered. Ordering Provider: PERI GARVEY Report Released Date/Time: Mar 10, 2024 11:35 AM Reporting Lab: [place] [address] Performing Lab: [address] CBC/PLT PLATELET MEAN VOLUME [ENTITIC VOLUME] IN BLOOD 11.1 fL 9.0 - 13.1 03/10 Specimen Type: BLOOD No comment entered. Ordering Provider: PERI GARVEY Report Released Date/Time: Mar 10, 2024 11:35 AM Reporting Lab: [place] [address] Performing Lab: [address] CBC/PLT ERYTHROCYTE DISTRIBUTIO N WIDTH [ENTITIC VOLUME] BY AUTOMATED COUNT 15.7 11.0 - 16.0 03/10 Specimen Type: BLOOD No comment entered. Ordering Provider: PERI GARVEY Report Released Date/Time: Mar 10, 2024 11:35 AM Reporting Lab: [address] [address] Performing Lab: [address] [address] [facility] CBC/PLT NUCLEATED ERYTHROCYTE S/100 ERYTHROCYTE S IN BLOOD 0.0 0.0 - 0.0 03/10 Specimen Type: BLOOD No comment entered. Ordering Provider: PERI GARVEY Report Released Date/Time: Mar 10, 2024 11:35 AM Reporting Lab: [address] [address] Performing Lab: [address] [address] [facility] PANEL 5 CREATININE [MASS/VOLUM E] IN [...] 2024 11:35 AM Reporting Lab: [facility] [address] [address] Performing Lab: [facility] [address] [address] [facility] PANEL 5 UREA NITROGEN [MASS/VOLUM E] [...] 2024 11:35 AM Reporting Lab: [facility] [address] [address] Performing Lab: [facility] [address] [address] [facility] PANEL 5 GLUCOSE [MASS/VOLUM E] IN [...] 2024 11:35 AM Reporting Lab: [facility] [address] [address] Performing Lab: [facility] [address] [address] [facility] PANEL 5 SODIUM [MOLES/VOLU ME] IN [...] 2024 11:35 AM Reporting Lab: [facility] [address] [address] Performing Lab: [facility] [address] [address] [facility] PANEL 5 POTASSIUM [MOLES/VOLU ME] IN [...] 2024 11:35 AM Reporting Lab: [facility] [address] [address] Performing Lab: [facility] [address] [address] [facility] PANEL 5 CHLORIDE [MOLES/VOLU ME] IN [...] 2024 11:35 AM Reporting Lab: [facility] [address] [address] Performing Lab: [facility] [address] [address] [facility] PANEL 5 CARBON DIOXIDE, TOTAL [MOLES/VOLU [...] 2024 11:35 AM Reporting Lab: [facility] [address] [facility] [address] Performing Lab: [facility] [address] [facility] [address] [facility] PANEL 5 CALCIUM [MASS/VOLUM E] IN [...] 2024 11:35 AM Reporting Lab: [facility] [address] [address] Performing Lab: [facility] [address] [address] [facility] PANEL 5 PROTEIN [MASS/VOLUM E] IN [...] 10, 2024 11:35 AM Reporting Lab: [facility] [address] [facility] [address] Performing Lab: [facility] [address] [place] [address] [facility] PANEL 5 ALBUMIN [MASS/VOLUM E] IN [...] 2024 11:35 AM Reporting Lab: [facility] [address] [address] Performing Lab: [facility] [address] [address] [facility] PANEL 5 BILIRUBIN.T OTAL [MASS/VOLUM E] [...] 2024 11:35 AM Reporting Lab: [facility] [address] [address] Performing Lab: [facility] [address] [address] [facility] PANEL 5 ASPARTATE AMINOTRANSF ERASE [ENZYMATIC [...] 2024 11:35 AM Reporting Lab: [facility] [address] [address] Performing Lab: [facility] [address] [address] [facility] PANEL 5 ALANINE AMINOTRANSF ERASE [ENZYMATIC [...] 2024 11:35 AM Reporting Lab: [facility] [address] [address] Performing Lab: [facility] [address] [address] [facility] PANEL 5 ANION GAP 3 IN [...] 2024 11:35 AM Reporting Lab: [facility] [address] [address] Performing Lab: [facility] [address] [address] [facility] PANEL 5 ALKALINE PHOSPHATASE [ENZYMATIC ACTIVITY/VO [...] 2024 11:35 AM Reporting Lab: [facility] [address] [address] Performing Lab: [facility] [address] [address] [facility] PANEL 5 GLOMERULAR FILTRATION RATE/1.73 SQ [...] Mar 10, 2024 11:35 AM Reporting Lab: [address] [address] Performing Lab: [address] [address] [facility] 25-OH VITAMIN D 25-HYDROXYV ITAMIN D3 [...] Mar 10, 2024 11:35 AM Reporting Lab: [address] [address] Performing Lab: [address] [address] [facility] B12 VITAMIN COBALAMIN (VITAMIN B12) [MASS/VOLUM [...] 2024 11:35 AM Reporting Lab: [facility] [address] [address] Performing Lab: [facility] [address] [address] [facility] TSH THYROTROPIN [UNITS/VOLU ME] IN SERUM [...] 2024 11:35 AM Reporting Lab: [facility] [address] [address] Performing Lab: [facility] [address] [address] [facility] Vital Signs Combined list of inpatient and outpatient Vital Signs from Department of Defense and Veterans Affairs, ranging from 12 months to all on record, depending upon the facility. Vital Sign Value Date Comments Source SYSTOLIC BLOOD PRESSURE 153 03/10/2024 10:44:04 [facility] DIASTOLIC BLOOD PRESSURE 83 03/10/2024 10:44:04 [facility] PULSE OXIMETRY 95 03/10/2024 10:44:04 Eleanor URRUTIA [facility] WEIGHT 218 03/10/2024 10:44:04 FRAN TILLMAN [facility] BMI 30 kg/m2 03/10/2024 10:44:04 FRAN TILLMAN [facility] PAIN 5 03/10/2024 10:44:04 FRAN TILLMAN [facility] TEMPERATURE 97.7 03/10/2024 10:44:04 IGOR CADENA [facility] PULSE 69 03/10/2024 10:44:04 [facility] Encounters Combined list of: 1) Encounters from Department of [facility] Affairs facilities going backup to the last 18 months, not all [place] inpatient encounters are included; 2) Encounters from the Department of [facility] facilities going backup to 280 months. Location Location Details Encounter Type Encounter Number Reason For Visit Attending Provider ADM Date DC Date Status Disposition Source [facility] Outpatient Encounter [id number] 03/30 [place] [facility] Outpatient Encounter [id number] 06/01 [place] [facility] Outpatient Encounter [id number] 01/31 [place] [facility] Outpatient Encounter [id number] 03/02 [place] [facility] Outpatient Encounter [id number] 03/02 [place] [facility] Outpatient Encounter [id number] 03/03 [place] HC PRO PHONE CALL 21-30 MIN [id number] Diagnos is: ICD-10- CM Z65.9 Problem related to unspeci fied psychos ocial circums SHAWNA Bills 03/08 [place] [facility] OFFICE O/P NEW MOD 45 MIN [id number] Diagnos is: ICD-10- CM R41.81 Age-rel ated cogniti ve decline COMER,PERI Reaves 03/10 [place] [facility] CASE MANAGEMENT [id number] Diagnos is: ICD-10- CM Z65.9 Problem related to unspeci fied psychos ocial circums tanSHAWNA Prieto J 03/10 [place] [facility] HC PRO PHONE CALL 5-10 MIN [id number] Diagnos is: ICD-10- CM Z71.89 Other specifi ed ip counsel Galina Handy 03/11 [place] [facility] HC PRO PHONE CALL 5-10 MIN [id number] Diagnos is: ICD-10- CM Z65.9 Problem related to unspeci fied psychos ocial circums SHAWNA Bills 03/11 [place] [facility] Outpatient Encounter [id number] 03/22 [place] Social History Combined list of available smoking, tobacco, and other social history from Department of Defense and [facility] Affairs facilities. Social History Type Response Date Comment Sourc e Tobacco smoking status NHIS [place]-TOBACCO FORMER USER 03/10/2024 [facility] History of tobacco use [place]-TOBACCO QUIT 15 YRS OR MORE 03/10/2024 [facility]21/2019 [facility] History of tobacco use V9 QUIT TOBACCO >7 YEARS AGO 01/12/2018 [facility] History of tobacco use V9 QUIT TOBACCO >7 YEARS AGO 04/21/2016 [facility] History of tobacco use V9 QUIT TOBACCO >7 YEARS AGO 05/24/2014 [facility] History of tobacco use V9 QUIT TOBACCO >7 YEARS AGO 05/03/2013 [facility] History of tobacco use V9 QUIT TOBACCO >7 YEARS AGO 02/11/2012 [facility] [facility] History of tobacco use VBennie QUIT TOBACCO >7 YEARS AGO 01/22/2011 [place] [facility]
== END 2024-09-19 23:59 | disposition home or self-care (01) ==
LOC: RAD 11:18
PROVIDERS: PCP Internal Medicine Adolescent Medicine; Visit Provider Orthopaedic Surgery
DX: R69 Illness, unspecified (principal)

== ENCOUNTER 2024-09-20 11:00 | Outpatient (RCR) | payer MEDICARE, OTHER, SELFPAY ==
--- NOTE | 2024-09-06 13:58 | HMH.PTOPEV ---
PT Outpatient Evaluation Rehab PT Outpatient Evaluation Start: 09/06/24 13:02 Freq: Status: Active Protocol: Document 09/06/24 13:03 MELANIE (Rec: 09/06/24 13:58 MELANIE [id number]) E-signed By Carolina Arroyo, PT Outpatient Therapy Subjective History Subjective History Pt is an 79 y/o male who reports chronic L medial knee pain for ~60 years. Pt reports gradual worsening of pain overtime. Pt reports pain is aggravated by prolonged standing, walking, walking on uneven ground/inclines, getting in/out of the car and stair climbing. Pt states he has to turn sideways to go up stairs due to pain. Pt reports he has had 3 injections in his knee, with the most recent injection 3-4 months ago that he states resulted in increased pain. Pt reports he had a knee radiograph on with findings of There is moderately advanced medial compartment joint space narrowing. Subchondral sclerosis is noted. There is small osteophyte formation along the undersurface of the patella. Mild genu varum is noted. Pt states he has discussed having total knee replacement which he is open to but would like to improve his mobility and strength prior to having surgery. Pt denies noted swelling or numbness/tingling of the knee. Pt does report sense of instability with prolonged walking, denies falls or required use of an AD. 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 Chief Complaint Pain,Stiff Symptom Type Ache,Throb,Sharp,Dull Symptoms Relieved By Rest/Positioning Symptoms Aggravated By Standing,Walking Current Functional Limitations Standing,Squatting,Walking, Stairs Symptom Description Constant but Variable Level of pain today (0-10) 4 Pain scale - at its best (0-10) 3 Pain scale - at its worst (0-10) 9 Hip/Knee Eval Gait Observation General Gait Pattern Observation Antalgic Gait,Decrease Weight Bear (L) Assistive Device Assistive Devices None / NA Palpation Tenderness left Knee Palpation Overall Comment medial femoral condyle, medial >lateral joint line MMT Hip Flexion Strength Grade 4 Good Hip Abduction Strength Grade 4 Good Hip Adduction Strength Grade 4 Good Hip Extension Strength Grade 4 Good Knee Extension Strength Grade 4 Good Knee Flexion Strength Grade 4 Good ROM Knee Extension Active Range of Motion ( 6 degrees) Knee Flexion Active Range of Motion ( 114 degrees) Effusion Mid - Patellar Circumerential Measure ( 39 cm) Lower Extremity Functional Index Activities Today, do you or would you have any difficulty at all with: a.Any of your usual work, housework or Extreme difficulty or unable school activities to perform activity b. Your usual hobbies, recreational or Moderate difficulty sporting activities c. Getting into or out of the bath A little bit of difficulty d. Walking between rooms Moderate difficulty e. Putting on your shoes or socks A little bit of difficulty f. Squatting A little bit of difficulty g. Lifting an object, like a bag of A little bit of difficulty groceries from the floor h. Performing light activities around Moderate difficulty your home i. Performing heavy activities around Moderate difficulty your home j. Getting into or out of a car Moderate difficulty k. Walking 2 blocks Quite a bit of difficulty l. Walking a mile Moderate difficulty m. Going up or down 10 stairs (about 1 Quite a bit of difficulty flight of stairs) n. Standing for 1 hour Quite a bit of difficulty o. Sitting for 1 hour A little bit of difficulty p. Running on even ground Extreme difficulty or unable to perform activity q. Running on uneven ground Extreme difficulty or unable to perform activity r. Making sharp turns while running fast Extreme difficulty or unable to perform activity s. Hopping Extreme difficulty or unable to perform activity t. Rolling over in bed Moderate difficulty LEFI Score Lower Extremity Functional Index Score 32 Outpatient Therapy Assessment Impairments Problems/Impairmments Palpation Tenderness,Impaired Range of Motion,Impaired Strength,Impaired Walking, Impaired Standing,Impaired Lifting,Impaired Household Care,Impaired Stair Climbing, Impaired Incline Stepping, Impaired Stepping on Uneven Surface,Impaired Squatting, Impaired Balance,Increased Edema,Subjective C/O Pain, Impaired Self Care/Self Management Prognosis Rehab Potential Good Clinical Impression Consistent with Diagnosis Yes Short Term Goals Number of Weeks 3 Increase Range of Motion Yes: Improve L knee AROM extension to 0 Improve Self Care/Self Management Yes Patient to be Ind w/ HEP Yes Custodial Goals Number of Weeks 6 Increase Range of Motion Yes: Improve L knee AROM to 0- 120 Increase Strength Yes: Improve LLE MMT to 4+/5 grossly to assist with function Improve Ability to Climb Stairs Yes: traverse 1 flight with HR properly to assist with home navigation Improve LEFI Score Yes: Improve score to 42/80 to improve overall QOL Decrease Subjective C/O Pain Yes: Improve pain at worst to 5-7/10 to improve overall QOL Outpatient Therapy Plan of Care Treatment Plan May Include Therapeutic Exercise Including Home Yes Exercise Program Manual Therapy Techniques Yes Neuromuscular Re-education Yes Therapeutic Activities to Return to Yes Previous Functional/Work Level Gait Training Yes ADL/Self Care Education Yes Mechanical Traction Yes Dry Needling Yes Thermal Modalities Yes Electrical Stimulation Yes Ultrasound/Phonophoresis Yes Iontophoresis Yes Vasopneumatic Compression Pump Yes Massage Yes Group Therapy for Medicare Yes Eval/Re-Eval Yes Aquatic Therapy Yes Frequency Times per week 2 Duration Number of Weeks 4-6 Addendums This patient is a candidate for social No or vocational rehab? Patient/Guardian verbally acknowledges Yes understanding of treatment program and consents to further treatment? Patient/Guardian verbally acknowledges Yes understanding of diagnosis, prognosis and goals for treatment? Eval Complexity PT Charges 33547 - Low Complexity Shoulder/Elbow Eval Shoulder Objective Measurements Elbow Objective Measurements PHYSICIAN CERTIFICATION: I certify the specified therapy services for Cole Walters are required, authorized, and reviewed every 30 days.
== END 2024-09-20 23:59 | disposition home or self-care (01) ==
LOC: PT 11:00
PROVIDERS: PCP Internal Medicine Adolescent Medicine; Visit Provider Orthopaedic Surgery
DX: M17.12 Unilateral primary osteoarthritis, left knee (principal)
CPT/HCPCS: 97110; 97163; 97530

== ENCOUNTER 2024-10-13 11:00 | Outpatient (RCR) | payer MEDICARE, OTHER, SELFPAY ==
--- NOTE | 2024-10-11 12:12 | HMH.RHREAS ---
Rehab Reassessment Rehab OP Re-assessment Start: 09/22/24 11:09 Freq: Status: Active Protocol: Document 10/11/24 12:05 MELANIE (Rec: 10/11/24 12:12 MELANIE [id number]) E-signed By Carolina Arroyo PT Lower Extremity Functional Index Activities Today, do you or would you have any difficulty at all with: a.Any of your usual work, housework or A little bit of difficulty school activities b. Your usual hobbies, recreational or Moderate difficulty sporting activities c. Getting into or out of the bath A little bit of difficulty d. Walking between rooms A little bit of difficulty e. Putting on your shoes or socks A little bit of difficulty f. Squatting No difficulty g. Lifting an object, like a bag of No difficulty groceries from the floor h. Performing light activities around A little bit of difficulty your home i. Performing heavy activities around A little bit of difficulty your home j. Getting into or out of a car A little bit of difficulty k. Walking 2 blocks No difficulty l. Walking a mile Moderate difficulty m. Going up or down 10 stairs (about 1 Moderate difficulty flight of stairs) n. Standing for 1 hour A little bit of difficulty o. Sitting for 1 hour A little bit of difficulty p. Running on even ground Quite a bit of difficulty q. Running on uneven ground Quite a bit of difficulty r. Making sharp turns while running fast A little bit of difficulty s. Hopping Quite a bit of difficulty t. Rolling over in bed A little bit of difficulty LEFI Score Lower Extremity Functional Index Score 54 Rehab Re-assessment Subjective Subjective Pt reports he feels 0% improved since starting PT. Pt reports he continues to have 8/10 medial L knee pain at worst exacerbated with weightbearing activities such as walking, deep squatting and stair climbing. Pt reports he has discussed a knee replacement with his physician but does not have a follow-up visit with them scheduled. Objective Objective Notes Gait: antalgic, decreased WB on LLE L knee AROM: 0-6-116 LLE MMT: 4+/5 grossly Assessment Assessment Notes Pt has attended 7 PT treatment sessions consisting of aerobic exercise, knee ROM, LE stretching/strengthening, and HEP with good tolerance. Pt demonstrated improved NUNU score and strength this date; however, continues to report severe L medial knee pain with weight bearing activities limiting function. Due to lack of progress with conservative care and severity of pain, will discharge pt to independent HEP and refer back to MD for further treatment options. Patient goals met ST LT Goals Not Met p! at worst, knee ROM, stair climbing Revised Goals n/a Plan Plan Discharge to HEP Time and Billing Re-Eval Time 10 Re-Eval Billing Units 0 Charge for PT reassessment? No Charge for OT reassessment? No PHYSICIAN CERTIFICATION: I certify the specified therapy services for Cole Walters are required, authorized, and reviewed every 30 days.
== END 2024-10-13 23:59 | disposition home or self-care (01) ==
LOC: PT 11:00
PROVIDERS: PCP Internal Medicine Adolescent Medicine; Visit Provider Orthopaedic Surgery
DX: M17.12 Unilateral primary osteoarthritis, left knee (principal)
CPT/HCPCS: 97110; 97530

== ENCOUNTER 2024-12-16 11:29 | Outpatient (CLI) | payer MEDICARE, OTHER, SELFPAY ==
--- OUTSIDE RECORDS SUMMARY | 2024-12-16 06:30 | XMS_ITS | Continuity of Care Document ---
Author Name [facility] Organization [facility] Care Team Providers Care Economics Lecturer Name Role Phone [facility] Unavailable Unavailable Problems Combined list of problems from [facility] and [facility] facilities. It does not include entries that were removed or entered in error. Problem Status Onset Date Problem Type Date of Resolution Comments Source Age-related cognitive decline Active Condition [place] [facility] Elev Bp W/O Dx Hypertension Active Condition [facility] Generalized anxiety disorder Active Condition [facility] Hearing loss Active Condition [facility] Hyperlipidemia Active Condition [place] [facility] Hyperlipidemia Active [place] [facility] Hypertension Active Condition [facility] Obesity Active Condition [facility] Simple obesity Active Condition [place] [facility] Vision, Subnormal * (ICD-9-CM 369.9/369.20) Active Condition [facility] Diagnosis: ICD-10-CM Z65.9 Problem related to unspecified psychosocial circumstances Active Diagnosis [facility] Diagnosis: ICD-10-CM Z71.89 Other specified counseling Active Diagnosis [facility] Diagnosis: ICD-10-CM R41.81 Age-related cognitive decline Active Diagnosis [place] [facility] Medications Combined list of outpatient medications from Department [facility] and [facility] facilities.Medications provided include 1) outpatient medications from the last 15 months, and 2) patient-reported medications. Medication Details Route Status Patient Instructions Prescription Expires Prescription Number Last Dispense Date Ordering Provider Order Date Order Qty Source ACETYLCYSTE INE 600MG CAP,ORAL TAKE 1 CAPSULE BY MOUTH DAILY ORAL ACTIVE PERI GARVEY 2023 [place] [facility] ASPIRIN 81MG TAB,EC TAKE ONE TABLET BY MOUTH DAILY ORAL ACTIVE JOSE G CASTELLANO 2015 [place] [facility] ATORVASTATI N CA 40MG TAB TAKE ONE TABLET BY MOUTH AT BEDTIME ORAL ACTIVE COMER,PERI Reaves 2023 [place] [facility] CAMPHOR 0.2%/MENTHO L 3.5% GEL,TOP APPLY APPLY TO AFFECTED AREA DIRECTED TOPICA L ACTIVE COMER,PERI Reaves 2023 [place] [facility] CYANOCOBALA MIN 1000MCG TAB TAKE ONE TABLET BY MOUTH DAILY ORAL ACTIVE COMER,PERI Reaves 2023 [place] [facility] DICLOFENAC NA 1% GEL,TOP APPLY 4 GRAM STRIP TO AFFECTED AREA EVERY 6 HOURS NEEDED TOPICA L ACTIVE COMER,PERI Reaves 2023 [place] [facility] DONEPEZIL HCL 10MG TAB TAKE ONE-HALF TABLET BY MOUTH AT BEDTIME ORAL ACTIVE COMER,PERI Reaves 2023 [place] [facility] ESCITALOPRA M OXALATE 10MG TAB TAKE ONE TABLET BY MOUTH DAILY ORAL ACTIVE COMER,PERI Reaves 2023 [place] [facility] FLUTICASONE PROPIONATE 50MCG/SPRAY SOLN,NASAL, 16GM USE 2 SPRAYS IN EACH NOSTRIL DAILY NASAL ACTIVE COMER,PERI Reaves 2023 [place] [facility] MEMANTINE HCL 10MG TAB TAKE ONE TABLET BY MOUTH DAILY ORAL ACTIVE COMER,PERI Reaves 2023 [place] [facility] MUPIROCIN 2% OINT,TOP APPLY SMALL AMOUNT TO NARES TO AFFECTED AREA DAILY NEEDED TOPICA L ACTIVE COMER,PERI Reaves 2023 [place] [facility] NYSTATIN [id number] M CREAM,TOP APPLY SMALL AMOUNT TO AFFECTED AREA DAILY NEEDED TOPICA L ACTIVE COMER,PERI Reaves 2023 [place] [facility] THIAMINE 50MG TAB TAKE ONE TABLET BY MOUTH EVERY MORNING ORAL ACTIVE COMER,PERI Reaves 2023 [place] [facility] Immunizations Combined list of available immunizations from the Department of Defense and Veterans Affairs facilities. Immunization Series Date Given Administered By Site Reaction Lot Number CVX Code Drug Hospice Music Therapy Status Comments Source INFLUENZA, HIGH-DOSE, TRIVALENT, PF 6 2023 135 complet ed HISTORICA L INFORMATI ON - FROM OTHER REGISTRY, [place] [facility] RSV, RECOMBINANT, PROTEIN SUBUNIT RSVPREF, ADJUVANT RECONSTITUTED , 0.5 ML, PF 2023 303 complet ed HISTORICA L INFORMATI ON - FROM OTHER REGISTRY, [place] [facility] ZOSTER RECOMBINANT 2 2023 187 complet ed HISTORICA L INFORMATI ON - FROM OTHER REGISTRY, [place] [facility] RSV, RECOMBINANT, PROTEIN SUBUNIT RSVPREF, ADJUVANT RECONSTITUTED , 0.5 ML, PF 1 2022 303 complet ed HISTORICA L INFORMATI ON - FROM OTHER REGISTRY, [place] [facility] INFLUENZA, HIGH-DOSE, TRIVALENT, PF 5 2022 135 complet ed HISTORICA L INFORMATI ON - FROM OTHER REGISTRY, [place] [facility] ZOSTER RECOMBINANT 1 2022 187 complet ed HISTORICA L INFORMATI ON - FROM OTHER REGISTRY, [place] [facility] INFLUENZA, HIGH-DOSE, TRIVALENT, PF 4 2021 135 complet ed HISTORICA L INFORMATI ON - FROM OTHER REGISTRY, [place] [facility] COVID-19 (Dsg.nr), MRNA, LNP-S, PF, 30 MCG/0.3 ML DOSE, JOSE G-SUCROSE (AGES 12+ YEARS) 4 2021 217 complet ed HISTORICA L INFORMATI ON - FROM OTHER REGISTRY, [place] [facility] COVID-19 (Dsg.nr), MRNA, LNP-S, PF, 30 MCG/0.3 ML DOSE 3 2020 208 complet ed HISTORICA L INFORMATI ON - FROM OTHER REGISTRY, [place] [facility] COVID-19 (Dsg.nr), MRNA, LNP-S, PF, 30 MCG/0.3 ML DOSE 2 2020 208 complet ed HISTORICA L INFORMATI ON - FROM OTHER REGISTRY, [place] [facility] COVID-19 (Dsg.nr), MRNA, LNP-S, PF, 30 MCG/0.3 ML DOSE 1 2020 208 complet ed HISTORICA L INFORMATI ON - FROM OTHER REGISTRY, [place] [facility] INFLUENZA, HIGH-DOSE, TRIVALENT, PF 3 2019 135 complet ed HISTORICA L INFORMATI ON - FROM OTHER REGISTRY, [place] [facility] INFLUENZA, SEASONAL, INJECTABLE 2018 141 complet ed [place] [facility] INFLUENZA, SEASONAL, INJECTABLE 2017 141 complet ed [place] [facility] INFLUENZA, SPLIT VIRUS, QUADRIVALENT, PRESERVATIVE 2 2017 158 complet ed HISTORICA L INFORMATI ON - FROM OTHER REGISTRY, [place] [facility] PNEUMOCOCCAL POLYSACCHARID E PPV23 1 2016 33 complet ed HISTORICA L INFORMATI ON - FROM OTHER REGISTRY, [place] [facility] INFLUENZA, SPLIT VIRUS, QUADRIVALENT, PRESERVATIVE 1 2016 158 complet ed HISTORICA L INFORMATI ON - FROM OTHER REGISTRY, [place] [facility] INFLUENZA A & B (HISTORICAL) 2015 88 complet ed locally [place] [facility] TD(ADULT) UNSPECIFIED FORMULATION 2006 139 complet ed [place] [facility] TDAP (HISTORICAL) 2006 115 complet ed [place] [facility] TD (ADULT), 2 LF TETANUS TOXOID, PRESERVATIVE FREE, ADSORBED 1 1996 09 complet ed HISTORICA L INFORMATI ON - FROM OTHER REGISTRY, [place] [facility] Results Combined list of recent chemistry, hematology and other laboratory results from Department of Defense and Veterans Affairs, ranging from 15 months to all on record, depending upon the facility. Order Name Results Value Reference Range Date Interpretation Specimen Comments Source GLYCOHEMO GLOBIN HEMOGLOBIN A1C/HEMOGLO BIN.TOTAL IN BLOOD BY HPLC 6.3 4.4 - 6.4 03/10 Specimen Type: BLOOD Comment: [place]-Do[place] guidelines for A1c interpretat ion: Glycemic control [...] 9.27. Ref: https://ngs p.org/CAPda ta.asp. The in-house [employer]-Figure 8 Surgical D-100 analyzer has a historical CV <= 2%. Contact the laboratory for further performance characteris tics of this assay. Ordering Provider: PERI GARVEY Report Released Date/Time: Mar 10, 2024 11:35 AM Reporting Lab[facility] [address] [address] Performing Lab: [address] [address] [facility] LIPID PROFILE CHOLESTEROL [MASS/VOLUM E] IN [...] 2024 11:35 AM Reporting Lab: [facility] [address] [address] Performing Lab: [facility] [address] [address] [facility] LIPID PROFILE TRIGLYCERID E [MASS/VOLUM E] [...] 2024 11:35 AM Reporting Lab: [facility] [address] [address] Performing Lab: [facility] [address] [address] [facility] LIPID PROFILE CHOLESTEROL IN HDL [MASS/VOLUM [...] 2024 11:35 AM Reporting Lab: [facility] [address] [address] Performing Lab: [facility] [address] [address] [facility] LIPID PROFILE CHOLESTEROL IN LDL [MASS/VOLUM [...] 10, 2024 11:35 AM Reporting Lab: [facility] [address] [address] Performing Lab: [facility] [address] [address] [facility] CBC/PLT LEUKOCYTES [#/VOLUME] IN BLOOD BY AUTOMATED COUNT 9.1 10*3/u L 5.0 - 10.0 03/10 Specimen Type: BLOOD No comment entered. Ordering Provider: PERI GARVEY Report Released Date/Time: Mar 10, 2024 11:35 AM Reporting Lab: [facility] [address] [address] Performing Lab: [address] [address] [facility] CBC/PLT ERYTHROCYTE S [#/VOLUME] IN BLOOD BY AUTOMATED COUNT 5.67 10*6/u L 4.6 - 6.2 03/10 Specimen Type: BLOOD No comment entered. Ordering Provider: PERI GARVEY Report Released Date/Time: Mar 10, 2024 11:35 AM Reporting Lab: [address] [address] Performing Lab: [address] [address] [facility] CBC/PLT HEMOGLOBIN [MASS/VOLUM E] IN BLOOD 15.3 g/dL 14.0 - 18.0 03/10 Specimen Type: BLOOD No comment entered. Ordering Provider: PERI GARVEY Report Released Date/Time: Mar 10, 2024 11:35 AM Reporting Lab: [place] [phone] Performing Lab: [address] [address] [facility] CBC/PLT HEMATOCRIT [VOLUME FRACTION] OF BLOOD BY AUTOMATED COUNT 48.9 42.0 - 52.0 03/10 Specimen Type: BLOOD No comment entered. Ordering Provider: PERI GARVEY Report Released Date/Time: Mar 10, 2024 11:35 AM Reporting Lab: [address] [address] Performing Lab: [address] [address] [facility] CBC/PLT MCV [ENTITIC VOLUME] BY AUTOMATED COUNT 86.2 fL 80.0 - 94.0 03/10 Specimen Type: BLOOD No comment entered. Ordering Provider: PERI GARVEY Report Released Date/Time: Mar 10, 2024 11:35 AM Reporting Lab: [address] [address] Performing Lab: [address] [address] [facility] CBC/PLT MCH [ENTITIC MASS] BY AUTOMATED COUNT 27.0 pg 27.0 - 31.0 03/10 Specimen Type: BLOOD No comment entered. Ordering Provider: PERI GARVEY Report Released Date/Time: Mar 10, 2024 11:35 AM Reporting Lab: [place] [address] Performing Lab: [address] CBC/PLT MCHC [MASS/VOLUM E] BY AUTOMATED COUNT 31.3 g/dL 32.0 - 36.0 03/10 L Specimen Type: BLOOD No comment entered. Ordering Provider: PERI GARVEY Report Released Date/Time: Mar 10, 2024 11:35 AM Reporting Lab: [place] [address] Performing Lab: [address] CBC/PLT PLATELETS [#/VOLUME] IN BLOOD 225 10*3/u L 150 - 450 03/10 Specimen Type: BLOOD No comment entered. Ordering Provider: PERI GARVEY Report Released Date/Time: Mar 10, 2024 11:35 AM Reporting Lab: [place] [address] Performing Lab: [address] CBC/PLT PLATELET MEAN VOLUME [ENTITIC VOLUME] IN BLOOD 11.1 fL 9.0 - 13.1 03/10 Specimen Type: BLOOD No comment entered. Ordering Provider: PERI GARVEY Report Released Date/Time: Mar 10, 2024 11:35 AM Reporting Lab: [place] [address] Performing Lab: [address] CBC/PLT ERYTHROCYTE DISTRIBUTIO N WIDTH [ENTITIC VOLUME] BY AUTOMATED COUNT 15.7 11.0 - 16.0 03/10 Specimen Type: BLOOD No comment entered. Ordering Provider: PERI GARVEY Report Released Date/Time: Mar 10, 2024 11:35 AM Reporting Lab: [address] [address] Performing Lab: [address] [address] [facility] CBC/PLT NUCLEATED ERYTHROCYTE S/100 ERYTHROCYTE S IN BLOOD 0.0 0.0 - 0.0 03/10 Specimen Type: BLOOD No comment entered. Ordering Provider: PERI GARVEY Report Released Date/Time: Mar 10, 2024 11:35 AM Reporting Lab: [address] [address] Performing Lab: [address] [address] [facility] PANEL 5 CREATININE [MASS/VOLUM E] IN [...] 2024 11:35 AM Reporting Lab: [facility] [address] [address] Performing Lab: [facility] [address] [address] [facility] PANEL 5 UREA NITROGEN [MASS/VOLUM E] [...] 2024 11:35 AM Reporting Lab: [facility] [address] [address] Performing Lab: [facility] [address] [address] [facility] PANEL 5 GLUCOSE [MASS/VOLUM E] IN [...] 2024 11:35 AM Reporting Lab: [facility] [address] [address] Performing Lab: [facility] [address] [address] [facility] PANEL 5 SODIUM [MOLES/VOLU ME] IN [...] 2024 11:35 AM Reporting Lab: [facility] [address] [address] Performing Lab: [facility] [address] [address] [facility] PANEL 5 POTASSIUM [MOLES/VOLU ME] IN [...] 2024 11:35 AM Reporting Lab: [facility] [address] [address] Performing Lab: [facility] [address] [address] [facility] PANEL 5 CHLORIDE [MOLES/VOLU ME] IN [...] 2024 11:35 AM Reporting Lab: [facility] [address] [address] Performing Lab: [facility] [address] [address] [facility] PANEL 5 CARBON DIOXIDE, TOTAL [MOLES/VOLU [...] 2024 11:35 AM Reporting Lab: [facility] [address] [facility] [address] Performing Lab: [facility] [address] [facility] [address] [facility] PANEL 5 CALCIUM [MASS/VOLUM E] IN [...] 2024 11:35 AM Reporting Lab: [facility] [address] [address] Performing Lab: [facility] [address] [address] [facility] PANEL 5 PROTEIN [MASS/VOLUM E] IN [...] 10, 2024 11:35 AM Reporting Lab: [facility] [address] [facility] [address] Performing Lab: [facility] [address] [place] [address] [facility] PANEL 5 ALBUMIN [MASS/VOLUM E] IN [...] 2024 11:35 AM Reporting Lab: [facility] [address] [address] Performing Lab: [facility] [address] [address] [facility] PANEL 5 BILIRUBIN.T OTAL [MASS/VOLUM E] [...] 2024 11:35 AM Reporting Lab: [facility] [address] [address] Performing Lab: [facility] [address] [address] [facility] PANEL 5 ASPARTATE AMINOTRANSF ERASE [ENZYMATIC [...] 2024 11:35 AM Reporting Lab: [facility] [address] [address] Performing Lab: [facility] [address] [address] [facility] PANEL 5 ALANINE AMINOTRANSF ERASE [ENZYMATIC [...] 2024 11:35 AM Reporting Lab: [facility] [address] [address] Performing Lab: [facility] [address] [address] [facility] PANEL 5 ANION GAP 3 IN [...] 2024 11:35 AM Reporting Lab: [facility] [address] [address] Performing Lab: [facility] [address] [address] [facility] PANEL 5 ALKALINE PHOSPHATASE [ENZYMATIC ACTIVITY/VO [...] 2024 11:35 AM Reporting Lab: [facility] [address] [address] Performing Lab: [facility] [address] [address] [facility] PANEL 5 GLOMERULAR FILTRATION RATE/1.73 SQ [...] Mar 10, 2024 11:35 AM Reporting Lab: [address] [address] Performing Lab: [address] [address] [facility] 25-OH VITAMIN D 25-HYDROXYV ITAMIN D3 [...] Mar 10, 2024 11:35 AM Reporting Lab: [address] [address] Performing Lab: [address] [address] [facility] B12 VITAMIN COBALAMIN (VITAMIN B12) [MASS/VOLUM [...] 2024 11:35 AM Reporting Lab: [facility] [address] [address] Performing Lab: [facility] [address] [address] [facility] TSH THYROTROPIN [UNITS/VOLU ME] IN SERUM [...] 2024 11:35 AM Reporting Lab: [facility] [address] [address] Performing Lab: [facility] [address] [address] [facility] Vital Signs Combined list of inpatient and outpatient Vital Signs from Department of Defense and Veterans Affairs, ranging from 12 months to all on record, depending upon the facility. Vital Sign Value Date Comments Source SYSTOLIC BLOOD PRESSURE 153 03/10/2024 10:44:04 [facility] DIASTOLIC BLOOD PRESSURE 83 03/10/2024 10:44:04 [facility] PULSE OXIMETRY 95 03/10/2024 10:44:04 Eleanor URRUTIA [facility] WEIGHT 218 03/10/2024 10:44:04 FRAN TILLMAN [facility] BMI 30 kg/m2 03/10/2024 10:44:04 FRAN TILLMAN [facility] PAIN 5 03/10/2024 10:44:04 FRAN TILLMAN [facility] TEMPERATURE 97.7 03/10/2024 10:44:04 IGOR CADENA [facility] PULSE 69 03/10/2024 10:44:04 [facility] Encounters Combined list of: 1) Encounters from Department of [facility] facilities going backup to the last 18 months, not all [place] inpatient encounters are included; 2) Encounters from the Department of [facility] facilities going backup to 280 months. Location Location Details Encounter Type Encounter Number Reason For Visit Attending Provider ADM Date DC Date Status Disposition Source [facility] Outpatient Encounter [id number] 01/31 [place] [facility] Outpatient Encounter [id number] 03/02 [place] [facility] Outpatient Encounter [id number] 03/02 [place] [facility] Outpatient Encounter [id number] 03[facility] 21-30 MIN [id number] Diagnos is: ICD-10- CM Z65.9 Problem related to unspeci fied psychos ocial circums SHAWNA Bills 03/08 [place] [facility] OFFICE O/P NEW MOD 45 MIN [id number] Diagnos is: ICD-10- CM R41.81 Age-rel ated cogniti ve decline COMER,PERI Reaves 03/10 [place] [facility] CASE MANAGEMENT [id number] Diagnos is: ICD-10- CM Z65.9 Problem related to unspeci fied psychos ocial circums SHAWNA Bills 03/10 [place] [facility] HC PRO PHONE CALL 5-10 MIN [id number] Diagnos is: ICD-10- CM Z71.89 Other specifi ed senior counsel Galina Handy 03/11 [place] [facility] HC PRO PHONE CALL 5-10 MIN [id number] Diagnos is: ICD-10- CM Z65.9 Problem related to unspeci fied psychos ocial circums SHAWNA Bills 03/11 [place] [facility] Outpatient Encounter [id number] [facility] Social History Combined list of available smoking, tobacco, and other social history from Department of Defense and [facility] facilities. Social History Type Response Date Comment Sour e Tobacco smoking status NHIS [facility]ACCO FORMER USER 03/10/2024 [facility] History of tobacco use [facility]-TOBACCO QUIT 15 YRS OR MORE 03/10/2024 [facility] History of tobacco use V9 QUIT TOBACCO >7 YEARS AGO 01/12/2018 [facility] History of tobacco use V9 QUIT TOBACCO >7 YEARS AGO 04/21/2016 [facility] History of tobacco use V9 QUIT TOBACCO >7 YEARS AGO 05/24/2014 [facility] History of tobacco use V9 QUIT TOBACCO >7 YEARS AGO 05/03/2013 [facility] History of tobacco use V9 QUIT TOBACCO >7 YEARS AGO 02/11/2012 [facility] History of tobacco use V9 QUIT TOBACCO >7 YEARS AGO 01/22/2011 [facility]
--- OUTSIDE RECORDS SUMMARY | 2024-12-16 11:31 | XMS_ITS | Data Portability ---
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 Plan of Treatment [...] By Organization Details Last Modified Time 02/17/2024 [id number] Arthritis Thumb-LC sumansky Not available 02/17/2024 14:26:55 Trigger Finger-LC sumansky Not availabl e 02/17/2024 14:26:54 Reason for Referral None Reported. Results Created Date Observation Date Name Description Value Unit Range Abnormal Flag Note LastModifiedBy Organization Detail LastModifiedTime 03/02/20 23 03/02/2023 XR, wrist , 3 or more view [place] [facility] [address] [place] [address] Triston son Name: JACK son : [id number] Triston t 0 Orderi ng Provid er: JOSE RIOS Y EXAM DATE: 2022 EXAM: XR RT WRIST COMPLE TE HISTOR Y: Follow up of prior surger y. COMPAR PARISH: Intrao perati ve images dated 023 FINDIN GS: The patialex t is status post right first carpom [...] Roberto oh MD on 023 9:39 AM mathieu [facility] [address] , [place], [address], 03/02/2023 10:00:00 02/05/2007/28/2022 elect romyo gram + nerve condu ction study No observ ation record ed. [email or web address] Not Available 2023 12:52:10 Result Notes Documentation Provider Name and Address Organization Details Recorded Time Xr, Wrist, 3 Or More View : [facility] [address] [place] [address] Patient Name: JACK WALTERS Patient : 1945 Patient Ordering Provider: RAKESH KAUR EXAM DATE: 03/02/2023 EXAM: XR RT WRIST COMPLETE HISTORY: Followup of prior surgery. COMPARISON: Intraoperative images dated 02/17/2023 FINDINGS: The patient is status post right first carpometacarpal arthroplasty. There is no evidence of complication. There are mild residual degenerative changes. No fracture is identified. IMPRESSION: 1. The patient is status post right first carpometacarpal arthroplasty without evidence of complication. Interpreted By: Clifton Reyes MD SH KAUR MD [address] [place] [address], [phone], [facility] 03/02/2023 10:00:00 Problems Name Problem SNOMED Code Status Onset Date Resolution Date Notes Provider Name and Address Organization Details Recorded Time Spinal stenosis of lumbar region 69461850 Active 2014 From Automated Load;Provi zuleika: Alejandro Arambula atus: Active Not Available [facility] 6 03:10:55 Chest pain Active 2015 From Automated Load;Provi zuleika: Richy Jorgensen;Statu s: Active Not Available [facility] 7 07:42:16 Problem Notes None recorded. Procedures Surgical History Date Name Laterality Status Provider Name and Address Organization Details Recorded Time 3 Orthotic Management; Subsequent Encounter completed GORDY HOLM JR, OTR/L, CHT [address] [place] [address], [phone], [facility] 03/02/2023 10:13:07 3 Op Note completed RAKESH KAUR MD [address] [place] [address], [address] [place] [address] 02/17/2023 11:54:24 3 Op Note completed RAKESH KAUR MD [address] [place] [address] 12/04/2022 09:21:15 3 Orthotic, WHFO, Static Custom completed GORDY HOLM JR, OTR/L, CHT [address] [place] [address], [address] [place] [address], [facility] 09/03/2022 13:59:27 Imaging Results None recorded. Procedure Notes None recorded. Medical Equipment None [...] Updated DateTime 02/17/2024 180.34 cm 30.1 kg/m2 32864.95 g [facility] 02/17/2024 14:06:29 Date Recorded Body height Body mass index (BMI) Body weight Provider Name and Address Organization Details Last Updated DateTime 03/02/2023 180.34 cm 28.6 kg/m2 72368.44 g [facility] 03/02/2023 09:29:36 Date Recorded Body height Body mass index (BMI) Body weight Pain severity - 0-10 verbal numeric rating [Score] - Reported Provider Name and Address Organization Details Last Updated DateTime 03/30/2023 180.34 cm 28.6 kg/m2 40994.44 g Nusrat Kirkpatrick [facility] 03/30/2023 13:39:17 Social History None recorded. Functional Status None recorded. Mental Status None recorded. Family History Nothing Reported. Medical History No medical history recorded. Past Encounters Encounter ID Performer Location Encounter Start Date Encounter Closed Date Diagnosis/Indication Diagnosis SNOMED-CT Code Diagnosis ICD10 Code Diagnosis Note [id number] RAKESH KAUR MD [facility] [address] [address] 09/03/2022 12:52:00 09/03/2022 13:54:28 Osteoarthrosis of the carpometacarpal joint of the thumb 15864143 M18.9 And STT joint. 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 6-year status post ulnar nerve release, recommend subcutaneo us ulnar nerve transposit ion Acquired t molecular biology director finger 6277479 M65.30 Long andRight ring finger, release at the same time as cubital tunnel surgery, can consider basal joint surgery as a second stage after recovery if still symptomati c despite splint [id number] GORDY HOLM JR, OTR/L, CHT PHYSICAL THERAPY / HAND THERAPY [facility] [address] [place] [address] 09/03/2022 13:48:23 09/04/2022 04:21:09 Osteoarthrosis of the carpometacarpal joint of the thumb 26109312 M18.9 [id number] RAKESH KAUR MD [facility] [address] [place] [address] 12/03/2022 11:28:55 12/03/2022 11:58:15 Abrasion of skin of hand 719887226 S60.511A I assured him this injury will not interfere with trigger finger release schedule for tomorrow. Minor injury; no interventi on necessary. F/U PRN. Acquired t molecular biology director finger 7464053 M65.30 Upcoming Surgery Scheduled for 12/04/22 [id number] RAKESH KAUR MD SURGERY SCHEDULE [address] [place] [address] 12/04/2022 06:39:31 12/04/2022 06:40:05 [id number] RAKESH KAUR MD [facility] [address] [place] [address] 12/17/2022 13:17:20 12/17/2022 14:04:37 Postoperative care [id number] Z48.89 2 weeks s/p Release right long and ring trigger finger; Right subcutaneo us ulnar nerve transposit ion.Doing well, wants to schedule basal joint arthroplas ty. We will set this up. [id number] RAKESH KAUR MD SURGERY SCHEDULE [address] [place] [address] 02/17/2023 08:47:22 02/17/2023 08:48:55 [id number] RAKESH KAUR MD [facility] [address] [place] [address] 03/02/2023 09:05:58 03/02/2023 09:59:56 Postoperative care [id number] Z48.89 2 week s/p right thumb CMC arthroplas ty, suture suspensiop lasty, and partial trapezoid excision. Doing well postoperat ively. able to get incision wet now.We reviewed and discussed x-ray imaging in the office today, which showed good alignment. Discontinu e sling. Referred to hand therapist to be fitted for a splint for 4 weeks.Rest ricted to heavy lifting, nothing over 5lbs.Follo w up 4 weeks [id number] GORDY HOLM JR, OTR/L, CHT PHYSICAL THERAPY / [facility]APY [facility] [address] [place] [address] 03/02/2023 10:03:33 03/03/2023 04:54:31 Osteoarthrosis of the carpometacarpal joint of the thumb 88832140 M18.9 [id number] OLE CAVAZOS PA-C [facility] [address] [place] [address] 03/30/2023 13:36:50 03/30/2023 13:51:04 Postoperative care [id number] Z48.89 6 weeks status post right thumb [...] up to 6 months after the surgery. [id number] RAKESH KAUR MD [facility]I [facility] [address] [address] 02/17/2024 13:57:38 02/17/2024 14:27:36 Acquired trigger finger 3987113 M65.30 Released, looks like he may need excision of one half of FDS of the long finger, possible ring, if necessary Osteoarthr osis of the carpometacarpal joint of the thumb 83489471 M18.9 Satisfacto ry result status post right basal joint arthroplas ty and partial trapezoid excision, has a little bit of a spasm of the thumb and the index finger which is more likely related to the ulnar nerve then to the thumb CMC procedure 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 784357008 G56.21 6-year status post ulnar nerve release [...] Recorded Advance Directives Directive None Recorded Payers Insurance Date Sequence Insurance Name Policy Number Policy Chávez Covered Member ID Chávez Member ID Guarantor Name 03/14/2024 2 [employer] [place] (MEDICARE SUPPLEMENT) Jack Walters [id number] Jack Walters 02/17/2024 [employer] - [employer] ASSIGNED (MEDICARE DME REGION B) Gene Jelly Walters [id number] Jack Walters 02/17/2024 1 [place] Gene Jelly Walters [id number] Jack Walters Notes Date Note Type Note Provider Name and Address Organization Details Recorded Time 3 text/html POST OP GLOBAL VISITDATE OF SURGERY: 02/17/2023TIME POST SURGERY:10-14 DAYSSURGERY:Right thumb CMC arthroplastySuture suspensioplastyPartial trapezoid excisionINTERVAL HISTORY: PREOP SYMPTOMSBETTER PAIN LEVEL (VAS)2/10 OVERALL ASSESSMENTIMPROVING NEW SYMPTOMS OR QUESTIONS: Mr. Walters is here for a post op visit. XOA. He says he feels better than before. Has some soreness and swelling. OTHER RECENT SURGERIES: EMPLOYMENT STATUS: RAKESH KAUR MD [address] [place] [address], [phone], [facility] 03/02/2023 09:57:49 3 text/html [id number] THUMB CMC ARTHROPLASTY, PARTIAL TRAPEZOID EXCISION, FCR LIG RECONSTRUCTIONPerformed by MD GORDY Hernandez JR, OTR/L, CHT [address] [place] [address], [phone], [facility] 03/02/2023 10:35:35 3 text/html Patient arrives for scheduled follow-up 6 weeks status post surgery as listed below. He has been compliant with the splint. He reports very minimal pain. He is pleased with his results at this point. POST OP GLOBAL VISIT DATE OF SURGERY: 02/17/2023 TIME POST SURGERY:6 wksSURGERY: Right thumb CMC arthroplasty ; Suture suspensioplasty ; Partial trapezoid excision INTERVAL HISTORY: PREOP SYMPTOMSBETTER PAIN LEVEL minimal (VAS) /10 OVERALL ASSESSMENTIMPROVING NEW SYMPTOMS OR QUESTIONS: Mr. Walters is here for a post op visit. OTHER RECENT SURGERIES: na EMPLOYMENT STATUS: Retired OLE CAVAZOS PA-C [address] [place] [address], [phone], [facility] 03/30/2023 16:06:18 4 text/html [facility]: Dr. Rakesh Carrillo Hand dominance: RightLocation: Right Hand Pain level: 1 /10 Duration: a few months Recent Surgery: NoProcedure:Date of surgery:Surgeon(If Known): In office procedure? No Previous upper extremity surgery? YesProcedure: Right thumb CMC arthroplastySuture suspensionplastyPartial trapezoid excisionApproximate date of surgery: 02/17/2023Surgeon (if known): Dr. Kaur Procedure: Release right long trigger fingerRelease right ring trigger fingerRight subcutaneous ulnar nerve transpositionDate: 12/04/2022Have you or an immediate family member ever seen our hand surgeons before? Yes Currently employed?: Retired Patient arrived in: n/a [employer] Strength: right: left: New: Ms. Walters is here for n/t in rt hand and elbow. He reports he still has n/t in his fingers and have occasional catching. He also reports the pain radiates up to his elbow. He reports his lt thumb has started to bother him like the right side did. No new EMG. No injury RAKESH KAUR MD [address] [place], [address], [facility] 02/17/2024 14:27:07
--- OUTSIDE RECORDS SUMMARY | 2024-12-16 11:31 | XMS_ITS | Clinical Summary ---
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 Name Role Phone Rakesh Jones MD Primary Care Provider [phone] Social History Tobacco Use Types Packs/Day Years Used Date Smoking Tobacco: Never Sex and Gender Information Value Date Recorded Sex Assigned at Not on file Legal Sex Male 6:28 PM EDT Gender Identity Not on file Sexual Orientation Not on file Last Filed Vital Signs Vital Sign Reading Time Taken Comments Blood Pressure - - Pulse - - Temperature - - Respiratory Rate - - Oxygen Saturation - - Inhaled Oxygen Concentration - - Weight 108 kg (239 lb) 02/04/2017 8:10 AM EDT Height 179.1 cm (5' 10.5 ) 02/04/2017 8:10 AM ED T Body Mass Index 33.81 02/04/2017 8:10 AM EDT Plan of Treatment Not on file Care Teams Kindergarten Teacher Relationship Specialty Start Date End Date Rakesh Jones MD [address] [place] [address] PCP - General 10/05/20
--- NOTE | 2024-12-16 12:03 | ECG_ITS ---
APPROVED REPORT Exam: Resting ECG HR:67 bpm ECG Measurements Heart Rate 67 AXES MO 197 P 55 QRSd 86 QRS 31 QT 394 T 49 QTc 409 Conclusion SINUS RHYTHM NORMAL ECG UNCONFIRMED REPORT Electronically signed by : Rakesh Jones MD 12/17/2024 08:53:10
--- NOTE | 2024-12-16 12:09 | XR_ITS ---
FINAL REPORT CLINICAL HISTORY: preop eval., former smoker COMPARISON: 02/09/2024 FINDINGS: CHEST 2 VIEWS No acute pulmonary density is evident. There is no evidence of effusion or other pleural disease. The mediastinum has a normal appearance. The cardiac silhouette is unremarkable. IMPRESSION: Unremarkable chest exam. Reviewed, Interpreted and Dictated by Suresh Lorenzo MD Transcribed by Meena Guerrero Authenticated and . [facility]
[2024-12-16 12:14] LABS: Hematocrit 47.6 % (42.0-52.0); Hemoglobin 15.5 g/dL (14.1-18.0); Immature Granulocytes % 0.4 %; Mean Corpuscular HGB Conc 32.6 g/dL (31.8-35.4); Mean Corpuscular Hemoglobin 28.4 pg (27.0-31.2); Mean Corpuscular Volume 87.3 fl (80-94); Nucleated Red Blood Cells % 0 %; Platelet Count 218 K/mm3 (142-424); Red Blood Count 5.45 M/mm3 (4.60-6.20); Red Cell Distribution Width-SD 43.1 fL; White Blood Count 8.2 K/mm3 (4.8-10.8)
[2024-12-16 12:38] LABS: Chloride 103 mmol/L (98-107); Potassium 4.1 mmoL/L (3.5-5.1); Sodium 137 mmol/L (136-145)
[2024-12-16 12:41] LABS: Anion Gap 11.1 mEq/L (5-15); Blood Urea Nitrogen 16 mg/dl (9-20); Calcium 9.3 mg/dl (8.4-10.2); Carbon Dioxide 27 mmol/L (22.0-30.0); Creatinine,Serum 0.90 mg/dl (0.66-1.25); Estimated Glomerular Filt Rate 81 ml/min (>60); GFR (African American) 98 ML/MIN (>60); Glucose 112 mg/dl (74-100)
== END 2024-12-16 23:59 | disposition home or self-care (01) ==
LOC: PREOP 11:29
PROVIDERS: PCP Internal Medicine Adolescent Medicine; Visit Provider Orthopaedic Surgery
DX: Z01.810 Encounter for preprocedural cardiovascular examination (principal); Z01.811 Encounter for preprocedural respiratory examination; Z01.812 Encounter for preprocedural laboratory examination; M17.12 Unilateral primary osteoarthritis, left knee
CPT/HCPCS: 71046; 80048; 85025; 93005

== ENCOUNTER 2025-01-03 08:11 | Observation (INO) | payer MEDICARE, OTHER, SELFPAY ==
[2024-12-16 12:59] VITALS: BMI 30.1
[2025-01-03] VITALS (16 sets, daily range): BP systolic 120–163; BP diastolic 62–85; PULSE 62–101; RESP 12–19; TEMP 36.1–36.9; O2SAT 92–99; BMI 30.1
[2025-01-03] MEDS: LACTATED RINGERS 1000ML 1,000 ML 100 ML IV ×2 (07:26→18:36)
--- NOTE | 2025-01-03 07:26 | EXP.ANES.CKL ---
[facility] Disclaimer: The information contained in this section may have been updated after the patient was seen, as this information can be updated by other users. Medical History Memory deficit HLD (hyperlipidemia) HTN (hypertension) CAD (coronary artery disease) Surgical History History of tooth extraction History of thumb surgery History of spinal surgery History of colonoscopy History of cholecystectomy Family History Father Family history of cancer Mother Family history of acute congestive heart failure Mother Family history of diabetes mellitus type II Social History (Updated 01/03/25 @ 06:49 by Pam Gallego RN) Smoking Status: Former smoker tobacco type: cigarettes packs per day: 4 second hand exposure: No alcohol intake: never substance use type: denies use current occupational status: retired Travel in the last 8 weeks?: None household members: spouse housing: house current occupational exposures/hazards: No caffeine: No Have you lived/traveled outside US in past 30 days?: No Contact w/someone who lives/traveled outside US past 30 days?: No Exposure to someone with infectious disease in past 14 days?: No Do you have a fever (greater than 100.4 F or 38 C)?: No Have you tested positive for COVID-19?: No Exposed to someone with COVID-19 in past 14 days?: No Do you have a sore throat?: No Do you have a cough?: No Do you have any weakness?: No Are you experiencing any nausea/vomitting?: No Do you have any diarrhea?: No Are you experiencing any unusual bleeding?: No Do you have any muscle aches/pain?: No Do you have any abdominal pain?: No Are you experiencing loss of taste or smell?: No [facility] Anesthesia Checklist Patient Identification Patient Identification: Arm Band and Verbal (Name & ) Structural Data Admitted From: Home Planned Operative Procedure/s: L total knee Consent for Planned Operative Procedure(s) Verified: Yes Verified Documents: Surgical Consent and History and Physical NPO Status Verified Time NPO: 00:00 Additional verifications Anesthesia Reactions: No Airway Assessment Mallampati Score:: Class II Dentition: Edentulous Neurological Assessment Level of Consciousness: Awake, Alert and Appropriate Hx Seizures: No Numbness or tingling in extremities: No Anesthesia Plan Anesthesia Risk discussed: Yes Anesthesia Plan: Verified ASA Class: III Anesthesia Type: General w/block
--- NOTE | 2025-01-03 08:39 | HMH.PHAINT1 ---
Pharmacy Intervention Comments: MEDICATION RECONCILIATION COMPLETED ON PATIENT USING EXTERNAL FILL HISTORY FROM PHARMACY. -MANASA WINN, JJD
--- NOTE | 2025-01-03 12:12 | SUR.OPER ---
1212- family updated of pt current status via inocencio chacon in preop
--- NOTE | 2025-01-03 13:29 | XR_ITS ---
FINAL REPORT CLINICAL HISTORY: s/p L TKR COMPARISON: 06/14/2024 FINDINGS: Two views of the left knee were obtained. Normal post arthroplasty changes are noted. There is fragmentation of the tibial tuberosity which appears chronic. 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 There is no acute fracture or dislocation. IMPRESSION: Normal post arthroplasty changes. Reviewed, Interpreted and Dictated by Suresh Lorenzo MD Transcribed by Renate Pierson Authenticated and [facility]
--- NOTE | 2025-01-03 13:36 | EXP.ANES.I ---
[facility] Anesthesia Record Part I Anesthesia Record I Intake, IV Amount: 1,400 Hydration: Adequate Estimated blood loss (mL): 100 Urine output (mL): 300 Blood Pressure: 143/75 SaO2: 94 Pulse Rate: 89 Airway Patency: Patent Respiratory Rate: 14 Temperature: 97.0 F Patient is:: Mask O2, Stable and Somnolent Stable to PACU at:: 13:28
--- NOTE | 2025-01-03 13:50 | SUR.OPER ---
At the beginning of the case a catheter was placed due to expected length of case, no difficulty was noted, urine was clear and pale yellow in color. at 10:45 blood tinged urine was noted in catheter bag. at the end of the case the catheter was flushed and left in place. redness was noted at the tip of the penis. recovery nurse was informed of complications from catheter.
--- NOTE | 2025-01-03 14:24 | SUR.PHASEI ---
Report given to Selena Murphy RN Pt at bedside stable, resting comfortably [facility] family
--- NOTE | 2025-01-03 14:45 | EXP.OP.NOTE ---
Date of procedure: 01/03/25 Pre-op Diagnosis:: Left knee end-stage osteoarthritis Post-op Diagnosis:: Same Procedure performed:: Left total knee arthroplasty Surgeon:: Cole Rosario DO Wood Boring Machine Operator(s):: Maurizio HOLLOWAY SKIMMER SCOOP OPERATOR:: Zacarias Pedro Anesthesia: GETA Estimated blood loss (mL): 100 Clinical Note:: Implants Medacta size 6+ cemented femur size 5 tibial tray cemented 10 mm poly size 2 resurfacing patella cemented Operative findings:: Severe end-stage degenerative osteoarthritis Operative note:: Patient is identified preoperatively. Left knee marked with yes my initials. Transferred operative suite. Placed upon on the operating bed after undergoing a block with anesthesia. Left lower extremity was prepped and draped in normal sterile fashion. Once prepped and draped final operative timeout performed to identify proper patient procedure and extremity. Everyone involved in the case agreed. There were no counter indications to beginning. Did receive preoperative antibiotics. Marking pen was used to angelique planned midline incision of the left knee he had a very prominent tibial tubercle. Esmarch was used to exsanguinate the extremity pneumatic tourniquet inflated to 300 mmHg. Knee was flexed incision was made in the midline of the knee careful dissection is taken down to identify the capsule of the knee. Standard medial parapatellar approach was utilized for arthrotomy. The patella was everted with moderate difficulty given the very large saucer type patella once the patella was everted soft tissue was removed from the proximal tibia on the medial side and undermine on the lateral side care taken to protect the patella tendon. Anterior aspects of the medial and lateral meniscus were sacrificed ACL sacrificed. The femur was exposed the femoral model was utilized and the guide was used to remove cartilage from the distal femur to correspond with the cutting block. The cutting block was then selected and placed on the femur and pinned in the place once the pins were in place the distal femoral cut was made. The distal femoral cut measured planned preoperative templating. 4-in-1 cutting block was selected and anterior and posterior cuts were made anterior and posterior chamfer cuts were made. The trial femur was selected and impacted into place and the lug holes were drilled Attention was then brought to the tibia the femoral trial was removed the tibial cutting guide was also selected placed on the model and then subsequently placed on the patient's anatomy to correspond with the planned osteotomy site using precision saw proximal tibia osteotomy was performed. Upon performing this cut is noted to be very tight in the medial compartment. Therefore an additional 2 mm cut guide was selected and placed flat on the tibia and pinned in the place and 2 mm were cut this was repeated on the end anterior knee. Also the slope appeared to be neutral so a sloped guide was selected and posterior slope added to the cut. He had significant stiffness of the soft tissue of the knee specifically of his patella as it was everted but also the medial joint line. Care was taken to make very small cuts on the tibia to correspond to allow for placement of the final implants. Adjustment cut was made on the proximal tibia with the additional 2 mm guide. This finally allowed for proper placement of the tibial tray which was then punched into place the poly was placed the femoral trial was placed and was able to get near full extension and also still tight in flexion so 1 additional 2 mm cut made and then the implants were impacted in place for trial taken through range of motion found to be very stable flexion extension. Once adequate cuts were obtained the tourniquet was deflated as the meticulous soft tissue balancing and recuts made the tourniquet time above 2 hours. So the tourniquet was deflated hemostasis was obtained with electrocautery meticulously along with irrigation. Irrigation was performed again to clean the bony surfaces. The patella was cut with the patella guide with 10 mm off the patella in order to resurface the patella. Meticulous hemostasis obtained irrigation repeated final implants opened on the back table cement mixed. Tourniquet reinflated irrigation repeated bone surfaces dried and final implants were cemented into place with good range of motion good stability with extension good stability with flexion and good range of motion. Irrigation repeated cement allowed to harden with the leg straight all excess cement was removed irrigation repeated deep layer with the capsule was approximated with a single Vicryl stitch at the previous marking followed by #1 strata fix stitch in the capsule deep layers closed with 0 Vicryl subcutaneous 2-0 Vicryl surgical clips in skin for closure sterile dressing placed from toe to thigh patient waken anesthesia taken recovery stable condition. Condition: stable Disposition: PACU Complications:: None apparent
[2025-01-03] MEDS: ACETAMINOPHEN 500MG TAB 1000 MG PO (15:17)
--- NOTE | 2025-01-03 17:05 | P.PNANES_ITS ---
[facility] Anesthesia Record Part II Anesthesia Record Part II Discharge Time: 13:58 Destination: Medical Surgical Department PACU nurse assessment reviewed?: Yes Patient Condition:: Good Anesthesia Complications:: None Swallowing reflex intact?: Yes Airway Patency: Patent Cyanosis?: No Blood Pressure: 150/78 SaO2: 95 Respiratory Rate: 12 Pulse Rate: 92 Temperature: 97.4 F Mental Status: Alert & Oriented Pain level:: 0 Nausea and/or vomitting:: None Intake, IV Amount: 0 Hydration: Adequate
--- NOTE | 2025-01-03 17:42 | PC.NURSE ---
pt came to us from surgery, dressing C/D/I, LR running 100 ml/hr. IV C/D/I, cardenas patent, polar pack in place, call light in reach, no complaints at this time
[2025-01-03] MEDS: OXYCODONE 5MG IMMEDIATE RELEASE TABLET 10 MG PO (18:47)
[2025-01-03] MEDS: MEMANTINE 10MG TABLET 10 MG PO (20:32)
[2025-01-03] MEDS: ATORVASTATIN 40MG TABLET 40 MG PO (20:32)
[2025-01-03] MEDS: ASPIRIN EC 81MG TABLET 81 MG PO (20:32)
[2025-01-03] MEDS: PANTOPRAZOLE 40MG TABLET 40 MG PO (20:33)
[2025-01-03] MEDS: KETOROLAC 30MG/ML VIAL 15 MG IV (20:33)
[2025-01-03] MEDS: OXYCODONE 5MG IMMEDIATE RELEASE TABLET 5 MG PO (22:37)
[2025-01-04] VITALS: BP 148/78; PULSE 80; RESP 17; TEMP 36.8; O2SAT 95
[2025-01-04] MEDS: ACETAMINOPHEN 500MG TAB 1000 MG PO ×2 (00:23→08:09)
[2025-01-04 03:59] VITALS: BP 122/58; PULSE 71; RESP 18; TEMP 36.6; O2SAT 92; BMI 30.7
[2025-01-04] MEDS: LACTATED RINGERS 1000ML 1,000 ML 100 ML IV (05:16)
--- NOTE | 2025-01-04 05:57 | PC.NURSE ---
Pt had a output of 300 ml in 13 hrs as of 0400, drainage in catheter bag remains bloody and red in color with visible clots, pt c/o soreness in lower abdomen and states that his bladder feels full. This nurse bladder scanned pt and scanner read >600. Bladder irrigation was used to clear clots with 600 ml of irrigation. Pt had a total of 1350 out after irrigation as of 0550, with a true output of 750 ml. Pt admits to feeling much better, urine is clear and flowing freely at this time.
--- NOTE | 2025-01-04 05:57 | PC.NURSE ---
Pt is A&Ox4. Pt c/o mild to severe pain in his left knee due to knee surgery. Pt was treated per JUL for pain. This nurse did contact Dr. Rosario for concerns with breakthrough pain and obtained new orders (see MAR). Pt polar pack remains in place, pt bandage to left knee in clean and dry. Pt pedal pulses are 2+ with no numbness. Pt catheter was flushed this shift due to possible blot clots occluding catheter.(see previous note), multiple large to small clots were irrigated. Pt admits to a pain level of 3/10 and states that it is tolerable at this time.
[2025-01-04 06:05] LABS: Chloride 105 mmol/L (98-107); Potassium 4.1 mmoL/L (3.5-5.1); Sodium 137 mmol/L (136-145)
[2025-01-04 06:08] LABS: Anion Gap 5.1 mEq/L (5-15); Blood Urea Nitrogen 21 mg/dl (9-20); Calcium 8.1 mg/dl (8.4-10.2); Carbon Dioxide 31 mmol/L (22.0-30.0); Creatinine Clearance Estimated 74 mL/min (50-200); Creatinine,Serum 1.10 mg/dl (0.66-1.25); Estimated Glomerular Filt Rate 64 ml/min (>60); GFR (African American) 78 ML/MIN (>60); Glucose 125 mg/dl (74-100)
[2025-01-04 06:12] LABS: Hematocrit 39.3 % (42.0-52.0); Hemoglobin 12.2 g/dL (14.1-18.0); Immature Granulocytes % 0.5 %; Mean Corpuscular HGB Conc 31.0 g/dL (31.8-35.4); Mean Corpuscular Hemoglobin 27.7 pg (27.0-31.2); Mean Corpuscular Volume 89.1 fl (80-94); Nucleated Red Blood Cells % 0 %; Platelet Count 168 K/mm3 (142-424); Red Blood Count 4.41 M/mm3 (4.60-6.20); Red Cell Distribution Width-SD 45.1 fL; White Blood Count 10.8 K/mm3 (4.8-10.8)
[2025-01-04 08:00] VITALS: BP 114/53; PULSE 75; RESP 18; TEMP 36.4; O2SAT 96
[2025-01-04] MEDS: ESCITALOPRAM 10MG TABLET 10 MG PO (08:10)
[2025-01-04] MEDS: ASPIRIN EC 81MG TABLET 81 MG PO (08:10)
[2025-01-04] MEDS: OXYCODONE 5MG IMMEDIATE RELEASE TABLET 5 MG PO (08:10)
[2025-01-04] MEDS: THIAMINE 100MG TABLET 50 MG PO (08:10)
[2025-01-04] MEDS: MEMANTINE 10MG TABLET 10 MG PO (08:10)
[2025-01-04] MEDS: LACTOBACILLUS PROBIOTIC COMB CAPSULE 1 CAP PO (08:10)
--- NOTE | 2025-01-04 09:30 | HMH.PTEV ---
Physical Therapy Evaluation Rehab PT IP Evaluation Start: 01/03/25 14:52 Freq: ONCE Status: Active Protocol: Document 01/04/25 09:17 MALIA (Rec: 01/04/25 09:29 MALIA [id number]) Subjective/History History History Pt is a 79 y/o male who presents s/p L TKA on 01/03/25. Pt is WBAT. Subjective Subjective Pt lives with his in a home that has 3 HERVE. Pt awaiting getting a RW prior to d/c. Pt normally IND with all mobility prior to surgery. Pt reports he did not have full knee extension ROM prior to surgery. Pt has family assistance if needed. New diagnosis of No cancer in past 12 months? [facility] How much help from another person do you currently need... Turning from your None back to your side while in a flat bed without using bedrails? Moving from lying on A little back to sitting on the side of a flat bed without using bedrails? Moving to and from a None bed to a chair ( including a wheelchair)? Standing up from a None chair using your arms? (e.g., wheelchair, bedside chair) Walking in hospital A little room? Climbing 3-5 steps A little with a railing? Mobility Score 21 Mobility Level [facility] Mobility 6 Walk 10 steps or more Mobility Calculator Rehab PT IP Eval Objective Appearance Patient Behavior Appropriate,Cooperative Patient Orientation Person,Place Difficulty following none instructions Speech Pattern Clear Ambulation Patient Able to Yes Ambulate Ambulation Observation IP General Gait Antalgic Gait Pattern Observation Ambulation Distance 50 (feet) Ambulation Assistive Rolling Walker Device Ambulation Ability Contact Guard/Hand Hold Balance Ability to Arise Able, uses arms to help Sitting Balance Steady, safe Standing Balance Steady, wide stance Dynamic Sitting Good Balance Ability Dynamic Standing Fair Balance Ability Transfers Bed Transfer Ability Independent Chair Transfer Contact Guard/Hand Hold Ability Sit to Stand Bed Contact Guard/Hand Hold Transfer Ability Sit to Stand Chair Contact Guard/Hand Hold Transfer Ability Rehab PT IP prob,goals,plan Problems Date of Evaluation: 01/04/25 PT IP Problems Bed Mobility,Transfers,Gait,Balance,Self care,Safety Rehab Potential Rehab Potential Good Plan PT Intervention Plan Bed Mobility,Transfers,Gait,Balance,Self care,Safety, Therapeutic Exercise Other Intervention 1-2 times Plan PT Plan Frequency Daily Duration LOS Discharge Goals Bed Transfer Ability Independent Sit to Stand Chair Independent Transfer Ability Ambulation Assistive Rolling Walker Device Ambulation Distance 75 (feet) Discharge Plan PT Discharge Plan Initial physical therapy evaluation performed. Patient presents below baseline at this time in functional mobility, transfers, gait, and strength. Pt would benefit from skilled PT while at [facility] to prevent further functional decline and maximize safety with mobility. Pt most appropriate to d/c home when deemed medically necessary d/t current level of mobility, home set-up, and family support. PT recommending outpatient PT services to address deficits. PT educated pt on proper L knee positioning, WBing status, RW technique, and HEP. HEP handout provided. Pt verbalized understanding to all educational topics. Eval Complexity Eval Charge Codes 31609 - Moderate Complexity PHYSICIAN CERTIFICATION: I certify the specified therapy services for Cole Walters are required, authorized, and reviewed every 30 days.
--- NOTE | 2025-01-04 11:42 | CARE MANAGER ---
Addendum entered by Rhiannon Neri RN 01/04/25 11:47: Patient requests [facility] as provider. Will fax information. Original Note: Patient requires use of a walker to aide with ambulation due to a mobility impairment that cannot be corrected by a cane.
--- NOTE | 2025-01-05 10:03 | SW/DCPLANNER ---
Spoke with patient's on the phone. Patient's stated that he had a rough night. Patient's stated that he was having a rough night urinating and could not sleep. Patient's stated that they were able to get his new medicine picked up. Patient's stated that they have no concerns or questions at this time. Patient's asked if she should call the surgeon regarding her not being able to urinate and i suggest that she needs to follow up with the primary care provider. Patient's stated that they have no concerns or questions at this time. Sincere Paul
[2025-01-05 16:09] LABS: POC Glucose,Bedside 101 (70-110)
--- NOTE | 2025-01-24 12:31 | P.HPDS_ITS ---
General Admission date:: 01/03/25 Discharge date: 01/04/25 *Admission Date: 01/03/25 *Chief complaint: End-stage osteoarthritis left knee *History of present illness: 79-year-old male with significant end-stage osteoarthritis left knee failed significant long-term conservative treatment presented for left total knee arthroplasty. [facility] Disclaimer: The information contained in this section may have been updated after the patient was seen, as this information can be updated by other users. Medical History Abdominal pain Chest pain GI bleed Carpal tunnel syndrome of right wrist Coronary atherosclerosis of [place] coronary artery Memory deficit HLD (hyperlipidemia) HTN (hypertension) CAD (coronary artery disease) Surgical History History of tooth extraction History of thumb surgery History of spinal surgery History of colonoscopy History of cholecystectomy Family History Father Family history of cancer Mother Family history of acute congestive heart failure Mother Family history of diabetes mellitus type II Social History Smoking Status: Unknown if ever smoked second hand exposure: No alcohol intake: never substance use type: denies use current occupational status: retired Travel in the last 8 weeks?: None household members: spouse housing: house current occupational exposures/hazards: No caffeine: No Other Medical History Have you received the Flu Vaccine for this season: No Have you received the Pneumonia Vaccine: No Review of Systems Constitutional Constitutional: Reports system reviewed and no additional complaints, except as documented *Cardiovascular Cardiovascular: Reports system reviewed and no additional complaints, except as documented *Respiratory Respiratory: Reports system reviewed and no additional complaints, except as documented *Gastrointestinal Gastrointestinal: Reports system reviewed and no additional complaints, except as documented *Genitourinary Genitourinary: Reports system reviewed and no additional complaints, except as documented *Musculoskeletal Musculoskeletal: Reports as per HPI *Neurologic Neurologic: Reports system reviewed and no additional complaints, except as documented Exam Data for Last 24 hours Vital signs and Labs for Last 24 Hours: Temp Pulse Resp BP Pulse Ox O2 Del Method O2 Flow Rate 97.5 F L 75 18 114/53 L 96 Room Air 2 01/04/25 08:00 01/04/25 08:00 01/04/25 08:00 01/04/25 08:00 01/04/25 08:00 01/04/25 13:00 01/03/25 16:00 *Routine HEENT Exam Head: Present normocephalic and atraumatic Eye: Present EOMI ENT: Present mucous membranes moist *Routine Neck Exam Neck: Present full ROM *Routine Respiratory Exam Respiratory: Absent accessory muscle use *Routine Cardiovascular Exam Cardiovascular: Present RRR *Routine Abdominal Exam Abdominal: Absent tenderness *Routine Rectal Exam Rectal:: deferred *Routine Genitalia Exam Genitalia:: deferred *Routine Extremities Exam Comments: Left knee dressing and bandage clean dry and intact no evidence of drainage or infection no evidence of DVT. *Routine Skin Exam Skin: Present intact *Routine Neurological Exam Neurological: Present alert and oriented X3 Meds Home Medications and Allergies Home Medications ?Medication ?Instructions ?Recorded ?Confirmed ?Type escitalopram oxalate 10 mg tablet 10 mg PO DAILY 10/2101/03/25 History (Lexapro) atorvastatin 40 mg tablet 40 mg PO DAILY 03/27/2312/23 History donepezil 5 mg tablet (Aricept) 5 mg PO HS 10/11/23 History memantine 10 mg tablet 10 mg PO BID 10/11/23 History cyanocobalamin (vitamin B-12) 1,000 mcg PO DAILY 10/1101/03/25 History 1,000 mcg tablet thiamine HCl (vitamin B1) 50 mg 50 mg PO DAILY 4 01/03/25 History tablet nystatin 100,000 unit/gram topical 1 applic topical BI D rash 01/03/25 01/03/25 History ointment aspirin 81 mg tablet,delayed 81 mg PO BID #56 tabs Rx release cyclobenzaprine 5 mg tablet 5 mg PO TID PRN muscle spa sm #30 01/04/25 Rx tabs docusate sodium 100 mg capsule 100 mg PO BIDP PRN CONS TIPATION #0 01/04/25 Rx caps pantoprazole 40 mg tablet,delayed 40 mg PO HS #30 tabs 01/04/25 Rx release tramadol 50 mg tablet 50 mg PO Q8H PRN post op marlene n #60 01/11/25 Rx tabs New Prescriptions to Start Prescriptions: aspirin Cheli Stevengail Shayy cyclobenzaprine Cole Rosario pantoprazole Cheli Stevengail Shayy Allergies Allergy/AdvReac Type Severity Reaction Status Date / Time No Known Allergies Allergy Verified 10/27/24 11:46 Hospital Course Hospital Course Hospital Course: Patient underwent uneventful left total knee arthroplasty on 01/03/25. He was admitted for observation in the hospital physical therapy consulted for therapy the day of surgery and the day after surgery. On evaluation on patient was doing well and stable for discharge. Outpatient physical therapy already arranged. Patient will follow-up with outpatient physical therapy for range of motion and strengthening. Discharge Plan Disposition Patient Disposition: Home, Self-Care Condition: Good Follow up Plan Follow up with: Cole Rosario DO [Staff Physician, Orthopedics] - 01/19/25 9:45 am Prescriptions/Medication Reconciliation: New aspirin 81 mg Tablet,Delayed Release (Dr/Ec) 81 mg PO BID Qty: 56 0RF pantoprazole 40 mg Tablet,Delayed Release (Dr/Ec) 40 mg PO HS Qty: 30 0RF docusate sodium 100 mg Capsule 100 mg PO BIDP PRN (Reason: CONSTIPATION) Qty: 0 0RF cyclobenzaprine 5 mg tablet 5 mg PO TID PRN (Reason: muscle spasm) Qty: 30 0RF Continued escitalopram oxalate [Lexapro] 10 MG tablet 10 mg PO DAILY atorvastatin 40 mg tablet 40 mg PO DAILY Patient Comments: TAKE ONE TABLET BY MOUTH EVERY DAY donepezil [Aricept] 5 mg tablet 5 mg PO HS Patient Comments: TAKE ONE TABLET BY MOUTH EVERY DAY AT BEDTIME memantine 10 mg tablet 10 mg PO BID Patient Comments: TAKE ONE TABLET BY MOUTH TWICE DAILY cyanocobalamin (vitamin B-12) 1,000 mcg Tablet 1,000 mcg PO DAILY thiamine HCl (vitamin B1) 50 mg Tablet 50 mg PO DAILY nystatin 100,000 unit/gram ointment 1 applic TOPICAL BID Patient Comments: APPLY TOPICALLY TO THE AFFECTED AREA(S) TWICE DAILY FOR 14 DAYS No Action tramadol 50 mg tablet 50 mg PO Q8H PRN (Reason: post op pain) Qty: 60 0RF Problem Reconciliation Problems Reviewed?: Yes Patient Discharge Instructions ACTIVITY: Ambulate as tolerated DIET: advance to your usual diet Additional Instructions: sterlie dressing change daily or every other day if no drainage. Patient Instructions: Knee Replacement, Surgical Site Infection Print Language: Bulgarian Providers Primary Care Provider: Rakesh Jones Admit Provider: Cole Rosario Attending Provider: Cole Rosario
== END 2025-01-04 13:21 | disposition home or self-care (01) ==
LOC: 2ND 08:11
PROVIDERS: Physician Assistant Surgical; Admitting Provider Orthopaedic Surgery; PCP Internal Medicine Adolescent Medicine; Visit Provider Orthopaedic Surgery
PROC: (CPT 27447; principal; 2025-01-03 08:00)
DX: M17.12 Unilateral primary osteoarthritis, left knee (principal); I25.10 Atherosclerotic heart disease of native coronary artery without angina pectoris; I10 Essential (primary) hypertension; E78.5 Hyperlipidemia, unspecified; Z79.899 Other long term (current) drug therapy
CPT/HCPCS: 27447; 51702; 73560; 80048; 82962; 85025; 87086; 96361; 96365; 96374; 96375; 96376; 97162; C1776; G0378; J0665; J0666; J0690; J1100; J1171; J1885; J2003; J2405; J2704; J3010; J7050; J7120

== ENCOUNTER 2025-01-11 11:00 | Outpatient (RCR) | payer MEDICARE, OTHER, SELFPAY ==
--- NOTE | 2025-01-05 17:45 | HMH.PTOPEV ---
PT Outpatient Evaluation Rehab PT Outpatient Evaluation Start: 01/05/25 14:04 Freq: Status: Active Protocol: Document 01/05/25 14:07 KRISTIN (Rec: 01/05/25 17:45 KRISTIN [id number]) E-signed By José Miguel Noble, PT Outpatient Therapy Subjective History Subjective History Pt is an 79 yom who is referred to [facility] outpatient PT s/ p L TKA performed on 01/03/25. Pt reports that he stayed in the hospital for 1 night and went home yesterday afternoon. Pt reports that he was given an exercise program from the hospital, but he has not done it. Pt reports that he has had a very difficult time urinating since the surgery. Pt reports that he has two stairs to enter his house and then everything is one level after that. Pt reports that he has a walk in shower and has grab bars around his commode. Pt reports that he was completely ind with all ADLs and mobility prior to surgery. PMH: HTN, CAD New diagnosis of No cancer in past 12 months? Chief Complaint Pain,Stiff Symptom Type Ache,Sharp Symptoms Relieved By Ice,Prescription Meds Symptoms Aggravated Standing,Walking By Prior Functional None Limitations Current Functional Housework,Standing,Squatting,Walking,Stairs,Balance Limitations Symptom Description Constant and Continuous Level of pain today 9 (0-10) Pain scale - at its 8 best (0-10) Pain scale - at its 9 worst (0-10) Hip/Knee Eval Gait Observation General Gait Pattern Antalgic Gait,Decrease Weight Bear (L),Decrease Stride Observation Lngth (R) Assistive Device Assistive Devices Rolling / Wheeled Walker Palpation Tenderness left Knee Palpation Tenderness Finding Knee Palpation TTP 4/4 to L knee globally Overall Comment MMT Hip Flexion Strength 3- Fair- Grade Hip Abduction 3 Fair Strength Grade Hip Adduction 3 Fair Strength Grade Hip Extension 3 Fair Strength Grade Gluteus Declan 3 Fair Strength Grade Knee Extension 2 Poor Strength Grade Knee Flexion 2 Poor Strength Grade ROM Knee Extension +10 Active Range of Motion (degrees) Knee Extension +8 Passive Range of Motion (degrees) Knee Flexion Active 76 Range of Motion ( degrees) Knee Flexion Passive 80 Range of Motion ( degrees) Lower Extremity Functional Index Activities Today, do you or would you have any difficulty at all with: a.Any of your usual Extreme difficulty or unable to perform activity work, housework or school activities b. Your usual Extreme difficulty or unable to perform activity hobbies, recreational or sporting activities c. Getting into or Extreme difficulty or unable to perform activity out of the bath d. Walking between Quite a bit of difficulty rooms e. Putting on your Extreme difficulty or unable to perform activity shoes or socks f. Squatting Extreme difficulty or unable to perform activity g. Lifting an object Extreme difficulty or unable to perform activity , like a bag of groceries from the floor h. Performing light Extreme difficulty or unable to perform activity activities around your home i. Performing heavy Extreme difficulty or unable to perform activity activities around your home j. Getting into or Quite a bit of difficulty out of a car k. Walking 2 blocks Extreme difficulty or unable to perform activity l. Walking a mile Extreme difficulty or unable to perform activity m. Going up or down Extreme difficulty or unable to perform activity 10 stairs (about 1 flight of stairs) n. Standing for 1 Extreme difficulty or unable to perform activity hour o. Sitting for 1 Moderate difficulty hour p. Running on even Extreme difficulty or unable to perform activity ground q. Running on uneven Extreme difficulty or unable to perform activity ground r. Making sharp Extreme difficulty or unable to perform activity turns while running fast s. Hopping Extreme difficulty or unable to perform activity t. Rolling over in Extreme difficulty or unable to perform activity bed LEFI Score Lower Extremity 4 Functional Index Score Miscellaneous Dx PT Eval Objective Objective TUs with FWW Outpatient Therapy Assessment Impairments Problems/ Palpation Tenderness,Impaired Range of Motion,Impaired Impairmments Strength,Impaired Gait Pattern,Impaired Walking, Impaired Standing,Impaired Household Care,Impaired Balance,Subjective C/O Pain,Impaired Self Care/Self Management Prognosis Rehab Potential Good Comment w HEP compliance Clinical Impression Consistent with Yes Diagnosis Consistent with L TKA (01/05/25) Additional details: The patient presents s/p TKA (performed on with ) with noted impairments in knee range of motion, strength, gait, and functional mobility. These impairments are limiting independence with ADLs, such as ambulation, transfers and stair navigation. Pain, swelling, and weakness throughout the hip complex and knee complex are contributing to altered gait mechanics . Skilled PT is indicated for this pt to address these stated impairments, promote a return to their prior level of function and to prevent compensatory movement patterns. PT Patient Goals PT Patient Goals PT Short Term In 4 weeks: Patient Goals 1. Patient will achieve knee ROM of +3 degrees of extension to 100 degrees of flexion in order to allow for proper gait mechanics, stair climbing and other functional activities. 2. Patient will report a 48 hour average pain of 5/10 on the numeric pain rating scale to demonstrate improvement in quality of life and increased functional capacity. 3. Patient will improve LEFS score to 20/80 to demonstrate improved functional mobility and increased independence with ADLs. 4. Patient will improve global L hip/knee strength upon manual muscle testing to 3+/5 grossly to facilitate improved ambulation, transfers. 5. Patient will ambulate 100 ft in the clinic with a SP cane and SBA to demonstrate improved ambulatory ability and increased functional independence with community mobility. 6. Pt will perform TUG test in 20 seconds with AAD to demonstrate a decreased fall risk and improved community ambulation. PT Snf Patient In 8 weeks: Goals 1. Patient will achieve knee ROM of 0 degrees of extension to 120-125 degrees of flexion in order to allow for proper gait mechanics, stair climbing and other functional activities. 2. Patient will report a 48 hour average pain of 2-3/10 on the numeric pain rating scale to demonstrate improvement in quality of life and increased functional capacity. 3. Patient will improve LEFS score to 40/80 to demonstrate improved functional mobility and increased independence with ADLs. 4. Patient will improve global L hip/knee strength upon manual muscle testing to 4+/5 grossly to facilitate improved ambulation, transfers. 5. Patient will ambulate in the community, independently without an AD to demonstrate improved ambulatory ability and increased functional independence with community mobility. 6. Pt will perform TUG test in 15 seconds without AD to demonstrate a decreased fall risk and improved community ambulation. Outpatient Therapy Plan of Care Treatment Plan May Include Therapeutic Exercise Yes Including Home Exercise Program Manual Therapy Yes Techniques Neuromuscular Re- Yes education Therapeutic Yes Activities to Return to Previous Functional/Work Level Gait Training Yes ADL/Self Care Yes Education Thermal Modalities Yes Electrical Yes Stimulation Manual Lymphatic Yes Drainage Eval/Re-Eval Yes Frequency Times per week 2-3 Duration Number of Weeks 8 Addendums This patient is a No candidate for social or vocational rehab ? Patient/Guardian Yes verbally acknowledges understanding of treatment program and consents to further treatment? Patient/Guardian Yes verbally acknowledges understanding of diagnosis, prognosis and goals for treatment? Eval Complexity PT Charges 71419 - High Complexity Shoulder/Elbow Eval Shoulder Objective Measurements Elbow Objective Measurements PHYSICIAN CERTIFICATION: I certify the specified therapy services for Cole Walters are required, authorized, and reviewed every 30 days.
== END 2025-01-11 23:59 | disposition home or self-care (01) ==
LOC: PT 11:00
PROVIDERS: Visit Provider Orthopaedic Surgery
DX: Z47.89 Encounter for other orthopedic aftercare (principal); Z96.652 Presence of left artificial knee joint
CPT/HCPCS: 97110; 97140; 97163; 97530

== ENCOUNTER 2025-01-15 13:24 | Emergency (ER) | payer MEDICARE, OTHER, SELFPAY ==
--- OUTSIDE RECORDS SUMMARY | 2024-12-16 06:30 | XMS_ITS | Continuity of Care Document ---
Author Name [facility] Organization [facility] Care Team Providers Care Graphics Manager Name Role Phone [facility] Unavailable Unavailable Problems Combined list of problems from [facility] and [facility] facilities. It does not include entries that were removed or entered in error. Problem Status Onset Date Problem Type Date of Resolution Comments Source Age-related cognitive decline Active Condition [place] [facility] Elev Bp W/O Dx Hypertension Active Condition [facility] Generalized anxiety disorder Active Condition [facility] Hearing loss Active Condition [facility] Hyperlipidemia Active Condition [place] [facility] Hyperlipidemia Active Condition [place] [facility] Hypertension Active Condition [facility] Obesity Active Condition [facility] Simple obesity Active Condition [place] [facility] Vision, Subnormal * (ICD-9-CM 369.9/369.20) Active Condition [facility] Diagnosis: ICD-10-CM Z65.9 Problem related to unspecified psychosocial circumstances Active Diagnosis [facility] Diagnosis: ICD-10-CM Z71.89 Other specified counseling Active Diagnosis [facility] Diagnosis: ICD-10-CM R41.81 Age-related cognitive decline Active Diagnosis [place] [facility] Medications Combined list of outpatient medications from Department [facility] and [facility] facilities.Medications provided include 1) outpatient medications from the last 15 months, and 2) patient-reported medications. Medication Details Route Status Patient Instructions Prescription Expires Prescription Number Last Dispense Date Ordering Provider Order Date Order Qty Source ACETYLCYSTE INE 600MG CAP,ORAL TAKE 1 CAPSULE BY MOUTH DAILY ORAL ACTIVE PERI GARVEY 2023 [place] [facility] ASPIRIN 81MG TAB,EC TAKE ONE TABLET BY MOUTH DAILY ORAL ACTIVE JOSE G CASTELLANO 2015 [place] [facility] ATORVASTATI N CA 40MG TAB TAKE ONE TABLET BY MOUTH AT BEDTIME ORAL ACTIVE COMER,PERI Reaves 2023 [place] [facility] CAMPHOR 0.2%/MENTHO L 3.5% GEL,TOP APPLY APPLY TO AFFECTED AREA DIRECTED TOPICA L ACTIVE COMER,PERI Reaves 2023 [place] [facility] CYANOCOBALA MIN 1000MCG TAB TAKE ONE TABLET BY MOUTH DAILY ORAL ACTIVE COMER,PERI Reaves 2023 [place] [facility] DICLOFENAC NA 1% GEL,TOP APPLY 4 GRAM STRIP TO AFFECTED AREA EVERY 6 HOURS NEEDED TOPICA L ACTIVE COMER,PERI Reaves 2023 [place] [facility] DONEPEZIL HCL 10MG TAB TAKE ONE-HALF TABLET BY MOUTH AT BEDTIME ORAL ACTIVE COMER,PERI Reaves 2023 [facility] [place] [facility] ESCITALOPRA M OXALATE 10MG TAB TAKE ONE TABLET BY MOUTH DAILY ORAL ACTIVE COMER,PERI Reaves 2023 [place] [facility] FLUTICASONE PROPIONATE 50MCG/SPRAY SOLN,NASAL, 16GM USE 2 SPRAYS IN EACH NOSTRIL DAILY NASAL ACTIVE COMER,PERI Reaves 2023 [place] [facility] MEMANTINE HCL 10MG TAB TAKE ONE TABLET BY MOUTH DAILY ORAL ACTIVE COMER,PERI Reaves 2023 [facility] [place] [facility] MUPIROCIN 2% OINT,TOP APPLY SMALL AMOUNT TO NARES TO AFFECTED AREA DAILY NEEDED TOPICA L ACTIVE COMER,PERI Reaves 2023 [facility] NYSTATIN [id number]/G M CREAM,TOP APPLY SMALL AMOUNT TO AFFECTED AREA DAILY NEEDED TOPICA L ACTIVE COMER,PERI Reaves 2023 [place] [facility] THIAMINE 50MG TAB TAKE ONE TABLET BY MOUTH EVERY MORNING ORAL ACTIVE COMER,PERI Reaves 2023 [facility] [facility] Immunizations Combined list of available immunizations from the Department of Defense and Veterans Affairs facilities. Immunization Series Date Given Administered By Site Reaction Lot Number CVX Code Drug Hearings Reporter Status Comments Source INFLUENZA, HIGH-DOSE, TRIVALENT, PF 6 2023 135 complet ed HISTORICA L INFORMATI ON - [facility] [place] [facility], RECOMBINANT, PROTEIN SUBUNIT RSVPREF, ADJUVANT RECONSTITUTED , 0.5 ML, PF 2023 303 complet ed HISTORICA L INFORMATI ON - FROM OTHER REGISTRY, [place] [facility] ZOSTER RECOMBINANT 2 2023 187 complet ed HISTORICA L INFORMATI ON - FROM OTHER REGISTRY, [place] [facility] RSV, RECOMBINANT, PROTEIN SUBUNIT RSVPREF, ADJUVANT RECONSTITUTED , 0.5 ML, PF 1 2022 303 complet ed HISTORICA L INFORMATI ON - FROM OTHER REGISTRY, [place] [facility] INFLUENZA, HIGH-DOSE, TRIVALENT, PF 5 2022 135 complet ed HISTORICA L INFORMATI ON - FROM OTHER REGISTRY, [place] [facility] [place] ZOSTER RECOMBINANT 1 2022 187 complet ed HISTORICA L INFORMATI ON - FROM OTHER REGISTRY, [place] [facility] [place] INFLUENZA, HIGH-DOSE, TRIVALENT, PF 4 2021 135 complet ed HISTORICA L INFORMATI ON - FROM OTHER REGISTRY, [place] [facility] COVID-19 ([employer]), MRNA, LNP-S, PF, 30 MCG/0.3 ML DOSE, JOSE G-SUCROSE (AGES 12+ YEARS) 4 2021 217 complet ed HISTORICA L INFORMATI ON - FROM OTHER REGISTRY, [place] [facility] COVID-19 ([employer] [place]), MRNA, LNP-S, PF, 30 MCG/0.3 ML DOSE 3 2020 208 complet ed HISTORICA L INFORMATI ON - FROM OTHER REGISTRY, [place] [facility] [place] COVID-19 ([employer] [place]), MRNA, LNP-S, PF, 30 MCG/0.3 ML DOSE 2 2020 208 complet ed HISTORICA L INFORMATI ON - FROM OTHER REGISTRY, [place] [facility] COVID-19 ([employer] [place]), MRNA, LNP-S, PF, 30 MCG/0.3 ML DOSE 1 2020 208 complet ed HISTORICA L INFORMATI ON - FROM OTHER REGISTRY, [place] [facility] INFLUENZA, HIGH-DOSE, TRIVALENT, PF 3 2019 135 complet ed HISTORICA L INFORMATI ON - FROM OTHER REGISTRY, [place] [facility] INFLUENZA, SEASONAL, INJECTABLE 2018 141 complet ed [place] [facility] INFLUENZA, SEASONAL, INJECTABLE 2017 141 complet ed [place] [facility] INFLUENZA, SPLIT VIRUS, QUADRIVALENT, PRESERVATIVE 2 2017 158 complet ed HISTORICA L INFORMATI ON - FROM OTHER REGISTRY, [place] [facility] PNEUMOCOCCAL POLYSACCHARID E PPV23 1 2016 33 complet ed HISTORICA L INFORMATI ON - FROM OTHER REGISTRY, [place] [facility] INFLUENZA, SPLIT VIRUS, QUADRIVALENT, PRESERVATIVE 1 2016 158 complet ed HISTORICA L INFORMATI ON - FROM OTHER REGISTRY, [place] [facility] INFLUENZA A & B (HISTORICAL) 2015 88 complet ed locally [place] [facility] TD(ADULT) UNSPECIFIED FORMULATION 2006 139 complet ed [place] [facility] TDAP (HISTORICAL) 2006 115 complet ed [place] [facility] TD (ADULT), 2 LF TETANUS TOXOID, PRESERVATIVE FREE, ADSORBED 1 1996 09 complet ed HISTORICA L INFORMATI ON - FROM OTHER REGISTRY, [place] [facility] Results Combined list of recent chemistry, hematology and other laboratory results from Department of Defense and Veterans Affairs, ranging from 15 months to all on record, depending upon the facility. Order Name Results Value Reference Range Date Interpretation Specimen Comments Source GLYCOHEMO GLOBIN HEMOGLOBIN A1C/HEMOGLO BIN.TOTAL IN BLOOD BY HPLC 6.3 4.4 - 6.4 03/10 Specimen Type: BLOOD Comment: [place]-Do[place] guidelines for A1c interpretat ion: Glycemic control [...] 9.27. Ref: https://ngs p.org/CAPda ta.asp. The in-house OpenZine-KSE D-100 analyzer has a historical CV <= 2%. Contact the laboratory for further performance characteris tics of this assay. Ordering Provider: PERI GARVEY Report Released Date/Time: Mar 10, 2024 11:35 AM Reporting Lab[facility] [address] [address] Performing Lab: [address] [address] [facility] LIPID PROFILE CHOLESTEROL [MASS/VOLUM E] IN [...] 2024 11:35 AM Reporting Lab: [facility] [address] [address] Performing Lab: [facility] [address] [address] [facility] LIPID PROFILE TRIGLYCERID E [MASS/VOLUM E] [...] 2024 11:35 AM Reporting Lab: [facility] [address] [address] Performing Lab: [facility] [address] [address] [facility] LIPID PROFILE CHOLESTEROL IN HDL [MASS/VOLUM [...] 2024 11:35 AM Reporting Lab: [facility] [address] [address] Performing Lab: [facility] [address] [address] [facility] LIPID PROFILE CHOLESTEROL IN LDL [MASS/VOLUM [...] 10, 2024 11:35 AM Reporting Lab: [facility] [address] [address] Performing Lab: [facility] [address] [address] [facility] CBC/PLT LEUKOCYTES [#/VOLUME] IN BLOOD BY AUTOMATED COUNT 9.1 10*3/u L 5.0 - 10.0 03/10 Specimen Type: BLOOD No comment entered. Ordering Provider: PERI GARVEY Report Released Date/Time: Mar 10, 2024 11:35 AM Reporting Lab: [facility] [address] [address] Performing Lab: [address] [address] [facility] CBC/PLT ERYTHROCYTE S [#/VOLUME] IN BLOOD BY AUTOMATED COUNT 5.67 10*6/u L 4.6 - 6.2 03/10 Specimen Type: BLOOD No comment entered. Ordering Provider: PERI GARVEY Report Released Date/Time: Mar 10, 2024 11:35 AM Reporting Lab: [address] [address] Performing Lab: [address] [address] [facility] CBC/PLT HEMOGLOBIN [MASS/VOLUM E] IN BLOOD 15.3 g/dL 14.0 - 18.0 03/10 Specimen Type: BLOOD No comment entered. Ordering Provider: PERI GARVEY Report Released Date/Time: Mar 10, 2024 11:35 AM Reporting Lab: [place] [phone] Performing Lab: [address] [address] [facility] CBC/PLT HEMATOCRIT [VOLUME FRACTION] OF BLOOD BY AUTOMATED COUNT 48.9 42.0 - 52.0 03/10 Specimen Type: BLOOD No comment entered. Ordering Provider: PERI GARVEY Report Released Date/Time: Mar 10, 2024 11:35 AM Reporting Lab: [address] [address] Performing Lab: [address] [address] [facility] CBC/PLT MCV [ENTITIC VOLUME] BY AUTOMATED COUNT 86.2 fL 80.0 - 94.0 03/10 Specimen Type: BLOOD No comment entered. Ordering Provider: PERI GARVEY Report Released Date/Time: Mar 10, 2024 11:35 AM Reporting Lab: [address] [address] Performing Lab: [address] [address] [facility] CBC/PLT MCH [ENTITIC MASS] BY AUTOMATED COUNT 27.0 pg 27.0 - 31.0 03/10 Specimen Type: BLOOD No comment entered. Ordering Provider: PERI GARVEY Report Released Date/Time: Mar 10, 2024 11:35 AM Reporting Lab: [place] [address] Performing Lab: [address] CBC/PLT MCHC [MASS/VOLUM E] BY AUTOMATED COUNT 31.3 g/dL 32.0 - 36.0 03/10 L Specimen Type: BLOOD No comment entered. Ordering Provider: PERI GARVEY Report Released Date/Time: Mar 10, 2024 11:35 AM Reporting Lab: [place] [address] Performing Lab: [address] CBC/PLT PLATELETS [#/VOLUME] IN BLOOD 225 10*3/u L 150 - 450 03/10 Specimen Type: BLOOD No comment entered. Ordering Provider: PERI GARVEY Report Released Date/Time: Mar 10, 2024 11:35 AM Reporting Lab: [place] [address] Performing Lab: [address] CBC/PLT PLATELET MEAN VOLUME [ENTITIC VOLUME] IN BLOOD 11.1 fL 9.0 - 13.1 03/10 Specimen Type: BLOOD No comment entered. Ordering Provider: PERI GARVEY Report Released Date/Time: Mar 10, 2024 11:35 AM Reporting Lab: [place] [address] Performing Lab: [address] CBC/PLT ERYTHROCYTE DISTRIBUTIO N WIDTH [ENTITIC VOLUME] BY AUTOMATED COUNT 15.7 11.0 - 16.0 03/10 Specimen Type: BLOOD No comment entered. Ordering Provider: PERI GARVEY Report Released Date/Time: Mar 10, 2024 11:35 AM Reporting Lab: [address] [address] Performing Lab: [address] [address] [facility] CBC/PLT NUCLEATED ERYTHROCYTE S/100 ERYTHROCYTE S IN BLOOD 0.0 0.0 - 0.0 03/10 Specimen Type: BLOOD No comment entered. Ordering Provider: PERI GARVEY Report Released Date/Time: Mar 10, 2024 11:35 AM Reporting Lab: [address] [address] Performing Lab: [address] [address] [facility] PANEL 5 CREATININE [MASS/VOLUM E] IN [...] 2024 11:35 AM Reporting Lab: [facility] [address] [address] Performing Lab: [facility] [address] [address] [facility] PANEL 5 UREA NITROGEN [MASS/VOLUM E] [...] 2024 11:35 AM Reporting Lab: [facility] [address] [address] Performing Lab: [facility] [address] [address] [facility] PANEL 5 GLUCOSE [MASS/VOLUM E] IN [...] 2024 11:35 AM Reporting Lab: [facility] [address] [address] Performing Lab: [facility] [address] [address] [facility] PANEL 5 SODIUM [MOLES/VOLU ME] IN [...] 2024 11:35 AM Reporting Lab: [facility] [address] [address] Performing Lab: [facility] [address] [address] [facility] PANEL 5 POTASSIUM [MOLES/VOLU ME] IN [...] 2024 11:35 AM Reporting Lab: [facility] [address] [address] Performing Lab: [facility] [address] [address] [facility] PANEL 5 CHLORIDE [MOLES/VOLU ME] IN [...] 2024 11:35 AM Reporting Lab: [facility] [address] [address] Performing Lab: [facility] [address] [address] [facility] PANEL 5 CARBON DIOXIDE, TOTAL [MOLES/VOLU [...] 2024 11:35 AM Reporting Lab: [facility] [address] [facility] [address] Performing Lab: [facility] [address] [facility] [address] [address] [facility] PANEL 5 CALCIUM [MASS/VOLUM E] IN [...] 2024 11:35 AM Reporting Lab: [facility] [address] [address] Performing Lab: [facility] [address] [address] [facility] PANEL 5 PROTEIN [MASS/VOLUM E] IN [...] 10, 2024 11:35 AM Reporting Lab: [facility] [facility] [address] [address] Performing Lab: [facility] [address] [place] [address] [facility] PANEL 5 ALBUMIN [MASS/VOLUM E] IN [...] 2024 11:35 AM Reporting Lab: [facility] [address] [address] Performing Lab: [facility] [address] [address] [facility] PANEL 5 BILIRUBIN.T OTAL [MASS/VOLUM E] [...] 2024 11:35 AM Reporting Lab: [facility] [address] [address] Performing Lab: [facility] [address] [address] [facility] PANEL 5 ASPARTATE AMINOTRANSF ERASE [ENZYMATIC [...] 2024 11:35 AM Reporting Lab: [facility] [address] [address] Performing Lab: [facility] [address] [address] [facility] PANEL 5 ALANINE AMINOTRANSF ERASE [ENZYMATIC [...] 2024 11:35 AM Reporting Lab: [facility] [address] [address] Performing Lab: [facility] [address] [address] [facility] PANEL 5 ANION GAP 3 IN [...] 2024 11:35 AM Reporting Lab: [facility] [address] [address] Performing Lab: [facility] [address] [address] [facility] PANEL 5 ALKALINE PHOSPHATASE [ENZYMATIC ACTIVITY/VO [...] 2024 11:35 AM Reporting Lab: [facility] [address] [address] Performing Lab: [facility] [address] [address] [facility] PANEL 5 GLOMERULAR FILTRATION RATE/1.73 SQ [...] Mar 10, 2024 11:35 AM Reporting Lab: [address] [address] Performing Lab: [address] [address] [facility] 25-OH VITAMIN D 25-HYDROXYV ITAMIN D3 [...] Mar 10, 2024 11:35 AM Reporting Lab: [address] [address] Performing Lab: [address] [address] [facility] B12 VITAMIN COBALAMIN (VITAMIN B12) [MASS/VOLUM [...] 2024 11:35 AM Reporting Lab: [facility] [address] [address] Performing Lab: [facility] [address] [address] [facility] TSH THYROTROPIN [UNITS/VOLU ME] IN SERUM [...] 2024 11:35 AM Reporting Lab: [facility] [address] [address] Performing Lab: [facility] [address] [address] [facility] Vital Signs Combined list of inpatient and outpatient Vital Signs from Department of Defense and Veterans Affairs, ranging from 12 months to all on record, depending upon the facility. Vital Sign Value Date Comments Source SYSTOLIC BLOOD PRESSURE 153 03/10/2024 10:44:04 [facility] DIASTOLIC BLOOD PRESSURE 83 03/10/2024 10:44:04 [facility] PULSE OXIMETRY 95 03/10/2024 10:44:04 Eleanor [facility]RRUTIA [facility] WEIGHT 218 03/10/2024 10:44:04 FRAN TILLMAN [facility] BMI 30 kg/m2 03/10/2024 10:44:04 FRAN [facility] PAIN 5 03/10/2024 10:44:04 FRAN T[facility] TEMPERATURE 97.7 03/10/2024 10:44:04 IGOR CADENA [facility] PULSE 69 03/10/2024 10:44:04 [facility] Encounters Combined list of: 1) Encounters from Department of [facility] facilities going backup to the last 18 months, not all [place] inpatient encounters are included; 2) Encounters from the Department of [facility] facilities going backup to 280 months. Location Location Details Encounter Type Encounter Number Reason For Visit Attending Provider ADM Date DC Date Status Disposition Source [facility] Outpatient Encounter [id number] 01/31 [place] [facility] Outpatient Encounter [id number] 03/02 [place] [facility] Outpatient Encounter [id number] 03/02 [place] [facility] Outpatient Encounter [id number] 03[facility]30 MIN [id number] Diagnos is: ICD-10- CM Z65.9 Problem related to unspeci fied psychos ocial circums SHAWNA Bills 03/08 [place] [facility] OFFICE O/P NEW MOD 45 MIN [id number] Diagnos is: ICD-10- CM R41.81 Age-rel ated cogniti ve decline COMER,PERI Reaves 03/10 [place] [facility] CASE MANAGEMENT [id number] Diagnos is: ICD-10- CM Z65.9 Problem related to unspeci fied psychos ocial circums SHAWNA Bills 03/10 [place] [facility] HC PRO PHONE CALL 5-10 MIN [id number] Diagnos is: ICD-10- CM Z71.89 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 Social History Type Response Date Comment Sour e Tobacco smoking status NHIS [place]-TO[place]ACCO FORMER USER 03/10/2024 [facility] History of tobacco use [place]-TOBACCO QUIT 15 YRS OR MORE 03/10/2024 [facility] History of tobacco use V9 QUIT TOBACCO >7 YEARS AGO 01/12/2018 [facility] History of tobacco use V9 QUIT TOBACCO >7 YEARS AGO 04/21/2016 [facility] History of tobacco use V9 QUIT TOBACCO >7 YEARS AGO 05/24/2014 [facility] History of tobacco use V9 QUIT TOBACCO >7 YEARS AGO 05/03/2013 [facility] History of tobacco use V9 QUIT TOBACCO >7 YEARS AGO 02/11/2012 [facility] History of tobacco use V9 QUIT TOBACCO >7 YEARS AGO 01/22/2011 [facility]
[2025-01-15] VITALS (8 sets, daily range): BP systolic 141–160; BP diastolic 65–93; PULSE 71–145; RESP 13–19; TEMP 36.7; O2SAT 94–97; BMI 34.2
--- OUTSIDE RECORDS SUMMARY | 2025-01-15 13:36 | XMS_ITS | Clinical Summary ---
Author Organization Healthcare Address [address] [place] [address] Care Team Providers Care Ec Teacher Name Role Phone Rakesh Jones MD Primary Care Provider [phone] Social History Tobacco Use Types Packs/Day Years [...] of Treatment Not on file Care Teams Ec Teacher Relationship Specialty Start Date End Date Rakesh Jones MD [address] [place] [id number] PCP - General 10/05/20
--- NOTE | 2025-01-15 13:43 | PC.NURSE ---
Patients FSBS is 98
--- NOTE | 2025-01-15 13:46 | HMH.EDGENADL ---
Discharge Plan Disposition Patient Disposition: Xfer Other Prescriptions Prescriptions: No Action tramadol 50 mg tablet 50 mg PO Q8H PRN (Reason: post op pain) Qty: 60 0RF escitalopram oxalate [Lexapro] 10 MG tablet 10 mg PO DAILY atorvastatin 40 mg tablet 40 mg PO DAILY Patient Comments: TAKE ONE TABLET BY MOUTH EVERY DAY donepezil [Aricept] 5 mg tablet 5 mg PO HS Patient Comments: TAKE ONE TABLET BY MOUTH EVERY DAY AT BEDTIME memantine 10 mg tablet 10 mg PO BID Patient Comments: TAKE ONE TABLET BY MOUTH TWICE DAILY cyanocobalamin (vitamin B-12) 1,000 mcg Tablet 1,000 mcg PO DAILY thiamine HCl (vitamin B1) 50 mg Tablet 50 mg PO DAILY nystatin 100,000 unit/gram ointment 1 applic TOPICAL BID Patient Comments: APPLY TOPICALLY TO THE AFFECTED AREA(S) TWICE DAILY FOR 14 DAYS aspirin 81 mg Tablet,Delayed Release (Dr/Ec) 81 mg PO BID Qty: 56 0RF pantoprazole 40 mg Tablet,Delayed Release (Dr/Ec) 40 mg PO HS Qty: 30 0RF docusate sodium 100 mg Capsule 100 mg PO BIDP PRN (Reason: CONSTIPATION) Qty: 0 0RF cyclobenzaprine 5 mg tablet 5 mg PO TID PRN (Reason: muscle spasm) Qty: 30 0RF Referrals Follow up/Referrals: Edmar Gibson MD [Primary Care Provider, Radiology] - See instructions Clinical Impressions Clinical Impression: Altered mental status, Renal failure, Obstructed, uropathy Stand Alone Forms Stand Alone Forms: Transfer Record - ED Instructions Patient Instructions: DI for Altered Mental Status Print Language Print Language: Sinhala Discharge ED Provider: Giselle Lorenzana General Adult HPI <Claudette Elena (ED), AUDITOR APPRAISER - Last Filed: 01/15/25 15:11> General Chief complaint: Altered Mental Status Stated complaint: surgery Jan 03,pain in left knee, spasms Time Seen by Provider: 01/15/25 13:30 Mode of Arrival: Ambulatory Source of Information: Patient, Spouse and Relative Description of Symptoms (Recalled from ER Triage Doc. by RN): PATIENT PRESENTS TO ED FOR ALTERED MENTAL STATUS, NEW INCONTINENCE, AND GENERALIZED MUSCLE SPASMS/JERKY MOVEMENTS THAT BEGAN THURSDAY. PT HAD LEFT KNEE REPLACEMENT ON 01/03. History of Present Illness HPI narrative: 79-year-old male presents to the ED with his brother and for altered mental status, new incontinence of stool and urine. Brother states that he wears a depends but he could tell them when he had to go. He has also been having generalized muscle spasms and jerking movements that started on Thursday. Family states that they have always been there but never been this bad. Patient had knee surgery by Dr. Rosario on the and has been doing therapy and doing well. He has been using a walker to do therapy and walk. Brother states that they have been taking care of the incision and it looks good. He had been placed on muscle relaxers after surgery but missed from a couple days but did take them this morning. He is drowsy today. He can tell you that we are in [place] and his name. Family did take him to Dr. Gibson's office this week and they did a urine and it was negative. He was given tamsulosin and that has helped his urine. He has not had a difficult time urinating since. Patient has had no fevers. No nausea, vomiting or diarrhea per family. They are just concerned about these muscle spasms that have worsened in the confusion with incontinence. Left knee is bruised and wrapped from the knee replacement. Patient does have history of hypertension, osteoarthritis of both knees, diabetes, hyperlipidemia, or CAD. Related Data Home Medications ?Medication ?Instructions ?Recorded ?Confirmed escitalopram oxalate 10 mg tablet 10 mg PO DAILY 10/21/20 01/03/25 (Lexapro) atorvastatin 40 mg tablet 40 mg PO DAILY 03/27/23 01/03/25 donepezil 5 mg tablet (Aricept) 5 mg PO HS 10/11/23 01/03/25 memantine 10 mg tablet 10 mg PO BID 10/11/23 01/03/25 cyanocobalamin (vitamin B-12) 1,000 mcg PO DAILY 10/12/23 01/03/25 1,000 mcg tablet thiamine HCl (vitamin B1) 50 mg 50 mg PO DAILY 10/12/23 01/03/25 tablet nystatin 100,000 unit/gram topical 1 applic topical BID rash 01/03/25 01/03/25 ointment Previous Rx's ?Medication ?Instructions ?Recorded aspirin 81 mg tablet,delayed 81 mg PO BID #56 tabs 01/04/25 release cyclobenzaprine 5 mg tablet 5 mg PO TID PRN muscle spasm #30 01/04/25 tabs docusate sodium 100 mg capsule 100 mg PO BIDP PRN CONSTIPATION #0 01/04/25 caps pantoprazole 40 mg tablet,delayed 40 mg PO HS #30 tabs 01/04/25 release tramadol 50 mg tablet 50 mg PO Q8H PRN post op pain #60 01/11/25 tabs Allergies Allergy/AdvReac Type Severity Reaction Status Date / Time No Known Allergies Allergy Verified 10/27/24 11:46 <iGselle Lorenzana MD - Last Filed: 01/15/25 15:48> History of Present Illness HPI narrative: 79-year-old male presents to the ED with his brother and for altered mental status, new incontinence of stool and urine. Brother states that he wears a depends but he could tell them when he had to go. He has also been having generalized muscle spasms and jerking movements that started on Thursday. Family states that they have always been there but never been this bad. Patient had knee surgery by Dr. Rosario on the and has been doing therapy and doing well. He has been using a walker to do therapy and walk. Brother states that they have been taking care of the incision and it looks good. He had been placed on muscle relaxers after surgery but missed from a couple days but did take them this morning. He is drowsy today. He can tell you that we are in [place] and his name. Family did take him to Dr. Gibson's office this week and they did a urine and it was negative. He was given tamsulosin and that has helped his urine. He has not had a difficult time urinating since. Patient has had no fevers. No nausea, vomiting or diarrhea per family. They are just concerned about these muscle spasms that have worsened in the confusion with incontinence. Left knee is bruised and wrapped from the knee replacement. Patient does have history of hypertension, osteoarthritis of both knees, diabetes, hyperlipidemia, or CAD. Patient had a Jenkins placed during operation and since then has had difficulty with retention. Was prescribed tamsulosin with some improvement PFSH <Claudette Elena (ED), AUDITOR APPRAISER - Last Filed: 01/15/25 15:11> PFS Disclaimer: The information contained in this section may have been updated after the patient was seen, as this information can be updated by other users. Medical History (Updated 01/15/25 @ 15:09 by Claudette Elena (ED), AUDITOR APPRAISER) Abdominal pain Chest pain GI bleed Carpal tunnel syndrome of right wrist Coronary atherosclerosis of [place] coronary artery Memory deficit HLD (hyperlipidemia) HTN (hypertension) CAD (coronary artery disease) Surgical History History of tooth extraction History of thumb surgery History of spinal surgery History of colonoscopy History of cholecystectomy Family History Father Family history of cancer Mother Family history of acute congestive heart failure Mother Family history of diabetes mellitus type II Social History Smoking Status: Unknown if ever smoked second hand exposure: No alcohol intake: never substance use type: denies use current occupational status: retired Travel in the last 8 weeks?: None household members: spouse housing: house current occupational exposures/hazards: No caffeine: No Have you lived/traveled outside [place] in past 30 days?: No Contact w/someone who lives/traveled outside US past 30 days?: No Exposure to someone with infectious disease in past 14 days?: No Do you have a fever (greater than 100.4 F or 38 C)?: No Have you tested positive for COVID-19?: No Exposed to someone with COVID-19 in past 14 days?: No Do you have a sore throat?: No Do you have a cough?: No Do you have any weakness?: No Do you have any diarrhea?: No Are you experiencing any unusual bleeding?: No Do you have any muscle aches/pain?: No Do you have any abdominal pain?: No Are you experiencing loss of taste or smell?: No Other Medical History Have you received the Flu Vaccine for this season: No Have you received the Pneumonia Vaccine: No <Claudette Elena (ED), AUDITOR APPRAISER - Last Filed: 01/15/25 15:11> ROS Obtained: Yes Systems reviewed as appropriate & no additional complaints except as documented Constitutional Constitutional: Reports as per HPI Physical Exam <Claudette Elena (ED), AUDITOR APPRAISER - Last Filed: 01/15/25 15:11> General General appearance: alert Head Head exam: normocephalic Eye Eye exam: Present PERRL and EOMI ENT ENT exam: Present normal oropharynx and mucous membranes moist Neck Neck exam: Present full ROM and trachea midline Respiratory Respiratory exam: Present normal lung sounds bilaterally Cardiovascular Cardiovascular exam: Present regular rate, normal rhythm, normal heart sounds, +S1 and +S2 Abdominal Exam Abdominal exam: Present soft and normal bowel sounds Extremities Exam Extremities exam: Present normal capillary refill and edema (Left knee with bruising from knee replacement) Neurological Exam Neurological exam: Present alert Skin Skin exam: Present warm, dry and intact <Giselle Lorenzana MD - Last Filed: 01/15/25 15:48> Abdominal Exam Abdominal exam: Present distention Neurological Exam Neurological exam: Present oriented X3 (Disoriented to place and time, knows name) and other (Myoclonic jerks) Medical Decision Making <Claudette Elena (ED), AUDITOR APPRAISER - Last Filed: 01/15/25 15:11> Medical Records Screening: Per USPSTF and CDC recommendations, given the prevalence of disease in our region, it is our hospital?s policy to screen for HIV and viral Hepatitis for all patients aged 18 and over and those with ongoing risk factors. Colt Inquiry Pt receiving controlled substance: No Colt was queried for this patient: No Vital Signs: 01/15/25 13:32 01/15/25 13:40 01/15/25 13:40 Temperature 98.0 F 98.0 F Temperature Source Oral Pulse Rate 145 H 80 Pulse Rate [Right] 80 Respiratory Rate 18 18 Blood Pressure 141/65 H 141/65 H Blood Pressure [Right Arm] 141/65 H Blood Pressure Mean [Right Arm] 90 02 Sat by Pulse Oximetry 94 L 96 96 Oxygen Delivery Method Room Air 01/15/25 14:00 Temperature Temperature Source Pulse Rate 71 Pulse Rate [Right] Respiratory Rate 17 Blood Pressure 152/69 H Blood Pressure [Right Arm] Blood Pressure Mean [Right Arm] 02 Sat by Pulse Oximetry 97 Oxygen Delivery Method Room Air Lab Data Lab Results 01/15/25 13:49: SARS-CoV-2 (PCR) Detected A, Influenza A Untype (PCR) Not detected, Influenza Type B (PCR) Not detected 01/15/25 13:50: WBC 8.6, RBC 3.51 L, Hgb 9.9 L, Hct 30.2 L, MCV 86.0, MCH 28.2, MCHC 32.8, RDW 14.5, Plt Count 270, MPV 9.8, Neut % (Auto) 79.6, Lymph % (Auto) 8.8 L, [place] % (Auto) 8.5, Eos % (Auto) 0.9, Baso % (Auto) 0.2, Neut # (Auto) 6.8, Lymph # (Auto) 0.8, [place] # (Auto) 0.7, Eos # (Auto) 0.1, Baso # (Auto) 0.0, Sodium 131 L, Potassium 6.0 H, Chloride 99, Carbon Dioxide 15 L, Anion Gap 23.0 H, BUN 123 H*, Creatinine 14.20 H, Estimated Creat Clear 6, Estimated GFR 3 L*, Est GFR ( Amer) 4 L*, Glucose 91, Lactate 0.6 L, Calcium 7.9 L, Phosphorus 8.2 H, Magnesium 2.0, Total Bilirubin 0.8, AST 44, ALT 23, Alkaline Phosphatase 108, Troponin I < 0.01, Total Protein 6.1 L, Albumin 3.3 L, Globulin 2.8, Albumin/Globulin Ratio 1.2, Lipase 103 01/15/25 14:59: VBG pH 7.37, VBG pCO2 54.6 H, VBG pO2 26.2 L, VBG HCO3 30.7 H, VBG Total CO2 32.4 H, VBG O2 Saturation 47.4 L, VBG Base Excess 5.4 H, VBG Lactic Acid 1.3 01/15/25 15:00: Urine Color Yellow, Urine Appearance Clear, Urine pH 6.0, Ur Specific [place] 1.010, Urine Protein 2+ A, Urine Glucose (UA) Negative, Urine Ketones Negative, Urine Blood 3+ A, Urine Nitrate Negative, Urine Bilirubin Negative, Urine Urobilinogen 0.2, Ur Leukocyte Esterase Trace 01/15/25 13:50 01/15/25 13:50 Orders (Tests/Meds): ED MEDICATIONS Generic Name Dose Route Start Last Admin Trade Name Freq PRN Reason Stop Dose Admin Dextrose/Water 250 mls @ 25 mls/hr 01/15/25 15:00 01/15/25 15:26 Dextrose 10% In Water 500ml IV 02/14/25 14:59 25 mls/hr .Q10H CARLOS ALBERTO Administration Discontinued Medications Generic Name Dose Route Start Last Admin Trade Name Noelle PRN Reason Stop Dose Admin Sodium Chloride 1,000 mls @ 999 mls/hr 01/15/25 13:43 01/15/25 15:14 Sod Chlor 0.9% 1000ml Bag IV 01/15/25 14:43 Infused .Q1H1M ONE Infusion Insulin Human Regular 5 unit 01/15/25 14:56 01/15/25 15:25 Insulin Human Regular 100 Units/Ml 10ml Vial IVP 01/15/25 14:57 5 unit ONCE ONE Administration ORDERS Category Date Time Status CBC [Complete Blood Count Auto Diff] Stat Lab 01/15/25 13:50 Completed Calcium, Ionized Stat Lab 01/15/25 13:50 Received Comprehensive Metabolic Panel Stat Lab 01/15/25 13:50 Completed Lactic Acid Stat Lab 01/15/25 13:50 Completed Lipase Stat Lab 01/15/25 13:50 Completed Magnesium Stat Lab 01/15/25 13:50 Completed Phosphorous Stat Lab 01/15/25 13:50 Completed Rapid PCR Covid and Flu A/B Stat Lab 01/15/25 13:49 Completed Trop I [Troponin I] Stat Lab 01/15/25 13:50 Completed Troponin I Q3H Lab 01/15/25 16:45 Ordered Troponin I Q3H Lab 01/15/25 19:45 Ordered Urinalysis and Microscopic Stat Lab 01/15/25 15:00 Results VBG [Venous Blood Gas] Stat RT 01/15/25 14:59 Completed Medical Decision Narrative: patient is a 79-year-old male presenting to the emergency department for evaluation of muscle spasms, confusion, new incontinence. Patient is hemodynamically stable and nontoxic-appearing upon arrival, afebrile. Differential diagnosis includes infection from surgery, decline, dementia, CVA, among others. Workup will be conducted with hematologic labs, specific imaging. Initial inventions include crystalloid bolus. Initial workup reviewed by ms hematologic labs are remarkable for elevated BUN at 123, creatinine of 14.2, GFR 3 whereas all of those were normal 11 days ago. His urine looks like straight blood. He has obstructive uropathy and will need emergent dialysis. We called and he was excepted to [address] [facility] [address] Lorenzana talked to [facility]. Patient is safe for transfer to . <Giselle Lorenzana MD - Last Filed: 01/15/25 15:48> Vital Signs: 01/15/25 13:32 01/15/25 13:40 01/15/25 13:40 Temperature 98.0 F 98.0 F Temperature Source Oral Pulse Rate 145 H 80 Pulse Rate [Right] 80 Respiratory Rate 18 18 Blood Pressure 141/65 H 141/65 H Blood Pressure [Right Arm] 141/65 H Blood Pressure Mean [Right Arm] 90 02 Sat by Pulse Oximetry 94 L 96 96 Oxygen Delivery Method Room Air 01/15/25 14:00 Temperature Temperature Source Pulse Rate 71 Pulse Rate [Right] Respiratory Rate 17 Blood Pressure 152/69 H Blood Pressure [Right Arm] Blood Pressure Mean [Right Arm] 02 Sat by Pulse Oximetry 97 Oxygen Delivery Method Room Air Lab Data Lab Results 01/15/25 13:49: SARS-CoV-2 (PCR) Detected A, Influenza A Untype (PCR) Not detected, Influenza Type B (PCR) Not detected 01/15/25 13:50: WBC 8.6, RBC 3.51 L, Hgb 9.9 L, Hct 30.2 L, MCV 86.0, MCH 28.2, MCHC 32.8, RDW 14.5, Plt Count 270, MPV 9.8, Neut % (Auto) 79.6, Lymph % (Auto) 8.8 L, [place] % (Auto) 8.5, Eos % (Auto) 0.9, Baso % (Auto) 0.2, Neut # (Auto) 6.8, Lymph # (Auto) 0.8, [place] # (Auto) 0.7, Eos # (Auto) 0.1, Baso # (Auto) 0.0, Sodium 131 L, Potassium 6.0 H, Chloride 99, Carbon Dioxide 15 L, Anion Gap 23.0 H, BUN 123 H*, Creatinine 14.20 H, Estimated Creat Clear 6, Estimated GFR 3 L*, Est GFR ( Amer) 4 L*, Glucose 91, Lactate 0.6 L, Calcium 7.9 L, Phosphorus 8.2 H, Magnesium 2.0, Total Bilirubin 0.8, AST 44, ALT 23, Alkaline Phosphatase 108, Troponin I < 0.01, Total Protein 6.1 L, Albumin 3.3 L, Globulin 2.8, Albumin/Globulin Ratio 1.2, Lipase 103 01/15/25 14:59: VBG pH 7.37, VBG pCO2 54.6 H, VBG pO2 26.2 L, VBG HCO3 30.7 H, VBG Total CO2 32.4 H, VBG O2 Saturation 47.4 L, VBG Base Excess 5.4 H, VBG Lactic Acid 1.3 01/15/25 15:00: Urine Color Yellow, Urine Appearance Clear, Urine pH 6.0, Ur Specific [place] 1.010, Urine Protein 2+ A, Urine Glucose (UA) Negative, Urine Ketones Negative, Urine Blood 3+ A, Urine Nitrate Negative, Urine Bilirubin Negative, Urine Urobilinogen 0.2, Ur Leukocyte Esterase Trace Orders (Tests/Meds): ED MEDICATIONS Generic Name Dose Route Start Last Admin Trade Name Freq PRN Reason Stop Dose Admin Dextrose/Water 250 mls @ 25 mls/hr 01/15/25 15:00 01/15/25 15:26 Dextrose 10% In Water 500ml IV 02/14/25 14:59 25 mls/hr .Q10H CARLOS ALBERTO Administration Discontinued Medications Generic Name Dose Route Start Last Admin Trade Name Freq PRN Reason Stop Dose Admin Sodium Chloride 1,000 mls @ 999 mls/hr 01/15/25 13:43 01/15/25 15:14 Sod Chlor 0.9% 1000ml Bag IV 01/15/25 14:43 Infused .Q1H1M ONE Infusion Insulin Human Regular 5 unit 01/15/25 14:56 01/15/25 15:25 Insulin Human Regular 100 Units/Ml 10ml Vial IVP 01/15/25 14:57 5 unit ONCE ONE Administration ORDERS Category Date Time Status CBC [Complete Blood Count Auto Diff] Stat Lab 01/15/25 13:50 Completed Calcium, Ionized Stat Lab 01/15/25 13:50 Received Comprehensive Metabolic Panel Stat Lab 01/15/25 13:50 Completed Lactic Acid Stat Lab 01/15/25 13:50 Completed Lipase Stat Lab 01/15/25 13:50 Completed Magnesium Stat Lab 01/15/25 13:50 Completed Phosphorous Stat Lab 01/15/25 13:50 Completed Rapid PCR Covid and Flu A/B Stat Lab 01/15/25 13:49 Completed Trop I [Troponin I] Stat Lab 01/15/25 13:50 Completed Troponin I Q3H Lab 01/15/25 16:45 Ordered Troponin I Q3H Lab 01/15/25 19:45 Ordered Urinalysis and Microscopic Stat Lab 01/15/25 15:00 Results VBG [Venous Blood Gas] Stat RT 01/15/25 14:59 Completed Medical Decision Narrative: patient is a 79-year-old male presenting to the emergency department for evaluation of muscle spasms, confusion, new incontinence. Patient is hemodynamically stable and nontoxic-appearing upon arrival, afebrile and saturating appropriately on room air. differential diagnosis includes sepsis, intracranial pathology including normal pressure hydrocephalus, stroke, electrolyte derangement including hypokalemia among others. POCUS concerning for acute urinary retention with estimated greater than 1 L in the bladder. Concerned that patient has post obstructive kidney injury as initial workup including CBC CMP troponin and lactate concerning for BUN of 123, creatinine of 14, K of 6. EKG without peaked T waves diminished P waves or widened QRS complex. Patient was given 5 units of IV insulin with 250 cc bolus of D10 and crystalloid bolus. Jenkins anchored with greater than 1500 of hematuria draining from bladder. Considered CT imaging of head chest and abdomen for other etiologies of patient's altered mental status however history and physical exam is most consistent with uremic encephalopathy secondary to acute renal failure. Patient requires dialysis emergently. I had an interactive conversation with Dr. Mcgill who accepted patient to ED for evaluation in the emergency department for emergent dialysis. He has obstructive uropathy and will need emergent dialysis. Critical Care <Giselle Lorenzana MD - Last Filed: 01/15/25 15:48> Critical Care Time Critical Care Time: Yes Attestation: On 01/15/25, the high probability of a clinically significant, sudden or life threatening deterioration of the following system(s) required my full and direct attention, intervention and personal management. The time I documented below is in addition to time spent performing reported procedures but includes the following listed in this critical care notation. Total Time Total Critical Care Time: 35
--- NOTE | 2025-01-15 13:47 | ECG_ITS ---
APPROVED REPORT Exam: Resting ECG HR:71 bpm ECG Measurements Heart Rate 71 AXES [place] 205 P 42 QRSd 92 QRS 15 QT 374 T 11 QTc 397 Conclusion SINUS RHYTHM NORMAL ECG UNCONFIRMED REPORT Electronically signed by : ROSANNA MILAN, 01/16/2025 23:20:25
[2025-01-15 13:51] LABS: Influenza A, PCR Not Detected (NotDetected); Influenza B, PCR Not Detected (NotDetected)
[2025-01-15 14:02] LABS: Hematocrit 30.2 % (42.0-52.0); Hemoglobin 9.9 g/dL (14.1-18.0); Immature Granulocytes % 2.0 %; Mean Corpuscular HGB Conc 32.8 g/dL (31.8-35.4); Mean Corpuscular Hemoglobin 28.2 pg (27.0-31.2); Mean Corpuscular Volume 86.0 fl (80-94); Nucleated Red Blood Cells % 0 %; Platelet Count 270 K/mm3 (142-424); Red Blood Count 3.51 M/mm3 (4.60-6.20); Red Cell Distribution Width-SD 45.1 fL; White Blood Count 8.6 K/mm3 (4.8-10.8)
[2025-01-15] MEDS: 0.9 % SODIUM CHLORIDE 1000ML 1,000 ML 999 ML IV (14:03)
[2025-01-15 14:11] LABS: Alanine Aminotransferase 23 U/L (12-78); Aspartate Amino Transferase 44 U/L (17-59); Carbon Dioxide 15 mmol/L (22.0-30.0)
[2025-01-15 14:12] LABS: Alkaline Phosphatase 108 U/L (38-126); Bilirubin,Total 0.8 mg/dl (0.2-1.3); Calcium 7.9 mg/dl (8.4-10.2); Glucose 91 mg/dl (74-100); Lipase 103 U/L (23-300); Total Protein,Serum 6.1 g/dl (6.3-8.2)
[2025-01-15 14:21] LABS: Coronavirus 19, PCR Detected (NotDetected)
[2025-01-15 14:24] LABS: Troponin I < 0.01 ng/ml (0.00-0.034)
[2025-01-15 14:25] LABS: Creatinine Clearance Estimated 6 mL/min (50-200); Estimated Glomerular Filt Rate 3 ml/min (>60); GFR (African American) 4 ML/MIN (>60)
[2025-01-15 14:29] LABS: Blood Urea Nitrogen 123 mg/dl (9-20); Potassium 6.0 mmoL/L (3.5-5.1)
[2025-01-15 14:30] LABS: Anion Gap 23.0 mEq/L (5-15); Chloride 99 mmol/L (98-107); Creatinine,Serum 14.20 mg/dl (0.66-1.25); Sodium 131 mmol/L (136-145)
[2025-01-15 14:34] LABS: Albumin Level 3.3 g/dl (3.5-5.0); Albumin/Globulin Ratio 1.2 (1.1-1.8); Globulin 2.8 g/dL (1.3-3.2)
[2025-01-15 14:38] LABS: Magnesium 2.0 mg/dl (1.6-2.3)
--- NOTE | 2025-01-15 14:47 | PC.NURSE ---
Called [facility] for a patient transfer per Dr. Lorenzana and they said that they will call back as soon as the transfer doctor can talk.
[2025-01-15 15:15] LABS: Microscopic, Urine URINE MICROSCOPIC (MICROSCOPIC)
[2025-01-15 15:18] LABS: Phosphorous 8.2 mg/dl (2.5-4.5)
[2025-01-15 15:18] LABS: Lactate Venous 1.3 mmol/L (0.4-2.0); VBG HCO3 30.7 mmol/L (23-30); VBG PCO2 54.6 mmol/L (35-51); VBG PH 7.37 mmol/L (7.31-7.41); VBG PO2 26.2 mmol/L (28-40)
[2025-01-15 15:23] LABS: Bilirubin,Urine Negative (Negative); Color,Urine YELLOW (Yellow); Glucose,Urine (UA) Negative (Negative); Ketones,Urine Negative (Negative); Leukocyte Esterase,Urine TRACE (Negative); PH,Urine 6.0 (5.0-8.5); Protein,Urine 2+ (Negative); Specific Gravity, Urine 1.010 (1.005-1.030); Urobilinogen,Urine 0.2 EU/dl (0.2)
[2025-01-15] MEDS: INSULIN HUMAN REGULAR 100 UNITS/ML 10ML VIAL 5 UNIT IVP (15:25)
[2025-01-15] MEDS: DEXTROSE 10 % IN WATER 250 ML 25 ML IV (15:26)
[2025-01-15 15:41] LABS: RBC,Urine 50-100 #/hpf (0-3); WBC,Urine Occasional #/hpf (0-3)
[2025-01-17 15:23] LABS: Calcium, Ionized 4.2 mg/dL (4.5-5.6)
== END 2025-01-15 16:51 | disposition other institution (70) ==
PROVIDERS: Nurse Practitioner; Emergency Provider Student in an Organized Health Care Education/Training Program; PCP Radiology Diagnostic Radiology
DX: U07.1 COVID-19 (principal); N13.9 Obstructive and reflux uropathy, unspecified; G93.49 Other encephalopathy; N19 Unspecified kidney failure; M62.838 Other muscle spasm; R53.1 Weakness
CPT/HCPCS: 51702; 80053; 81001; 82330; 82803; 83605; 83690; 83735; 84100; 84484; 85025; 87636; 93005; 96360; 96365; 96366; 99285; 99291; J7030

== ENCOUNTER 2025-01-30 08:59 | Outpatient (CLI) | payer MEDICARE, OTHER, SELFPAY ==
--- OUTSIDE RECORDS SUMMARY | 2025-01-15 17:16 | XMS_ITS | Encounter Summary ---
Author Organization Healthcare Address [address] [id number] Care Team Providers Care Car Washer Name Role Phone Rakesh Jones MD Primary Care Provider [phone] Reason for Referral * Consultation (Routine) - Authorized Specialty Diagnoses / Procedures Referred By Lorena son Referred To Contact Urology Diagnoses Urinary retention Meaghan Olivier MD [address] [place] [address] Phone: tel: fax: [facility] [address], [address] [place] [address] Phone: tel: fax: Referral ID Status Reason Start Date Expiration Date Visits Requested Visits Authorized [id number] Authorized Specialty Services Required 01/19/2025 07/21/2026 1 1 Scheduling Instructions Urinary retention with chronic catheter Reason for Visit * Reason Comments Abnormal Potassium Altered Mental Status * Auth/Cert (Routine) Specialty Diagnoses / Procedures Referred By Lorena son Referred To Contact Diagnoses Acute encephalopathy Renal failure Solo Melo MD [address] [place] [address] Phone: tel: fax: [facility] [address] [place] [address] Phone: tel: Referral ID Status Reason Start Date Expiration Date Visits Re quested Visits Authorized [id number] 1 1 Encounter Details Date Type Department Care Team (Latest Contact Info) Description 01/15/2025 5:16 PM EDT - 01/19/2025 4:16 PM EDT Hospital Encounter [facility] In[facility] [address] [place] [id number] Gunnar Gong MD [address] [place] [address] Solo Melo MD [address] [place] [address] Marlene Mcdaniels DO [address] [place] [address] Meaghan Olivier MD [address] [place] [address] Acute encephalopathy (Primary Dx); Postobstructive diuresis; Acute renal failure, unspecified acute renal failure type (CMS/HCC); Urinary retention Discharge Disposition: Rehab Facility Social History Tobacco Use Types Packs/Day Years Used Date Smoking Tobacco: Never Humiliation, Afraid, Rape, a nd Kick questionnaire Answer Date Recorded Within the last year, have y ou been afraid of your partner or ex-partner? Patient unable to answer 01/16/2025 Within the last year, have y ou been humiliated or emotionally abused in other ways by your partner or ex-partner? Patient unable to answer 01/16/2025 Within the last year, have y ou been kicked, hit, slapped, or otherwise physically hurt by your partner or ex-partner? Patient unable to answer 01/16/2025 Within the last year, have y ou been raped or forced to have any kind of sexual activity by your partner or ex-partner? Patient unable to answer 01/16/2025 Hunger Vital Sign Answer Date Recorded Within the past 12 months, y ou worried that your food would run out before you got the money to buy more. Never true 01/17/20 Within the past 12 months, t he food you bought just didn't last and you didn't have money to get more. Never true 01/16/2025 PRAPARE - Transportation Answer Date Re corded In the past 12 months, has l ack of transportation kept you from medical appointments or from getting medications? No 12/24 In the past 12 months, has l ack of transportation kept you from meetings, work, or from getting things needed for daily living? No 01/16/2025 Housing Stability Vital Sign Answer Asher e Recorded In the last 12 months, was t here a time when you were not able to pay the mortgage or rent on time? No 01/16/2025 In the past 12 months, how m any times have you moved where you were living? 0 01/16/2025 At any time in the past 12 m ont, were you homeless or living in a skilled nursing (including now)? No 01/16/2025 Utilities Answer Date Recorded In the past 12 months has th e electric, gas, oil, or water company threatened to shut off services in your home? No 01/16/2025 Sex and Gender Information Value Date Recorded Sex Assigned at Not on file Legal Sex Male 6:28 PM EDT Gender Identity Not on file Sexual Orientation Not on file documented as of this encounter Last Filed Vital Signs Vital Sign Reading Time Taken Comments Blood Pressure 143/80 01/19/2025 11:23 AM EDT Pulse 64 01/19/2025 11:23 AM EDT Temperature 36.7 C (98.1 F) 01/19/2025 11:23 AM EDT Respiratory Rate 20 01/19/2025 11:23 AM EDT Oxygen Saturation 95% 01/19/2025 11:23 AM EDT Inhaled Oxygen Concentration - - Weight 85.5 kg (188 lb 7.9 oz) 01/16/2025 3:27 P M EDT Height 177.8 cm (5' 10 ) 01/16/2025 3:27 PM EDT Body Mass Index 27.05 01/16/2025 3:27 PM EDT documented in this encounter Functional Status * Calculated C-SSRS Risk Score (Lifetime/Recent) Answer Date of Assessment Author No Risk Indicated 01/19/2025 8:00 AM EDT Pennie Sterling, RN * Question Answer Date of Assessment Author 1. Wish to be (Past 1 Month) No 025 8:00 AM EDT Pennie Sterling, RN 2. Non-Specific Active Suici ramona Thoughts (Past 1 Month) No 01/19/2025 8:00 AM EDT Diann Sterling RN 6. Suicidal Behavior (Lifetime) No 8:00 AM EDT Pennie Sterling RN documented as of this encounter Medications at Time of Discharge ASPIRIN 81 MG chewable tablet Chew 1 tablet daily. atorvastatin (Lipitor) 40 MG tablet Take 1 tablet by mouth daily. cyclobenzaprine (Flexeril) 10 MG tablet Take 1 tablet by mouth 3 times a day as needed for muscle spasms. donepezil (Aricept) 5 MG tablet Take 1 tablet by mouth nightly. escitalopram (Lexapro) 10 MG tablet Take 1 tablet by mouth daily. finasteride (Proscar) 5 MG tablet Take 1 tablet by mouth daily. Do not crush, chew, or split. 01/20/2025 memantine (Namenda) 10 MG tablet Take 1 tablet by mouth 2 times a day. nystatin (Mycostatin) cream Apply 1 Application topically 2 times a day. pantoprazole (Protonix) 40 MG EC tablet Take 1 tablet by mouth nightly. Do not crush, chew, or split. tamsulosin (Flomax) 0.4 MG 24 hr capsule Take 1 capsule by mouth daily. documented as of this encounter Miscellaneous Notes * Query Clarification Note - Meaghan Olivier MD - 01/19/2025 4:16 PM EDT Physician Clarification Please review the following and provide your response below. If possible, please review lab values below to identify a diagnosis that accounts for the abnormal lab values being monitored and evaluated. [x]Anemia []Other, Please specify []Lab values without clinical significance This documentation will become part of the patient's medical record. * Discharge Summary - Meaghan Olivier MD - 01/19/2025 12:44 PM EDT Hospitalization Admit Date/Time: 01/15/2025 5:16 PM Admitting Attending: Solo Melo Discharge Date: 01/19/25 Discharge Attending Physician: Meaghan Olivier MD PCP name and Address: Rakesh Jones MD [address] / [place] [address] Referring provider name and address: Claudette Elena, CAREER DEVELOPMENT SPECIALIST [address] [place] [address] Chief Concern, Brief History of Present Illness, and Hospital Course Chief concern: acute urinary retention Brief HPI: As per Dr. Kim's H&P on 01/15, 'Cole Walters is a 79 y.o. year-old male who past medical history of left knee arthroplasty, HTN, CAD, GERD, HLD, Depression, Generalized anxiety, Age- related cognitive decline,DM 2 who presents to [facility] on 01/15/2025 from [facility] for management of severe acute kidney injury, hyperkalemia and acute urinary retention concern for emergent dialysis. HPI is complicated by AMS, transferred records with limited information, lack of success getting family on phone. Hence obtained from chart review.Patient underwent left Knee replacement January 03 at [facility] by Dr. Rosario complicated by postoperative urine retention. Reportedly, Cardenas catheter was removed prior to discharge to follow-up with Urology. Unknown whether patient was having urine output at home, given limited information at the time of HPI. He presented to an outside hospital with altered mental status, and was found to have creatinine of 14, BUN markedly elevated, potassium of 6.0. Covid positive, Bedside ultrasound reportedly showed bilateral hydronephrosis with 1000 ml urine in the bladder. He was given 2 L of normal saline at outside hospital, as well as one time treatment for hyperkalemia, Cardenas was placed and 5.5L urine output noted. He was transferred to for further evaluation for urgent dialysis. In the ED, patient is afebrile, GCSof 14, oriented to self with occasional myoclonic jerks, hemodynamically stable, but requiring 2L NC. Initial labs shows VBG shows a mild metabolic acidosis with a pH 7.29, CO2 37, bicarb 17.8. creatinine of 10.04, Potassium is 5.1. A repeat BMP demonstrated spontaneous improvement with normalization of potassium, K: 4.8, improvement in creatinine sCr: 7.09 (H), M.0, CT head reportedly shows no acute pathology. CXR shows Hypoventilation without other acute radiographic abnormality. Urine output in the ED, demonstrating post-obstructive diuresis, with >7 L total output since Cardenas placement in the OSH. ' Hospital course: The patient was admitted to and started on remdesivir and dexamethasone for symptomatic COVID infection complicated by acute hypoxic respiratory failure. A renal ultrasound was obtained showing noevidence of hydronephrosis, albeit a fairly limited study given motion artifact. The following day his mental status was greatly improved and renal function as well as electrolytes had normalized. His tamsulosin was restarted inpatient and a voiding trial was attempted. This was unfortunately unsuccessful leading to anchoring of a cardenas catheter. Urology was consulted the following day and recommended addition of finasteride, with three full days of therapy prior to a repeat voiding trial. Theywere amenable that this be done outpatient or at rehab. PT/OT was consulted and recommended acute rehabilitation based on recent operative intervention and medical decompensation thereafter with urinary retention and subsequent MITZY. [facility] accepted the patient for acute rehabilitation. On the morning of discharge, he was alert and oriented, interactive, with minimal abdominal pain and cardenas draining clear yellow urine. He was able to be weaned off oxygen to RA such that steroids were discontinued at discharge. IT was recommended that the rehab facility attempt a voiding trial on 01/21, after 3 full days of tamsulosin and finasteride pharmacotherapy. If unsuccessful, patient was to follow-up with urology at his institution of choice (, [place], outside). A referral was placed to urology on discharge. 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 aspirin 81 MG chewable tablet Chew 1 tablet daily. atorvastatin 40 MG tablet Commonly known as: Lipitor Take 1 tablet by mouth daily. cyclobenzaprine 10 MG tablet Commonly known as: Flexeril Take 1 tablet by mouth 3 times a day as needed for muscle spasms. donepezil 5 MG tablet Commonly known as: Aricept Take 1 tablet by mouth nightly. escitalopram 10 MG tablet Commonly known as: Lexapro Take 1 tablet by mouth daily. memantine 10 MG tablet Commonly known as: Namenda Take 1 tablet by mouth 2 times a day. nystatin cream Commonly known as: Mycostatin Apply 1 Application topically 2 times a day. pantoprazole 40 MG EC tablet Commonly known as: Protonix Take 1 tablet by mouth nightly. Do not crush, chew, or split. tamsulosin 0.4 MG 24 hr capsule Commonly known as: Flomax Take 1 capsule by mouth daily. Discharge Diagnosis Medical Problems Active and Resolved Hospital Problems Hospital * (Principal) Acute encephalopathy Coronary artery disease Depression Hypertension Obesity Type 2 diabetes mellitus Hyperlipidemia Hyperkalemia MITZY (acute kidney injury) (CMS/HCC) Hydronephrosis Post Discharge Instructions Voiding trial on 01/21 If fails, needs urology FU OP If worsening AP, hematuria, dysuria, retention, confusion, fevers, return to ED Outpatient Follow-Up No future appointments. Test Results Pending At Discharge Pending Labs Order Current Status Blood Culture (Aerobic/Anaerobet Set) Preliminary result Blood Culture (Aerobic/Anaerobet Set) Preliminary result Pertinent Physical Exam At Time of Discharge Physical Exam Vitals reviewed. Constitutional: Appearance: Normal appearance. HENT: Head: Normocephalic and atraumatic. Mouth/Throat: Mouth: Mucous membranes are moist. Eyes: Extraocular Movements: Extraocular movements intact. Cardiovascular: Rate and Rhythm: Normal rate and regular rhythm. Pulses: Normal pulses. Heart sounds: Normal heart sounds. Pulmonary: Effort: Pulmonary effort is normal. Breath sounds: Normal breath sounds. Abdominal: General: Abdomen is flat. Palpations: Abdomen is soft. Comments: Mild RLQ TTP Genitourinary: Comments: Cardenas draining clear yellow urine Musculoskeletal: General: Normal range of motion. Cervical back: Normal range of motion. Comments: L knee anterior scarring w/o erythema Skin: General: Skin is warm. Neurological: General: No focal deficit present. Mental Status: He is alert. Psychiatric: Mood and Affect: Mood normal. Behavior: Behavior normal. Discharge Disposition/Condition Disposition: [facility] Condition: Stable (s/sx potential problems absent or manageable) I spent >30 minutes of patient care and instruction time in preparation for this discharge. * Care Plan - Pennie Sterling RN - 01/19/2025 11:00 AM EDT Problem: Skin Injury Risk Increased Goal: Skin Health and Integrity Outcome: Ongoing, Progressing Problem: Adult Inpatient Plan of Care Goal: Plan of Care Review Outcome: Ongoing, Progressing Flowsheets (Taken 01/19/2025 105) Progress: no change Plan of Care Reviewed With: patient Goal: Patient-Specific Goal (Individualized) Outcome: Ongoing, Progressing Flowsheets (Taken 01/19/2025 0800) Patient/Family-Specific Goals (Include Timeframe): patient will remain free from injury/falls during the shift Individualized Care Needs: safety Anxieties, Fears or Concerns: none Goal: Absence of Hospital-Acquired Illness or Injury Outcome: Ongoing, Progressing Intervention: Identify and Manage Fall Risk Flowsheets (Taken 01/19/2025 105) Safety Promotion/Fall Prevention: activity supervised assistive device/personal items within reach clutter-free environment maintained fall prevention program maintained lighting adjusted nonskid shoes/slippers when out of bed room organization consistent safety round/check completed toileting scheduled Intervention: Prevent Skin Injury Flowsheets (Taken 01/19/2025 105) Body Position: turned Skin Protection: incontinence pads utilized skin sealant/moisture barrier applied Intervention: Prevent and Manage VTE (Venous Thromboembolism) Risk Flowsheets (Taken 01/19/2025 105) VTE Prevention/Management: bilateral SCDs (sequential compression devices) on Intervention: Prevent Infection Flowsheets (Taken 01/19/2025 105) Infection Prevention: environmental surveillance performed equipment surfaces disinfected hand hygiene promoted personal protective equipment utilized single patient room provided visitors restricted/screened Goal: Optimal Comfort and Wellbeing Outcome: Ongoing, Progressing Intervention: Monitor Pain and Promote Comfort Flowsheets (Taken 01/19/2025 105) Pain Management Interventions: relaxation techniques promoted therapeutic touch therapeutic presence Intervention: Provide Person-Centered Care Flowsheets (Taken 01/19/2025 105) Trust Relationship/Rapport: care explained choices provided emotional support provided empathic listening provided questions answered questions encouraged reassurance provided thoughts/feelings acknowledged Problem: Infection Goal: Absence of Infection Signs and Symptoms Outcome: Ongoing, Progressing Intervention: Prevent or Manage Infection Flowsheets (Taken 01/19/2025 1058) Fever Reduction/Comfort Measures: lightweight clothing lightweight bedding Isolation Precautions: precautions maintained airborne contact Problem: Fall Injury Risk Goal: Absence of Fall and Fall-Related Injury Outcome: Ongoing, Progressing Intervention: Identify and Manage Contributors Flowsheets (Taken 01/19/2025 1058) Medication Review/Management: medications reviewed Self-Care Promotion: independence encouraged Intervention: Promote Injury-Free Environment Flowsheets (Taken 01/19/2025 105) Safety Promotion/Fall Prevention: activity supervised assistive device/personal items within reach clutter-free environment maintained fall prevention program maintained lighting adjusted nonskid shoes/slippers when out of bed room organization consistent safety round/check completed toileting scheduled * Progress Notes - Misti Lopez RN - 01/19/2025 10:15 AM EDT Case Management Discharge Note Cole Walters 79 y.o. male CSN: [id number] Admission: 01/15/2025 5:16 PM Primary Problem: Acute encephalopathy Primary Electrician Master: Patient is going to [address] [address] where staff will assist with care needs. Assistance Available at Discharge: Current Outpatient/Agency/Support Group: clinic(s) Availability of Care Givers (#Hours): 24 hours (Staff at [address] [address]) Housing Circumstances-Z Codes: Housing Circumstances (select all that apply): None Applicable Patient Referred to Financial or Community Resources: No Community Referrals needed at this time. Discharge Facility/Level of Care Needs: Discharge Facility/Level of Care Needs: [facility]ilty ([address] [address]) Patient's Choice of Community Agency(s): Patient's Choice of Community Agency(s): [facility] Patient/Family Anticipated Services at Transition: Patient/Family Anticipated Services at Transition: rehabilitation services ([facility]) DME/Equipment Needed after Discharge: Equipment Currently Used at Home: walker, rolling, commode chair, shower chair Equipment Needed After Discharge: other (see comments) (per [facility]) Readmission Within the Last 30 Days: Readmission Within the Last 30 Days: no previous admission in last 30 days Medicare Documentation: Medicare Second Notice?: Yes Date Second Notice Completed: 01/19/25 Time Second Notice Completed: 1005 Medicare Second Notice Recieved By: patient in Covid isolation and confused. Discussed with onphone and provided with appeal information. Follow-up: No follow-up provider specified. Discharge Transportation: Transportation Anticipated: other (see comments) ([facility]) Transportation Home at Discharge: Other(Comment) (Discussed with DC lounge - patient can go to DC lounge with COVID isolation, but nurse will need to coordinate time to ensure there is someone there to monitor and stay with patient.) Has discharge transport been arranged?: Yes What day is the transport expected?: 01/19/25 What time is the transport expected?: 1600 Follow Up Transport: Transportation Needed to Follow up Appoinments: Other(Comment) ([facility]) Once home, patient's brother, friend or patient himself (if able) will transport to medical appointments. Additional Comments: POC and DC plan reviewed with care team. Patient was admitted on 01/15 with Acute encephaloptahy andrenal failure. Tested positive for COVID and in COVID isolation. Completed Remdesivir and on Dexamethasone. Failed voiding trial. Urology consulted. Saw patient and will follow up outpatient. Patientwill discharge with cardenas in place. Per MD, patient is medically ready for discharge. Acute Rehab: PT/OT recs for Acute rehab. Bed offer accepted at [facility]. Per gio Ruff, patient can come today to [facility] Unit. Number for report: [phone] DC Summary: [phone] Narcs: on DC Summary Transport: Patient in Covid isolation. Appropriate for [facility], but confused so will need someone with him at all times. Discussed with Discharge lounge. Able to accept, requested nurse coordinatecloser to discharge time to make sure there is an extra person in the DC lounge. Nurse notified. MD, , Nurse and Liaison ([facility]) notified of DC time. No other discharge needs communicated. CM will continue to follow. Misti Lopez RN * Care Plan - Jacy Alegria RN - 01/18/2025 10:19 PM EDT Problem: Adult Inpatient Plan of Care Goal: Patient-Specific Goal (Individualized) Outcome: Ongoing, Progressing Flowsheets (Taken 01/18/20251999) Patient/Family-Specific Goals (Include Timeframe): Patient will remain free from falls throughout the shift Individualized Care Needs: Safety Anxieties, Fears or Concerns: None Problem: Infection Goal: Absence of Infection Signs and Symptoms Outcome: Ongoing, Progressing Intervention: Prevent or Manage Infection Flowsheets (Taken 01/18/2025 2218) Infection Management: aseptic technique maintained Fever Reduction/Comfort Measures: lightweight bedding lightweight clothing Isolation Precautions: precautions maintained airborne contact Problem: Fall Injury Risk Goal: Absence of Fall and Fall-Related Injury Outcome: Ongoing, Progressing Intervention: Identify and Manage Contributors Flowsheets (Taken 01/18/2025 2218) Medication Review/Management: medications reviewed Self-Care Promotion: independence encouraged * Care Plan - Brijesh Rebollar Nagi - 01/18/2025 1:22 PM EDT Problem: Skin Injury Risk Increased Goal: Skin Health and Integrity Outcome: Ongoing, Progressing Intervention: Optimize Skin Protection Flowsheets (Taken 01/18/2025 1318) Activity Management: activity adjusted per tolerance activity encouraged education provided previous patient education reinforced Pressure Reduction Techniques: rest period provided between sit times Pressure Reduction Devices: feet on footrest/footstool positioning supports utilized heel offloading device utilized Skin Protection: skin sealant/moisture barrier applied protective footwear used pulse oximeter probe site changed Head of Bed (HOB) Positioning: HOB at 45 degrees HOB not elevated due to medical condition HOB not elevated per patient request Intervention: Promote and Optimize Oral Intake Flowsheets (Taken 01/18/20251317) Oral Nutrition Promotion: rest periods promoted Nutrition Interventions: meals from home/family encouraged meal set-up provided food preferences provided Problem: Adult Inpatient Plan of Care Goal: Plan of Care Review Outcome: Ongoing, Progressing Flowsheets (Taken 01/18/20251317) Progress: no change Outcome Evaluation: discussed care plan with patient Plan of Care Reviewed With: patient Goal: Patient-Specific Goal (Individualized) Outcome: Ongoing, Progressing Flowsheets (Taken 01/18/2025 1101) Patient/Family-Specific Goals (Include Timeframe): patient will have no injury this shift Individualized Care Needs: safety Anxieties, Fears or Concerns: none Goal: Absence of Hospital-Acquired Illness or Injury Outcome: Ongoing, Progressing Intervention: Identify and Manage Fall Risk Flowsheets (Taken 01/18/20251317) Safety Promotion/Fall Prevention: activity supervised assistive device/personal items within reach clutter-free environment maintained fall prevention program maintained lighting adjusted mobility aid in reach nonskid shoes/slippers when out of bed toileting scheduled safety round/check completed room organization consistent Intervention: Prevent Skin Injury Flowsheets (Taken 01/18/20251317) Body Position: turned left education provided weight shifting Skin Protection: skin sealant/moisture barrier applied protective footwear used pulse oximeter probe site changed Intervention: Prevent and Manage VTE (Venous Thromboembolism) Risk Flowsheets (Taken 01/18/20251317) VTE Prevention/Management: SCDs (sequential compression devices) off medication education provided previous patient education reinforced Intervention: Prevent Infection Flowsheets (Taken 01/18/20251317) Infection Prevention: environmental surveillance performed hand hygiene promoted rest/sleep promoted Goal: Optimal Comfort and Wellbeing Outcome: Ongoing, Progressing Intervention: Monitor Pain and Promote Comfort Flowsheets (Taken 01/18/20251317) Pain Management Interventions: medication (see MAR) relaxation techniques promoted rest quiet environment facilitated pillow support provided Intervention: Provide Person-Centered Care Flowsheets (Taken 01/18/20251317) Trust Relationship/Rapport: care explained choices provided emotional support provided empathic listening provided questions answered thoughts/feelings acknowledged reassurance provided questions encouraged Problem: Infection Goal: Absence of Infection Signs and Symptoms Outcome: Ongoing, Progressing Intervention: Prevent or Manage Infection Flowsheets (Taken 01/18/20251317) Fever Reduction/Comfort Measures: lightweight bedding lightweight clothing Isolation Precautions: airborne contact Problem: Fall Injury Risk Goal: Absence of Fall and Fall-Related Injury Outcome: Ongoing, Progressing Intervention: Identify and Manage Contributors Flowsheets (Taken 01/18/2025 1318) Medication Review/Management: medications reviewed Self-Care Promotion: independence encouraged Intervention: Promote Injury-Free Environment Flowsheets (Taken 01/18/2025 1318) Safety Promotion/Fall Prevention: activity supervised assistive device/personal items within reach clutter-free environment maintained fall prevention program maintained lighting adjusted mobility aid in reach nonskid shoes/slippers when out of bed toileting scheduled safety round/check completed room organization consistent * Progress Notes - Misti Lopez RN - 01/18/2025 12:13 PM EDT Case Management Adult Progress Note Cole Walters 79 y.o. male CSN: [id number] Admission: 01/15/2025 5:16 PM Primary Problem: Acute encephalopathy Anticipated Discharge Date: 01/19 Has Discharge Plans Changed? Acute Rehab Medically Ready for Discharge: Anticipated in 2-4 Days Additional Comments POC and DC plan reviewed with care team. Patient was admitted on 01/15 with Acute encephaloptahy andrenal failure. Tested positive for COVID and in COVID isolation. On Remdesivir and Dexamethasone. Failed voiding trial. Urology consulted. Saw patient this am and will follow up outpatient. Patient will discharge with cardenas in place. Per , patient is medically ready for discharge. PT/OT recs for Acute rehab. would like [facility]. Referral made and [facility] following. Notified [facility] today that patient is medically ready for discharge. Has Med A&B, will not need precerts. CM will continue to follow. Addendum: Per Cyrus at , there are no private rooms so unable to admit patient today. notified. Misti Lopez RN * Consults - Myrna Torres DO - 01/18/2025 10:09 AM EDTAssociated Order(s): Inpatient consult to Urology Inpatient consult to Urology Consult performed by: Myrna Torres DO Consult ordered by: Meaghan Olivier MD [facility] Urology Consult Note 01/18/25 Service Requesting Consultation: Hospital Medicine CC: urinary retention, failed void trial HPI: Cole Walters is a 79 y.o. male with PMH of CAD, T2DM, HTN, and depression who presented to ED from an OSH due to urinary retention, renal failure, and altered mental status. Pt underwent knee arthroscopy on 01/03 and had postop urinary retention. Cardenas was removed prior to discharge with plans to follow up with Urology. On 01/15 he then presented to OSH where he was shown to have 1L of urineon bladder scan, ultrasound showing bilateral hydronephrosis, and Cr of 14. A cardenas was placed with7L total urine output in OSH ED before being transferred here to where Cr had decreased to 10. Since admission, creatinine has normalized, mental status has significantly improved, and latest renal ultrasound shows no evidence of hydronephrosis. Cardenas catheter was removed yesterday with patient unable to void afterwards. Bladder scan last night showed over 800mL, in & out cath performed overnight. New bladder scan this AM shows 198. Pt denies discomfort or feeling of full bladder. He does not report any urinary symptoms currently, states he has not had issues with urination prior to knee arthroscopy and has never seen a urologist. Past Medical History: reviewed Past Medical History[1] Past Surgical History: reviewed Surgical History[2] Family History: reviewed Family History[3] Social History: reviewed Social History[4] Outpatient Medications: Current Outpatient Medications Medication Instructions aspirin (ASPIRIN) 81 mg, Oral, Daily atorvastatin (LIPITOR) 40 mg, Oral, Daily cyclobenzaprine (FLEXERIL) 10 mg, Oral, 3 times daily PRN donepezil (ARICEPT) 5 mg, Oral, Nightly escitalopram (LEXAPRO) 10 mg, Oral, Daily memantine (NAMENDA) 10 mg, Oral, 2 times daily nystatin (Mycostatin) cream 1 Application, Topical, 2 times daily pantoprazole (PROTONIX) 40 mg, Oral, Nightly, Do not crush, chew, or split. tamsulosin (FLOMAX) 0.4 mg, Oral, Daily ROS: Review of Systems Constitutional: Negative for chills and fever. Gastrointestinal: Negative for nausea and vomiting. Genitourinary: Positive for decreased urine volume and difficulty urinating. Negative for dysuria, flank pain, hematuria and urgency. PHYSICAL EXAM: Temp: [36.5 ??C (97.7 ??F)-37.1 ??C (98.7 ??F)] 36.5 ??C (97.7 ??F) Heart Rate: [70-92] 70 Resp: [10-19] 19 BP: (141-179)/(77-91) 153/77 SpO2: [84 %-95 %] 95 % GEN: NAD HEENT: NCAT, EOMI RESP: Equal bilateral chest rise, normal work of breathing CV: Regular rate, appears well perfused ABD: soft, non-tender, non-distended : deferred EXT: No gross deformities MSK: Full ROM in BL UE NEURO: No focal deficits, alert and oriented PSYCH: Normal mood and affect LABS: Results from last 7 days Lab Units 01/17/25 0233 WBC 10*3/uL 6.34 HEMOGLOBIN g/dL 11.7* HEMATOCRIT % 35.3* PLATELETS 10*3/uL 345 Results from last 7 days Lab Units 01/18/25 0126 SODIUM mmol/L 140 POTASSIUM mmol/L 3.8 CHLORIDE mmol/L 105 CO2 mmol/L 23 BUN mg/dL 13 CREATININE mg/dL 0.94 EGFR mL/min/1.73m*2 81.4 GLUCOSE mg/dL 96 CALCIUM mg/dL 8.0* Results from last 7 days Lab Units 01/15/25 1811 COLOR UA [place] SPEC GRAV U 1.013 PH UA 5.5 PROTEIN UR mg/dL Trace* GLUCOSE UA mg/dL Negative KETONES UA mg/dL Negative LEUKOCYTES UA Trace* NITRITE UA Negative RBC, URINE /HPF >50* WBC, URINE /HPF 0 - 5 SQUAMOUS /HPF 0 - 2 BACTERIA UR HPF Negative Imaging: I have personally reviewed the imaging below and included my personal interpretation: Renal US 01/16: no evidence of hydronephrosis on right or left Hospital Problem List: Principal Problem: Acute encephalopathy Active Problems: Coronary artery disease Depression Hypertension Obesity Type 2 diabetes mellitus Hyperlipidemia Hyperkalemia MITZY (acute kidney injury) (CMS/HCC) Hydronephrosis Assessment: Cole Walters is a 79 y.o. male with PMH of CAD, T2DM, HTN, and depression who presented to ED from an OSH due to urinary retention, renal failure, and altered mental status. Pt hasbeen admitted since 01/15 with significant improvement in renal function, mental status, and currently no evidence of hydronephrosis. Urology consulted due to failed void trial after removal of cardenas catheter. Most recent bladder scan shows 198mL this AM w/ no patient discomfort. After speaking withfamily, pt has seen Urologist in the past and been prescribed Flomax, though had been off for a fewdays with admission and restarted last night. Recommend continuing Flomax for at least 3 days priorto next attempt at void trial. Void trial can be performed at rehab facility. If patient fails nextvoid trial, can follow up with Urology outpatient as needed. Family will discuss whether they prefer to see prior Urologist, go to the [place], or been seen by Urology in [facility]. Plan: - No acute urologic intervention indicated at this time - re-anchor cardenas - continue Flomax for at least 72 before attempting another void trial - recommend initiating finasteride - Can attempt void trial at rehab when mobility increased - follow up with outpatient Urology as needed - Urology available for questions and concerns Myrna Torres DO General Surgery PGY 1 [1] Past Medical History: Diagnosis Date Coronary artery disease Depression Hyperlipidemia Hypertension Obesity Type 2 diabetes mellitus [2] No past surgical history on file. [3] No family history on file. [4] Social History Tobacco Use Smoking status: Never Cosigned by Rolando Gann MD at 01/18/2025 10:11 PM EDT Associated attestation - Rolando Gann MD - 01/18/2025 10:11 PM EDT I saw and evaluated the patient with the resident/fellow. I discussed the case with the resident/fellow and agree with the findings and plan as documented. * Progress Notes - Meaghan Olivier MD - 01/18/2025 8:48 AM EDT Subjective Feeling well this morning. No pain, even in abdomen. Had to have another in & out cath last night. Less confused, more interactive Review of Systemsper HPI Objective Vitals Temp: [36.5 ??C (97.7 ??F)-37.1 ??C (98.7 ??F)] 36.5 ??C (97.7 ??F) Heart Rate: [70-92] 70 Resp: [10-19] 19 BP: (141-179)/(77-91) 153/77 Physical Exam Vitals reviewed. Constitutional: Appearance: Normal appearance. HENT: Head: Normocephalic and atraumatic. Nose: Nose normal. Mouth/Throat: Mouth: Mucous membranes are moist. Eyes: Extraocular Movements: Extraocular movements intact. Cardiovascular: Rate and Rhythm: Normal rate and regular rhythm. Pulses: Normal pulses. Heart sounds: Normal heart sounds. Pulmonary: Effort: Pulmonary effort is normal. Breath sounds: Normal breath sounds. Abdominal: General: Abdomen is flat. There is no distension. Palpations: Abdomen is soft. Tenderness: There is no abdominal tenderness. Musculoskeletal: General: Normal range of motion. Cervical back: Normal range of motion. Skin: General: Skin is warm and dry. Neurological: General: No focal deficit present. Mental Status: He is alert. Psychiatric: Mood and Affect: Mood normal. Behavior: Behavior normal. Labs in last 18 hours CBC WBC ?? Hb ?? Plt ?? Hct ?? ANC ?? INR ??, PTT ??, Anti-Xa ?? BMP Na 140 Cl 105 BUN 13 Glu 96 K 3.8 Co2 23 Cr 0.94 Ca 8.0 (L) iCa ?? Mg ??, Phos ?? Lactate ?? LFT AST ?? AlkPhos ?? T Prot ?? ALK ?? Bili ?? Alb ?? D.Bili ?? Assessment & Plan Acute encephalopathy Coronary artery disease Depression Hypertension Obesity Type 2 diabetes mellitus Hyperlipidemia Hyperkalemia MITZY (acute kidney injury) (CMS/HCC) 79 yo gentleman with recent left knee arthroplasty, CAD, DM, HTN, HLD, GERD, A/D transferred from OSH for MITZY 2/2 urinary retention with resolved renal injury however persistent obstruction requiringurology consultation #MITZY, post-renal, obstructive ISO post-operative setting, resolved #Urinary retention #BPH #AGMA, resolved #HX electrolylte derangements, resolved - OSH Cr 14, severe b/l hydronephrosis, K 6, output of 7L on placement of cardenas catheter - UK markedly improving Cr to WNL, GINGER without hydronephrosis but limited study, and normalized electrolytes - Voiding trial unsuccessful 01/17 - Urology consulted, appreciate recs Plan: - Hazel cardenas - Continue tamsulosin at least 3 days before re-trial. If retention persists, will FU urology OP - Renally dose meds - Avoid nephrotoxins - I/O #Acute hypoxic respiratory failure #COVID-19 infection #Encephalopathy - Tested positive OA, along with and son - Weaned off oxygen as of 01/17, required escalation following night to 1L NC - MS markedly improving Plan: - Continue remdesivir (end-date 01/18), steroids (end-date 01/25) #Chronic A/D-cont escitalopram HLD-cont statin Dementia-cont donepezil, memantine CAD-cont ASA GERD-cont PPI DM-SSI Diet-soft bite sized carb 2 DVT PPX-hep FULL CODE Medically Ready for Discharge:Anticipated Tomorrow * Care Plan - Jacy Alegria RN - 01/17/2025 8:00 PM EDT Problem: Skin Injury Risk Increased Goal: Skin Health and Integrity Outcome: Ongoing, Progressing Intervention: Optimize Skin Protection Flowsheets (Taken 01/17/20251999) Activity Management: activity encouraged Pressure Reduction Techniques: heels elevated off bed Skin Protection: skin sealant/moisture barrier applied Head of Bed (HOB) Positioning: HOB at 30-45 degrees Problem: Adult Inpatient Plan of Care Goal: Patient-Specific Goal (Individualized) Outcome: Ongoing, Progressing Flowsheets (Taken 01/17/20251999) Patient/Family-Specific Goals (Include Timeframe): Patient will remain free from falls throughout the shift Individualized Care Needs: Safety Anxieties, Fears or Concerns: None Problem: Infection Goal: Absence of Infection Signs and Symptoms Outcome: Ongoing, Progressing Intervention: Prevent or Manage Infection Flowsheets (Taken 01/17/20251999) Infection Management: aseptic technique maintained Fever Reduction/Comfort Measures: lightweight clothing lightweight bedding Isolation Precautions: airborne contact Problem: Fall Injury Risk Goal: Absence of Fall and Fall-Related Injury Outcome: Ongoing, Progressing Intervention: Promote Injury-Free Environment Flowsheets (Taken 01/17/20251999) Safety Promotion/Fall Prevention: activity supervised fall prevention program maintained * Progress Notes - Misti Lopez RN - 01/17/2025 3:30 PM EDT Case Management Adult Progress Note Cole Walters 79 y.o. male CSN: [id number] Admission: 01/15/2025 5:16 PM Primary Problem: Acute encephalopathy Anticipated Discharge Date: 01/20 Has Discharge Plans Changed? TBD - unable to reach to discuss Acute rehab recs Medically Ready for Discharge: Anticipated in 2-4 Days Additional Comments POC and DC plan reviewed with care team. Patient was admitted on 01/15 with Acute encephaloptahy andrenal failure. Tested positive for COVID and in COVID isolation. On Remdesivir and Dexamethasone. Watching labs. May consult urology. Per MD, patient is not medically ready for discharge. PT/OT recs for Acute rehab. Attempted to reach to discuss but only able to leave . Referralssent to closest facility, [facility]. Patient has Med A&B and will not need precerts. CM will continue to follow. Misti Lopez RN * Care Plan - Anabell Bailey RN - 01/17/2025 10:43 AM EDT Problem: Skin Injury Risk Increased Goal: Skin Health and Integrity 01/17/2025 104 by Anabell Bailey RN Outcome: Ongoing, Progressing 01/17/2025 104 by Anabell Bailey RN Outcome: Ongoing, Progressing Intervention: Optimize Skin Protection 01/17/2025 104 by Anabell Bailey RN Flowsheets (Taken 01/17/2025 1000) Activity Management: activity adjusted per tolerance 01/17/2025 104 by Anabell Bailey RN Flowsheets (Taken 01/17/2025 1000) Activity Management: activity adjusted per tolerance Problem: Adult Inpatient Plan of Care Goal: Plan of Care Review 01/17/20251041 by Anabell Bailey RN Outcome: Ongoing, Progressing 01/17/20251041 by Anabell Bailey RN Outcome: Ongoing, Progressing Goal: Patient-Specific Goal (Individualized) 01/17/2025 104 by Anabell Bailey RN Outcome: Ongoing, Progressing Flowsheets (Taken 01/17/2025 0800) Patient/Family-Specific Goals (Include Timeframe): Patient will remain free from falls throughout the shift Individualized Care Needs: Safety Anxieties, Fears or Concerns: None 01/17/20251041 by Anabell Bailey RN Outcome: Ongoing, Progressing Goal: Absence of Hospital-Acquired Illness or Injury 01/17/2025 104 by Anabell Bailey RN Outcome: Ongoing, Progressing 01/17/20251041 by Anabell Bailey RN Outcome: Ongoing, Progressing Goal: Optimal Comfort and Wellbeing 01/17/20251041 by Anabell Bailey RN Outcome: Ongoing, Progressing 01/17/20251041 by Anabell Bailey RN Outcome: Ongoing, Progressing Problem: Infection Goal: Absence of Infection Signs and Symptoms 01/17/20251041 by Anabell Bailey RN Outcome: Ongoing, Progressing 01/17/2025 104 by Anabell Bailey RN Outcome: Ongoing, Progressing Intervention: Prevent or Manage Infection Flowsheets (Taken 01/17/2025 0037 by Jacy Alegria RN) Fever Reduction/Comfort Measures: lightweight bedding lightweight clothing cooling blanket applied Problem: Fall Injury Risk Goal: Absence of Fall and Fall-Related Injury 01/17/2025 1042 by Anabell Bailey RN Outcome: Ongoing, Progressing 01/17/2025 1042 by Anabell Bailey RN Outcome: Ongoing, Progressing Intervention: Promote Injury-Free Environment Flowsheets (Taken 01/17/2025 0800) Safety Promotion/Fall Prevention: activity supervised assistive device/personal items within reach clutter-free environment maintained fall prevention program maintained lighting adjusted nonskid shoes/slippers when out of bed mobility aid in reach room organization consistent safety round/check completed toileting scheduled * Progress Notes - Meaghan Olivier MD - 01/17/2025 8:44 AM EDT Subjective Complaining of burning in his big toes. Not able to tell me why he is in the hospital but states his full name, the president, and his location Review of Systemsper HPI Objective Vitals Temp: [36.5 ??C (97.7 ??F)-37.2 ??C (99 ??F)] 36.7 ??C (98 ??F) Heart Rate: [71-84] 79 Resp: [15-22] 15 BP: (156-171)/(72-80) 169/79 Physical Exam Vitals reviewed. Constitutional: Appearance: Normal appearance. HENT: Head: Normocephalic and atraumatic. Nose: Nose normal. Mouth/Throat: Mouth: Mucous membranes are moist. Eyes: Extraocular Movements: Extraocular movements intact. Cardiovascular: Rate and Rhythm: Normal rate and regular rhythm. Pulses: Normal pulses. Heart sounds: Normal heart sounds. Pulmonary: Effort: Pulmonary effort is normal. Breath sounds: Normal breath sounds. Abdominal: General: Abdomen is flat. There is no distension. Palpations: Abdomen is soft. Tenderness: There is no abdominal tenderness. Musculoskeletal: General: Normal range of motion. Cervical back: Normal range of motion. Skin: General: Skin is warm and dry. Neurological: General: No focal deficit present. Mental Status: He is alert. Comments: AOX2, did not know year but did know president Psychiatric: Mood and Affect: Mood normal. Behavior: Behavior normal. Labs in last 18 hours CBC WBC 6.34 Hb 11.7 (L) Plt 345 Hct 35.3 (L) ANC 3.86 INR ??, PTT ??, Anti-Xa ?? BMP Na 136 Cl 101 BUN 12 Glu 130 (H) K 4.2 Co2 22 Cr 0.85 Ca 8.8 (L) iCa ?? Mg ??, Phos ?? Lactate ?? LFT AST ?? AlkPhos ?? T Prot ?? ALK ?? Bili ?? Alb ?? D.Bili ?? Assessment & Plan Acute encephalopathy Coronary artery disease Depression Hypertension Obesity Type 2 diabetes mellitus Hyperlipidemia Hyperkalemia MITZY (acute kidney injury) (CMS/HCC) 79 yo gentleman with recent left knee arthroplasty, CAD, DM, HTN, HLD, GERD, A/D transferred from OSH for MITZY 2/2 urinary retention #MITZY, post-renal, obstructive ISO post-operative setting #AGMA #HX electrolylte derangements - OSH Cr 14, severe b/l hydronephrosis, K 6, output of 7L on placement of cardenas catheter - markedly improving Cr to WNL, GINGER without hydronephrosis but limited study, and normalized electrolytes Plan: - Voiding trial today - If not improved, will consult urology tomorrow - Renally dose meds - Avoid nephrotoxins - I/O #COVID-19 infection #Encephalopathy - Started on remdesivir, steroids - Weaned off oxygen as of 01/17 - MS markedly improving Plan: - Continue remdesivir (end-date 01/18), steroids (end-date 01/25) #Chronic A/D-cont escitalopram HLD-cont statin Dementia-cont donepezil, memantine CAD-cont ASA GERD-cont PPI DM-SSI Diet-soft bite sized carb 2 DVT PPX-hep FULL CODE Medically Ready for Discharge:Anticipated Tomorrow * Progress Notes - Abel Ochoa - 01/17/2025 8:25 AM EDT Occupational Therapy Evaluation Patient Name: Cole Walters Today's Date: 01/17/2025 OT Discharge Recommendations: Acute rehab Equipment Recommended: Defer to facility History Cole Walters is 79 y.o. male admitted 01/15/2025 for work-up of Acute encephalopathy. Problem List Active Hospital Problems Diagnosis Date Noted Hyperkalemia 01/16/2025 MITZY (acute kidney injury) ([facility]) 01/16/2025 Hydronephrosis 01/16/2025 Coronary artery disease Depression Hypertension Obesity Type 2 diabetes mellitus Hyperlipidemia Acute encephalopathy 01/15/2025 Procedures Past Medical History Patient has a past medical history of Coronary artery disease, Depression, Hyperlipidemia, Hypertension, Obesity, and Type 2 diabetes mellitus. Past Surgical History Patient has no past surgical history on file. Precautions Medical Precautions: Fall precautions Subjective Patient agreeable to initial OT evaluation this a.m. Participants in Care Family/Caregiver Present: No School Adjustment Counselor: Not Applicable Presentation Oxygen Therapy: None (Room air) Lines and Tubes: Intravenous access, Telemetry Pre-Session: Supine, Head of bed elevated, Lines intact Post-Session: Supine, Head of bed elevated, Lines intact, RN notified, Call light in reach Post-Session Comments: All needs met. Home Living/Set-up Lives With: Spouse Home Type: House Home Adaptive Equipment: None Home Layout: One level Home Living Comments: Patient confused this morning, PLOF questionable Prior Level of Function Receives Help From: No assist required prior to admission Patient/Family Goals Statement Objective Pain Patient with no c/o pain at this time. Delirium Screening RASS: Alert and calm Confusion Assessment Method-ICU (CAM-ICU/PCAM-ICU) Feature 3: Altered Level of Consciousness: Negative Cognition Overall Cognitive Status: Impaired Arousal/Alertness: Appropriate responses to stimuli Mood/Behavior: Confused Orientation Level: Oriented to person Single Step Commands: Consistently, With increased time, With repetition Method of Communication: Verbal Right Upper Extremity Examination RUE ROM Assessment RUE Assessment: Within Functional Limits Manual Muscle Testing - RUE: Within functional limits Sensation Light Touch: Right Upper Extremity: Intact Left Upper Extremity Examination LUE ROM Assessment LUE Assessment: Within Functional Limits Manual Muscle Testing - LUE: Within functional limits Sensation Light Touch: Left Upper Extremity: Intact Right Lower Extremity Examination RLE ROM Assessment RLE Assessment: Within Functional Limits Manual Muscle Testing - RLE: Within functional limits Sensation Light Touch: Right Lower Extremity: Mild impairment Left Lower Extremity Examination LLE ROM Assessment LLE Assessment: Within Functional Limits Manual Muscle Testing: Within functional limits Sensation Light Touch: Left Lower Extremity: Mild impairment Bed Mobility Bed Mobility Exam: Scooting/Bridging Level of [place]: Moderate assist (50% patient's effort) Physical/Nonphysical Assist: Verbal Cues Bed Mobility Exam: Supine to Sit Level of [place]: Moderate assist (50% patient's effort) Physical/Nonphysical Assist: Verbal Cues Bed Mobility Exam: Sit to Supine Level of [place]: Moderate assist (50% patient's effort) Physical/Nonphysical Assist: Verbal Cues Transfers Transfer Exam: Sit to stand Level of [place]: Minimum assist (75% patient's effort) Physical/Nonphysical Assist: Verbal Cues Transfer Exam: Stand to Sit Level of [place]: Minimum assist (75% patient's effort) Physical/Nonphysical Assist: Verbal Cues Functional Mobility Assistance: Moderate assistance, Additional assist needed for line management Distance : 3 right lateral steps Self-Care Interventions Self Care/Home Management (ADLs) Time Entry: 10 Grooming Grooming Level of Assistance: Minimum assistance Grooming Where Assessed: Bed level UE Dressing UE Dressing Level of Assistance: Moderate assistance Lower Extremity Dressing Sock Level of Assistance: Dependent Standardized Assessments Rafat Index Feeding: Needs help cutting, spreading butter, etc., or requires modified diet Bathing: Dependent Grooming: Independent face/hair/teeth/shaving (implements provided) Dressing: Dependent Bowels: Continent Bladder: Continent Toilet Use: Dependent Transfers (Bed to Chair and Back): Major help (one or two people, physical), can help Mobility (on Level Surfaces): Immobile or < 50 yards Stairs: Unable Total Score: 35 Assessment Patient is a high fall risk at this time 2/2 altered cognition, decreased endurance and decreased strength. Patient will need acute rehab to regain independence with ADLs and functional mobility. OT Findings: Impaired ADL performance, Impaired IADL performance, Impaired cognition, Impaired balance, Impaired postural/trunk control, Impaired functional mobility, Impaired attention Evaluation/Treatment Tolerance: Patient limited by fatigue Rehab Potential: Fair, will monitor progress closely Barriers to Discharge: Comorbidities Eval Complexity Occupational Profile: Expanded review of medical/therapy records and additional review of physical,cognitive, or psychosocial history Performance Deficits: Activities of daily living (ADLs), Instrumental activities of daily living (IADLs), Leisure, Social participation, Body functions Clinical Decision Making: Moderate Overall Eval complexity: Moderate OT Recommendations Discharge Destination: Acute rehab Discharge Equipment: Defer to facility Plan Planned OT Interventions ADL retraining, Balance training, Bed mobility Training, Strengthening, Transfer training, Functional mobility OT Frequency 2 - 5 times per week OT Duration 2 weeks Goals OT GOAL DETAILS Time Frame OT Goal 1: Patient will demo independence with LB Dressing tasks, 4/5 trials. 2 weeks OT Goal 2: Patient will demo independence with all toileting tasks, 4/5 trials. 2 weeks OT Goal 3: Patient will demo independence with toilet transfers, 4/5 trials. 2 weeks OT Goal 4: Patient will demo independence and good safety with grooming tasks standing EOS, 4/5 trials. 2 weeks Written by Abel Ochoa on 01/17/25 at 12:02 PM. * Progress Notes - Frank Yan - 01/17/2025 8:24 AM EDT Physical Therapy Evaluation Patient Name: Cole Walters Today's Date: 01/17/2025 PT Discharge Recommendations: Acute rehab Equipment Recommended: Defer to facility History Cole Walters is 79 y.o. male admitted 01/15/2025 for work-up of Acute encephalopathy. Problem List Active Hospital Problems Diagnosis Date Noted Hyperkalemia 01/16/2025 MITZY (acute kidney injury) ([facility]) 01/16/2025 Hydronephrosis 01/16/2025 Coronary artery disease Depression Hypertension Obesity Type 2 diabetes mellitus Hyperlipidemia Acute encephalopathy 01/15/2025 Procedures Past Medical History Patient has a past medical history of Coronary artery disease, Depression, Hyperlipidemia, Hypertension, Obesity, and Type 2 diabetes mellitus. Past Surgical History Patient has no past surgical history on file. Precautions Medical Precautions: Fall precautions Subjective Reports that he has not been out of bed Participants in Care Family/Caregiver Present: No School Adjustment Counselor: Not Applicable Presentation Oxygen Therapy: None (Room air) Lines and Tubes: Intravenous access, Telemetry Pre-Session: Supine, Head of bed elevated, Lines intact Post-Session: Supine, Head of bed elevated, Lines intact, RN notified, Call light in reach Post-Session Comments: All needs met. Home Living/Set-up Lives With: Spouse Home Type: House Home Adaptive Equipment: None Home Layout: One level Home Living Comments: Patient confused this morning, PLOF questionable Prior Level of Function Receives Help From: No assist required prior to admission Patient/Family Goals Objective Pain No signs or complaints of pain Delirium Screening RASS: Alert and calm Confusion Assessment Method-ICU (CAM-ICU/PCAM-ICU) Feature 3: Altered Level of Consciousness: Negative Cognition Overall Cognitive Status: Impaired Arousal/Alertness: Appropriate responses to stimuli Mood/Behavior: Confused Orientation Level: Oriented to person Single Step Commands: Consistently, With increased time, With repetition Method of Communication: Verbal Right Upper Extremity Examination RUE Assessment: Within Functional Limits Manual Muscle Testing - RUE: Within functional limits Sensation Light Touch: Right Upper Extremity: Intact Left Upper Extremity Examination LUE ROM Assessment LUE Assessment: Within Functional Limits Manual Muscle Testing - LUE Manual Muscle Testing - LUE: Within functional limits Sensation Light Touch: Left Upper Extremity: Intact Right Lower Extremity Examination RLE ROM Assessment RLE Assessment: Within Functional Limits Manual Muscle Testing - RLE Manual Muscle Testing - RLE: Within functional limits Sensation Light Touch: Right Lower Extremity: Mild impairment Left Lower Extremity Examination LLE Assessment: Within Functional Limits Manual Muscle Testing: Within functional limits Sensation Light Touch: Left Lower Extremity: Mild impairment Bed Mobility Bed Mobility Exam: Scooting/Bridging Level of [place]: Moderate assist (50% patient's effort) Physical/Nonphysical Assist: Verbal Cues Bed Mobility Exam: Supine to Sit Level of [place]: Moderate assist (50% patient's effort) Physical/Nonphysical Assist: Verbal Cues, Set-up required, Additional assist utilized for safety, Nonverbal cues (demo/gestures) Bed Mobility Exam: Sit to Supine Level of [place]: Moderate assist (50% patient's effort) Physical/Nonphysical Assist: Verbal Cues, Set-up required, Additional assist utilized for safety, Nonverbal cues (demo/gestures) Transfers Transfer Exam: Sit to stand Level of [place]: Minimum assist (75% patient's effort) Physical/Nonphysical Assist: Verbal Cues, Set-up required, Additional assist utilized for safety Assistive Device: Hand held assist Transfer Exam: Stand to Sit Level of [place]: Minimum assist (75% patient's effort) Physical/Nonphysical Assist: Verbal Cues, Additional assist utilized for safety, Set-up required Assistive Device: Hand held assist Ambulation Device: Hand held assist Assistance: Moderate assistance, Additional assist needed for line management, Moderate verbal cues, Moderate tactile cues Distance : 3 right lateral steps Balance Postural Appearance Posture: Stooped posture, Forward head, Rounded shoulders Static Sitting Balance Static Sitting-Balance Support: Feet supported, Left upper extremity support, Right upper extremitysupport Static Sitting-Level of Assistance: Contact guard Dynamic Sitting Balance Dynamic Sitting-Balance Support: Right upper extremity support, Left upper extremity support, Feet supported Dynamic Sitting-Balance: Trunk control activities, Anterior/Posterior weight shifts, Lateral weightshifts Level of Assistance: Contact guard Static Standing Balance Static Standing-Balance Support: Left upper extremity support, Right upper extremity support Static Standing-Level of Assistance: Minimum assistance Dynamic Standing Balance Dynamic Standing-Balance Support: Right upper extremity support, Left upper extremity support Dynamic Standing-Balance: Anterior/Posterior weight shifts, Lateral weight shifts Dynamic Standing Level of Assistance: Moderate assistance Therapeutic Activity (9 minutes) Activity training consisted of bed mobility, prolonged sitting at edge of bed with static and dynamic balance activities, sit to/from stand, prolonged standing with dynamic functional task completion, and lateral steps with hand held assistance. Patient required verbal and tactile cues for initiation and completion of all mobility tasks. Skilled manual assistance needed for movements in order to complete tasks. Skilled monitoring of patient's vitals and presentation needed for safe advancement during training. Standardized Assessments Standardized Assessments Standardized Assessments: AMPA 6-Clicks Mobility Assessment [facility] 6-Clicks Mobility Assessment Difficulty patient has turning over in bed (including adjusting bedclothes, sheets, and blankets)?:A lot Difficulty patient has sitting down on and standing up from a chair with arms (wheelchair, bedside commode, etc.)?: A little Difficulty patient has moving from lying on back to sitting on the side of the bed?: A lot How much help does the patient need moving to and from a bed to a chair (including a wheelchair)?: A lot How much help does the patient need to walk in hospital room?: Unable How much help does the patient need climbing 3-5 steps with a railing?: Unable [facility] 6-Clicks Mobility Assessment Total : 11 No data recorded Assessment Patient provided good effort with therapy today. Progressing mobility training limited by impaired mentation, impaired activity tolerance, weakness, impaired posture, impaired balance, and poor motorcontrol, which is limiting patient from performing independent functional mobility. Patient cannot safely go home at this time. Patient is a high fall risk and will continue to benefit from skilled two person assistance for advancing mobility. Impairments: Decreased endurance, ventilation, and/or gas exchange, Impaired gait dynamics/performance, Impaired postural/trunk control, Decreased strength, Impaired locomotion, Impaired attention/alertness, Impaired cognition/safety awareness, Impaired executive functioning, Impaired balance, Impaired functional mobility/transfers, Impaired motor planning Activity Limitations: Inability to ambulate household distances, Inability to transfer independently, Inability to complete ADLs independently, Inability to ambulate community distances, Inability toambulate independently, Inability to sit independently, Impaired attention/alertness Participation Restrictions: Self-care, Home management, Work, Community leisure Activity Tolerance: Tolerates 10 - 20 min activity with multiple rests Evaluation/Treatment Tolerance: Patient limited by fatigue, Treatment limited secondary to medical complications (Comment) Diagnosis: impaired functional mobility Rehab Potential: Good, to achieve stated therapy goals Barriers to Discharge: Comorbidities Eval Complexity History Profile: 3 or more personal factors and/or comorbidities Clinical Presentation: Evolving clinical presentation with changing characteristics Clinical Decision Making: Moderate complexity PT Recommendations Discharge Destination: Acute rehab Discharge Equipment: Defer to facility Plan Planned PT Interventions Bed mobility training, Balance training, Gait training, Transfer training, Postural re-education, ROM, Strengthening, Stretching, Functional Mobility PT Frequency 2 - 5 times per week PT Duration 2 weeks Goals PT GOAL DETAILS Time Frame PT Goal 1: Patient will be alert and oriented x 4 while following 100% of commands for a safe progression 2 weeks PT Goal 2: Patient will complete all bed mobility tasks with SBA 2 weeks PT Goal 3: Patient will complete all sit to/from stands with SBA 2 weeks PT Goal 4: Patient will continuously ambulate for > 300 feet with SBA and use of LRAD vs no AD 2weeks Written by Frank Yan on 01/17/25 at 2:46 PM. * Care Plan - Jacy Alegria RN - 01/16/2025 8:00 PM EDT Problem: Adult Inpatient Plan of Care Goal: Patient-Specific Goal (Individualized) Outcome: Ongoing, Progressing Flowsheets (Taken 01/16/20251999) Patient/Family-Specific Goals (Include Timeframe): Patient will remain free from falls throughout the shift Individualized Care Needs: Safety Anxieties, Fears or Concerns: None Problem: Infection Goal: Absence of Infection Signs and Symptoms Outcome: Ongoing, Progressing Intervention: Prevent or Manage Infection Flowsheets (Taken 01/17/202536) Infection Management: aseptic technique maintained Fever Reduction/Comfort Measures: lightweight bedding lightweight clothing cooling blanket applied Isolation Precautions: contact airborne precautions maintained Problem: Fall Injury Risk Goal: Absence of Fall and Fall-Related Injury Outcome: Ongoing, Progressing Intervention: Identify and Manage Contributors Flowsheets (Taken 01/17/202536) Medication Review/Management: high-risk medications identified Self-Care Promotion: adaptive equipment use encouraged Intervention: Promote Injury-Free Environment Flowsheets (Taken 01/17/202536) Safety Promotion/Fall Prevention: activity supervised lighting adjusted fall prevention program maintained safety round/check completed * Progress Notes - Marlene Mcdaniels DO - 01/16/2025 7:04 PM EDT Subjective Pt seen and examined at the bedside with the brother in the room. Pt is arousable but falls back tosleep. Pt's brother says that he is able to do his ADLs; his PCP started donepezil and memantine asa precaution but had no prior dx of dementia. Review of Systems Reason unable to perform ROS: due to patient's medical condition. Objective Vitals Temp: [36.5 ??C (97.7 ??F)-36.9 ??C (98.5 ??F)] 36.9 ??C (98.4 ??F) Heart Rate: [71-88] 76 Resp: [15-23] 17 BP: (143-171)/(70-81) 171/80 Physical Exam Constitutional: General: He is not in acute distress. Appearance: Normal appearance. He is not toxic-appearing. HENT: Head: Normocephalic. Mouth/Throat: Mouth: Mucous membranes are moist. Eyes: Conjunctiva/sclera: Conjunctivae normal. Cardiovascular: Rate and Rhythm: Normal rate and regular rhythm. Pulses: Normal pulses. Pulmonary: Breath sounds: Normal breath sounds. Abdominal: Palpations: Abdomen is soft. Musculoskeletal: General: No swelling or deformity. Skin: General: Skin is warm. Neurological: General: No focal deficit present. Assessment & Plan Acute encephalopathy Coronary artery disease Depression Hypertension Obesity Type 2 diabetes mellitus Hyperlipidemia Hyperkalemia MITZY (acute kidney injury) (CMS/HCC) #Severe MITZY, post-renal (improving) # Post-obstructive diuresis - Risk of hypovolemia and electrolyte wasting from Post-obstructive diuresis - Likely post-obstructive MITZY due to urinary retention post-op. - Bedside ultrasound reportedly OSH showed bilateral hydronephrosis with 1000 ml urine in the bladder. - improving post cardenas catheter placement > 7L urine output - Improving creatinine (14 ? 10.04 ? 7.09). -Glucose: Negative, Ketones: Negative, Protein: Trace (A), Blood: Large (A) Lueks: Trace (A), Nitrites: Negative, WBC: ?? - Currently, emergent dialysis may not be indicated given improvement in K and Cr. - Received 2L bolus - Renal U/S: no hydronephrosis Plan: - Maintain cardenas - Avoid NSAID/Nephrotoxin (ACEI/ARBs/aminoglycosides nicole ) (metformin, gabapentin, cefepime, morphine) - Renal dose medications - Strict I&O - MIVF; plan to replace ~50% of urine losses with isotonic fluids - Continue Telemetry #Acute Encephalopathy 2/2 COVID #COVID-19 positive #Acute Respiratory Failure - Likely uremic/metabolic encephalopathy given severe azotemia. - Baseline mental status: unknown, noted Age-related cognitive decline, on Donepezil Memantine - CT Head: no acute finding - CXR: no acute findings - WBC: WBC: 8.38, Lactate: 0.7 - TSH 0.68, ammonia 13, b12/folate wnl Plan: - Currently requiring 2L NC, baseline unknown given lack of success reaching family on phone - Supportive management - Rx steroids 6 mg (01/16-01/25) and remdesivir (01/16-01/18) - Monitor O? requirements; patient's baseline RA #Metabolic Acidosis, improving - C/w IVF Chronic #Depression- holding home escitalopram 10 mg daily pending swallowing eval #HLD- Holding home atorvastatin 40 mg daily as above #Age-related cognitive decline - Holding home Donepezil 5 mg HS, Memantine 10 mg BID #Topical Rash - Holding nystatin 100,000 unit/g topical #HTN #CAD #Chest pain #Heart Cath 2014, S/P Peacemaker - Holding home aspirin 81 mg daily #GERD- holding home pantoprazole 40 mg daily #Chronic pain - holding home tramadol 50 mg Q 8 hrs, cyclobenzaprine mg TID PRN #Type II diabetes with hyperglycemia - Hemoglobin A1c: 6.3 Plan - Continue home insulin regimen with lantus - FSBS AC/HS with correctional insulin - Consistent carb diet - Monitor for hypoglycemia #Obesity - Body mass index is 31.81 kg/m??. - complicates all aspects of care Medically Ready for Discharge:Anticipated in 2-4 Days * Care Plan - Anabell Bailey RN - 01/16/2025 6:47 PM EDT Problem: Skin Injury Risk Increased Goal: Skin Health and Integrity Outcome: Ongoing, Progressing Intervention: Optimize Skin Protection Flowsheets (Taken 01/16/2025 1800) Activity Management: activity adjusted per tolerance Problem: Adult Inpatient Plan of Care Goal: Plan of Care Review Outcome: Ongoing, Progressing Goal: Patient-Specific Goal (Individualized) Outcome: Ongoing, Progressing Flowsheets (Taken 01/16/2025 1800) Patient/Family-Specific Goals (Include Timeframe): Patient will remain free from falls throughout the shift Individualized Care Needs: Safety Anxieties, Fears or Concerns: None Goal: Absence of Hospital-Acquired Illness or Injury Outcome: Ongoing, Progressing Intervention: Identify and Manage Fall Risk Flowsheets (Taken 01/16/2025 1800) Safety Promotion/Fall Prevention: activity supervised assistive device/personal items within reach clutter-free environment maintained fall prevention program maintained lighting adjusted nonskid shoes/slippers when out of bed mobility aid in reach room organization consistent safety round/check completed toileting scheduled Goal: Optimal Comfort and Wellbeing Outcome: Ongoing, Progressing Problem: Infection Goal: Absence of Infection Signs and Symptoms Outcome: Ongoing, Progressing Intervention: Prevent or Manage Infection Flowsheets (Taken 01/16/2025 1846) Fever Reduction/Comfort Measures: lightweight bedding lightweight clothing Problem: Fall Injury Risk Goal: Absence of Fall and Fall-Related Injury Outcome: Ongoing, Progressing Intervention: Promote Injury-Free Environment Flowsheets (Taken 01/16/2025 1800) Safety Promotion/Fall Prevention: activity supervised assistive device/personal items within reach clutter-free environment maintained fall prevention program maintained lighting adjusted nonskid shoes/slippers when out of bed mobility aid in reach room organization consistent safety round/check completed toileting scheduled * Progress Notes - Misti Lopez RN - 01/16/2025 1:30 PM EDT Case Management Adult Initial Progress Note Cole Walters 79 y.o. male CSN: [id number] Admission: 01/15/2025 5:16 PM Primary Problem: Acute encephalopathy Smasher reviewed chart and spoke with patient's on the phone (not at hospital) to complete this Initial Case Management Assessment. Patient is in COVID isolation. PCP: Rakesh Jones MD Emergency Contact: Extended Emergency Contact Information Primary Emergency Contact: Loree Waltersn [place] Relation: Spouse Preferred language: [place] School Adjustment Counselor needed? No Secondary Emergency Contact: Rakesh Walters Mobile Relation: Brother Preferred language: [place]ian School Adjustment Counselor needed? No Insurance: Primary Visit Coverage Payer Plan Sponsor Code Group Number Group Name MEDICARE MEDICARE A & B Primary Visit Coverage Subscriber Subscriber ID Subscriber Name Subscriber N Subscriber Address [id number] Cole Walters [id number] [place] [id number] Patient information: Primary Caregiver: Self Accompanied by/Relationship: none Support System: Immediate family Daily Living Activities: Functional Status: Independent Living Arrangements: Spouse/Significant other Type of Residence: Private residence, Multi Level (lives only on 1st floor. Home has 2 entry steps.) [address] [place] [place] [address] Smoker in the Home?: No Current DME: Equipment Currently Used at Home: walker, rolling, commode chair, shower chair Income Information: Income Source: Retired Income/Expense Information: Income meets expenses Current Resources Utilized: None Housing Circumstances-Z Codes: Housing Circumstances (select all that apply): None Applicable Patient Referred to: No referrals at this time. Anticipated Discharge Date: 01/21/25 Patient's Discharge Goal: home Assistance Available at Discharge: available 15/12 Discharge Transport: brother Follow Up Transport: self/friend/brother Home Health / Home Infusion / Outpatient Dialysis Services: Denies HH, HD and HI. reports patient was getting outpatient PT. Living Will/Advance Directive/Power of Illuminator /Guardian: reports patient does not have advance directives or a living will. is NOK. Additional Comments: POC and DC plan reviewed with care team. Patient was admitted on 01/15 with Acute encephaloptahy andrenal failure. Tested positive for COVID and in COVID isolation. On Remdesivir and Dexamethasone. Misti Lopez RN * Care Plan - Jessica Romero RN - 01/16/2025 9:39 AM EDT Problem: Skin Injury Risk Increased Goal: Skin Health and Integrity Outcome: Ongoing, Progressing Problem: Adult Inpatient Plan of Care Goal: Plan of Care Review Outcome: Ongoing, Progressing Flowsheets Taken 01/16/2025 0937 by Jessica Romero RN Progress: no change Taken 01/16/2025 0259 by Tamera Davey RN Plan of Care Reviewed With: patient Goal: Patient-Specific Goal (Individualized) Outcome: Ongoing, Progressing Flowsheets Taken 01/16/2025 0937 by Jessica Romero RN Patient/Family-Specific Goals (Include Timeframe): patient will assist with turning and repositioning every two hours Individualized Care Needs: safety, skin integrity Taken 01/16/2025 0000 by Tamera Daevy RN Anxieties, Fears or Concerns: None stated Goal: Absence of Hospital-Acquired Illness or Injury Outcome: Ongoing, Progressing Intervention: Identify and Manage Fall Risk Flowsheets (Taken 01/16/2025 0259 by Tamera Davey, RN) Safety Promotion/Fall Prevention: activity supervised clutter-free environment maintained fall prevention program maintained lighting adjusted room organization consistent safety round/check completed toileting scheduled Intervention: Prevent Skin Injury Flowsheets (Taken 01/16/2025 0937) Body Position: weight shifting Skin Protection: incontinence pads utilized skin sealant/moisture barrier applied Intervention: Prevent and Manage VTE (Venous Thromboembolism) Risk Flowsheets (Taken 01/16/2025 0800) VTE Prevention/Management: bilateral SCDs (sequential compression devices) on Intervention: Prevent Infection Flowsheets (Taken 01/16/2025 0259 by Tamera Davey, RN) Infection Prevention: environmental surveillance performed equipment surfaces disinfected hand hygiene promoted rest/sleep promoted Goal: Optimal Comfort and Wellbeing Outcome: Ongoing, Progressing Problem: Infection Goal: Absence of Infection Signs and Symptoms Outcome: Ongoing, Progressing Problem: Fall Injury Risk Goal: Absence of Fall and Fall-Related Injury Outcome: Ongoing, Progressing * H&P - Colby Kim APRN, DNP - 01/15/2025 10:36 PM EDTAssociated Order(s): Consult to Hospital Medicine Images from the original note were not included. Consult to Hospital Medicine Consult performed by: Colby Kim APRN, DNP Consult ordered by: Gunnar Gong MD Reason for consult: Severe MITZY Chief Complaint: Acute urinary retention History of Present Illness: Cole Walters is a 79 y.o. year-old male who past medical history of left knee arthroplasty, HTN, CAD, GERD, HLD, Depression, Generalized anxiety, Age- related cognitive decline,DM 2 who presents to [facility] on 01/15/2025 from [facility] for management of severe acute kidney injury, hyperkalemia and acute urinary retention concern for emergent dialysis. HPI is complicated by AMS, transferred records with limited information, lack of success getting family on phone. Hence obtained from chart review. Patient underwent left Knee replacement January 03 at [facility] by Dr. Rosario complicated by postoperative urine retention. Reportedly, Cardenas catheter was removed prior to discharge to follow-up with Urology. Unknown whether patient was having urine output at home, given limited information at the time of HPI. He presented to an outside hospital with altered mental status, and was found to have creatinine of 14, BUN markedly elevated, potassium of 6.0. Covid positive, Bedside ultrasound reportedly showed bilateral hydronephrosis with 1000 ml urine in the bladder. He was given 2 L of normal saline at outside hospital, as well as one time treatment for hyperkalemia, Cardenas was placed and 5.5L urine output noted. He was transferred to for further evaluation for urgent dialysis. In the ED, patient is afebrile, GCS of 14, oriented to self with occasional myoclonic jerks, hemodynamically stable, but requiring 2L NC. Initial labs shows VBG shows a mild metabolic acidosis with apH 7.29, CO2 37, bicarb 17.8. creatinine of 10.04, Potassium is 5.1. A repeat BMP demonstrated spontaneous improvement with normalization of potassium, K: 4.8, improvement in creatinine sCr: 7.09 (H), M.0, CT head reportedly shows no acute pathology. CXR shows Hypoventilation without other acute radiographic abnormality. Urine output in the ED, demonstrating post-obstructive diuresis, with >7 L total output since Cardenas placement in the OSH. Hospital Medicine was consulted and decision was made to admit for further workup and management Review of Systems: Review of Systems Unable to perform ROS: Mental status change Past Medical History: Past Medical History[1] Surgical History: Surgical History[2] Family History: Family History[3] Social History: He reports that he has never smoked. He does not have any smokeless tobacco history on file. No history on file for alcohol use and drug use. Travel History: Relevant Travel History: Travel Screening Question Response Have you been in contact with someone who was sick? Unable to assess Do you have any of the following new or worsening symptoms? Unable to assess Have you traveled internationally or domestically in the last month? Unable to assess Travel History Travel since 12/15/24 No documented travel since 12/15/24 Allergies: Patient has no allergy information on record. Vital Signs: Visit Vitals BP (!) 146/70 Pulse 88 Temp 36.6 ??C (97.9 ??F) Resp 23 Wt 102 kg (224 lb 13.9 oz) SpO2 95% BMI 31.81 kg/m?? Smoking Status Never BSA 2.25 m?? Physical Exam: General: well developed, well-nourished male who presents in no apparent distress Physical Exam Constitutional: Appearance: He is obese. HENT: Head: Normocephalic and atraumatic. Eyes: Pupils: Pupils are equal, round, and reactive to light. Cardiovascular: Rate and Rhythm: Normal rate. Pulmonary: Effort: Pulmonary effort is normal. Abdominal: Palpations: Abdomen is soft. Tenderness: There is no abdominal tenderness. There is no right CVA tenderness or left CVA tenderness. Genitourinary: Comments: Cardenas catheter present actively draining Musculoskeletal: Left lower leg: Edema present. Comments: Surgical incision on left knees with kartik present Neurological: Mental Status: He is disoriented. GCS: GCS eye subscore is 4. GCS verbal subscore is 4. GCS motor subscore is 6. Cranial Nerves: No dysarthria. Motor: Tremor (Bilateral upper extremity) present. Comments: Oriented only to self Psychiatric: Comments: Unable to assess Labs (in last 24 hours): CBC: Lab Results Component Value Date WBC 8.38 01/15/2025 RBC 3.57 (L) 01/15/2025 HGB 10.2 (L) 01/15/2025 HCT 30.4 (L) 01/15/2025 PLT 273 01/15/2025 MCV 85 01/15/2025 MCH 28.6 01/15/2025 MCHC 33.6 01/15/2025 RDW 14.5 01/15/2025 NRBC 0.0 01/15/2025 Differential: Lab Results Component Value Date WBC 8.38 01/15/2025 NEUTOPHILPCT 71 01/15/2025 LYMPHOPCT 14 01/15/2025 MONOPCT 12 01/15/2025 EOSPCT 1 01/15/2025 Coagulation: Lab Results Component Value Date INR 1.2 (H) 01/15/2025 Renal: Lab Results Component Value Date NA 137 01/15/2025 K 4.8 01/15/2025 CL 104 01/15/2025 CO2 18 (L) 01/15/2025 BUN 82 (H) 01/15/2025 CREATININE 7.09 (H) 01/15/2025 GLUCOSE 83 01/15/2025 CALCIUM 8.2 (L) 01/15/2025 MG 2.0 01/15/2025 Liver: Lab Results Component Value Date AST 46 01/15/2025 ALT 25 01/15/2025 BILITOT 0.6 01/15/2025 Glucose: Lab Results Component Value Date PGLU 95 01/15/2025 PGLU 78 01/15/2025 No results found for: HGBA1C Microbiology: Results Procedure Component Value Units Date/Time Blood Culture (Aerobic/Anaerobet Set) [[id number]] Collected: 01/15/251827 Order Status: Completed Specimen: Blood from Hand, Right Updated: 01/15/252046 Culture Culture in lab Narrative: Low blood volume submitted, results may be compromised Blood Culture (Aerobic/Anaerobet Set) [[id number]] Collected: 01/15/251827 Order Status: Completed Specimen: Blood from Wrist, Right Updated: 01/15/252045 Culture Culture in lab Narrative: Low blood volume submitted, results may be compromised SARS-CoV-2, Flu A, Flu B, and RSV - Rapid [[id number]] Order Status: Canceled Specimen: Swab from Nasopharynx Nasopharyngeal Respiratory Panel [[id number]] Order Status: Canceled Specimen: Swab from Nasopharynx SARS CoV-2/COVID-19 by PCR - Rapid [[id number]] Order Status: Canceled Specimen: Swab from Nasopharynx Imaging (in last 24 hours): CT Head wo IV Contrast Result Date: 01/15/2025 No acute findings. CRITICAL RESULT: No. COMMUNICATION: Per this written report. Drafted by Zacarias Da Silva MD on 01/15/2025 10:05 PM Final report signed by Zacarias Da Silva MD on 01/15/2025 10:06 PM XR Chest 1 View Result Date: 01/15/2025 Hypoventilation without other acute radiographic abnormality. CRITICAL RESULT: No. COMMUNICATION: Per this written report. Preliminary report signed by Rene Lockhart DO on 01/15/2025 6:45 PM By electronically signing this report, I, the attending physician, attest that I have personally reviewed the images/data for the above examination(s) and agree with the final edited report. Drafted by DylanC Richy, DO on 01/15/2025 6:43 PM Final report signed by Anupama Huizar MD on 01/15/2025 7:26 PM Assessment and plan: Principal problem: Acute encephalopathy - Principal Problem: Acute encephalopathy Active Problems: Coronary artery disease Depression Hypertension Obesity Type 2 diabetes mellitus Hyperlipidemia Hyperkalemia MITZY (acute kidney injury) (CMS/HCC) Hydronephrosis Gene Good Walters is a 79 y.o. year-old male who past medical history of left knee arthroplasty, HTN, CAD, GERD, HLD, Depression, Generalized anxiety, Age- related cognitive decline,DM 2 who presents to [facility] on 01/15/2025 from [facility] for management of severe acute kidney injury, hyperkalemia and acute urinary retention concern for emergent dialysis. Problems #Severe MITZY, post-renal (improving) # Post-obstructive diuresis # bilateral hydronephrosis - Risk of hypovolemia and electrolyte wasting from Post-obstructive diuresis - Likely post-obstructive MITZY due to urinary retention post-op. - Bedside ultrasound reportedly OSH showed bilateral hydronephrosis with 1000 ml urine in the bladder. - improving post cardenas catheter placement > 7L urine output - Improving creatinine (14 ? 10.04 ? 7.09). -Glucose: Negative, Ketones: Negative, Protein: Trace (A), Blood: Large (A) Lueks: Trace (A), Nitrites: Negative, WBC: ?? - Currently, emergent dialysis may not be indicated given improvement in K and Cr. - Received 2L bolus Plan: - Maintain cardenas - Avoid NSAID/Nephrotoxin (ACEI/ARBs/aminoglycosides nicole ) (metformin, gabapentin, cefepime, morphine) - Renal dose medications - Strict I&O - Trend BMP q 6hrs - MIVF; plan to replace ~50% of urine losses with isotonic fluids - Continue Telemetry - Renal ultrasound to confirm hydronephrosis - May consider Urology consult am Acute Encephalopathy with myoclonic jerks - Likely uremic/metabolic encephalopathy given severe azotemia. - Baseline mental status: unknown, noted Age-related cognitive decline, on Donepezil Memantine - CT Head: no acute finding - CXR: no acute findings - WBC:- WBC: 8.38, Lactate: 0.7, - Does not meet SIRS criteria - TSH 0.68, - Unable to contact family to verify recent med changes Plan: - B12/ folic acid/ Ammonia pending - Plan: Neuro checks q4h for 24 hours; - May consider EEG and Neuro consult - Contact family to verify recent medicine changes ##Mild Hyponatremia (resolved) #Metabolic Acidosis, and Hyperkalemia (resolved) Initially 6.0 at OSH ? now improved to 4.8 without ongoing therapy. Plan: - Continue monitoring K? q6-8h while in diuresis - Treat only if recurrent .#COVID-19 positive #Chronic/acute Respiratory Failure? - Currently requiring 2L NC, baseline unknown given lack of success reaching family on phone - No radiographic pneumonia. - pH: 7.35, pCO2: 37 (L), pO2: 28, HCO3: 21 (L)BE: ??, Lactate: 0.7 - Holding medication treatment given no obvious hypoxemia beyond mild requirement of 2L NC Plan: - Supportive management -No steroids/antivirals unless worsening hypoxemia - Monitor O? requirements - will follow-up with family am for detailed HPI Chronic #Depression- holding home escitalopram 10 mg daily pending swallowing eval #HLD- Holding home atorvastatin 40 mg daily as above #Age-related cognitive decline - Holding home Donepezil 5 mg HS, Memantine 10 mg BID as above #Topical Rash -Holding nystatin 100,000 unit/g topical #HTN #CAD # Chest pain #Heart Cath 2014, S/P Peacemaker - Holding home aspirin 81 mg daily #GERD- holding home pantoprazole 40 mg daily #Chronic pain - holding home tramadol 50 mg Q 8 hrs, cyclobenzaprine mg TID PRN # #Type II diabetes with hyperglycemia - Hemoglobin A1c: not in file - Home medication: none listed, none found on prescription hx review Plan - Continue home insulin regimen with lantus - FSBS AC/HS with correctional insulin - Consistent carb diet - Monitor for hypoglycemia - Hemoglobin Aic #Obesity - Body mass index is 31.81 kg/m??. - complicates all aspects of care Medications Home Medications No current outpatient medications Scheduled: Current Scheduled Medications[4] Continuous: Current Continuous Medications[5] As needed: lidocaine, 1 Application, PRN sodium chloride, 10 mL, PRN Fluids: NS Electrolytes: Continue to monitor and replace as appropriate Diet: NPO diet DVT prophylaxis: SCDs + SCDs only Code status: No Order Follow-up visit No future appointments. Colby N Madujibeya, CAREER DEVELOPMENT SPECIALIST, DNP [1] Past Medical History: Diagnosis Date Coronary artery disease Depression Hyperlipidemia Hypertension Obesity Type 2 diabetes mellitus [2] No past surgical history on file. [3] No family history on file. [4] sodium chloride, 10 mL, Intravenous, q12h [5] * Care Plan - Tamera Davey RN - 01/15/2025 5:16 PM EDT Problem: Skin Injury Risk Increased Goal: Skin Health and Integrity Outcome: Ongoing, Progressing Intervention: Optimize Skin Protection Flowsheets (Taken 01/16/2025258) Activity Management: activity adjusted per tolerance activity encouraged education provided previous patient education reinforced Pressure Reduction Devices: positioning supports utilized Skin Protection: incontinence pads utilized Head of Bed (HOB) Positioning: HOB at 30-45 degrees Problem: Adult Inpatient Plan of Care Goal: Plan of Care Review Outcome: Ongoing, Progressing Flowsheets (Taken 01/16/2025258) Progress: no change Plan of Care Reviewed With: patient Goal: Patient-Specific Goal (Individualized) Outcome: Ongoing, Progressing Flowsheets (Taken 01/16/2025 0000) Patient/Family-Specific Goals (Include Timeframe): Pt will maimtain normal skin integrity Individualized Care Needs: Skin integrity Anxieties, Fears or Concerns: None stated Goal: Absence of Hospital-Acquired Illness or Injury Outcome: Ongoing, Progressing Intervention: Identify and Manage Fall Risk Flowsheets (Taken 01/16/2025258) Safety Promotion/Fall Prevention: activity supervised clutter-free environment maintained fall prevention program maintained lighting adjusted room organization consistent safety round/check completed toileting scheduled Intervention: Prevent Skin Injury Flowsheets (Taken 01/16/2025258) Body Position: turned right Skin Protection: incontinence pads utilized Intervention: Prevent and Manage VTE (Venous Thromboembolism) Risk Flowsheets (Taken 01/16/2025258) VTE Prevention/Management: SCDs (sequential compression devices) on bilateral Intervention: Prevent Infection Flowsheets (Taken 01/16/2025258) Infection Prevention: environmental surveillance performed equipment surfaces disinfected hand hygiene promoted rest/sleep promoted Goal: Optimal Comfort and Wellbeing Outcome: Ongoing, Progressing Intervention: Monitor Pain and Promote Comfort Flowsheets (Taken 01/16/2025 025) Pain Management Interventions: medication (see MAR) quiet environment facilitated relaxation techniques promoted prescribed exercises encouraged Intervention: Provide Person-Centered Care Flowsheets (Taken 01/16/2025 025) Trust Relationship/Rapport: care explained choices provided emotional support provided empathic listening provided questions answered questions encouraged * ED Provider Notes - Ivonne Morley DO - 01/15/2025 5:16 PM EDT Images from the original note were not included. - HPI Chief Complaint Patient presents with Abnormal Potassium Altered Mental Status This is an 79-year-old male with recent history of knee replacement complicated by urinary obstruction who presents emergency department as a transfer from outside hospital for renal failure, elevated potassium, and acute urinary retention. Patient is also reportedly COVID positive. Creatinine at outside hospital is 14 and potassium was 6.0. Patient was given 1 round of hyperkalemia treatment. Hehas had significant urinary output in his Cardenas. He is altered and can not participate with clinical history. History provided by: Patient and medical records Patient History Past Medical History[1] Surgical History[2] Family History[3] Social History[4] Allergies: Allergies[5] Physical Exam ED Triage Vitals [01/15/25 1730] Temp Heart Rate Resp BP 36.8 ??C (98.2 ??F) 83 20 (!) 140/66 SpO2 Temp Source Heart Rate Source Patient Position 94 % Oral -- Lying BP Location FiO2 (%) Right arm -- Physical Exam Vitals and nursing note reviewed. Constitutional: General: He is not in acute distress. Appearance: He is well-developed. He is ill-appearing. HENT: Head: Normocephalic and atraumatic. Mouth/Throat: Mouth: Mucous membranes are moist. Eyes: Conjunctiva/sclera: Conjunctivae normal. Cardiovascular: Rate and Rhythm: Normal rate and regular rhythm. Heart sounds: No murmur heard. Pulmonary: Effort: Pulmonary effort is normal. No respiratory distress. Breath sounds: Normal breath sounds. Abdominal: Palpations: Abdomen is soft. Tenderness: There is no abdominal tenderness. Musculoskeletal: General: No swelling. Cervical back: Neck supple. Right lower leg: No edema. Left lower leg: No edema. Skin: General: Skin is warm and dry. Capillary Refill: Capillary refill takes less than 2 seconds. Neurological: General: No focal deficit present. Mental Status: He is alert. Comments: Occasional myoclonic jerking Alert to self, however otherwise is confused. GCS of 13. Psychiatric: Mood and Affect: Mood normal. EASI ?? Total Score: 0 Annalise Coma Scale Score: 14 TRST Assessment Total: 3 ED Course & MDM - Assessment: 79 y.o. male presents to ED with complaint of renal failure, sent from outside hospital. Differential Diagnosis: Prerenal MITZY, HTN, post renal MITZY secondary to obstruction, viral syndrome,pneumonia, intracranial hemorrhage, drug toxicity On my initial assessment, the patient is hemodynamically stable. He is very confused with a GCS of 13. He is otherwise awake and saturating at 94% on 2 L. He is afebrile. He does have a Cardenas in place that is actively draining urine. In order to fully explore the differential diagnosis the following treatments and tests were ordered: All Other Orders Ordered Status Ordering Provider 01/15/252218 Consult to Hospital Medicine Once Specialty: Internal Medicine Provider: (Not yet assigned) Acknowledged IVONNE MORLEY 01/15/252050 BMP STAT Final result IVONNE MORLEY 01/15/25 203 Blood gas panel, venous STAT Final result IVONNE MORLEY 01/15/25 1908 Troponin T, High Sensitivity, 2 Hour, Plasma PROCEDURE ONCE Final result IVONNE MORLEY 01/15/25 1922 POCT glucose meter PROCEDURE ONCE Final result GUNNAR GONG 01/15/[address] Head wo IV Contrast Once Final result IVONNE MORLEY 01/15/25 1833 Urinalysis Microscopic Examination Once Final result IVONNE MORLEY 01/15/25 1755 Initiate contact isolation Continuous Comments: Added via Instant Order OPA Acknowledged BPA, INSTANT ORDERS 01/15/25 1755 Initiate droplet isolation Continuous Comments: Added via Instant Order OPA Acknowledged BPA, INSTANT ORDERS 01/15/25 1751 XR Chest 1 View One time imaging Final result IVONNE MORLEY 01/15/25 1747 POCT venous blood gas gem PROCEDURE ONCE Final result POCT, GENERIC PROVIDER 01/15/25 1747 Hepatitis C Antibody - ED Once Final result IVONNE MORLEY 01/15/25 1747 ED Protocol - HIV 1/2 Antibody/Antigen Screen Once Final result IVONNE MORLEY 01/15/25 1747 ED HIV 1/2 Antibody/Antigen Screen w/Reflex to HIV 1/2 Differentiation PROCEDURE ONCE Final result IVONNE MORLEY 01/15/25 1747 Bladder scan Once Acknowledged IVONNE MORLEY 01/15/25 1747 CMP STAT Final result IVONNE MORLEY 01/15/25 1747 Magnesium STAT Final result IVONNE MORLEY 01/15/25 1747 Lipase STAT Final result IVONNE MORLEY 01/15/25 1747 Troponin now and 120 min STAT Final result IVONNE MORLEY 01/15/25 1747 BNP STAT Final result IVONNE MORLEY 01/15/25 1747 Thyroid Stimulating Hormone, Plasma STAT Final result IVONNE MORLEY 01/15/25 1747 Free T4, Plasma STAT Final result IVONNE MORLEY 01/15/25 1747 PT-INR STAT Final result IVONNE MORLEY 01/15/25 1747 CBC w/diff STAT Final result IVONNE MORLEY 01/15/25 1747 Blood Culture (Aerobic/Anaerobet Set) STAT Preliminary result IVONNE MORLEY 01/15/25 1747 Blood Culture (Aerobic/Anaerobet Set) STAT Preliminary result IVONNE MORLEY 01/15/25 1747 STAT Canceled IVONNE MORLEY 01/15/25 1747 Once Canceled IVONNE MORLEY 01/15/25 1747 Urinalysis with reflex microscopic AND reflex culture (IF UTI SUSPECTED) STAT Final result IVONNE MORLEY 01/15/25 1747 Type and screen Start now Final result IVONNE MORLEY 01/15/25 174 Urinalysis with reflex microscopic (Culture NOT Included) PROCEDURE ONCE Final result IVONNE MORLEY 01/15/25 1747 Urine Becerra Panel PROCEDURE ONCE Final result IVONNE MORLEY 01/15/25 1747 PROCEDURE ONCE Canceled HEATHERIVONNE SHAIKH 01/15/25 1729 POCT glucose meter PROCEDURE ONCE Final result POCT, GENERIC PROVIDER 01/15/25 1727 EKG now - STAT (adult) Once Preliminary result GUNNAR GONG ED Course as of 01/15/252258 Sun Jan 15, 2025 180 On review of outside hospital medical records, potassium 6.0, 4 L of urine returned with initial Cardenas placement, an additional 1.5 L in Cardenas. Clinical picture is consistent with postobstructive diuresis. He was given 2 L of normal saline at outside hospital. [ED] 1835 ECG personally reviewed. Normal intervals. No ST changes. Normal sinus rhythm. [TT] 2048 Additional 5 out - now total of 4 + 1.6 + 1.6 = 7.2L [ED] ED Course User Index [ED] Ivonne Morley, [TT] Gunnar Gong MD Clinical Impressions as of 01/15/252258 Acute encephalopathy Postobstructive diuresis Acute renal failure, unspecified acute renal failure type (CMS/HCC) Initial CBC shows no leukocytosis. Hemoglobin stable at 10.2. Repeat CMP on arrival to [facility] shows improvement in creatinine to 10.04 with stable electrolytes. Potassium is 5.1. VBG shows a mild metabolic acidosis with a pH 7.29, CO2 37, bicarb 17.8. Lactate within normal limits. I considered additional fluid resuscitation, however decided to hold off considering electrolytes are stable. Repeat BNP shows continued improvement in creatinine, now 7.09. Electrolytes remained stable. I discussed pathology extensively with the patient's family at the bedside. They confirmed he is a full code at this time. I discussed my concern for his mental status, stating that as his BUN improves, his mental status will likely improve. CT head personally interpreted by myself with no acute findings. Radiology reads in agreement. CXR reveals no acute pulmonary opacities, pneumothorax, pleural effusion, bony abnormalities or fractures, or cardiomegaly. No abnormal elevation in hemidiaphragm. No subcutaneous emphysema. Trachea is midline. Considering improvement in renal function as demonstrated on lab work, I feel patient is most appropriate for progressive level of care at this point in time. He does not have any ICU needs. This wasdiscussed with ED attending. An interactive discussion was had with Hospital Medicine regarding post renal MITZY with now post ATNdiuresis. [employer] Principal agrees to evaluate patient and will admit to their service. Social Determinates of Health Risks (including Economic Stability, Education and level of understanding, Healthcare access and quality and concerning social factors): Lives far away Ultimately, this patient was Was admitted (Admission) The primary encounter diagnosis was Acute encephalopathy. Diagnoses of Postobstructive diuresis and Acute renal failure, unspecified acute renal failure type (CMS/HCC) were also pertinentto this visit.. Patient believed to require admission for the listed diagnoses. The Internal Medicine service was consulted for admission and was agreeable to admit to Acute Floor (Med/Surg). ED Prescriptions None Disposition Admit - [1] No past medical history on file. [2] No past surgical history on file. [3] No family history on file. [4] Tobacco Use Smoking status: Never [5] Not on File Ivonne Morley DO Resident 01/15/25 8937 Cosigned by Gunnar Gong MD at 01/17/2025 11:54 PM EDT Associated attestation - Gunnar Gong MD - 01/17/2025 11:54 PM EDT I saw and evaluated the patient with the resident/fellow. I discussed the case with the resident/fellow and agree with the findings and plan as documented. * ED Triage Notes - Olivia Alvarez RN - 01/15/2025 5:16 PM EDT Presents from OSH for MITZY - Cr 14.2, hyperkalemia - K+ 6.0, COVID+, encephalopathy. Presented to OSH today with AMS, incontinence, muscle spasms since Thursday. Found above problems. Treatments given include 2L NS, D10 250mL, 5units insulin IV. Cardenas also placed with 4L returned, initially bright red, now yellow and pink tinged. No scans performed at OSH. documented in this encounter Plan of Treatment Upcoming Encounters Date Type Department Care Team (Late st Contact Info) Description 02/24/2025 10:00 AM EDT Consult [facility] [address] [place] [address] Mago eLvy PA [address] [place] [address] Scheduled Referrals Name Type Priority Associated Diagnoses Order Schedule Discharge Ambulatory referral to Urology Outpatient Referral Routine Urinary retention 1 Occurrences starting 01/19/2025 until 07/23/2026 documented as of this encounter Procedures Procedure Name Priority Date/Time Associated Diagnosis Comments BASIC METABOLIC PANEL, PLASMA Routine 01/19/2025 5:14 AM EDT BASIC METABOLIC PANEL, PLASMA Routine 01/18/2025 1:26 AM EDT BASIC METABOLIC PANEL, PLASMA Timed 01/17/2025 1:02 PM EDT POCT GLUCOSE METER UNSOLICITED RESULTS Routine 01/17/2025 7:38 AM EDT BASIC METABOLIC PANEL, PLASMA Timed 01/17/2025 6:57 AM EDT CBC WITH AUTO DIFFERENTIAL Routine 01/17/2025 2:33 AM EDT BASIC METABOLIC PANEL, PLASMA Timed 01/17/2025 2:33 AM EDT BASIC METABOLIC PANEL, PLASMA Timed 01/16/2025 6:03 PM EDT XR CHEST 1 VIEW STAT 01/16/2025 4:54 PM EDT COMPREHENSIVE GI PANEL BY PCR Routine 01/16/2025 3:24 PM EDT CLOSTRIDIODES (CLOSTRIDIUM) DIFFICILE,PCR Routine 01/16/2025 3:24 PM EDT BASIC METABOLIC PANEL, PLASMA Timed 01/16/2025 11:33 AM EDT SARS COV-2/COVID-19 BY PCR - RAPID Routine 01/16/2025 9:35 AM EDT NASOPHARYNGEAL RESPIRATORY PANEL Routine 01/16/2025 9:35 AM EDT BASIC METABOLIC PANEL, PLASMA Timed 01/16/2025 6:03 AM EDT IONIZED CALCIUM, WHOLE BLOOD Routine 01/16/2025 3:09 AM EDT PROCALCITONIN, PLASMA Routine 01/16/2025 3:09 AM EDT CBC W/O DIFFERENTIAL Routine 01/16/2025 3:09 AM EDT C-REACTIVE PROTEIN, PLASMA Routine 01/16/2025 3:09 AM EDT PHOSPHORUS, PLASMA Routine 01/16/2025 3: 09 AM EDT MAGNESIUM, PLASMA Routine 01/16/2025 3:0 9 AM EDT HEMOGLOBIN A1C Routine 01/16/2025 3:09 AM EDT FOLATE, SERUM Routine 01/16/2025 3:09 AM EDT VITAMIN B12, SERUM Routine 01/16/2025 3: 09 AM EDT AMMONIA, PLASMA Routine 01/16/2025 3:09 AM EDT BASIC METABOLIC PANEL, PLASMA Timed 01/16/2025 3:09 AM EDT US RENAL COMPLETE STAT 01/16/2025 2:[address] HEAD WO IV CONTRAST STAT 9:36 PM EDT BLOOD GAS PANEL, VENOUS STAT 01/16/20 9:12 PM EDT BASIC METABOLIC PANEL, PLASMA STAT 01/15/2025 9:12 PM EDT TROPONIN T, HIGH SENSITIVITY, 2 HOUR, PLASMA Timed 01/15/2025 8:48 PM EDT POCT GLUCOSE METER UNSOLICITED RESULTS Routine 01/15/2025 7:22 PM EDT ED HIV 1/2 ANTIBODY/ANTIGEN SCREEN WITH REFLEX TO HIV I/II DIFFERENTIATION STAT 01/15/2025 6:28 PM EDT ED PROTOCOL HIV 1/2 ANTIBODY/ANTIGEN SCREEN W/REFLEX TO HIV 1/2 ANTIBODY DIFFERENTIATION STAT 01/15/2025 6:28 PM EDT TROPONIN T, HIGH SENSITIVITY, 0 HOUR, PLASMA, REFLEX TO 2 HOUR STAT 01/15/2025 6:28 PM EDT BLOOD CULTURE (AEROBIC/ANAEROBIC SET) STAT 01/15/2025 6:28 PM EDT BLOOD CULTURE (AEROBIC/ANAEROBIC SET) STAT 01/15/2025 6:28 PM EDT TYPE AND SCREEN STAT 01/15/2025 6:28 PM EDT FREE T4, PLASMA STAT 01/15/2025 6:28 PM EDT URINALYSIS WITH REFLEX MICROSCOPIC AND CULTURE STAT 01/15/2025 6:11 PM EDT URINE BECERRA PANEL STAT 01/15/2025 6:11 PM EDT URINALYSIS MICROSCOPIC FOR UA REFLEX STAT 01/15/2025 6:11 PM EDT URINALYSIS WITH REFLEX MICROSCOPIC STAT 01/15/2025 6:11 PM EDT XR CHEST 1 VIEW STAT 01/15/2025 6:08 PM EDT HEPATITIS C ANTIBODY - ED W/REFLEX TO HCV QUANT PCR STAT 01/15/2025 5:50 PM EDT N-TERMINAL PROBNP, PLASMA STAT 01/15/2025 5:50 PM EDT PROTHROMBIN TIME(PT) / INR STAT 01/15/2025 5:50 PM EDT CBC WITH AUTO DIFFERENTIAL STAT 01/15/2025 5:50 PM EDT TSH STAT 01/15/2025 5:50 PM EDT MAGNESIUM, PLASMA STAT 01/15/2025 5:5 0 PM EDT LIPASE, PLASMA STAT 01/15/2025 5:50 PM EDT COMPREHENSIVE METABOLIC PANEL, PLASMA STAT 01/15/2025 5:50 PM EDT POCT VENOUS BLOOD GAS GEM UNSOLICITED RESULTS Routine 01/15/2025 5:47 PM EDT ECG ADULT STAT 01/15/2025 5:36 PM EDT POCT GLUCOSE METER UNSOLICITED RESULTS Routine 01/15/2025 5:29 PM EDT documented in this encounter Results * (ABNORMAL) Basic metabolic panel (01/19/2025 5:14 AM EDT) Glucose, Plasma 101(H) 74 - 99 mg/dL 01/19/2025 6:14 AM EDT [facility] BUN, Plasma 19 8 - 23 mg/dL 01/19/2025 6:14 AM EDT [facility] Creatinine, Plasma 1.13 0.70 - 1.20 mg/dL 01/19/2025 6:14 AM EDT [facility] BUN/Creatinine Ratio 17 01/19/2025 6:14 AM EDT [facility] Sodium, Plasma 139 136 - 145 mmol/L 01/19/2025 6:14 AM EDT [facility] Potassium, Plasma 3.8 3.6 - 4.9 mmol/L 01/19/2025 6:14 AM EDT [facility] Chloride, Plasma 103 97 - 107 mmol/L 01/19/2025 6:14 AM EDT [facility] CO2, Plasma 25 22 - 29 mmol/L 01/19/2025 6:14 AM EDT [facility] Anion Gap 11 6 - 16 mmol/L 01/19/2025 6:14 AM EDT [facility] Total Calcium, Plasma 8.1(L) 8.9 - 10.2 mg/dL 01/19/2025 6:14 AM EDT [facility] eGFRcr 65.3 mL/min/1.7 3m*2 01/19/2025 6:14 AM EDT [facility] Comment:Reported eGFRcr in m L/min/1.73m2 is based the CKD-EPI 2020 equation that does not use a race coefficient. Blood Venous blood specimen / Unknown Venipuncture / Unknown 01/19/2025 5:14 AM EDT 01/19/2025 5:44 AM EDT us Meaghan Olivier MD LAB BLOOD ORDERABLES Final Result [facility] [address] [place] [address] * (ABNORMAL) Basic metabolic panel (01/18/2025 1:26 AM EDT) Glucose, Plasma 96 74 - 99 mg/dL 01/18/2025 2:21 AM EDT [facility] BUN, Plasma 13 8 - 23 mg/dL 01/18/2025 2:21 AM EDT [facility] Creatinine, Plasma 0.94 0.70 - 1.20 mg/dL 01/18/2025 2:21 AM EDT [facility] BUN/Creatinine Ratio 14 01/18/2025 2:21 AM EDT [facility] Sodium, Plasma 140 136 - 145 mmol/L 01/18/2025 2:21 AM EDT [facility] Potassium, Plasma 3.8 3.6 - 4.9 mmol/L 01/18/2025 2:21 AM EDT [facility] Chloride, Plasma 105 97 - 107 mmol/L 01/18/2025 2:21 AM EDT [facility] CO2, Plasma 23 22 - 29 mmol/L 01/18/2025 2:21 AM EDT [facility] Anion Gap 12 6 - 16 mmol/L 01/18/2025 2:21 AM EDT [facility] Total Calcium, Plasma 8.0(L) 8.9 - 10.2 mg/dL 01/18/2025 2:21 AM EDT [facility] eGFRcr 81.4 mL/min/1.7 3m*2 01/18/2025 2:21 AM EDT [facility] Comment:Reported eGFRcr in m L/min/1.73m2 is based the CKD-EPI 2020 equation that does not use a race coefficient. Blood Venous blood specimen / Unknown Venipuncture / Unknown 01/18/2025 1:26 AM EDT 01/18/2025 1:50 AM EDT Meaghan Olivier MD LAB BLOOD ORDERABLES Final Result [facility] [address] [place] [address] * (ABNORMAL) Basic metabolic panel (01/17/2025 1:02 PM EDT) Glucose, Plasma 130(H) 74 - 99 mg/dL 01/17/2025 1:47 PM EDT [facility] BUN, Plasma 12 8 - 23 mg/dL 01/17/2025 1:47 PM EDT [facility] Creatinine, Plasma 0.85 0.70 - 1.20 mg/dL 01/17/2025 1:47 PM EDT [facility] BUN/Creatinine Ratio 14 01/17/2025 1:47 PM EDT [facility] Sodium, Plasma 136 136 - 145 mmol/L 01/17/2025 1:47 PM EDT [facility] Potassium, Plasma 4.2 3.6 - 4.9 mmol/L 01/17/2025 1:47 PM EDT [facility] Chloride, Plasma 101 97 - 107 mmol/L 01/17/2025 1:47 PM EDT [facility] CO2, Plasma 22 22 - 29 mmol/L 01/17/2025 1:47 PM EDT [facility] Anion Gap 13 6 - 16 mmol/L 01/17/2025 1:47 PM EDT [facility] Total Calcium, Plasma 8.8(L) 8.9 - 10.2 mg/dL 01/17/2025 1:47 PM EDT [facility] eGFRcr 87.3 mL/min/1.7 3m*2 01/17/2025 1:47 PM EDT [facility] Comment:Reported eGFRcr in m L/min/1.73m2 is based the CKD-EPI 2020 equation that does not use a race coefficient. Blood Venous blood specimen / Unknown Venipuncture / Unknown 01/17/2025 1:02 PM EDT 01/17/2025 1:17 PM EDT Colby Kim APRN, DNP LAB BLOOD ORDERAB LES Final Result [facility] [address] [place] [address] * (ABNORMAL) POCT glucose meter (01/17/2025 7:38 AM EDT) Pathologist [facility] [place] POCT Glucose 101(H) 74 - 99 mg/dL 01/17/2025 7:41 AM EDT [facility] Comment:Accuracy of a glucos e result obtained from a capillary whole blood specimen relies upon adequate, non-compromised capillary blood flow. If the capillary glucose result is not consistent with the patient's clinical signs and symptoms, glucose testing should be repeated with either an arterial or venous sample on the glucometer or sent to the main labortory for testing. Comment 01/17/2025 7:41 AM EDT [facility] Intermodal Dispatcher ID Emani Farah 01/18/20 7:41 AM EDT [facility] Device ID [id number] 01/17/2025 7:41 AM EDT [facility] Specimen Type POC Capillary 01/17/2025 7:41 AM EDT [facility] Blood Capillary blood specimen / Unknown 01/17/2025 7:38 AM EDT 01/17/2025 7:41 AM EDT Marlene Mcdaniels DO LAB POINT OF CARE TE ST DOCKED DEVICE UNSOLICITED RESULTS Final Result [facility] [address] [place] [address] * (ABNORMAL) Basic metabolic panel (01/17/2025 6:57 AM EDT) Glucose, Plasma 56(L) 74 - 99 mg/dL 01/17/2025 7:36 AM EDT [facility] BUN, Plasma 8 8 - 23 mg/dL 01/17/2025 7:36 AM EDT [facility] Creatinine, Plasma 0.47(L) 0.70 - 1.20 mg/dL 01/17/2025 7:36 AM EDT [facility] BUN/Creatinine Ratio 17 01/17/2025 7:36 AM EDT [facility] Sodium, Plasma 132(L) 136 - 145 mmol/L 01/17/2025 7:36 AM EDT [facility] Potassium, Plasma 6.2(H) 3.6 - 4.9 mmol/L 01/17/2025 7:36 AM EDT [facility] Comment:Hemolyzed, result ma y be falsely increased. Chloride, Plasma 103 97 - 107 mmol/L 01/17/2025 7:36 AM EDT [facility] CO2, Plasma 14(L) 22 - 29 mmol/L 01/17/2025 7:36 AM EDT [facility] Anion Gap 15 6 - 16 mmol/L 01/17/2025 7:36 AM EDT [facility] Total Calcium, Plasma 7.1(L) 8.9 - 10.2 mg/dL 01/17/2025 7:36 AM EDT [facility] eGFRcr 104.4 mL/min/1.7 3m*2 01/17/2025 7:36 AM EDT [facility] Comment:Reported eGFRcr in m L/min/1.73m2 is based the CKD-EPI 2020 equation that does not use a race coefficient. Blood Venous blood specimen / Unknown Venipuncture / Unknown 01/17/2025 6:57 AM EDT 01/17/2025 7:01 AM EDT us Colbyrose mary Kim CAREER DEVELOPMENT SPECIALIST, DNP LAB BLOOD ORDERAB LES Final Result [facility] [address] [place] [address] * (ABNORMAL) CBC and differential (01/17/2025 2:33 AM EDT) WBC Count 6.34 3.70 - 10.30 10*3/uL LAB HEMATOLOGY METHOD 01/17/2025 2:49 AM EDT [facility] RBC Count 4.12(L) 4.60 - 6.10 10*6/uL LAB HEMATOLOGY METHOD 01/17/2025 2:49 AM EDT [facility] HGB 11.7(L) 13.7 - 17.5 g/dL LAB HEMATOLOGY METHOD 01/17/2025 2:49 AM EDT [facility] HCT 35.3(L) 40.0 - 51.0 % LAB HEMATOLOGY METHOD 01/17/2025 2:49 AM EDT [facility] Platelet Count 345 155 - 369 10*3/uL LAB HEMATOLOGY METHOD 01/17/2025 2:49 AM EDT [facility] MCV 86 79 - 98 fL LAB HEMATOLOGY METHOD 01/17/2025 2:49 AM EDT [facility] MCH 28.4 26.0 - 32.0 pg LAB HEMATOLOGY METHOD 01/17/2025 2:49 AM EDT [facility] MCHC 33.1 30.7 - 35.5 g/dL LAB HEMATOLOGY METHOD 01/17/2025 2:49 AM EDT [facility] RDW 14.7(H) 11.5 - 14.5 % LAB HEMATOLOGY METHOD 01/17/2025 2:49 AM EDT [facility] MPV 9.8 8.8 - 12.5 fL LAB HEMATOLOGY METHOD 01/17/2025 2:49 AM EDT [facility] nRBC 0.0 <=0.0 per 100 WBCs LAB HEMATOLOGY METHOD 01/17/2025 2:49 AM EDT [facility] Differential Type Automated LAB HEMATOLOGY METHOD 01/17/2025 2:49 AM EDT [facility] Neutrophils % 61 % LAB HEMATOLOGY METHOD 01/17/2025 2:49 AM EDT [facility] Lymphocytes % 26 % LAB HEMATOLOGY METHOD 01/17/2025 2:49 AM EDT [facility] Monocytes % 10 % LAB HEMATOLOGY METHOD 01/17/2025 2:49 AM EDT [facility] Eosinophils % 0 % LAB HEMATOLOGY METHOD 01/17/2025 2:49 AM EDT [facility] Basophils % 0 % LAB HEMATOLOGY METHOD 01/17/2025 2:49 AM EDT [facility] Immature Granulocytes % 3 % LAB HEMATOLOGY METHOD 01/17/2025 2:49 AM EDT [facility] Neutrophils Absolute 3.86 1.60 - 6.10 10*3/uL LAB HEMATOLOGY METHOD 01/17/2025 2:49 AM EDT [facility] Lymphocytes Absolute 1.65 1.20 - 3.90 10*3/uL LAB HEMATOLOGY METHOD 01/17/2025 2:49 AM EDT [facility] Monocytes Absolute 0.61 0.30 - 0.90 10*3/uL LAB HEMATOLOGY METHOD 01/17/2025 2:49 AM EDT [facility] Eosinophils Absolute 0.00 0.00 - 0.50 10*3/uL LAB HEMATOLOGY METHOD 01/17/2025 2:49 AM EDT [facility] Basophils Absolute 0.01 0.00 - 0.10 10*3/uL LAB HEMATOLOGY METHOD 01/17/2025 2:49 AM EDT [facility] Immature Granulocytes Absolute 0.21(H) 0.00 - 0.06 10*3/uL LAB HEMATOLOGY METHOD 01/17/2025 2:49 AM EDT [facility] Blood Venous blood specimen / Unknown Venipuncture / Unknown 01/17/2025 2:33 AM EDT 01/17/2025 2:43 AM EDT Narrative [facility] - 01/17/2025 2:49 AM EDT Therapeutic decision making should be based on absolute values, rather than percentages. Marlene Mcdaniels DO LAB BLOOD ORDERABLES Final Re sult [facility] [address] [place] [address] * (ABNORMAL) Basic metabolic panel (01/17/2025 2:33 AM EDT) Pathologist [facility] [place] Glucose, Plasma 93 74 - 99 mg/dL 01/17/2025 3:12 AM EDT [facility] BUN, Plasma 13 8 - 23 mg/dL 01/17/2025 3:12 AM EDT [facility] Creatinine, Plasma 0.90 0.70 - 1.20 mg/dL 01/17/2025 3:12 AM EDT [facility] BUN/Creatinine Ratio 14 01/17/2025 3:12 AM EDT [facility] Sodium, Plasma 140 136 - 145 mmol/L 01/17/2025 3:12 AM EDT [facility] Potassium, Plasma 4.1 3.6 - 4.9 mmol/L 01/17/2025 3:12 AM EDT [facility] Chloride, Plasma 106 97 - 107 mmol/L 01/17/2025 3:12 AM EDT [facility] CO2, Plasma 21(L) 22 - 29 mmol/L 01/17/2025 3:12 AM EDT [facility] Anion Gap 13 6 - 16 mmol/L 01/17/2025 3:12 AM EDT [facility] Total Calcium, Plasma 8.4(L) 8.9 - 10.2 mg/dL 01/17/2025 3:12 AM EDT [facility] eGFRcr 85.8 mL/min/1.7 3m*2 01/17/2025 3:12 AM EDT [facility] Comment:Reported eGFRcr in m L/min/1.73m2 is based the CKD-EPI 2020 equation that does not use a race coefficient. Blood Venous blood specimen / Unknown Venipuncture / Unknown 01/17/2025 2:33 AM EDT 01/17/2025 2:43 AM EDT us Colby Kim APRN, DEE LAB BLOOD ORDERAB LES Final Result [facility] [address] [place] [address] * (ABNORMAL) Basic metabolic panel (01/16/2025 6:03 PM EDT) Pathologist [facility] [place] Glucose, Plasma 114(H) 74 - 99 mg/dL 01/16/2025 7:34 PM EDT [facility] BUN, Plasma 21 8 - 23 mg/dL 01/16/2025 7:34 PM EDT [facility] Creatinine, Plasma 1.16 0.70 - 1.20 mg/dL 01/16/2025 7:34 PM EDT [facility] BUN/Creatinine Ratio 18 01/16/2025 7:34 PM EDT [facility] Sodium, Plasma 140 136 - 145 mmol/L 01/16/2025 7:34 PM EDT [facility] Potassium, Plasma 4.9 3.6 - 4.9 mmol/L 01/16/2025 7:34 PM EDT [facility] Chloride, Plasma 107 97 - 107 mmol/L 01/16/2025 7:34 PM EDT [facility] CO2, Plasma 17(L) 22 - 29 mmol/L 01/16/2025 7:34 PM EDT [facility] Anion Gap 16 6 - 16 mmol/L 01/16/2025 7:34 PM EDT [facility] Total Calcium, Plasma 8.6(L) 8.9 - 10.2 mg/dL 01/16/2025 7:34 PM EDT [facility] eGFRcr 63.3 mL/min/1.7 3m*2 01/16/2025 7:34 PM EDT [facility] Comment:Reported eGFRcr in m L/min/1.73m2 is based the CKD-EPI 2020 equation that does not use a race coefficient. Blood Venous blood specimen / Unknown Venipuncture / Unknown 01/16/2025 6:03 PM EDT 01/16/2025 6:40 PM EDT us Colby Kim APRN, DEE LAB BLOOD ORDERAB LES Final Result [facility] [address] [place] [address] * XR Chest 1 View (01/16/2025 4:54 PM EDT) Anatomical Region Laterality Modality Chest Digital Radiogra phy Impressions 01/16/2025 5:04 PM EDT No significant interval change. CRITICAL RESULT: No COMMUNICATION: Per this written report. Drafted by Meg Norris MD on 01/16/2025 5:04 PM Final report signed by Meg Norris MD on 01/16/2025 5:04 PM Narrative 01/16/2025 5:04 PM EDT CLINICAL INDICATION: Shortness of air TECHNIQUE: XR CHEST 1 VIEW COMPARISON: 01/15/2025 FINDINGS: The cardiomediastinal silhouette is stable. No new focal consolidation or pleural effusion. No pneumothorax. The visualized osseous structures are intact. Degenerative change in the spine. Procedure Note Meg Norris MD - 01/16/2025 CLINICAL INDICATION: Shortness of air TECHNIQUE: XR CHEST 1 VIEW COMPARISON: 01/15/2025 FINDINGS: The cardiomediastinal silhouette is stable. No new focal consolidation orpleural effusion. No pneumothorax. The visualized osseous structures areintact. Degenerative change in the spine. IMPRESSION: No significant interval change. CRITICAL RESULT: No COMMUNICATION: Per this written report. Drafted by Meg Norris MD on 01/16/2025 5:04 PM Final report signed by Meg Norris MD on 01/16/2025 5:04 PM us Marlene Mcdaniels DO IMG XR PROCEDURES Final Resul t * Comprehensive GI Panel by PCR (01/16/2025 3:24 PM EDT) Campylobacter PCR Result Not Detected Not Detected 01/17/2025 6:45 AM EDT [facility] Plesiomonas shigelloides PCR Result Not Detected Not Detected 01/17/2025 6:45 AM EDT [facility] Salmonella PCR Result Not Detected Not Detected 01/17/2025 6:45 AM EDT [facility] Vibrio species PCR Result Not Detected Not Detected 01/17/2025 6:45 AM EDT [facility] Vibrio cholerae PCR Result Not Detected Not Detected 01/17/2025 6:45 AM EDT [facility] Yersinia enterocolitica PCR Result Not Detected Not Detected 01/17/2025 6:45 AM EDT [facility] Enteroaggregative E. coli (EAEC) PCR Result Not Detected Not Detected 01/17/2025 6:45 AM EDT [facility] Enteropathogenic E. coli (EPEC) PCR Result Not Detected Not Detected 01/17/2025 6:45 AM EDT [facility] Enterotoxigenic E. coli (ETEC) lt/st PCR Result Not Detected Not Detected 01/17/2025 6:45 AM EDT [facility] Shiga-like Toxin-Producing E.coli (STEC) stx1/stx2 PCR Resu Not Detected Not Detected 01/17/2025 6:45 AM EDT [facility] E coli 0157 PCR Result Not Detected Not Detected 01/17/2025 6:45 AM EDT [facility] Shigella/Enteroinvas maria t E. coli (EIEC) PCR Result Not Detected Not Detected 01/17/2025 6:45 AM EDT [facility] Cryptosporidium PCR Result Not Detected Not Detected 01/17/2025 6:45 AM EDT [facility] Cyclospora cayetanensis PCR Result Not Detected Not Detected 01/17/2025 6:45 AM EDT [facility] Entamoeba histolytica PCR Result Not Detected Not Detected 01/17/2025 6:45 AM EDT [facility] Giardia duodenalis (aka Giardia lamblia) PCR Result Not Detected Not Detected 01/17/2025 6:45 AM EDT [facility] Adenovirus F 40/41 PCR Result Not Detected Not Detected 01/17/2025 6:45 AM EDT [facility] Astrovirus PCR Result Not Detected Not Detected 01/17/2025 6:45 AM EDT [facility] Norovirus GI/GII PCR Result Not Detected Not Detected 01/17/2025 6:45 AM EDT [facility] Rotavirus A PCR Result Not Detected Not Detected 01/17/2025 6:45 AM EDT [facility] Sapovirus PCR Result Not Detected Not Detected 01/17/2025 6:45 AM EDT [facility] Stool Rectum structure / Unknown Non-blood Collection / Unknown 01/16/2025 3:24 PM EDT 01/16/2025 3:42 PM EDT Narrative [facility] - 01/17/2025 6:45 AM EDT This specimen was tested for the following analytes: Campylobacter species, Plesiomonas shigelloides, Salmonella species, Vibrio species, Vibrio cholerae, Yersinia enterolitica, Enteroaggregative E. coli (EAEC), Enteropathogenic E. Coli (EPEC), Enterotoxigenic E. coli (ETEC), Shiga-like toxin-producing E. coli (STEC), Shigella/Enteroinvasive E. coli (EIEC), Cryptosporidium, Cyclospora cayetanensis, Entamoeba histolytica, Giardia lamblia, Adenovirus f40/41, Astrovirus, Norovirus GI/GII, Rotavirus A, and Sapovirus. Note: Clostridium difficile toxin a/b will no longer be resulted using this platform. Please order the Clostridium difficile by PCR assay if clinically indicated. Marlene Mcdaniels DO LAB MICROBIOLOGY - GENERAL OR DERABLES Final Result [facility] [address] [place] [address] * Clostridiodes (Clostridium) difficile PCR (01/16/2025 3:24 PM EDT) C difficile PCR toxin B gene DNA Result Not Detected Not Detected 01/16/2025 6:15 PM EDT [facility] Stool Rectum structure / Unknown Non-blood Collection / Unknown 01/16/2025 3:24 PM EDT 01/16/2025 3:42 PM EDT Narrative [facility] - 01/16/2025 6:15 PM EDT This test is FDA approved for use with liquid stool specimens. This test is used for clinical purposes. It should not be regarded as investigational or for research. This laboratory is certified under the Clinical Laboratory Improvement Amendments of 1988 (CLIA-88) as qualified to perform high complexity clinical laboratory testing. Marlene Mcdaniels DO LAB MICROBIOLOGY - GENERAL OR DERABLES Final Result [facility] [address] [place] [address] * (ABNORMAL) Basic metabolic panel (01/16/2025 11:33 AM EDT) Glucose, Plasma 97 74 - 99 mg/dL 01/16/2025 12:07 PM EDT [facility] BUN, Plasma 30(H) 8 - 23 mg/dL 01/16/2025 12:07 PM EDT [facility] Creatinine, Plasma 1.79(H) 0.70 - 1.20 mg/dL 01/16/2025 12:07 PM EDT [facility] BUN/Creatinine Ratio 17 01/16/2025 12:07 PM EDT [facility] Sodium, Plasma 141 136 - 145 mmol/L 01/16/2025 12:07 PM EDT [facility] Potassium, Plasma 4.6 3.6 - 4.9 mmol/L 01/16/2025 12:07 PM EDT [facility] Chloride, Plasma 109(H) 97 - 107 mmol/L 01/16/2025 12:07 PM EDT [facility] CO2, Plasma 20(L) 22 - 29 mmol/L 01/16/2025 12:07 PM EDT [facility] Anion Gap 12 6 - 16 mmol/L 01/16/2025 12:07 PM EDT [facility] Total Calcium, Plasma 8.3(L) 8.9 - 10.2 mg/dL 01/16/2025 12:07 PM EDT [facility] eGFRcr 37.6 mL/min/1.7 3m*2 01/16/2025 12:07 PM EDT [facility] Comment:Reported eGFRcr in m L/min/1.73m2 is based the CKD-EPI 2020 equation that does not use a race coefficient. Blood Venous blood specimen / Unknown Venipuncture / Unknown 01/16/2025 11:33 AM EDT 01/16/2025 11:42 AM EDT us Colbyisabella Kim APRN, DNP LAB BLOOD ORDERAB LES Final Result [facility] [address] [place] [address] * Nasopharyngeal Respiratory Panel (01/16/2025 9:35 AM EDT) Nasopharyngeal Respiratory PCR Interpretation Not Detected for all analytes Not Detected for all analytes 01/16/2025 12:01 PM EDT [facility] Swab Nasopharyngeal structure / Unknown Non-blood Collection / Unknown 01/16/2025 9:35 AM EDT 01/16/2025 9:57 AM EDT Narrative [facility] - 01/16/2025 12:01 PM EDT This assay can detect Adenovirus, Coronavirus, Human Metapneumovirus, Human Rhino/Enterovirus, Influenza A, Influenza A H1, Influenza A H1 2009, Influenza A H3, Influenza B, Parainfluenza Virus 1, Parainfluenza Virus 2, Parainfluenza Virus 3, Parainfluenza Virus 4, Respiratory Syncytial Virus A, Respiratory Syncytial Virus B, Chlamydia pneumoniae, and Mycoplasma pneumoniae. Note: This assay does NOT detect SARS/CoV, novel Coronavirus 2019-nCoV, Bordetella pertussis or Bordetella parapertussis. Nasopharyngeal Respiratory PCR Panel is performed using the [employer] instrument. This test is FDA approved for use with Nasopharyngeal swabs only. This test is used for clinical purposes. It should not be regarded as investigational or for research. The [facility] is certified under the Clinical Laboratory Improvement Amendments of 1988 (CLIA-88) as qualified to perform high complexity clinical laboratory testing. us Marlene Mcdaniels DO LAB MICROBIOLOGY - GENERAL OR DERABLES Final Result [facility] [address] [place] [address] * (ABNORMAL) SARS CoV-2/COVID-19 by PCR - Rapid (01/16/2025 9:35 AM EDT) [facility] SARS CoV-2/COVID-19 RNA PCR Result Detected( A) Not Detected 01/16/2025 10:55 AM EDT [facility] Swab Nasopharyngeal structure / Unknown Non-blood Collection / Unknown 01/16/2025 9:35 AM EDT 01/16/2025 9:57 AM EDT Narrative [facility] - 01/16/2025 10:55 AM EDT This test is FDA approved for use with nasopharyngeal specimens in Viral Transport Media (VTM). This test is used for clinical purposes. It should not be regarded as investigational or for research. This laboratory is certified under the Clinical Laboratory improvement Amendments of 1988 (CLIA-88 as qualified to perform high complexity clinical laboratory testing. This test was performed on the Xpert Xpress SARS CoV-2 Plus assay test, a PCR- based method. Negative results should be considered presumptive and do not preclude current or future infection obtained through community transmission or other exposures. Negative results must be considered in the context of an individual's recent exposures, history, presence of clinical signs and symptoms consistent with COVID-19. Marlene Mcdaniels DO LAB MICROBIOLOGY - GENERAL OR DERABLES Final Result Performing Organization Address [facility] Co de Phone Number [facility] [address] [place] [address] * (ABNORMAL) Basic metabolic panel (01/16/2025 6:03 AM EDT) [facility] Glucose, Plasma 104(H) 74 - 99 mg/dL 01/16/2025 6:34 AM EDT [facility] BUN, Plasma 43(H) 8 - 23 mg/dL 01/16/2025 6:34 AM EDT [facility] Creatinine, Plasma 2.69(H) 0.70 - 1.20 mg/dL 01/16/2025 6:34 AM EDT [facility] BUN/Creatinine Ratio 16 01/16/2025 6:34 AM EDT [facility] Sodium, Plasma 141 136 - 145 mmol/L 01/16/2025 6:34 AM EDT [facility] Potassium, Plasma 4.8 3.6 - 4.9 mmol/L 01/16/2025 6:34 AM EDT [facility] Chloride, Plasma 109(H) 97 - 107 mmol/L 01/16/2025 6:34 AM EDT [facility] CO2, Plasma 18(L) 22 - 29 mmol/L 01/16/2025 6:34 AM EDT [facility] Anion Gap 14 6 - 16 mmol/L 01/16/2025 6:34 AM EDT [facility] Total Calcium, Plasma 8.5(L) 8.9 - 10.2 mg/dL 01/16/2025 6:34 AM EDT [facility] eGFRcr 23.1 mL/min/1.7 3m*2 01/16/2025 6:34 AM EDT [facility] Comment:Reported eGFRcr in m L/min/1.73m2 is based the CKD-EPI 2020 equation that does not use a race coefficient. Blood Venous blood specimen / Unknown Venipuncture / Unknown 01/16/2025 6:03 AM EDT 01/16/2025 6:14 AM EDT us Colbyrose mary Kim CAREER DEVELOPMENT SPECIALIST, DNP LAB BLOOD ORDERAB LES Final Result [facility] [address] [place] [address] * (ABNORMAL) Procalcitonin (01/16/2025 3:09 AM EDT) Procalcitonin, Plasma 0.11(H) <0.09 ng/mL 01/16/2025 3:59 AM EDT [facility] Blood Venous blood specimen / Unknown Venipuncture / Unknown 01/16/2025 3:09 AM EDT 01/16/2025 3:21 AM EDT Narrative [facility] - 01/16/2025 3:59 AM EDT Procalcitonin concentrations in healthy individuals are <0.09 ng/mL. Published data support the following interpretive risk assessment: An elevated procalcitonin result does not always indicate sepsis. Various non-infectious conditions are known to increase procalcitonin. Results should be considered in the context of clinical symptoms and other laboratory tests. Procalcitonin >2.0 ng/mL: Concentrations >2.0 ng/mL on the first day of ICU admission are associated with a higher risk of progression to severe sepsis and/or septic shock. The change in PCT over time may help predict 28 day mortality risk. Please consult [email or web address] for more information. Test performed at [facility]. us Colbyisbaella Kim APRN, [facility] LAB BLOOD ORDERAB LES Final Result Performing Organization Address [facility] Co de Phone Number [facility] [address] [place] [address] * (ABNORMAL) C-Reactive Protein, Plasma (01/16/2025 3:09 AM EDT) CRP, Plasma 124.7(H) <=8.0 mg/L 01/16/2025 3:59 AM EDT [facility] Blood Venous blood specimen / Unknown Venipuncture / Unknown 01/16/2025 3:09 AM EDT 01/16/2025 3:21 AM EDT Narrative [facility] - 01/16/2025 3:59 AM EDT This CRP test is appropriate for assessment of infection, systemic inflammation and/or tissue injury. To assess cardiovascular disease risk order high sensitivity CRP (CRPH). us Colbyisabella Kim APRN, DNP LAB BLOOD ORDERAB LES Final Result Performing Organization Address [facility]/ZIP Co de Phone Number [facility] [address] [place] [address] * Phosphorus, Plasma (01/16/2025 3:09 AM EDT) Phosphorus, Plasma 3.2 2.5 - 4.5 mg/dL 01/16/2025 3:59 AM EDT [facility] Blood Venous blood specimen / Unknown Venipuncture / Unknown 01/16/2025 3:09 AM EDT 01/16/2025 3:21 AM EDT us Colby Judi Kim CAREER DEVELOPMENT SPECIALIST, DNP LAB BLOOD ORDERAB LES Final Result Performing Organization Address City/[facility]/ZIP Co de Phone Number [facility] [address] [place] [address] * Magnesium (01/16/2025 3:09 AM EDT) Magnesium, Plasma 1.9 1.9 - 2.4 mg/dL 01/16/2025 3:59 AM EDT [facility] Blood Venous blood specimen / Unknown Venipuncture / Unknown 01/16/2025 3:09 AM EDT 01/16/2025 3:21 AM EDT us Colby N Judy JOHANSENN, DNP LAB BLOOD ORDERAB LES Final Result Performing Organization Address City/[facility]/ZIP Co de Phone Number [facility] [address] [place] [address] * (ABNORMAL) Basic metabolic panel (01/16/2025 3:09 AM EDT) Glucose, Plasma 87 74 - 99 mg/dL 01/16/2025 3:59 AM EDT [facility] BUN, Plasma 50(H) 8 - 23 mg/dL 01/16/2025 3:59 AM EDT [facility] Creatinine, Plasma 3.64(H) 0.70 - 1.20 mg/dL 01/16/2025 3:59 AM EDT [facility] BUN/Creatinine Ratio 14 01/16/2025 3:59 AM EDT [facility] Sodium, Plasma 143 136 - 145 mmol/L 01/16/2025 3:59 AM EDT [facility] Potassium, Plasma 5.0(H) 3.6 - 4.9 mmol/L 01/16/2025 3:59 AM EDT [facility] Chloride, Plasma 109(H) 97 - 107 mmol/L 01/16/2025 3:59 AM EDT [facility] CO2, Plasma 18(L) 22 - 29 mmol/L 01/16/2025 3:59 AM EDT [facility] Anion Gap 16 6 - 16 mmol/L 01/16/2025 3:59 AM EDT [facility] Total Calcium, Plasma 8.7(L) 8.9 - 10.2 mg/dL 01/16/2025 3:59 AM EDT [facility] eGFRcr 16.0 mL/min/1.7 3m*2 01/16/2025 3:59 AM EDT [facility] Comment:Reported eGFRcr in m L/min/1.73m2 is based the CKD-EPI 2020 equation that does not use a race coefficient. Blood Venous blood specimen / Unknown Venipuncture / Unknown 01/16/2025 3:09 AM EDT 01/16/2025 3:21 AM EDT us Colbyisabella Kim APRN, DEE LAB BLOOD ORDERAB LES Final Result Performing Organization Address City/[facility]/ZIP Co de Phone Number [facility] [address] [place] [address] * (ABNORMAL) Ionized calcium, whole blood (01/16/2025 3:09 AM EDT) [facility] Ionized Calcium, Whole Blood 4.4(L) 4.6 - 5.1 mg/dL LAB HEMATOLOGY METHOD 01/16/2025 3:25 AM EDT [facility] Blood Venous blood specimen / Unknown Venipuncture / Unknown 01/16/2025 3:09 AM EDT 01/16/2025 3:19 AM EDT us Colbyrose mary Kim APRN, DNP LAB BLOOD ORDERAB LES Final Result [facility] [address] [place] [address] * (ABNORMAL) Hemoglobin A1c (01/16/2025 3:09 AM EDT) [facility] Hemoglobin A1c 6.3(H) <5.7 % 01/16/2025 10:54 AM EDT [facility] Blood Venous blood specimen / Unknown Venipuncture / Unknown 01/16/2025 3:09 AM EDT 01/16/2025 3:21 AM EDT Narrative [facility] - 01/16/2025 10:54 AM EDT HA1C Interpretive Data: Diagnosis of Diabetes: Diabetic > or = 6.5% Pre-diabetic 5.7 to 6.4% Non-diabetic < or = 5.6% Glycemic Targets for Type I and Type II Diabetics: Non- Adults <7.0% Adults <6.0% Children and Adolescents <7.5% Source: [place] [employer]. Standards of medical care in diabetes,2017. Diabetes Care.2017:40 (suppl 1):S1-S135. Colby Kim APRN, DNP LAB BLOOD ORDERAB LES Final Result [facility] [address] [place] [address] * (ABNORMAL) CBC W/O Differential (01/16/2025 3:09 AM EDT) [facility] WBC Count 8.00 3.70 - 10.30 10*3/uL LAB HEMATOLOGY METHOD 01/16/2025 3:19 AM EDT [facility] RBC Count 3.95(L) 4.60 - 6.10 10*6/uL LAB HEMATOLOGY METHOD 01/16/2025 3:19 AM EDT [facility] HGB 11.1(L) 13.7 - 17.5 g/dL LAB HEMATOLOGY METHOD 01/16/2025 3:19 AM EDT [facility] HCT 33.2(L) 40.0 - 51.0 % LAB HEMATOLOGY METHOD 01/16/2025 3:19 AM EDT [facility] Platelet Count 311 155 - 369 10*3/uL LAB HEMATOLOGY METHOD 01/16/2025 3:19 AM EDT [facility] MCV 84 79 - 98 fL LAB HEMATOLOGY METHOD 01/16/2025 3:19 AM EDT [facility] MCH 28.1 26.0 - 32.0 pg LAB HEMATOLOGY METHOD 01/16/2025 3:19 AM EDT [facility] MCHC 33.4 30.7 - 35.5 g/dL LAB HEMATOLOGY METHOD 01/16/2025 3:19 AM EDT [facility] RDW 14.6(H) 11.5 - 14.5 % LAB HEMATOLOGY METHOD 01/16/2025 3:19 AM EDT [facility] MPV 10.0 8.8 - 12.5 fL LAB HEMATOLOGY METHOD 01/16/2025 3:19 AM EDT [facility] nRBC 0.0 <=0.0 per 100 WBCs LAB HEMATOLOGY METHOD 01/16/2025 3:19 AM EDT [facility] Blood Venous blood specimen / Unknown Venipuncture / Unknown 01/16/2025 3:09 AM EDT 01/16/2025 3:15 AM EDT us Colby N Rositabeelijah CAREER DEVELOPMENT SPECIALIST, DNP LAB BLOOD ORDERAB LES Final Result [facility] [address] [place] [address] * Ammonia, Plasma (01/16/2025 3:09 AM EDT) Ammonia 13 11 - 51 umol/L 01/16/2025 3:44 AM EDT [facility] Blood Venous blood specimen / Unknown Venipuncture / Unknown 01/16/2025 3:09 AM EDT 01/16/2025 3:20 AM EDT us Colby N Brianutrinitybeelijah CAREER DEVELOPMENT SPECIALIST, DNP LAB BLOOD ORDERAB LES Final Result [facility] [address] [place] [address] * Folate (01/16/2025 3:09 AM EDT) Folate, Serum 6.4 >4.6 ng/mL 01/16/2025 4:08 AM EDT [facility] Blood Venous blood specimen / Unknown Venipuncture / Unknown 01/16/2025 3:09 AM EDT 01/16/2025 3:21 AM EDT us Colby Judi Kim APRN, DNP LAB BLOOD ORDERAB LES Final Result Performing Organization Address City/[facility]/ZIP Co de Phone Number [facility] [address] [place] [address] * (ABNORMAL) Vitamin B12 (01/16/2025 3:09 AM EDT) Vitamin B12, Serum 1,534(H) 210 - 1,033 pg/mL 01/16/2025 4:08 AM EDT [facility] Blood Venous blood specimen / Unknown Venipuncture / Unknown 01/16/2025 3:09 AM EDT 01/16/2025 3:21 AM EDT us Colby N Judy GRIMM, DNP LAB BLOOD ORDERAB LES Final Result Performing Organization Address City/[facility]/ZIP Co de Phone Number [facility] [address] [place] [address] * US Renal Complete (01/16/2025 2:33 AM EDT) Anatomical Region Laterality Modality Kidney Ultrasound Impressions 01/16/2025 6:06 AM EDT Limited exam due to difficulty with patient positioning. No evidence of hydronephrosis. CRITICAL RESULT: No. COMMUNICATION: Per this written report. Drafted by Emil Kaur MD on 01/16/2025 6:03 AM Final report signed by Emil Kaur MD on 01/16/2025 6:06 AM Narrative 01/16/2025 6:06 AM EDT CLINICAL INDICATION: hydronephrosis TECHNIQUE: Multiplanar becerra scale sonographic imaging of the kidneys. COMPARISON: None. FINDINGS: The exam is limited by difficulty with patient positioning. Right Kidney: The right kidney is normal in size and echogenicity measuring 12.6 cm. Cyst of the upper pole of the right kidney measuring 4.2 x 3.7 cm in the sagittal plane and 4.1 cm in the transverse plane. There is no evidence of hydronephrosis. Left Kidney: The left kidney is normal in size and echogenicity measuring 12.5 cm. Cyst of the interpolar region of the left kidney measuring up to 3.6 x 3.6 cm in sagittal plane and 3.2 cm in the transverse plane. There is no evidence of hydronephrosis. Bladder: Partially decompressed without obvious abnormality. Procedure Note Emil Kaur MD - 01/16/2025 CLINICAL INDICATION: hydronephrosis TECHNIQUE: Multiplanar becerra scale sonographic imaging of the kidneys. COMPARISON: None. FINDINGS: The exam is limited by difficulty with patient positioning. Right Kidney: The right kidney is normal in size and echogenicitymeasuring 12.6 cm. Cyst of the upper pole of the right kidney measuring4.2 x 3.7 cm in the sagittal plane and 4.1 cm in the transverse plane.There is no evidence of hydronephrosis. Left Kidney: The left kidney is normal in size and echogenicity [id number] cm. Cyst of the interpolar region of the left kidney measuring up to3.6 x 3.6 cm in sagittal plane and 3.2 cm in the transverse plane. Thereis no evidence of hydronephrosis. Bladder: Partially decompressed without obvious abnormality. IMPRESSION: Limited exam due to difficulty with patient positioning. No evidence ofhydronephrosis. CRITICAL RESULT: No. COMMUNICATION: Per this written report. Drafted by Emil Kaur MD on 01/16/2025 6:03 AM Final report signed by Emil Kaur MD on 01/16/2025 6:06 AM us Colbyrose mary Kim APRN, DEE IMG US PROCEDURES Final Result * CT Head wo IV Contrast (01/15/2025 9:36 PM EDT) Anatomical Region Laterality Modality Head Computed Tomogra phy Impressions 01/15/2025 10:06 PM EDT No acute findings. CRITICAL RESULT: No. COMMUNICATION: Per this written report. Drafted by Zacarias Da Silva MD on 01/15/2025 10:05 PM Final report signed by Zacarias Da Silva MD on 01/15/2025 10:06 PM Narrative 01/15/2025 10:06 PM EDT CLINICAL INDICATION: Mental status change, unknown cause TECHNIQUE: Routine contiguous axial CT images of the head were obtained without contrast administration. Total DLP (Dose-Length Product): 829.67 mGy.cm. Please note: The reported value represents the total of one or more individual components during the CT acquisition on this date and at this time, and as such, the same value may appear in more than one CT report depending on the interpreting/reporting physicians. COMPARISON: None. FINDINGS: CSF spaces are clear. There is no midline shift, or attenuation of the basilar cisterns. Chronic appearing cerebral and cerebellar volume loss. No evidence of large territory infarct. No acute intracranial hemorrhage. Calvarium and skull base without acute findings. Mastoids, middle ear cavities, paranasal sinuses aerated. Extracranial soft tissues without acute findings. Procedure Note Zacarias Da Silva MD - 01/15/2025 CLINICAL INDICATION: Mental status change, unknown cause TECHNIQUE: Routine contiguous axial CT images of the head were obtained withoutcontrast administration. Total DLP (Dose-Length Product): 829.67 mGy.cm. Please note: The reportedvalue represents the total of one or more individual components during theCT acquisition on this date and at this time, and as such, the same valuemay appear in more than one CT report depending on theinterpreting/reporting physicians. COMPARISON: None. FINDINGS: CSF spaces are clear. There is no midline shift, or attenuation of the basilar cisterns. Chronic appearing cerebral and cerebellar volume loss. No evidence of large territory infarct. No acute intracranial hemorrhage. Calvarium and skull base without acute findings. Mastoids, middle ear cavities, paranasal sinuses aerated. Extracranial soft tissues without acute findings. IMPRESSION: No acute findings. CRITICAL RESULT: No. COMMUNICATION: Per this written report. Drafted by Zacarias Da Silva MD on 01/15/2025 10:05 PM Final report signed by Zacarias Da Silva MD on 01/15/2025 10:06 PM Gunnar Gong MD IM CT PROCEDURES Final Result * (ABNORMAL) BMP (01/15/2025 9:12 PM EDT) Pathologist [facility] Glucose, Plasma 83 74 - 99 mg/dL 01/15/2025 9:35 PM EDT [facility] BUN, Plasma 82(H) 8 - 23 mg/dL 01/15/2025 9:35 PM EDT [facility] Creatinine, Plasma 7.09(H) 0.70 - 1.20 mg/dL 01/15/2025 9:35 PM EDT [facility] BUN/Creatinine Ratio 12 01/15/2025 9:35 PM EDT [facility] Sodium, Plasma 137 136 - 145 mmol/L 01/15/2025 9:35 PM EDT [facility] Potassium, Plasma 4.8 3.6 - 4.9 mmol/L 01/15/2025 9:35 PM EDT [facility] Chloride, Plasma 104 97 - 107 mmol/L 01/15/2025 9:35 PM EDT [facility] CO2, Plasma 18(L) 22 - 29 mmol/L 01/15/2025 9:35 PM EDT [facility] Anion Gap 15 6 - 16 mmol/L 01/15/2025 9:35 PM EDT [facility] Total Calcium, Plasma 8.2(L) 8.9 - 10.2 mg/dL 01/15/2025 9:35 PM EDT [facility] eGFRcr 7.2 mL/min/1.7 3m*2 01/15/2025 9:35 PM EDT [facility] Comment:Reported eGFRcr in m L/min/1.73m2 is based the CKD-EPI 2020 equation that does not use a race coefficient. Blood Venous blood specimen / Unknown Venipuncture / Unknown 01/15/2025 9:12 PM EDT 01/15/2025 9:15 PM EDT us Gunnar Gong MD LAB BLOOD ORDERABLES Final Res ult [facility] [address] [place] [address] * (ABNORMAL) Blood gas panel, venous (01/15/2025 9:12 PM EDT) pH, Venous 7.35 7.32 - 7.43 LAB HEMATOLOGY METHOD 01/15/2025 9:18 PM EDT [facility] pCO2, Venous 37(L) 40 - 55 mmHg LAB HEMATOLOGY METHOD 01/15/2025 9:18 PM EDT [facility] pO2, Venous 28 25 - 40 mmHg LAB HEMATOLOGY METHOD 01/15/2025 9:18 PM EDT [facility] SO2, Measured, Venous 49(L) 65 - 80 % LAB HEMATOLOGY METHOD 01/15/2025 9:18 PM EDT [facility] Base Excess, Venous -4.7(L) -2.0 - 3.0 mmol/L LAB HEMATOLOGY METHOD 01/15/2025 9:18 PM EDT [facility] Bicarbonate, Calculated, Venous 21(L) 22 - 26 mmol/L LAB HEMATOLOGY METHOD 01/15/2025 9:18 PM EDT [facility] Hematocrit, Whole Blood 33.7(L) 40.0 - 51.0 % LAB HEMATOLOGY METHOD 01/15/2025 9:18 PM EDT [facility] Sodium, Whole Blood 139 136 - 145 mmol/L LAB HEMATOLOGY METHOD 01/15/2025 9:18 PM EDT [facility] Potassium, Whole Blood 4.6 3.6 - 4.9 mmol/L LAB HEMATOLOGY METHOD 01/15/2025 9:18 PM EDT [facility] Chloride, Whole Blood 109(H) 97 - 107 mmol/L LAB HEMATOLOGY METHOD 01/15/2025 9:18 PM EDT [facility] Glucose, Whole Blood 82 74 - 99 mg/dL LAB HEMATOLOGY METHOD 01/15/2025 9:18 PM EDT [facility] Lactate, Venous, Whole Blood 0.7 0.5 - 2.2 mmol/L LAB HEMATOLOGY METHOD 01/15/2025 9:18 PM EDT [facility] Ionized Calcium, Whole Blood 4.3(L) 4.6 - 5.1 mg/dL LAB HEMATOLOGY METHOD 01/15/2025 9:18 PM EDT [facility] Blood Venous blood specimen / Unknown Venipuncture / Unknown 01/15/2025 9:12 PM EDT 01/15/2025 9:16 PM EDT Gunnar Gong MD LAB BLOOD ORDERABLES Final Res ult Performing Organization Address [facility] Co de Phone Number [facility] [address] [place] [address] * (ABNORMAL) Troponin T, High Sensitivity, 2 Hour, Plasma (01/15/2025 8:48 PM EDT) [facility] Troponin T, High Sensitivity, 2 Hour 21(H) <19 ng/L 01/15/2025 9:14 PM EDT [facility] Troponin Delta 1 <10 ng/L 01/15/2025 9:14 PM EDT [facility] Troponin Delta Interpretation Not Significant 01/15/2025 9:14 PM EDT [facility] Comment:Not Significant. No acute change in troponin observed between the baseline and 2 hour samples. Blood Venous blood specimen / Unknown Venipuncture / Unknown 01/15/2025 8:48 PM EDT 01/15/2025 8:53 PM EDT Gunnar Gong MD LAB BLOOD ORDERABLES Final Res ult Performing Organization Address [facility] de Phone Number [facility] [address] [place] [address] * POCT glucose meter (01/15/2025 7:22 PM EDT) [facility] POCT Glucose 95 74 - 99 mg/dL 01/15/2025 7:23 PM EDT [facility] Comment:Accuracy of a glucos e result obtained from a capillary whole blood specimen relies upon adequate, non-compromised capillary blood flow. If the capillary glucose result is not consistent with the patient's clinical signs and symptoms, glucose testing should be repeated with either an arterial or venous sample on the glucometer or sent to the main labortory for testing. Comment 01/15/2025 7:23 PM EDT [facility] Intermodal Dispatcher ID Anneliese Norman 7:23 PM EDT [facility] Device ID [id number] 01/15/2025 7:23 PM EDT [facility] Specimen Type POC Capillary 01/15/2025 7:23 PM EDT [facility] Blood Capillary blood specimen / Unknown 01/15/2025 7:22 PM EDT 01/15/2025 7:23 PM EDT us Gunnar Gong MD LAB POINT OF CARE TE ST DOCKED DEVICE UNSOLICITED RESULTS Final Result Performing Organization Address City/[facility]/ZIP Co de Phone Number [facility] [address] [place] [address] * ED HIV 1/2 Antibody/Antigen Screen w/Reflex to HIV 1/2 Differentiation (01/15/2025 6:28 PM EDT) HIV 1 & 2 Antibody/Antigen Screen Non Reactive Non Reactive 01/15/2025 7:21 PM EDT [facility] Comment:Screening for HIV 1 & 2 antibodies, and P24 antigen is NONREACTIVE. No confirmatory testing is required. Blood Venous blood specimen / Unknown Venipuncture / Unknown 01/15/2025 6:28 PM EDT 01/15/2025 6:39 PM EDT us Gunnar Gong MD LAB BLOOD ORDERABLES Final Res ult Performing Organization Address [facility] Co de Phone Number [facility] [address] [place] [address] * Type and screen (01/15/2025 6:28 PM EDT) ABO/Rh A Positive 01/15/2025 5:47 PM EDT [facility] Antibody Screen Negative 01/15/2025 5:47 PM EDT [facility] Specimen Expiration 01/18/2025 23:59 01/15/2025 5:47 PM EDT [facility] Blood Venous blood specimen / Unknown Venipuncture / Unknown 01/15/2025 6:28 PM EDT 01/15/2025 6:38 PM EDT us Gunnar Gong MD LAB BLOOD BANK TEST ORDERABLES Final Result Performing Organization Address [facility] Co de Phone Number BLOOD BANK [address] [place] [address], [place] * Blood Culture (Aerobic/Anaerobet Set) (01/15/2025 6:28 PM EDT) Culture No growth at day 5 01/20/2025 7:01 PM EDT [facility] Blood Structure of right wrist region / Unknown Venipuncture / Unknown 01/15/2025 6:28 PM EDT 01/15/2025 6:43 PM EDT Narrative [facility] - 01/20/2025 7:01 PM EDT Low blood volume submitted, results may be compromised Gunnar Gong MD LAB MICROBIOLOGY - GENERAL ORD ERABLES Final Result Performing Organization Address City/[facility]/[place] [address] * Blood Culture (Aerobic/Anaerobet Set) (01/15/2025 6:28 PM EDT) Culture No growth at day 5 01/20/2025 7:01 PM EDT [facility] Blood Structure of right hand / Unknown Venipuncture / Unknown 01/15/2025 6:28 PM EDT 01/15/2025 6:43 PM EDT Narrative [facility] - 01/20/2025 7:01 PM EDT Low blood volume submitted, results may be compromised Gunnar Gong MD LAB MICROBIOLOGY - GENERAL ORD ERABLES Final Result [facility] [address] [place] [id number] * Free T4, Plasma (01/15/2025 6:28 PM EDT) Free T4, Plasma 0.9 0.8 - 1.7 ng/dL 01/15/2025 7:08 PM EDT [facility] Blood Venous blood specimen / Unknown Venipuncture / Unknown 01/15/2025 6:28 PM EDT 01/15/2025 6:31 PM EDT Gunnar Gong MD LAB BLOOD ORDERABLES Final Res ult Performing Organization Address [facility] Co de Phone Number [facility] [address] [place] [address] * (ABNORMAL) Troponin now and 120 min (01/15/2025 6:28 PM EDT) Troponin T, High Sensitivity, 0 Hour 20(H) <19 ng/L 01/15/2025 7:08 PM EDT [facility] Blood Venous blood specimen / Unknown Venipuncture / Unknown 01/15/2025 6:28 PM EDT 01/15/2025 6:31 PM EDT Gunnar Gong MD LAB BLOOD ORDERABLES Final Res ult Performing Organization Address [facility] Co de Phone Number [facility] [address] [place] [address] * Urinalysis Microscopic Examination (01/15/2025 6:11 PM EDT) Urine Urine specimen from urinary conduit / Unknown Non-blood Collection / Unknown 01/15/2025 6:11 PM EDT 01/15/2025 6:31 PM EDT Gunnar Gong MD LAB URINE ORDERABLES Final Res ult Performing Organization Address [facility]/ZIP Co de Phone Number [facility] [address] [place] [address] * Urine Becerra Panel (01/15/2025 6:11 PM EDT) Pathologist [facility] Extra Reflex urine culture not indicated 01/15/2025 8:01 PM EDT [facility] Urine Urine specimen from urinary conduit / Unknown Non-blood Collection / Unknown 01/15/2025 6:11 PM EDT 01/15/2025 6:39 PM EDT Gunnar Gong MD LAB URINE ORDERABLES Final Res ult Performing Organization Address City/[facility]/ZIP Co de Phone Number [facility] [address] [place] [address] * (ABNORMAL) Urinalysis with reflex microscopic (Culture NOT Included) (01/15/2025 6:11 PM EDT) Color, Urine [place] LAB URINALYSIS - AUTOMATED METHOD 01/15/2025 6:57 PM EDT [facility] Clarity, Urine Clear LAB URINALYSIS - AUTOMATED METHOD 01/15/2025 6:57 PM EDT [facility] Spec [place], Urine 1.013 1.005 - 1.030 LAB URINALYSIS - AUTOMATED METHOD 01/15/2025 6:57 PM EDT [facility] pH, Urine 5.5 5.0 - 8.0 LAB URINALYSIS - AUTOMATED METHOD 01/15/2025 6:57 PM EDT [facility] Protein, Urine Trace(A) Negative mg/dL LAB URINALYSIS - AUTOMATED METHOD 01/15/2025 6:57 PM EDT [facility] Glucose, Urine Negative Negative mg/dL LAB URINALYSIS - AUTOMATED METHOD 01/15/2025 6:57 PM EDT [facility] Ketones, Urine Negative Negative mg/dL LAB URINALYSIS - AUTOMATED METHOD 01/15/2025 6:57 PM EDT [facility] Blood, Urine Large(A) Negative LAB URINALYSIS - AUTOMATED METHOD 01/15/2025 6:57 PM EDT [facility] Bilirubin, Urine Negative Negative LAB URINALYSIS - AUTOMATED METHOD 01/15/2025 6:57 PM EDT [facility] Urobilinogen, Urine 1.0 0.2 to 1.0 mg/dL LAB URINALYSIS - AUTOMATED METHOD 01/15/2025 6:57 PM EDT [facility] Leukocytes, Urine Trace(A) Negative LAB URINALYSIS - AUTOMATED METHOD 01/15/2025 6:57 PM EDT [facility] Nitrite, Urine Negative Negative LAB URINALYSIS - AUTOMATED METHOD 01/15/2025 6:57 PM EDT [facility] RBC, Urine >50(A) 0 to 3 /HPF LAB URINALYSIS - AUTOMATED METHOD 01/15/2025 6:57 PM EDT [facility] Comment:This result was prev iously suppressed from the chart. WBC, Urine 0 - 5 0 to 5 /HPF LAB URINALYSIS - AUTOMATED METHOD 01/15/2025 6:57 PM EDT [facility] Comment:This result was prev iously suppressed from the chart. Squamous Epithelial Cells 0 - 2 0 to 5 /HPF LAB URINALYSIS - AUTOMATED METHOD 01/15/2025 6:57 PM EDT [facility] Comment:This result was prev iously suppressed from the chart. Hyaline Casts 3 - 5 0 to 5 /LPF LAB URINALYSIS - AUTOMATED METHOD 01/15/2025 6:57 PM EDT [facility] Comment:This result was prev iously suppressed from the chart. Bacteria, Urine Negative Negative LAB URINALYSIS - AUTOMATED METHOD 01/15/2025 6:57 PM EDT [facility] Comment:This result was prev iously suppressed from the chart. Urine Urine specimen from urinary conduit / Unknown Non-blood Collection / Unknown 01/15/2025 6:11 PM EDT 01/15/2025 6:31 PM EDT Narrative [facility] - 01/15/2025 6:57 PM EDT Urinalysis dipstick results may be inaccurate due to specimen color or an interfering substance in the specimen. us Gunnar Gong MD LAB URINE ORDERABLES Final Res ult [facility] [address] [place] [address] * XR Chest 1 View (01/15/2025 6:08 PM EDT) Anatomical Region Laterality Modality Chest Digital Radiogra phy Impressions 01/15/2025 7:26 PM EDT Hypoventilation without other acute radiographic abnormality. CRITICAL RESULT: No. COMMUNICATION: Per this written report. Preliminary report signed by Rene Lockhart DO on 01/15/2025 6:45 PM By electronically signing this report, I, the attending physician, attest that I have personally reviewed the images/data for the above examination(s) and agree with the final edited report. Drafted by Rene Lockhart DO on 01/15/2025 6:43 PM Final report signed by Anupama Huizar MD on 01/15/2025 7:26 PM Narrative 01/15/2025 7:26 PM EDT CLINICAL INDICATION: AMS TECHNIQUE: XR CHEST 1 VIEW COMPARISON: None. FINDINGS: Atherosclerotic aorta. Cardiac silhouette appears within normal limits. Low lung volumes with crowding of the perihilar vasculature. No consolidation, pleural effusion or pneumothorax. No acute displaced fracture in the chest. Degenerative changes in the shoulders. Procedure Note Anupama Huizar MD - 01/15/2025 CLINICAL INDICATION: AMS TECHNIQUE: XR CHEST 1 VIEW COMPARISON: None. FINDINGS: Atherosclerotic aorta. Cardiac silhouette appears within normal limits.Low lung volumes with crowding of the perihilar vasculature. Noconsolidation, pleural effusion or pneumothorax. No acute displacedfracture in the chest. Degenerative changes in the shoulders. IMPRESSION: Hypoventilation without other acute radiographic abnormality. CRITICAL RESULT: No. COMMUNICATION: Per this written report. Preliminary report signed by Rene Lockhart DO on 01/15/2025 6:45 PM By electronically signing this report, I, the attending physician, attestthat I have personally reviewed the images/data for the aboveexamination(s) and agree with the final edited report. Drafted by Rene Lokchart DO on 01/15/2025 6:43 PM Final report signed by Anupama Huizar MD on 01/15/2025 7:26 PM us Gunnar Gong MD IMG XR PROCEDURES Final Result * Hepatitis C Antibody - ED (01/15/2025 5:50 PM EDT) Pathologist [facility] [place] Hepatitis C Antibody Negative Negative 01/15/2025 6:40 PM EDT [facility] Blood Venous blood specimen / Unknown Venipuncture / Unknown 01/15/2025 5:50 PM EDT 01/15/2025 6:00 PM EDT us Gunnar Gong MD LAB BLOOD ORDERABLES Final Res ult [facility] [address] [place] [address] * (ABNORMAL) CBC w/diff (01/15/2025 5:50 PM EDT) [facility] WBC Count 8.38 3.70 - 10.30 10*3/uL LAB HEMATOLOGY METHOD 01/15/2025 5:54 PM EDT [facility] RBC Count 3.57(L) 4.60 - 6.10 10*6/uL LAB HEMATOLOGY METHOD 01/15/2025 5:54 PM EDT [facility] HGB 10.2(L) 13.7 - 17.5 g/dL LAB HEMATOLOGY METHOD 01/15/2025 5:54 PM EDT [facility] HCT 30.4(L) 40.0 - 51.0 % LAB HEMATOLOGY METHOD 01/15/2025 5:54 PM EDT [facility] Platelet Count 273 155 - 369 10*3/uL LAB HEMATOLOGY METHOD 01/15/2025 5:54 PM EDT [facility] MCV 85 79 - 98 fL LAB HEMATOLOGY METHOD 01/15/2025 5:54 PM EDT [facility] MCH 28.6 26.0 - 32.0 pg LAB HEMATOLOGY METHOD 01/15/2025 5:54 PM EDT [facility] MCHC 33.6 30.7 - 35.5 g/dL LAB HEMATOLOGY METHOD 01/15/2025 5:54 PM EDT [facility] RDW 14.5 11.5 - 14.5 % LAB HEMATOLOGY METHOD 01/15/2025 5:54 PM EDT [facility] MPV 10.5 8.8 - 12.5 fL LAB HEMATOLOGY METHOD 01/15/2025 5:54 PM EDT [facility] nRBC 0.0 <=0.0 per 100 WBCs LAB HEMATOLOGY METHOD 01/15/2025 5:54 PM EDT [facility] Differential Type Automated LAB HEMATOLOGY METHOD 01/15/2025 5:54 PM EDT [facility] Neutrophils % 71 % LAB HEMATOLOGY METHOD 01/15/2025 5:54 PM EDT [facility] Lymphocytes % 14 % LAB HEMATOLOGY METHOD 01/15/2025 5:54 PM EDT [facility] Monocytes % 12 % LAB HEMATOLOGY METHOD 01/15/2025 5:54 PM EDT [facility] Eosinophils % 1 % LAB HEMATOLOGY METHOD 01/15/2025 5:54 PM EDT [facility] Basophils % 0 % LAB HEMATOLOGY METHOD 01/15/2025 5:54 PM EDT [facility] Immature Granulocytes % 2 % LAB HEMATOLOGY METHOD 01/15/2025 5:54 PM EDT [facility] Neutrophils Absolute 5.91 1.60 - 6.10 10*3/uL LAB HEMATOLOGY METHOD 01/15/2025 5:54 PM EDT [facility] Lymphocytes Absolute 1.19(L) 1.20 - 3.90 10*3/uL LAB HEMATOLOGY METHOD 01/15/2025 5:54 PM EDT [facility] Monocytes Absolute 0.98(H) 0.30 - 0.90 10*3/uL LAB HEMATOLOGY METHOD 01/15/2025 5:54 PM EDT [facility] Eosinophils Absolute 0.08 0.00 - 0.50 10*3/uL LAB HEMATOLOGY METHOD 01/15/2025 5:54 PM EDT [facility] Basophils Absolute 0.03 0.00 - 0.10 10*3/uL LAB HEMATOLOGY METHOD 01/15/2025 5:54 PM EDT [facility] Immature Granulocytes Absolute 0.19(H) 0.00 - 0.06 10*3/uL LAB HEMATOLOGY METHOD 01/15/2025 5:54 PM EDT [facility] Blood Venous blood specimen / Unknown Venipuncture / Unknown 01/15/2025 5:50 PM EDT 01/15/2025 5:52 PM EDT Narrative [facility] - 01/15/2025 5:54 PM EDT Therapeutic decision making should be based on absolute values, rather than percentages. us Gunnar Gong MD LAB BLOOD ORDERABLES Final Res ult [facility] [address] [place] [address] * (ABNORMAL) PT-INR (01/15/2025 5:50 PM EDT) Prothrombin Time 15.4(H) 12.0 - 14.3 sec 01/15/2025 6:09 PM EDT [facility] INR 1.2(H) 0.9 - 1.1 01/15/2025 6:09 PM EDT [facility] Blood Venous blood specimen / Unknown Venipuncture / Unknown 01/15/2025 5:50 PM EDT 01/15/2025 5:52 PM EDT Narrative [facility] - 01/15/2025 6:09 PM EDT OPTIMAL INR RANGES FOR PATIENT ON ORAL ANTICOAGULANT THERAPY Prevention of venous thromboembolism INR 2.0 to 3.0 In patients with heart disease: Atrial fibrillation INR 2.0 to 3.0 Valvular heart disease INR 2.0 to 3.0 Tissue heart valves INR 2.0 to 3.0 Mechanical prosthetic valves INR 2.5 to 3.5 Prevention of recurrent TN INR 2.5 to 3.5 us Gunnar Gong MD LAB BLOOD ORDERABLES Final Res ult Performing Organization Address City/[facility]/ZIP Co de Phone Number [facility] [address] [place] [address] * Thyroid Stimulating Hormone, Plasma (01/15/2025 5:50 PM EDT) Thyroid Stimulating Hormone, Plasma 0.68 0.40 - 4.20 uIU/mL 01/15/2025 6:27 PM EDT [facility] Blood Venous blood specimen / Unknown Venipuncture / Unknown 01/15/2025 5:50 PM EDT 01/15/2025 5:52 PM EDT us Gunnar Gong MD LAB BLOOD [place] [address] * BNP (01/15/2025 5:50 PM EDT) N-Terminal, PROBNP, Plasma 1,461 0 - 1,799 pg/mL 01/15/2025 6:27 PM EDT [facility] Blood Venous blood specimen / Unknown Venipuncture / Unknown 01/15/2025 5:50 PM EDT 01/15/2025 5:52 PM EDT us Gunnar Gong MD LAB BLOOD ORDERABLES Final Res ult [facility] [address] [place] [address] * Lipase (01/15/2025 5:50 PM EDT) Lipase, Plasma 43 19 - 63 U/L 01/15/2025 6:27 PM EDT [facility] Blood Venous blood specimen / Unknown Venipuncture / Unknown 01/15/2025 5:50 PM EDT 01/15/2025 5:52 PM EDT Gunnar Gong MD LAB BLOOD ORDERABLES Final Res ult Performing Organization Address City/[facility]/ZIP Co de Phone Number [facility] [address] [place] [address] * Magnesium (01/15/2025 5:50 PM EDT) Magnesium, Plasma 2.0 1.9 - 2.4 mg/dL 01/15/2025 6:27 PM EDT [facility] Blood Venous blood specimen / Unknown Venipuncture / Unknown 01/15/2025 5:50 PM EDT 01/15/2025 5:52 PM EDT Gunnar Gong MD LAB BLOOD ORDERABLES Final Res ult Performing Organization Address City/[facility]/ZIP Co de Phone Number [facility] [address] [place] [address] * (ABNORMAL) CMP (01/15/2025 5:50 PM EDT) Glucose, Plasma 120(H) 74 - 99 mg/dL 01/15/2025 6:27 PM EDT [facility] BUN, Plasma 104(H) 8 - 23 mg/dL 01/15/2025 6:27 PM EDT [facility] Creatinine, Plasma 10.04(H) 0.70 - 1.20 mg/dL 01/15/2025 6:27 PM EDT [facility] BUN/Creatinine Ratio 10 01/15/2025 6:27 PM EDT [facility] Sodium, Plasma 135(L) 136 - 145 mmol/L 01/15/2025 6:27 PM EDT [facility] Potassium, Plasma 5.1(H) 3.6 - 4.9 mmol/L 01/15/2025 6:27 PM EDT [facility] Chloride, Plasma 101 97 - 107 mmol/L 01/15/2025 6:27 PM EDT [facility] CO2, Plasma 16(L) 22 - 29 mmol/L 01/15/2025 6:27 PM EDT [facility] Anion Gap 18(H) 6 - 16 mmol/L 01/15/2025 6:27 PM EDT [facility] Total Calcium, Plasma 7.6(L) 8.9 - 10.2 mg/dL 01/15/2025 6:27 PM EDT [facility] Total Protein 5.8(L) 6.3 - 7.9 g/dL 01/15/2025 6:27 PM EDT [facility] Albumin, Plasma 2.9(L) 3.5 - 5.2 g/dL 01/15/2025 6:27 PM EDT [facility] AST, Plasma 46 10 - 50 U/L 01/15/2025 6:27 PM EDT [facility] ALT, Plasma 25 10 - 50 U/L 01/15/2025 6:27 PM EDT [facility] Alkaline Phosphatase, Plasma 94 40 - 115 U/L 01/15/2025 6:27 PM EDT [facility] Total Bilirubin, Plasma 0.6 0.2 - 1.1 mg/dL 01/15/2025 6:27 PM EDT [facility] eGFRcr 4.7 mL/min/1.7 3m*2 01/15/2025 6:27 PM EDT [facility] Comment:Reported eGFRcr in m L/min/1.73m2 is based the CKD-EPI 2020 equation that does not use a race coefficient. Blood Venous blood specimen / Unknown Venipuncture / Unknown 01/15/2025 5:50 PM EDT 01/15/2025 5:52 PM EDT us Gunnar Gong MD LAB BLOOD ORDERABLES Final Res ult [facility] [address] [place] [address] * (ABNORMAL) POCT venous blood gas gem (01/15/2025 5:47 PM EDT) pH, Venous 7.29(L) 7.32 - 7.43 01/15/2025 5:48 PM EDT [facility] pCO2, Venous 37(L) 40 - 55 mm Hg 01/15/2025 5:48 PM EDT [facility] pO2, Venous 33 25 - 40 mm Hg 01/15/2025 5:48 PM EDT [facility] SO2, Venous 56(L) 65 - 80 % 01/15/2025 5:48 PM EDT [facility] Base Excess/Deficit, Venous -8.1(L) -2 - 3 mmol/L 01/15/2025 5:48 PM EDT [facility] HCO3, Venous 17.8(L) 22 - 26 mmol/L 01/15/2025 5:48 PM EDT [facility] Hemoglobin, Venous 9.5(L) 13.7 - 17.5 g/dL 01/15/2025 5:48 PM EDT [facility] Hematocrit, Venous 29.0(L) 40.0 - 51.0 % 01/15/2025 5:48 PM EDT [facility] Sodium, Venous 132(L) 136 - 145 mmol/L 01/15/2025 5:48 PM EDT [facility] Potassium, Venous 4.8 3.6 - 4.9 mmol/L 01/15/2025 5:48 PM EDT [facility] Comment:Hemolyzed, result ma y be falsely increased. POCT Chloride, Venous 104 97 - 107 mmol/L 01/15/2025 5:48 PM EDT [facility] Glucose, Venous 121(H) 74 - 99 mg/dL 01/15/2025 5:48 PM EDT [facility] Ionized Calcium, Venous 4.3(L) 4.6 - 5.1 mg/dL 01/15/2025 5:48 PM EDT [facility] Lactate, Venous 0.9 0.5 - 2.2 mmol/L 01/15/2025 5:48 PM EDT [facility] Body Temperature 37.0 Celsius 01/15/2025 5:48 PM EDT [facility] pH, Temp Corrected, Venous 7.29(L) 7.32 - 7.43 01/15/2025 5:48 PM EDT [facility] pCO2, Temp Corrected, Venous 37(L) 40 - 55 mm Hg 01/15/2025 5:48 PM EDT [facility] pO2, Temp Corrected, Venous 33 25 - 40 mm Hg 01/15/2025 5:48 PM EDT [facility] Intermodal Dispatcher ID Hansa Guerrero 01/15/2025 5:48 PM EDT [facility] Blood, Venous Whole blood specimen / Unknown 01/15/2025 5:47 PM EDT 01/15/2025 5:48 PM EDT us Generic Provider Poct LAB POINT OF CARE TEST DOCKED DEVICE UNSOLICITED RESULTS Final Result Performing Organization Address City/[facility]/ZIP Co de Phone Number [facility] [address] [place] [address] * EKG now - STAT (adult) (01/15/2025 5:36 PM EDT) EKG DIAGNOSIS CLASS Normal MUSE ECG Ventricular Rate 85 BPM MUSE ECG Atrial Rate 85 BPM MUSE ECG AZ Interval 208 ms MUSE ECG QRSD Interval 86 ms MUSE ECG QT Interval 378 ms MUSE ECG QTC Interval 449 ms MUSE ECG P [place] 33 degrees MUSE ECG R [place] 10 degrees MUSE ECG T Wave [place] 10 degrees MUSE ECG Diagnosis Normal sinus rhythm MUSE ECG Diagnosis Normal ECG MUSE ECG Diagnosis MUSE ECG Diagnosis Confirmed by Nile Ibarra ([id number]) on 01/16/2025 9:02:25 AM MUSE ECG 01/15/2025 5:36 PM EDT 01/16/2025 9:02 AM EDT us Gunnar Gong MD ECG ORDERABLES Final Result MUSE ECG * POCT glucose meter (01/15/2025 5:29 PM EDT) POCT Glucose 78 74 - 99 mg/dL 01/15/2025 5:31 PM EDT [facility] Comment:Accuracy of a glucos e result obtained from a capillary whole blood specimen relies upon adequate, non-compromised capillary blood flow. If the capillary glucose result is not consistent with the patient's clinical signs and symptoms, glucose testing should be repeated with either an arterial or venous sample on the glucometer or sent to the main labortory for testing. Comment 01/15/2025 5:31 PM EDT [facility] Intermodal Dispatcher ID Pipe Haynes 01/15/2025 5:31 PM EDT [facility] Device ID [id number] 01/15/2025 5:31 PM EDT [facility] Specimen Type POC Capillary 01/15/2025 5:31 PM EDT [facility] Blood Capillary blood specimen / Unknown 01/15/2025 5:29 PM EDT 01/15/2025 5:31 PM EDT us Generic Provider Poct LAB POINT OF CARE TEST DOCKED DEVICE UNSOLICITED RESULTS Final Result [facility] [address] [place], [place] [id number] documented in this encounter Visit Diagnoses Diagnosis Acute encephalopathy- Primary Acute encephalopathy Postobstructive diuresis Acute renal failure, unspecified acute renal failure type (CMS/HCC) Urinary retention Unspecified retention of urine Coronary artery disease Coronary atherosclerosis of unspecified type of vessel, [place] or graft Depression Depressive disorder, not elsewhere classified Hypertension Unspecified essential hypertension Obesity Obesity, unspecified Type 2 diabetes mellitus Hyperlipidemia Other and unspecified hyperlipidemia Hyperkalemia Hyperpotassemia MITZY (acute kidney injury) (CMS/HCC) Hydronephrosis Urinary retention Unspecified retention of urine documented in this encounter Admitting Diagnoses Diagnosis Acute encephalopathy documented in this encounter Administered Medications Inactive Administered Medications - up to 3 most recent administrations Medication Order MAR Action Action Date Dose Rate Site aspirin chewable tablet 81 mg 81 mg, Oral, Daily, First dose on Thu01/17/25 at 1815, Until Discontinued, Routine Given 01/19/2025 9:23 AM EDT 81 mg Given 01/18/2025 8:35 AM EDT 81 mg Given 01/17/2025 5:48 PM EDT 81 mg atorvastatin (Lipitor) tablet 40 mg 40 mg, Oral, Nightly, First dose on Thu01/17/25 at 2100, Until Discontinued, Routine Given 01/18/2025 8:42 PM EDT 40 mg Given 01/17/2025 8:05 PM EDT 40 mg dexamethasone (Decadron) tablet 6 mg 6 mg, Oral, Daily, 10 doses, First dose on Thu01/16/25 at 1040, Last dose on Thu01/25/25 at 0900, Routine Given 01/19/2025 9:23 AM EDT 6 mg Given 01/18/2025 8:36 AM EDT 6 mg Given 01/17/2025 10:06 AM EDT 6 mg donepezil (Aricept) tablet 5 mg 5 mg, Oral, Nightly, First dose on Thu01/17/25 at 2100, Until Discontinued, Routine Given 01/18/2025 8:42 PM EDT 5 mg Given 01/17/2025 8:05 PM EDT 5 mg escitalopram (Lexapro) tablet 10 mg 10 mg, Oral, Daily, First dose on Thu01/17/25 at 1815, Until Discontinued, Routine Given 01/19/2025 9:23 AM EDT 10 mg Given 01/18/2025 8:35 AM EDT 10 mg Given 01/17/2025 5:48 PM EDT 10 mg finasteride (Proscar) tablet 5 mg 5 mg, Oral, Daily, First dose on Thu01/19/25 at 0915, Until Discontinued, Routine Given 01/19/2025 9:23 AM EDT 5 mg heparin (porcine) injection 5,000 Units 5,000 Units, Subcutaneous, Every 8 hours scheduled, First dose on Thu01/16/25 at 1040, Until Discontinued, Routine Given 01/19/2025 2:59 PM EDT 5,000 Units Left Lower Abdomen Given 01/19/2025 5:28 AM EDT 5,000 Units L eft Upper Abdomen Given 01/18/2025 10:30 PM EDT 5,000 Units Right Lower Abdomen lactated Ringer's infusion 125 mL/hr, Intravenous, Continuous, Starting on Thu01/16/25 at 0210, Until Thu01/17/25 at 0247, Routine New Bag 01/16/2025 4:32 PM EDT 125 mL/hr 125 mL /hr New Bag 01/16/2025 2:48 AM EDT 125 mL/hr 125 mL/hr memantine (Namenda) tablet 10 mg 10 mg, Oral, 2 times daily, First dose on Thu01/17/25 at 2100, Until Discontinued, Routine Given 01/19/2025 9:23 AM EDT 10 mg Given 01/18/2025 8:42 PM EDT 10 mg Given 01/18/2025 8:36 AM EDT 10 mg mupirocin (Bactroban) 2 % ointment 1 Application Each Nostril, 2 times daily, 10 doses, First dose on Thu01/16/25 at 0900, Last dose on Thu01/20/25 at 2100, Routine Given 01/19/2025 9:24 AM EDT 1 Application Given 01/18/2025 8:35 AM EDT 1 Application Given 01/17/2025 8:05 PM EDT 1 Application oxyCODONE (Roxicodone) immediate release tablet 5 mg 5 mg, Oral, Once, 1 dose, On Thu01/16/25 at 2045, Routine Given 01/16/2025 8:57 PM EDT 5 mg pantoprazole (Protonix) EC tablet 40 mg 40 mg, Oral, Daily, First dose on Thu01/17/25 at 1815, Until Discontinued, Routine Given 01/19/2025 9:23 AM EDT 40 mg Given 01/18/2025 8:36 AM EDT 40 mg Given 01/17/2025 5:48 PM EDT 40 mg remdesivir (Veklury) 100 mg in sodium chloride 0.9 % 270 mL IVPB 100 mg, Intravenous, Every 24 hours, 2 doses, First dose on Thu01/17/25 at 1040, Last dose on Thu01/18/25 at 1040, Routine New Bag 01/18/2025 9:43 AM EDT 100 mg 590 mL /hr New Bag 01/17/2025 10:02 AM EDT 100 mg 590 mL/hr remdesivir (Veklury) 200 mg in sodium chloride 0.9 % 290 mL IVPB 200 mg, Intravenous, Once, 1 dose, On Thu01/16/25 at 1040, STAT New Bag 01/16/2025 11:06 AM EDT 200 mg 6 30 mL/hr simethicone (Mylicon) 20 mg/0.3 mL drops 40 mg 40 mg, Oral, Every 6 hours PRN, Starting on Thu01/17/25 at 1544, Until Thu01/19/25 at 1816, Routine, flatulence Given 01/18/2025 8:36 AM EDT 40 mg sodium chloride 0.9 % flush 10 mL 10 mL, Intravenous, Every 12 hours, First dose on Thu01/15/25 at 2315, Until Discontinued, Routine Given 01/19/2025 11:42 AM EDT 10 mL Given 01/18/2025 11:27 PM EDT 10 mL Given 01/18/2025 11:00 AM EDT 10 mL sodium chloride 0.9 % flush 10 mL 10 mL, Intravenous, As needed, Starting on Thu01/15/25 at 2307, Until Thu01/19/25 at 1816, Routine, line care tamsulosin (Flomax) 24 hr capsule 0.4 mg 0.4 mg, Oral, Daily with dinner, First dose on Thu01/17/25 at 1800, Until Discontinued, Routine Given 01/18/2025 5:12 PM EDT 0.4 mg Given 01/17/2025 5:48 PM EDT 0.4 mg documented in this encounter Active and Recently Administered Medications Times are shown in EDT. Scheduled Medication Order 01/17/2025 01/18/2025 01/19/2025 aspirin chewable tablet 81 mg 81 mg, Oral, Daily, First dose on Thu01/17/25 at 1815, Until Discontinued, Routine 1747 (Given - Provider: Anabell Bailey RN) 0835 (Given - Provider: Brijesh Rebollar) 0923 (Given - Provider: Pennie Sterling RN) atorvastatin (Lipitor) tablet 40 mg 40 mg, Oral, Nightly, First dose on Thu01/17/25 at 2100, Until Discontinued, Routine 2004 (Given - Provider: Jacy Alegria, ASIA) 2041 (Given - Provider: Jacy Alegria, ASIA) dexamethasone (Decadron) tablet 6 mg 6 mg, Oral, Daily, 10 doses, First dose on Thu01/16/25 at 1040, Last dose on Thu01/25/25 at 0900, Routine 1006 (Given - Provider: Anabell Bailey RN) 0836 (Given - Provider: Brijesh Rebollar) 09 (Given - Provider: Pennie Sterling RN) donepezil (Aricept) tablet 5 mg 5 mg, Oral, Nightly, First dose on Thu01/17/25 at 2100, Until Discontinued, Routine 2004 (Given - Provider: Jacy Alegria RN) 2041 (Given - Provider: Jacy Alegria RN) escitalopram (Lexapro) tablet 10 mg 10 mg, Oral, Daily, First dose on Thu01/17/25 at 1815, Until Discontinued, Routine 174 (Given - Provider: Anabell Bailey RN) 0835 (Given - Provider: Brijesh Rebollar) 09 (Given - Provider: Pennie Sterling RN) finasteride (Proscar) tablet 5 mg 5 mg, Oral, Daily, First dose on Thu01/19/25 at 0915, Until Discontinued, Routine 09 (Given - Provid er: Pennie Sterling RN) heparin (porcine) injection 5,000 Units 5,000 Units, Subcutaneous, Every 8 hours scheduled, First dose on Thu01/16/25 at 1040, Until Discontinued, Routine 0648 (Given - Provider: Jacy Alegria RN)1434 (Given - Provider: Anabell Bailey RN)2101 (Given - Provider: Jacy Alegria RN) 0650 (Given - Provider: Jacy Alegria RN)1411 (Given - Provider: Brijesh Rebollar)2230 (Given - Provider: Jacy Alegria, ASIA) 0528 (Given - Provider: Jacy Alegria, ASIA)1459 (Given - Provider: Pennie Sterling RN) memantine (Namenda) tablet 10 mg 10 mg, Oral, 2 times daily, First dose on Thu01/17/25 at 2100, Until Discontinued, Routine 2004 (Given - Provider: Jacy Alegria RN) 0836 (Given - Provider: Brijesh Rebollar)2041 (Given - Provider: Jacy Alegria RN) 0923 (Given - Provider: Pennie Sterling RN) mupirocin (Bactroban) 2 % ointment 1 Application Each Nostril, 2 times daily, 10 doses, First dose on Thu01/16/25 at 0900, Last dose on Thu01/20/25 at 2100, Routine 1007 (Given - Provider: Anabell Bailey RN)2004 (Given - Provider: Jacy Alegria RN) 0835 (Given - Provider: Brijesh Rebollar)2042 (Not Given - Provider: Jacy Alegria RN - Reason: Patient/family refused) 0924 (Given - Provider: Pennie Sterling RN) pantoprazole (Protonix) EC tablet 40 mg 40 mg, Oral, Daily, First dose on Thu01/17/25 at 1815, Until Discontinued, Routine 1748 (Given - Provider: Anabell Bailey RN) 0836 (Given - Provider: Brijesh Rebollar) 0923 (Given - Provider: Pennie Sterling RN) remdesivir (Veklury) 100 mg in sodium chloride 0.9 % 270 mL IVPB (COMPLETED)(Linked Group 1) 100 mg, Intravenous, Every 24 hours, 2 doses, First dose on Thu01/17/25 at 1040, Last dose on Thu01/18/25 at 1040, Routine 1002 (New Bag - Provider: Anabell Bailey RN) 0943 (New Bag - Provider: Brijesh Rebollar) sodium chloride 0.9 % flush 10 mL(Linked Group 2) 10 mL, Intravenous, Every 12 hours, First dose on Thu01/15/25 at 2315, Until Discontinued, Routine 1007 (Given - Provider: Anabell Bailey RN)2237 (Given - Provider: Jacy Alegria RN) 1100 (Given - Provider: Brijesh Rebollar)2327 (Given - Provider: Jacy Alegria RN) 1142 (Given - Provider: Pennie Sterling RN) tamsulosin (Flomax) 24 hr capsule 0.4 mg 0.4 mg, Oral, Daily with dinner, First dose on Thu01/17/25 at 1800, Until Discontinued, Routine 1748 (Given - Provider: Anabell Bailey RN) 1712 (Given - Provider: Brijesh Rebollar) 1800 (Canceled Entry - Provider: Automatic Discharge Provider - Comment: Automatically canceled at discontinue of medication order) PRN Medication Order 01/17/2025 01/18/2025 01/19/2025 lidocaine (Uro-Jet) 2 % gel 1 Application Urethral, As needed, Starting on Thu01/18/25 at 1610, Until Thu01/19/25 at 0409, Routine, mild pain, Adult Male Difficult Insertion Protocol-use with Coude Catheter insertion simethicone (Mylicon) 20 mg/0.3 mL drops 40 mg 40 mg, Oral, Every 6 hours PRN, Starting on Thu01/17/25 at 1544, Until Thu01/19/25 at 1816, Routine, flatulence 0836 (Given - Provider: Connor Rebollar) sodium chloride 0.9 % flush 10 mL(Linked Group 2) 10 mL, Intravenous, As needed, Starting on Thu01/15/25 at 2307, Until Thu01/19/25 at 1816, Routine, line care Linked Groups Order Group 1: remdesivir (Veklury) 200 mg in sodium chloride 0.9 % 290 mL IVPB (COMPLETED) 200 mg, Intravenous, Once, 1 dose, On Thu01/16/25 at 1040, STAT Followed by remdesivir (Veklury) 100 mg in sodium chloride 0.9 % 270 mL IVPB (COMPLETED)Jump to med 100 mg, Intravenous, Every 24 hours, 2 doses, First dose on Thu01/17/25 at 1040, Last dose on Thu01/18/25 at 1040, Routine Group 2: Insert peripheral IV (COMPLETED) Once, On Thu01/15/25 at 2308, For 1 occurrence And Saline lock IV (COMPLETED) Once, On Thu01/15/25 at 2308, For 1 occurrence And sodium chloride 0.9 % flush 10 mLJump to med 10 mL, Intravenous, Every 12 hours, First dose on Thu01/15/25 at 2315, Until Discontinued, Routine And sodium chloride 0.9 % flush 10 mLJump to med 10 mL, Intravenous, As needed, Starting on Thu01/15/25 at 2307, Until Thu01/19/25 at 1816, Routine, line care documented in this encounter Additional Health Concerns Infection Onset Date Last Indicated Resolved Time COVID-19 Rule-Out 01/15/2025 01/15/2025 01/15/2025 5:51 PM EDT Respiratory Rule-Out 01/15/2025 01/16/2025 025 12:01 PM EDT COVID 19 (Confirmed) Comment:Confirmed COVID + 01/15/2025 [facility] 01/15/2025 01/16/2025 COVID-19 Rule-Out 01/16/2025 01/16/2025 01/16/2025 10:55 AM EDT C. difficile Rule-Out 01/16/2025 01/16/20252024 6:15 PM EDT Gastrointestinal Rule-Out 01/16/2025 01/16/2025 5:57 PM EDT Assessment Noted Time A Body Mass Index follow-up plan has been documented for the patient 01/19/2025 2:05 PM EDT documented as of this encounter Care Teams Car Washer Relationship Specialty Start Date End Date Rakesh Jones MD [address] [place] [address] PCP - General 10/05/20 documented as of this encounter
--- NOTE | 2025-01-30 09:02 | XR_ITS ---
FINAL REPORT CLINICAL HISTORY: left knee pain..surgery 2 weeks ago COMPARISON: 01/03/2025 FINDINGS: LEFT KNEE 3 views of the left knee were obtained. There is no acute fracture or dislocation. There are postoperative changes from left knee arthroplasty. Hardware is intact. There is a moderate-sized joint effusion. Previously seen subcutaneous air has resolved. Skin kartik have been removed. IMPRESSION: No acute osseous abnormality. Persistent joint effusion, nonspecific. Reviewed, Interpreted and Dictated by Marah Jacobs MD Transcribed by Marilyn Slaughter Authenticated and . [facility]
--- OUTSIDE RECORDS SUMMARY | 2025-01-30 09:13 | XMS_ITS | Encounter Summary ---
Author Organization Healthcare Address [address] [place] [address] Care Team Providers Care Video Editing Internship Name Role Phone Rakesh Jones MD Primary Care Provider [phone] Encounter Details Date Type Department Care Team (Latest Contact Info) Description 01/20/2025 Travel Social History Tobacco Use Types Packs/Day Years [...] any time in the past 12 m [facility], were you homeless or living in a chcf (including now)? No 01/16/2025 Utilities Answer Date [...] on file documented as of this encounter Plan of Treatment Upcoming Encounters Date Type Department Care Team (Late st Contact Info) Description 02/24/2025 10:00 AM EDT Consult [place] [facility] [address], [address] [place] [address] Mago Levy, JACOB [address] [place] [address] documented as of this encounter Visit Diagnoses Not on filedocumented in this encounter Additional Health Concerns Infection Onset Date Last Indicated Resolved Time COVID 19 (Confirmed) Comment:Confirmed COVID + 01/15/2025 [facility] 01/15/2025 01/16/2025 Assessment Noted Time A Body Mass Index follow-up plan has been documented for the patient 01/19/2025 2:05 PM EDT documented as of this encounter Care Teams Video Editing Internship Relationship Specialty Start Date End Date Rakesh Jones MD [address] [place] [id number] PCP - General 10/05/20 documented as of this encounter
--- OUTSIDE RECORDS SUMMARY | 2025-01-30 09:13 | XMS_ITS | Encounter Summary ---
Author Organization Healthcare Address [address] [place] [address] Care Team Providers Care Regional Recruiter Name Role Phone Rakesh Jones MD Primary Care Provider [phone] Encounter Details Date Type Department Care Team (Latest Contact Info) Description 01/16/2025 Travel Social History Tobacco Use Types Packs/Day [...] any time in the past 12 m [facility], were you homeless or living in a [...] on file documented as of this encounter Functional Status * Calculated C-SSRS Risk Score (Lifetime/Recent) Answer Date of Assessment Author No Risk Indicated 01/16/2025 8:00 PM EDT Jacy Alegria RN * Question Answer Date of Assessment Author 1. Wish to be (Past 1 Month) No 01/16/2025 8:00 PM EDT Isael Alegria RN 2. Non-Specific Active Suici ramona Thoughts (Past 1 Month) No 01/16/2025 8:00 PM EDT Ginny Alegria RN 6. Suicidal Behavior (Lifetime) No 8:00 PM EDT Jacy Alegria RN documented as of this encounter Plan of Treatment Upcoming Encounters Date Type Department Care Team (Late st Contact Info) Description 02/24/2025 10:00 AM EDT Consult [place] [facility] [address] [place] [address] Mago Levy PA [address] [place] [address] documented as of this encounter Visit Diagnoses Not on filedocumented in this encounter Additional Health Concerns Infection Onset Date Last Indicated Resolved Time Respiratory Rule-Out 01/15/2025 01/16/2025 12:01 PM EDT COVID 19 (Confirmed) Comment:Confirmed COVID + 01/15/2025 [facility] 01/15/2025 01/16/2025 COVID-19 Rule-Out 01/16/2025 01/16/2025 01/16/2025 10:55 AM EDT C. difficile Rule-Out 01/16/2025 01/16/20252024 6:15 PM EDT Gastrointestinal Rule-Out 01/16/2025 01/16/2025 5:57 PM EDT Assessment Noted Time A Body Mass Index follow-up plan has been documented for the patient 01/19/2025 2:05 PM EDT documented as of this encounter Care Teams Regional Recruiter Relationship Specialty Start Date End Date Rakesh Jones MD [address] [place] [address] PCP - General 10/05/20 documented as of this encounter
--- OUTSIDE RECORDS SUMMARY | 2025-01-30 09:13 | XMS_ITS | Encounter Summary ---
Author Organization Healthcare Address [address] [place] [address] Care Team Providers Care Welder Production Line Gas Name Role Phone Rakesh Jones MD Primary Care Provider [phone] Encounter Details Date Type Department Care Team (Latest Contact Info) Description 01/15/2025 Travel Social History Tobacco Use Types Packs/Day [...] any time in the past 12 m [facility], were you homeless or living in a fdc (including now)? No 01/16/2025 Utilities Answer Date [...] Date of Assessment Author No Risk Indicated 01/15/2025 5:56 PM EDT Gris Coates RN * Question Answer Date of Assessment Author 1. Wish to be (Past 1 Month) No 025 5:56 PM EDT Gris Ozuna RN 2. Non-Specific Active Suici ramona Thoughts (Past 1 Month) No 01/15/2025 5:56 PM EDT Geno Ozuna, ASIA 6. Suicidal Behavior (Lifetime) No 5:56 PM EDT Gris Ozuna RN documented as of this encounter Plan of Treatment Upcoming Encounters Date Type Department Care Team (Late st Contact Info) Description 02/24/2025 10:00 AM EDT Consult [place] [facility] [address] [place] [address] Mago Levy PA [address] [place] [address] documented as of this encounter Visit Diagnoses Not on filedocumented in this encounter Additional Health Concerns Infection Onset Date Last Indicated Resolved Time COVID-19 Rule-Out 01/15/2025 01/15/2025 01/15/2025 5:51 PM EDT Respiratory Rule-Out 01/15/2025 01/16/2025 12:01 PM EDT Assessment Noted Time A Body Mass Index follow-up plan has been documented for the patient 01/19/2025 2:05 PM EDT documented as of this encounter Care Teams Welder Production Line Gas Relationship Specialty Start Date End Date Rakesh Jones MD [address] [place] [address] PCP - General 10/05/20 documented as of this encounter
--- OUTSIDE RECORDS SUMMARY | 2025-01-30 09:13 | XMS_ITS | Encounter Summary ---
Author Organization Healthcare Address [address] [place] [address] Care Team Providers Care Curtain Hemmer Automatic Name Role Phone Rakesh Jones MD Primary Care Provider [phone] Encounter Details Date Type Department Care Team (Late st Contact Info) Description 01/25/2025 Telephone [place] [facility] [address] [place] [address] None, None [address], [place] [id number] Social History Tobacco Use Types Packs/Day Years [...] any time in the past 12 m [facility], were you homeless or living [...] on file documented as of this encounter Miscellaneous Notes * Telephone Encounter - Tanisha Archer - 01/25/2025 1:30 PM EDT Clinical Concern/Question Reason for Call: belia from [facility] calling to schedule from referral Best contact number: Other: [phone] Optimal time of day to reach caller: ANYTIME Additional comments/information from caller: None Note: Please do not reply to this message. Follow-up communication and further actions as a result of this message need to be communicated with the patient directly, if the patient is not active onMyChart. If the patient is active on MyChart, they will receive notification of the communication/outcome via [employer]. documented in this encounter Plan of Treatment Upcoming Encounters Date Type Department Care Team (Late st Contact Info) Description 02/24/2025 10:00 AM EDT Consult [facility] [address] [place] [address] Mago Levy PA [address] [place] [address] documented as of this encounter Visit Diagnoses Not on filedocumented in this encounter Additional Health Concerns Infection Onset Date Last Indicated Resolved Time COVID 19 (Confirmed) Comment:Confirmed COVID + 01/15/2025 [facility] 01/15/2025 01/16/2025 Assessment Noted Time A Body Mass Index follow-up plan has been documented for the patient 01/19/2025 2:05 PM EDT documented as of this encounter Care Teams Curtain Hemmer Automatic Relationship Specialty Start Date End Date Rakesh Jones MD [address] [place] [address] PCP - General 10/05/20 documented as of this encounter
--- OUTSIDE RECORDS SUMMARY | 2025-01-30 09:13 | XMS_ITS | Clinical Summary ---
Author Organization Healthcare Address [address] [place] [address] Care Team Providers Care Marketing Manager Name Role Phone Rakesh Jones MD Primary Care Provider [phone] Allergies No known active allergies Medications donepezil (Aricept) 5 MG tablet Take 1 tablet by mouth nightly. Active memantine (Namenda) 10 MG tablet Take 1 tablet by mouth 2 times a day. Active escitalopram (Lexapro) 10 MG tablet Take 1 tablet by mouth daily. Active atorvastatin (Lipitor) 40 MG tablet Take 1 tablet by mouth daily. Active nystatin (Mycostatin) cream Apply 1 Application topically 2 times a day. Active ASPIRIN 81 MG chewable tablet Chew 1 tablet daily. Active pantoprazole (Protonix) 40 MG EC tablet Take 1 tablet by mouth nightly. Do not crush, chew, or split. Active cyclobenzaprin e (Flexeril) 10 MG tablet Take 1 tablet by mouth 3 times a day as needed for muscle spasms. Active tamsulosin (Flomax) 0.4 MG 24 hr capsule Take 1 capsule by mouth daily. Active finasteride (Proscar) 5 MG tablet Take 1 tablet by mouth daily. Do not crush, chew, or split. Active traMADol (Ultram) 50 MG tablet Take 1 tablet by mouth every 8 hours as needed for severe pain. 01/17/20 25 Discontin ued(Enter ed in Error) Active Problems Problem Noted Date Diagnosed Date Urinary retention 01/19/2025 Coronary artery disease Hypertension Obesity Type 2 diabetes mellitus Hyperlipidemia Resolved Problems Problem Noted Date Diagnosed Date Resolved Date Hyperkalemia 01/16/2025 01/19/2025 MITZY (acute kidney injury) 01/16/2025 Hydronephrosis 01/16/2025 01/19/2025 Acute encephalopathy 01/15/2025 025 Depression 01/19/2025 Encounters Date Type Department Care Team Description 01/25/2025 [facility]phone [facility] [address] [place] [address] None, None 01/20/2025 Travel 01/16/2025 Travel 01/15/2025 5:16 PM EDT - 01/19/2025 4:16 PM EDT Hospital Encounter [facility] [address] [place] [address] Jacob Gong MD Elhelw, Mohamed E, MD Almaraz, Kayla M, Meaghan Villeda MD Acute encephalopathy (Primary Dx); Postobstructive diuresis; Acute renal failure, unspecified acute renal failure type (CMS/HCC); Urinary retention Discharge Disposition: Rehab Facility 01/15/2025 Travel from Last 3 Months Social History Tobacco Use Types Packs/Day Years [...] any time in the past 12 m [facility], were you homeless or living in a long-term (including now)? No 01/16/2025 Utilities Answer Date [...] Mass Index 27.05 01/16/2025 3:27 PM EDT Plan of Treatment Upcoming Encounters Date Type Department Care Team (Late st Contact Info) Description 02/24/2025 10:00 AM EDT [facility] [address] [place] [id number] Mago Levy, PA [address] [facility] [address] [place] [address] Health Maintenance Due Date Last Done Comments [facility]-Depression Screening 1945 [facility]-Medicare Annual Wellness (AWV) 1945 [facility]-Infant/Child/Adol SDOH Screenings 1945 Diabetes: Dental Exam 1953 [facility]-DTaP,Tdap,and Td Vaccines (3 - Td or Tdap) 11/22/2016 11/22/2006, 05/25/2006, 07/26/1996 [facility]-Pneumococcal Vaccine: 50+ Years (2 of 2 - PCV) 03/30/2018 03/30/2017 [id number] Vaccine (2024- season) 2025 12/04/2021, 03/28/2021, 07/26/2020, Additional history exists [facility]-Influenza Vaccine (#1) 01/23/202501/31, 02/11/2023, 02/05/2022, Additional history exists [facility]-Diabetes: Hemoglobin A1C 07/16/2025 01/16/2025 [facility]- SDOH Screenings 07/19/2025 [facility]-Adult SDOH Screenings 07/19/2025 01/16/2025 [facility]-Zoster Vaccines Completed 06/01/2023, [facility]-RSV Vaccine: 60+ Years or Completed 02/01/2024, 03/30/2023 [facility]-Obesity Intervention Completed 01/15/2025, 12/24 HPV Vaccines Aged Out No longer eligi ble based on patient's age to complete this topic [facility]-HIB Vaccines Aged Out No longer e ligible based on patient's age to complete this topic [facility]-Hepatitis A Vaccines Aged Out No longer eligible based on patient's age to complete this topic [facility]-IPV Vaccines Aged Out No longer e ligible based on patient's age to complete this topic [facility]-Rotavirus Vaccines Aged Out No lo nger eligible based on patient's age to complete this topic Procedures Procedure Name Priority Date/Time Associated Diagnosis [...] PANEL, PLASMA Timed 01/16/2025 11:33 AM EDT NASOPHARYNGEAL RESPIRATORY PANEL Routine 01/16/2025 9:35 AM EDT SARS COV-2/COVID-19 BY PCR - RAPID Routine 01/16/2025 9:35 AM EDT BASIC METABOLIC PANEL, PLASMA Timed 01/16/2025 6:03 AM EDT PROCALCITONIN, PLASMA Routine 01/16/2025 3:09 AM EDT C-REACTIVE PROTEIN, PLASMA Routine 01/16/2025 3:09 AM EDT PHOSPHORUS, PLASMA Routine 01/16/2025 3: 09 AM EDT MAGNESIUM, PLASMA Routine 01/16/2025 3:0 9 AM EDT IONIZED CALCIUM, WHOLE BLOOD Routine 01/16/2025 3:09 AM EDT HEMOGLOBIN A1C Routine 01/16/2025 3:09 AM EDT CBC W/O DIFFERENTIAL Routine 01/16/2025 3:09 AM EDT AMMONIA, PLASMA Routine 01/16/2025 3:09 AM EDT FOLATE, SERUM Routine 01/16/2025 3:09 AM EDT VITAMIN B12, SERUM Routine 01/16/2025 3: 09 AM EDT BASIC METABOLIC PANEL, PLASMA Timed 01/16/2025 3:09 AM EDT US RENAL COMPLETE STAT 01/16/2025 2:[address] HEAD WO IV CONTRAST STAT 9:36 PM EDT BASIC METABOLIC PANEL, PLASMA STAT 01/15/2025 9:12 PM EDT BLOOD GAS PANEL, VENOUS STAT 01/16/20 9:12 PM EDT TROPONIN T, HIGH SENSITIVITY, 2 HOUR, PLASMA Timed 01/15/2025 8:48 PM EDT POCT GLUCOSE METER UNSOLICITED RESULTS Routine 01/15/2025 7:22 PM EDT ED HIV 1/2 ANTIBODY/ANTIGEN SCREEN WITH REFLEX TO HIV I/II DIFFERENTIATION STAT 01/15/2025 6:28 PM EDT ED PROTOCOL HIV 1/2 ANTIBODY/ANTIGEN SCREEN W/REFLEX TO HIV 1/2 ANTIBODY DIFFERENTIATION STAT 01/15/2025 6:28 PM EDT TYPE AND SCREEN STAT 01/15/2025 6:28 PM EDT FREE T4, PLASMA STAT 01/15/2025 6:28 PM EDT TROPONIN T, HIGH SENSITIVITY, 0 HOUR, PLASMA, REFLEX TO 2 HOUR STAT 01/15/2025 6:28 PM EDT BLOOD CULTURE (AEROBIC/ANAEROBIC SET) STAT 01/15/2025 6:28 PM EDT BLOOD CULTURE (AEROBIC/ANAEROBIC SET) STAT 01/15/2025 6:28 PM EDT URINALYSIS MICROSCOPIC FOR UA REFLEX STAT 01/15/2025 6:11 PM EDT URINE BECERRA PANEL STAT 01/15/2025 6:11 PM EDT URINALYSIS WITH REFLEX MICROSCOPIC STAT 01/15/2025 6:11 PM EDT URINALYSIS WITH REFLEX MICROSCOPIC AND CULTURE STAT 01/15/2025 6:11 PM EDT XR CHEST 1 VIEW STAT 01/15/2025 6:08 PM EDT HEPATITIS C ANTIBODY - ED W/REFLEX TO HCV QUANT PCR STAT 01/15/2025 5:50 PM EDT CBC WITH AUTO DIFFERENTIAL STAT 01/15/2025 5:50 PM EDT PROTHROMBIN TIME(PT) / INR STAT 01/15/2025 5:50 PM EDT TSH STAT 01/15/2025 5:50 PM EDT N-TERMINAL PROBNP, PLASMA STAT 01/15/2025 5:50 PM EDT LIPASE, PLASMA STAT 01/15/2025 5:50 PM EDT MAGNESIUM, PLASMA STAT 01/15/2025 5:5 0 PM EDT COMPREHENSIVE METABOLIC PANEL, PLASMA STAT 01/15/2025 5:50 PM EDT POCT VENOUS BLOOD GAS GEM UNSOLICITED RESULTS Routine 01/15/2025 5:47 PM EDT ECG ADULT STAT 01/15/2025 5:36 PM EDT POCT GLUCOSE METER UNSOLICITED RESULTS Routine 01/15/2025 5:29 PM EDT from Last 3 Months Results * (ABNORMAL) Basic metabolic panel (01/19/2025 5:14 AM EDT) Only the most recent of10 resultswithin the time period is included. Glucose, Plasma 101(H) 74 - 99 mg/dL 01/19/2025 6:14 AM EDT [facility] BUN, Plasma 19 8 - 23 mg/dL 01/19/2025 6:14 AM EDT [facility] Creatinine, Plasma 1.13 0.70 - 1.20 mg/dL 01/19/2025 6:14 AM EDT [facility] BUN/Creatinine Ratio 17 01/19/2025 6:14 AM EDT [facility] Sodium, Plasma 139 136 - 145 mmol/L 01/19/2025 6:14 AM EDT [facility] Potassium, Plasma 3.8 3.6 - 4.9 mmol/L 01/19/2025 6:14 AM EDT [facility] Chloride, Plasma 103 97 - 107 mmol/L 01/19/2025 6:14 AM EDT [facility] CO2, Plasma 25 22 - 29 mmol/L 01/19/2025 6:14 AM EDT [facility] Anion Gap 11 6 - 16 mmol/L 01/19/2025 6:14 AM EDT [facility] Total Calcium, Plasma 8.1(L) 8.9 - 10.2 mg/dL 01/19/2025 6:14 AM EDT [facility] eGFRcr 65.3 mL/min/1.7 3m*2 01/19/2025 6:14 AM EDT [facility] Comment:Reported eGFRcr in m L/min/1.73m2 is based the CKD-EPI 2020 equation that does not use a race coefficient. Blood Venous blood specimen / Unknown Venipuncture / Unknown 01/19/2025 5:14 AM EDT 01/19/2025 5:44 AM EDT us Meaghan Olivier MD LAB BLOOD ORDERABLES Final Result [facility] [address] [place] [address] * (ABNORMAL) POCT glucose meter (01/17/2025 7:38 AM EDT) Only the most recent of3 resultswithin the time period is included. POCT Glucose 101(H) 74 - 99 mg/dL 01/17/2025 7:41 AM EDT [facility] Comment:Accuracy of a glucos e [...] for testing. Comment 01/17/2025 7:41 AM EDT [facility] Forensic Locksmith ID Emani Farah 01/18/20 7:41 AM EDT [facility] Device ID [id number] 01/17/2025 7:41 AM EDT [facility] Specimen Type POC Capillary 01/17/2025 7:41 AM EDT [facility] Blood Capillary blood specimen / Unknown 01/17/2025 7:38 AM EDT 01/17/2025 7:41 AM EDT us Marlene Mcdaniels DO LAB POINT OF CARE TE ST DOCKED DEVICE UNSOLICITED RESULTS Final Result [facility] [address] [place] [address] * (ABNORMAL) CBC and differential (01/17/2025 2:33 AM EDT) Only the most recent of2 resultswithin the time period is included. WBC Count 6.34 3.70 - 10.30 10*3/uL LAB HEMATOLOGY METHOD 01/17/2025 2:49 AM EDT [facility] RBC Count 4.12(L) 4.60 - 6.10 10*6/uL LAB HEMATOLOGY METHOD 01/17/2025 2:49 AM EDT [facility] HGB 11.7(L) 13.7 - 17.5 g/dL LAB HEMATOLOGY METHOD 01/17/2025 2:49 AM EDT [facility] HCT 35.3(L) 40.0 - 51.0 % LAB HEMATOLOGY METHOD 01/17/2025 2:49 AM EDT [facility] Platelet Count 345 155 - 369 10*3/uL LAB HEMATOLOGY METHOD 01/17/2025 2:49 AM EDT [facility] MCV 86 79 - 98 fL LAB HEMATOLOGY METHOD 01/17/2025 2:49 AM EDT [facility] MCH 28.4 26.0 - 32.0 pg LAB HEMATOLOGY METHOD 01/17/2025 2:49 AM EDT [facility] MCHC 33.1 30.7 - 35.5 g/dL LAB HEMATOLOGY METHOD 01/17/2025 2:49 AM EDT [facility] RDW 14.7(H) 11.5 - 14.5 % LAB HEMATOLOGY METHOD 01/17/2025 2:49 AM EDT [facility] MPV 9.8 8.8 - 12.5 fL LAB HEMATOLOGY METHOD 01/17/2025 2:49 AM EDT [facility] nRBC 0.0 <=0.0 per 100 WBCs LAB HEMATOLOGY METHOD 01/17/2025 2:49 AM EDT [facility] Differential Type Automated LAB HEMATOLOGY METHOD 01/17/2025 2:49 AM EDT [facility] Neutrophils % 61 % LAB HEMATOLOGY METHOD 01/17/2025 2:49 AM EDT [facility] Lymphocytes % 26 % LAB HEMATOLOGY METHOD 01/17/2025 2:49 AM EDT [facility] Monocytes % 10 % LAB HEMATOLOGY METHOD 01/17/2025 2:49 AM EDT [facility] Eosinophils % 0 % LAB HEMATOLOGY METHOD 01/17/2025 2:49 AM EDT [facility] Basophils % 0 % LAB HEMATOLOGY METHOD 01/17/2025 2:49 AM EDT [facility] Immature Granulocytes % 3 % LAB HEMATOLOGY METHOD 01/17/2025 2:49 AM EDT [facility] Neutrophils Absolute 3.86 1.60 - 6.10 10*3/uL LAB HEMATOLOGY METHOD 01/17/2025 2:49 AM EDT [facility] Lymphocytes Absolute 1.65 1.20 - 3.90 10*3/uL LAB HEMATOLOGY METHOD 01/17/2025 2:49 AM EDT [facility] Monocytes Absolute 0.61 0.30 - 0.90 10*3/uL LAB HEMATOLOGY METHOD 01/17/2025 2:49 AM EDT [facility] Eosinophils Absolute 0.00 0.00 - 0.50 10*3/uL LAB HEMATOLOGY METHOD 01/17/2025 2:49 AM EDT [facility] Basophils Absolute 0.01 0.00 - 0.10 10*3/uL LAB HEMATOLOGY METHOD 01/17/2025 2:49 AM EDT [facility] Immature Granulocytes Absolute 0.21(H) 0.00 - 0.06 10*3/uL LAB HEMATOLOGY METHOD 01/17/2025 2:49 AM EDT [facility] Blood Venous blood specimen / Unknown Venipuncture / Unknown 01/17/2025 2:33 AM EDT 01/17/2025 2:43 AM EDT [facility] - 01/17/2025 2:49 AM EDT Therapeutic decision making should be based on absolute values, rather than percentages. us Marlene Mcdaniels DO LAB BLOOD ORDERABLES Final Re sult [facility] [address] [place] [address] * XR Chest 1 View (01/16/2025 4:54 PM EDT) Only the most recent of2 resultswithin the time period is included. Anatomical Region Laterality Modality Chest Digital Radiogra [...] Detected Not Detected 01/17/2025 6:45 AM EDT [facility] Plesiomonas shigelloides PCR Result Not Detected Not Detected 01/17/2025 6:45 AM EDT [facility] Salmonella PCR Result Not Detected Not Detected 01/17/2025 6:45 AM EDT [facility] Vibrio species PCR Result Not Detected Not Detected 01/17/2025 6:45 AM EDT [facility] Vibrio cholerae PCR Result Not Detected Not Detected 01/17/2025 6:45 AM EDT [facility] Yersinia enterocolitica PCR Result Not Detected Not Detected 01/17/2025 6:45 AM EDT [facility] Enteroaggregative E. coli (EAEC) PCR Result Not Detected Not Detected 01/17/2025 6:45 AM EDT [facility] Enteropathogenic E. coli (EPEC) PCR Result Not Detected Not Detected 01/17/2025 6:45 AM EDT [facility] Enterotoxigenic E. coli (ETEC) lt/st PCR Result Not Detected Not Detected 01/17/2025 6:45 AM EDT [facility] Shiga-like Toxin-Producing E.coli (STEC) stx1/stx2 PCR Resu Not Detected Not Detected 01/17/2025 6:45 AM EDT [facility] E coli 0157 PCR Result Not Detected Not Detected 01/17/2025 6:45 AM EDT [facility] Shigella/Enteroinvas maria t E. coli (EIEC) PCR Result Not Detected Not Detected 01/17/2025 6:45 AM EDT [facility] Cryptosporidium PCR Result Not Detected Not Detected 01/17/2025 6:45 AM EDT [facility] Cyclospora cayetanensis PCR Result Not Detected Not Detected 01/17/2025 6:45 AM EDT [facility] Entamoeba histolytica PCR Result Not Detected Not Detected 01/17/2025 6:45 AM EDT [facility] Giardia duodenalis (aka Giardia lamblia) PCR Result Not Detected Not Detected 01/17/2025 6:45 AM EDT [facility] Adenovirus F 40/41 PCR Result Not Detected Not Detected 01/17/2025 6:45 AM EDT [facility] Astrovirus PCR Result Not Detected Not Detected 01/17/2025 6:45 AM EDT [facility] Norovirus GI/GII PCR Result Not Detected Not Detected 01/17/2025 6:45 AM EDT [facility] Rotavirus A PCR Result Not Detected Not Detected 01/17/2025 6:45 AM EDT [facility] Sapovirus PCR Result Not Detected Not Detected 01/17/2025 6:45 AM EDT [facility] Stool Rectum structure / Unknown Non-blood Collection / Unknown 01/16/2025 3:24 PM EDT 01/16/2025 3:42 PM EDT Narrative [facility] - 01/17/2025 6:45 AM EDT [...] difficile by PCR assay if clinically indicated. [facility] MICROBIOLOGY - GENERAL OR DERABLES Final Result [facility] [address] [place] [address] * Clostridiodes (Clostridium) difficile PCR (01/16/2025 3:24 PM EDT) C difficile PCR toxin B gene DNA Result Not Detected Not Detected 01/16/2025 6:[address] [facility] Stool Rectum structure / Unknown Non-blood Collection / Unknown 01/16/2025 3:24 PM EDT 01/16/2025 3:42 PM EDT Narrative [facility] - 01/16/2025 6:15 PM EDT This test is FDA approved for use with liquid stool specimens. This test is used for clinical purposes. It should not be regarded as investigational or for research. This laboratory is certified under the Clinical Laboratory Improvement Amendments of 1988 (CLIA-88) as qualified to perform high complexity clinical laboratory testing. Marlene M Enedelia DO LAB MICROBIOLOGY - GENERAL OR DERABLES Final Result Performing Organization Address [facility] Co de Phone Number [facility] [address] [place] [address] * (ABNORMAL) SARS CoV-2/COVID-19 by PCR - Rapid (01/16/2025 9:35 AM EDT) [facility] SARS CoV-2/COVID-19 RNA PCR Result Detected( A) Not Detected 01/16/2025 10:55 AM EDT [facility] Swab Nasopharyngeal structure / Unknown Non-blood Collection / Unknown 01/16/2025 9:35 AM EDT 01/16/2025 9:57 AM EDT Narrative [facility] - 01/16/2025 10:55 AM EDT [...] OR DERABLES Final Result Performing Organization Address [facility] Co de Phone Number [facility] [address] [place] [address] * Nasopharyngeal Respiratory Panel (01/16/2025 9:35 AM EDT) [facility] Nasopharyngeal Respiratory PCR Interpretation Not Detected for all analytes Not Detected for all analytes 01/16/2025 12:01 PM EDT [facility] Swab Nasopharyngeal structure / Unknown Non-blood Collection / Unknown 01/16/2025 9:35 AM EDT 01/16/2025 9:57 AM EDT Narrative [facility] - 01/16/2025 12:01 PM EDT [...] Respiratory PCR Panel is performed using the [employer] instrument. This test is FDA approved for use with Nasopharyngeal swabs only. This test is used for clinical purposes. It should not be regarded as investigational or for research. [facility] Clinical Microbiology Laboratory is certified under the Clinical Laboratory Improvement Amendments of 1988 (CLIA-88) as qualified to perform high complexity clinical laboratory testing. Marlene Mcdaniels DO LAB MICROBIOLOGY - GENERAL OR DERABLES Final Result Performing Organization Address City/[facility]/ZIP Co de Phone Number [facility] [address] [place] [address] * (ABNORMAL) Ionized calcium, whole blood (01/16/2025 3:09 AM EDT) Pathologist [facility] Ionized Calcium, Whole Blood 4.4(L) 4.6 - 5.1 mg/dL LAB HEMATOLOGY METHOD 01/16/2025 3:25 AM EDT [facility] Blood Venous blood specimen / Unknown Venipuncture / Unknown 01/16/2025 3:09 AM EDT 01/16/2025 3:19 AM EDT us Colby Kim APRN, DNP LAB BLOOD ORDERAB LES Final Result Performing Organization Address City/[facility]/ZIP Co de Phone Number [facility] [address] [place] [address] * (ABNORMAL) Procalcitonin (01/16/2025 3:09 AM EDT) Procalcitonin, Plasma 0.11(H) <0.09 ng/mL 01/16/2025 3:59 AM EDT [facility] Blood Venous blood specimen / Unknown Venipuncture / Unknown 01/16/2025 3:09 AM EDT 01/16/2025 3:21 AM EDT Narrative [facility] - 01/16/2025 3:59 AM EDT [...] predict 28 day mortality risk. Please consult [email or web address] for more information. Test performed at [facility]. us Colbyisabella Kim APRN, DEE LAB BLOOD ORDERAB LES Final Result [facility] [address] [place] [address] * (ABNORMAL) CBC W/O Differential (01/16/2025 3:09 AM EDT) WBC Count 8.00 3.70 - 10.30 10*3/uL LAB HEMATOLOGY METHOD 01/16/2025 3:19 AM EDT [facility] RBC Count 3.95(L) 4.60 - 6.10 10*6/uL LAB HEMATOLOGY METHOD 01/16/2025 3:19 AM EDT [facility] HGB 11.1(L) 13.7 - 17.5 g/dL LAB HEMATOLOGY METHOD 01/16/2025 3:19 AM EDT [facility] HCT 33.2(L) 40.0 - 51.0 % LAB HEMATOLOGY METHOD 01/16/2025 3:19 AM EDT [facility] Platelet Count 311 155 - 369 10*3/uL LAB HEMATOLOGY METHOD 01/16/2025 3:19 AM EDT [facility] MCV 84 79 - 98 fL LAB HEMATOLOGY METHOD 01/16/2025 3:19 AM EDT [facility] MCH 28.1 26.0 - 32.0 pg LAB HEMATOLOGY METHOD 01/16/2025 3:19 AM EDT [facility] MCHC 33.4 30.7 - 35.5 g/dL LAB HEMATOLOGY METHOD 01/16/2025 3:19 AM EDT [facility] RDW 14.6(H) 11.5 - 14.5 % LAB HEMATOLOGY METHOD 01/16/2025 3:19 AM EDT [facility] MPV 10.0 8.8 - 12.5 fL LAB HEMATOLOGY METHOD 01/16/2025 3:19 AM EDT [facility] nRBC 0.0 <=0.0 per 100 WBCs LAB HEMATOLOGY METHOD 01/16/2025 3:19 AM EDT [facility] Blood Venous blood specimen / Unknown Venipuncture / Unknown 01/16/2025 3:09 AM EDT 01/16/2025 3:15 AM EDT us Colby Kim WHEEL POLISHER, DNP LAB BLOOD ORDERAB LES Final Result [facility] [address] [place] [id number] * (ABNORMAL) C-Reactive Protein, Plasma (01/16/2025 3:09 AM EDT) CRP, Plasma 124.7(H) <=8.0 mg/L 01/16/2025 3:59 AM EDT [facility] Blood Venous blood specimen / Unknown Venipuncture / Unknown 01/16/2025 3:09 AM EDT 01/16/2025 3:21 AM EDT Narrative [facility] - 01/16/2025 3:59 AM EDT This CRP test is appropriate for assessment of infection, systemic inflammation and/or tissue injury. To assess cardiovascular disease risk order high sensitivity CRP (CRPH). us Colbyrose mary Kim APRN, DNP LAB BLOOD ORDERAB LES Final Result [facility] [address] [place] [address] * Phosphorus, Plasma (01/16/2025 3:09 AM EDT) Phosphorus, Plasma 3.2 2.5 - 4.5 mg/dL 01/16/2025 3:59 AM EDT [facility] Blood Venous blood specimen / Unknown Venipuncture / Unknown 01/16/2025 3:09 AM EDT 01/16/2025 3:21 AM EDT us Colbyradha Kim APRN, DNP LAB BLOOD ORDERAB LES Final Result Performing Organization Address [facility] Co de Phone Number [facility] [address] [place] [address] * Magnesium (01/16/2025 3:09 AM EDT) Only the most recent of2 resultswithin the time period is included. Magnesium, Plasma 1.9 1.9 - 2.4 mg/dL 01/16/2025 3:59 AM EDT [facility] Blood Venous blood specimen / Unknown Venipuncture / Unknown 01/16/2025 3:09 AM EDT 01/16/2025 3:21 AM EDT us Colbyisabella Kim APRN, DNP LAB BLOOD ORDERAB LES Final Result [facility] [address] [place] [address] * (ABNORMAL) Hemoglobin A1c (01/16/2025 3:09 AM EDT) Hemoglobin A1c 6.3(H) <5.7 % 01/16/2025 10:54 AM EDT [facility] Blood Venous blood specimen / Unknown Venipuncture / Unknown 01/16/2025 3:09 AM EDT 01/16/2025 3:21 AM EDT Narrative [facility] - 01/16/2025 10:54 AM EDT HA1C Interpretive Data: Diagnosis of Diabetes: Diabetic > or = 6.5% Pre-diabetic 5.7 to 6.4% Non-diabetic < or = 5.6% Glycemic Targets for Type I and Type II Diabetics: Non- Adults <7.0% Adults <6.0% Children and Adolescents <7.5% Source: [place] [employer]. Standards of medical care in diabetes,2017. Diabetes Care.2017:40 (suppl 1):S1-S135. us Colby Kim APRN, DNP LAB BLOOD ORDERAB LES Final Result Performing Organization Address City/[facility]/ZIP Co de Phone Number [facility] [address] [place] [address] * Folate (01/16/2025 3:09 AM EDT) Folate, Serum 6.4 >4.6 ng/mL 01/16/2025 4:08 AM EDT [facility] Blood Venous blood specimen / Unknown Venipuncture / Unknown 01/16/2025 3:09 AM EDT 01/16/2025 3:21 AM EDT us Colby Kim APRN, DNP LAB BLOOD ORDERAB LES Final Result Performing Organization Address [facility] [facility]/ZIP Co de Phone Number [facility] [address] [place] [address] * (ABNORMAL) Vitamin B12 (01/16/2025 3:09 AM EDT) Vitamin B12, Serum 1,534(H) 210 - 1,033 pg/mL 01/16/2025 4:08 AM EDT [facility] Blood Venous blood specimen / Unknown Venipuncture / Unknown 01/16/2025 3:09 AM EDT 01/16/2025 3:21 AM EDT us Colby Kim WHEEL POLISHER, DNP LAB BLOOD ORDERAB LES Final Result Performing Organization Address City/[facility]/ZIP Co de Phone Number [facility] [address] [place] [address] * Ammonia, Plasma (01/16/2025 3:09 AM EDT) Ammonia 13 11 - 51 umol/L 01/16/2025 3:44 AM EDT [facility] Blood Venous blood specimen / Unknown Venipuncture / Unknown 01/16/2025 3:09 AM EDT 01/16/2025 3:20 AM EDT us Colby N Judy WHEEL POLISHER, DNP LAB BLOOD ORDERAB LES Final Result Performing Organization Address [facility] Co de Phone Number [facility] [address] [place] [address] * US Renal Complete (01/16/2025 2:33 AM [...] kidney is normal in size and echogenicity [id number] cm. Cyst of the interpolar region of the left kidney measuring up to3.6 x 3.6 cm in sagittal plane and 3.2 cm in the transverse plane. Thereis no evidence of hydronephrosis. Bladder: Partially decompressed without obvious abnormality. IMPRESSION: Limited exam due to difficulty with patient positioning. No evidence ofhydronephrosis. CRITICAL RESULT: No. COMMUNICATION: Per this written report. Drafted by Emil Kuar MD on 01/16/2025 6:03 AM Final report signed by Emli Kaur MD on 01/16/2025 6:06 AM us Colby Kim APRN, DNP [facility] US PROCEDURES Final Result * CT Head [...] Da Silva MD on 01/15/2025 10:06 PM Jacob Gong MD IM CT PROCEDURES Final Result * (ABNORMAL) Blood gas panel, venous (01/15/2025 9:12 PM EDT) pH, Venous 7.35 7.32 - 7.43 LAB HEMATOLOGY METHOD 01/15/2025 9:18 PM EDT [facility] pCO2, Venous 37(L) 40 - 55 mmHg LAB HEMATOLOGY METHOD 01/15/2025 9:18 PM EDT [facility] pO2, Venous 28 25 - 40 mmHg LAB HEMATOLOGY METHOD 01/15/2025 9:18 PM EDT [facility] SO2, Measured, Venous 49(L) 65 - 80 % LAB HEMATOLOGY METHOD 01/15/2025 9:18 PM EDT [facility] Base Excess, Venous -4.7(L) -2.0 - 3.0 mmol/L LAB HEMATOLOGY METHOD 01/15/2025 9:18 PM EDT [facility] Bicarbonate, Calculated, Venous 21(L) 22 - 26 mmol/L LAB HEMATOLOGY METHOD 01/15/2025 9:18 PM EDT [facility] Hematocrit, Whole Blood 33.7(L) 40.0 - 51.0 % LAB HEMATOLOGY METHOD 01/15/2025 9:18 PM EDT [facility] Sodium, Whole Blood 139 136 - 145 mmol/L LAB HEMATOLOGY METHOD 01/15/2025 9:18 PM EDT [facility] Potassium, Whole Blood 4.6 3.6 - 4.9 mmol/L LAB HEMATOLOGY METHOD 01/15/2025 9:18 PM EDT [facility] Chloride, Whole Blood 109(H) 97 - 107 mmol/L LAB HEMATOLOGY METHOD 01/15/2025 9:18 PM EDT [facility] Glucose, Whole Blood 82 74 - 99 mg/dL LAB HEMATOLOGY METHOD 01/15/2025 9:18 PM EDT [facility] Lactate, Venous, Whole Blood 0.7 0.5 - 2.2 mmol/L LAB HEMATOLOGY METHOD 01/15/2025 9:18 PM EDT [facility] Ionized Calcium, Whole Blood 4.3(L) 4.6 - 5.1 mg/dL LAB HEMATOLOGY METHOD 01/15/2025 9:18 PM EDT [facility] Blood Venous blood specimen / Unknown Venipuncture / Unknown 01/15/2025 9:12 PM EDT 01/15/2025 9:16 PM EDT us Jacob Gong MD LAB BLOOD ORDERABLES Final Res ult [facility] [address] [place] [address] * (ABNORMAL) Troponin T, High Sensitivity, 2 Hour, Plasma (01/15/2025 8:48 PM EDT) Troponin T, High Sensitivity, 2 Hour 21(H) <19 ng/L 01/15/2025 9:14 PM EDT [facility] Troponin Delta 1 <10 ng/L 01/15/2025 9:14 PM EDT [facility] Troponin Delta Interpretation Not Significant 01/15/2025 9:14 PM EDT [facility] Comment:Not Significant. No acute change in troponin observed between the baseline and 2 hour samples. Blood Venous blood specimen / Unknown Venipuncture / Unknown 01/15/2025 8:48 PM EDT 01/15/2025 8:53 PM EDT Jacob Gong MD LAB BLOOD ORDERABLES Final Res ult Performing Organization Address [facility] Co de Phone Number [facility] [address] [place] [address] * ED HIV 1/2 Antibody/Antigen Screen w/Reflex to HIV 1/2 Differentiation (01/15/2025 6:28 PM EDT) HIV 1 & 2 Antibody/Antigen Screen Non Reactive Non Reactive 01/15/2025 7:21 PM EDT [facility] Comment:Screening for HIV 1 & 2 antibodies, and P24 antigen is NONREACTIVE. No confirmatory testing is required. Blood Venous blood specimen / Unknown Venipuncture / Unknown 01/15/2025 6:28 PM EDT 01/15/2025 6:39 PM EDT us Jacob Gong MD LAB BLOOD ORDERABLES Final Res ult [facility] [address] [place] [address] * (ABNORMAL) Troponin now and 120 min (01/15/2025 6:28 PM EDT) Troponin T, High Sensitivity, 0 Hour 20(H) <19 ng/L 01/15/2025 7:08 PM EDT [facility] Blood Venous blood specimen / Unknown Venipuncture / Unknown 01/15/2025 6:28 PM EDT 01/15/2025 6:31 PM EDT us Jacob Gong MD LAB BLOOD ORDERABLES Final Res ult [facility] [address] [place] [address] * Blood Culture (Aerobic/Anaerobet Set) (01/15/2025 6:28 PM EDT) Only the most recent of2 resultswithin the time period is included. Culture No growth at day 5 01/20/2025 7:01 PM EDT [facility] Blood Structure of right wrist region / Unknown Venipuncture / Unknown 01/15/2025 6:28 PM EDT 01/15/2025 6:43 PM EDT Narrative [facility] - 01/20/2025 7:01 PM EDT Low blood volume submitted, results may be compromised us Jacob Gong MD LAB MICROBIOLOGY - GENERAL ORD ERABLES Final Result Performing Organization Address City/[facility]/ZIP Co de Phone Number [facility] [address] [place] [address] * Type and screen (01/15/2025 6:28 PM EDT) ABO/Rh A Positive 01/15/2025 5:47 PM EDT [facility] Antibody Screen Negative 01/15/2025 5:47 PM EDT [facility] Specimen Expiration 01/18/2025 23:59 01/15/2025 5:47 PM EDT [facility] Blood Venous blood specimen / Unknown Venipuncture / Unknown 01/15/2025 6:28 PM EDT 01/15/2025 6:38 PM EDT us Jacob Gong MD LAB BLOOD BANK TEST ORDERABLES Final Result Performing Organization Address City/[facility]/ZIP Co de Phone Number BLOOD BANK [address] [place] [address], [place] * Free T4, Plasma (01/15/2025 6:28 PM EDT) Free T4, Plasma 0.9 0.8 - 1.7 ng/dL 01/15/2025 7:08 PM EDT [facility] Blood Venous blood specimen / Unknown Venipuncture / Unknown 01/15/2025 6:28 PM EDT 01/15/2025 6:31 PM EDT us Jacob Gong MD LAB BLOOD ORDERABLES Final Res ult Performing Organization Address City/[facility]/ZIP Co de Phone Number [facility] [address] [place] [address] * Urine Becerra Panel (01/15/2025 6:11 PM EDT) Pathologist [facility] Extra Reflex urine culture not indicated 01/15/2025 8:01 PM EDT [facility] Urine Urine specimen from urinary conduit / Unknown Non-blood Collection / Unknown 01/15/2025 6:11 PM EDT 01/15/2025 6:39 PM EDT us Jacob Gong MD LAB URINE ORDERABLES Final Res ult Performing Organization Address [facility] Co de Phone Number [facility] [address] [place] [address] * Urinalysis Microscopic Examination (01/15/2025 6:11 PM EDT) Urine Urine specimen from urinary conduit / Unknown Non-blood Collection / Unknown 01/15/2025 6:11 PM EDT 01/15/2025 6:31 PM EDT us Jacob Gong MD LAB URINE ORDERABLES Final Res ult Performing Organization Address [facility] Co de Phone Number [facility] [address] [place] [address] * (ABNORMAL) Urinalysis with reflex microscopic (Culture NOT Included) (01/15/2025 6:11 PM EDT) Color, Urine [place] LAB URINALYSIS - AUTOMATED METHOD 01/15/2025 6:57 PM EDT [facility] Clarity, Urine Clear LAB URINALYSIS - AUTOMATED METHOD 01/15/2025 6:57 PM EDT [facility] Spec Reading, Urine 1.013 1.005 - 1.030 LAB URINALYSIS - AUTOMATED METHOD 01/15/2025 6:57 PM EDT [facility] pH, Urine 5.5 5.0 - 8.0 LAB URINALYSIS - AUTOMATED METHOD 01/15/2025 6:57 PM EDT [facility] Protein, Urine Trace(A) Negative mg/dL LAB URINALYSIS - AUTOMATED METHOD 01/15/2025 6:57 PM EDT [facility] Glucose, Urine Negative Negative mg/dL LAB URINALYSIS - AUTOMATED METHOD 01/15/2025 6:57 PM EDT [facility] Ketones, Urine Negative Negative mg/dL LAB URINALYSIS - AUTOMATED METHOD 01/15/2025 6:57 PM EDT [facility] Blood, Urine Large(A) Negative LAB URINALYSIS - AUTOMATED METHOD 01/15/2025 6:57 PM EDT [facility] Bilirubin, Urine Negative Negative LAB URINALYSIS - AUTOMATED METHOD 01/15/2025 6:57 PM EDT [facility] Urobilinogen, Urine 1.0 0.2 to 1.0 mg/dL LAB URINALYSIS - AUTOMATED METHOD 01/15/2025 6:57 PM EDT [facility] Leukocytes, Urine Trace(A) Negative LAB URINALYSIS - AUTOMATED METHOD 01/15/2025 6:57 PM EDT [facility] Nitrite, Urine Negative Negative LAB URINALYSIS - AUTOMATED METHOD 01/15/2025 6:57 PM EDT [facility] RBC, Urine >50(A) 0 to 3 /HPF LAB URINALYSIS - AUTOMATED METHOD 01/15/2025 6:57 PM EDT [facility] Comment:This result was prev iously suppressed from the chart. WBC, Urine 0 - 5 0 to 5 /HPF LAB URINALYSIS - AUTOMATED METHOD 01/15/2025 6:57 PM EDT [facility] Comment:This result was prev iously suppressed from the chart. Squamous Epithelial Cells 0 - 2 0 to 5 /HPF LAB URINALYSIS - AUTOMATED METHOD 01/15/2025 6:57 PM EDT [facility] Comment:This result was prev iously suppressed from the chart. Hyaline Casts 3 - 5 0 to 5 /LPF LAB URINALYSIS - AUTOMATED METHOD 01/15/2025 6:57 PM EDT [facility] Comment:This result was prev iously suppressed from the chart. Bacteria, Urine Negative Negative LAB URINALYSIS - AUTOMATED METHOD 01/15/2025 6:57 PM EDT [facility] Comment:This result was prev iously suppressed from the chart. Urine Urine specimen from urinary conduit / Unknown Non-blood Collection / Unknown 01/15/2025 6:11 PM EDT 01/15/2025 6:31 PM EDT Narrative [facility] - 01/15/2025 6:57 PM EDT Urinalysis dipstick results may be inaccurate due to specimen color or an interfering substance in the specimen. us Jacob Gong MD LAB URINE ORDERABLES Final Res ult Performing Organization Address [facility] Co de Phone Number [facility] [address] [place] [address] * Hepatitis C Antibody - ED (01/15/2025 5:50 PM EDT) Hepatitis C Antibody Negative Negative 01/15/2025 6:40 PM EDT [facility] Blood Venous blood specimen / Unknown Venipuncture / Unknown 01/15/2025 5:50 PM EDT 01/15/2025 6:00 PM EDT us Jacob Gong MD LAB BLOOD ORDERABLES Final Res ult Performing Organization Address City/[facility]/ZIP Co de Phone Number [facility] [address] [place] [address] * BNP (01/15/2025 5:50 PM EDT) N-Terminal, PROBNP, Plasma 1,461 0 - 1,799 pg/mL 01/15/2025 6:27 PM EDT [facility] Blood Venous blood specimen / Unknown Venipuncture / Unknown 01/15/2025 5:50 PM EDT 01/15/2025 5:52 PM EDT Jacob Gong MD LAB BLOOD ORDERABLES Final Res ult Performing Organization Address City/[facility]/ZIP Co de Phone Number [facility] [address] [place] [address] * (ABNORMAL) PT-INR (01/15/2025 5:50 PM EDT) Prothrombin Time 15.4(H) 12.0 - 14.3 sec 01/15/2025 6:09 PM EDT [facility] INR 1.2(H) 0.9 - 1.1 01/15/2025 6:09 PM EDT [facility] Blood Venous blood specimen / Unknown Venipuncture / Unknown 01/15/2025 5:50 PM EDT 01/15/2025 5:52 PM EDT Narrative [facility] - 01/15/2025 6:09 PM EDT OPTIMAL INR RANGES FOR PATIENT ON ORAL ANTICOAGULANT THERAPY Prevention of venous thromboembolism INR 2.0 to 3.0 In patients with heart disease: Atrial fibrillation INR 2.0 to 3.0 Valvular heart disease INR 2.0 to 3.0 Tissue heart valves INR 2.0 to 3.0 Mechanical prosthetic valves INR 2.5 to 3.5 Prevention of recurrent NH INR 2.5 to 3.5 Jacob Gong MD LAB BLOOD ORDERABLES Final Res ult Performing Organization Address City/[facility] Co de Phone Number [facility] [address] [place] [address] * Thyroid Stimulating Hormone, Plasma (01/15/2025 5:50 PM EDT) Thyroid Stimulating Hormone, Plasma 0.68 0.40 - 4.20 uIU/mL 01/15/2025 6:27 PM EDT [facility] Blood Venous blood specimen / Unknown Venipuncture / Unknown 01/15/2025 5:50 PM EDT 01/15/2025 5:52 PM EDT Jacob Gong MD LAB BLOOD ORDERABLES Final Res ult [facility] [address] [place] [address] * Lipase (01/15/2025 5:50 PM EDT) Lipase, Plasma 43 19 - 63 U/L 01/15/2025 6:27 PM EDT [facility] Blood Venous blood specimen / Unknown Venipuncture / Unknown 01/15/2025 5:50 PM EDT 01/15/2025 5:52 PM EDT us Jacob Gong MD LAB BLOOD ORDERABLES Final Res ult Performing Organization Address [facility]/ZIP Co de Phone Number [facility] [address] [place] [address] * (ABNORMAL) CMP (01/15/2025 5:50 PM EDT) Pathologist [facility] Glucose, Plasma 120(H) 74 - 99 mg/dL 01/15/2025 6:27 PM EDT [facility] BUN, Plasma 104(H) 8 - 23 mg/dL 01/15/2025 6:27 PM EDT [facility] Creatinine, Plasma 10.04(H) 0.70 - 1.20 mg/dL 01/15/2025 6:27 PM EDT [facility] BUN/Creatinine Ratio 10 01/15/2025 6:27 PM EDT [facility] Sodium, Plasma 135(L) 136 - 145 mmol/L 01/15/2025 6:27 PM EDT [facility] Potassium, Plasma 5.1(H) 3.6 - 4.9 mmol/L 01/15/2025 6:27 PM EDT [facility] Chloride, Plasma 101 97 - 107 mmol/L 01/15/2025 6:27 PM EDT [facility] CO2, Plasma 16(L) 22 - 29 mmol/L 01/15/2025 6:27 PM EDT [facility] Anion Gap 18(H) 6 - 16 mmol/L 01/15/2025 6:27 PM EDT [facility] Total Calcium, Plasma 7.6(L) 8.9 - 10.2 mg/dL 01/15/2025 6:27 PM EDT [facility] Total Protein 5.8(L) 6.3 - 7.9 g/dL 01/15/2025 6:27 PM EDT [facility] Albumin, Plasma 2.9(L) 3.5 - 5.2 g/dL 01/15/2025 6:27 PM EDT [facility] AST, Plasma 46 10 - 50 U/L 01/15/2025 6:27 PM EDT [facility] ALT, Plasma 25 10 - 50 U/L 01/15/2025 6:27 PM EDT [facility] Alkaline Phosphatase, Plasma 94 40 - 115 U/L 01/15/2025 6:27 PM EDT [facility] Total Bilirubin, Plasma 0.6 0.2 - 1.1 mg/dL 01/15/2025 6:27 PM EDT [facility] eGFRcr 4.7 mL/min/1.7 3m*2 01/15/2025 6:27 PM EDT [facility] Comment:Reported eGFRcr in m L/min/1.73m2 is based the CKD-EPI 2020 equation that does not use a race coefficient. Blood Venous blood specimen / Unknown Venipuncture / Unknown 01/15/2025 5:50 PM EDT 01/15/2025 5:52 PM EDT us Jacob Gong MD LAB BLOOD ORDERABLES Final Res ult [facility] [address] [place] [address] * (ABNORMAL) POCT venous blood gas gem (01/15/2025 5:47 PM EDT) pH, Venous 7.29(L) 7.32 - 7.43 01/15/2025 5:48 PM EDT [facility] pCO2, Venous 37(L) 40 - 55 mm Hg 01/15/2025 5:48 PM EDT [facility] pO2, Venous 33 25 - 40 mm Hg 01/15/2025 5:48 PM EDT [facility] SO2, Venous 56(L) 65 - 80 % 01/15/2025 5:48 PM EDT [facility] Base Excess/Deficit, Venous -8.1(L) -2 - 3 mmol/L 01/15/2025 5:48 PM EDT [facility] HCO3, Venous 17.8(L) 22 - 26 mmol/L 01/15/2025 5:48 PM EDT [facility] Hemoglobin, Venous 9.5(L) 13.7 - 17.5 g/dL 01/15/2025 5:48 PM EDT [facility] Hematocrit, Venous 29.0(L) 40.0 - 51.0 % 01/15/2025 5:48 PM EDT [facility] Sodium, Venous 132(L) 136 - 145 mmol/L 01/15/2025 5:48 PM EDT [facility] Potassium, Venous 4.8 3.6 - 4.9 mmol/L 01/15/2025 5:48 PM EDT [facility] Comment:Hemolyzed, result ma y be falsely increased. POCT Chloride, Venous 104 97 - 107 mmol/L 01/15/2025 5:48 PM EDT [facility] Glucose, Venous 121(H) 74 - 99 mg/dL 01/15/2025 5:48 PM EDT [facility] Ionized Calcium, Venous 4.3(L) 4.6 - 5.1 mg/dL 01/15/2025 5:48 PM EDT [facility] Lactate, Venous 0.9 0.5 - 2.2 mmol/L 01/15/2025 5:48 PM EDT [facility] Body Temperature 37.0 Celsius 01/15/2025 5:48 PM EDT [facility] pH, Temp Corrected, Venous 7.29(L) 7.32 - 7.43 01/15/2025 5:48 PM EDT [facility] pCO2, Temp Corrected, Venous 37(L) 40 - 55 mm Hg 01/15/2025 5:48 PM EDT [facility] pO2, Temp Corrected, Venous 33 25 - 40 mm Hg 01/15/2025 5:48 PM EDT [facility] Forensic Locksmith ID Hansa Guerrero 01/15/2025 5:48 PM EDT [facility] Blood, Venous Whole blood specimen / Unknown 01/15/2025 5:47 PM EDT 01/15/2025 5:48 PM EDT us Generic Provider Poct LAB POINT OF CARE TEST DOCKED DEVICE UNSOLICITED RESULTS Final Result Performing Organization Address City/[facility] Co de Phone Number [facility] [address] [place] [address] * EKG now - STAT (adult) (01/15/2025 5:36 PM EDT) EKG DIAGNOSIS CLASS Normal MUSE ECG Ventricular Rate 85 BPM MUSE ECG Atrial Rate 85 BPM MUSE ECG NH Interval 208 ms MUSE ECG QRSD Interval 86 ms MUSE ECG QT Interval 378 ms MUSE ECG QTC Interval 449 ms MUSE ECG P [place] 33 degrees MUSE ECG R [place] 10 degrees MUSE ECG T Wave [place] 10 degrees MUSE ECG Diagnosis Normal sinus rhythm MUSE ECG Diagnosis Normal ECG MUSE ECG Diagnosis MUSE ECG Diagnosis Confirmed by Nile Ibarra ([id number]) on 01/16/2025 9:02:25 AM MUSE ECG 01/15/2025 5:36 PM EDT 01/16/2025 9:02 AM EDT us Jacob Gong MD ECG ORDERABLES Final Result Performing Organization Address City/[facility] Co de Phone Number MUSE ECG from Last 3 Months Additional Health Concerns Infection Onset Date Last Indicated COVID 19 (Confirmed) Comment:Confirmed COVID + 01/15/2025 [facility] 01/15/2025 01/16/2025 [facility] [phone] MEDICARE Care Teams Marketing Manager Relationship Specialty Start Date End Date Rakesh Jones MD [address] [place] [id number] PCP - General 10/05/20
== END 2025-01-30 23:59 | disposition home or self-care (01) ==
LOC: RAD 09:00
PROVIDERS: PCP Internal Medicine Adolescent Medicine; Visit Provider Orthopaedic Surgery
DX: M25.462 Effusion, left knee (principal); M25.562 Pain in left knee; Z98.890 Other specified postprocedural states
CPT/HCPCS: 73562

== ENCOUNTER 2025-03-20 13:00 | Outpatient (RCR) | payer MEDICARE, OTHER, SELFPAY ==
--- NOTE | 2025-03-17 12:39 | HMH.PTOPEV ---
PT Evaluation Rehab PT Outpatient Evaluation Start: 03/16/25 13:44 Freq: Status: Active Protocol: Document 03/16/25 13:45 MALIA (Rec: 03/16/25 14:54 MALIA [id number]) E-signed By Chiara Torres, PT Outpatient Therapy Subjective History Subjective History This is an initial PT evaluation for 79 y/o male who presents s/p L TKA on 01/03/25. Pt attended physical therapy at [facility] for a few sessions. However, pt's therapy was stopped d/t patient being admitted into for kidney failure and Covid19 infection. Once discharged from , pt attended rehab at [facility]. Pt has been home for ~2 weeks and has received PT services. Pt had a follow-up with his surgeon, Dr. Rosario , on 03/06/25. Pt rates his knee pain today 4-5/10. New diagnosis of No cancer in past 12 months? Chief Complaint Pain,Stiff,Weakness Prior Functional None Limitations Current Functional Standing,Sitting,Squatting,Recreation Activity,Walking Limitations Hip/Knee Eval Gait Observation General Gait Pattern Antalgic Gait Observation Assistive Device Assistive Devices None / NA MMT left Hip Flexion Strength 4 Good Grade Hip Abduction 4 Good Strength Grade Hip Adduction 4 Good Strength Grade Hip Extension 4 Good Strength Grade Knee Extension 4 Good Strength Grade Knee Flexion 4 Good Strength Grade ROM Knee Extension lacking 8 Active Range of Motion (degrees) Knee Extension lacking 5 Passive Range of Motion (degrees) Knee Flexion Active 110 Range of Motion ( degrees) Knee Flexion Passive 115 Range of Motion ( degrees) Lower Extremity Functional Index Activities Today, do you or would you have any difficulty at all with: a.Any of your usual Moderate difficulty work, housework or school activities b. Your usual Moderate difficulty hobbies, recreational or sporting activities c. Getting into or A little bit of difficulty out of the bath d. Walking between A little bit of difficulty rooms e. Putting on your A little bit of difficulty shoes or socks f. Squatting A little bit of difficulty g. Lifting an object Moderate difficulty , like a bag of groceries from the floor h. Performing light Moderate difficulty activities around your home i. Performing heavy Moderate difficulty activities around your home j. Getting into or Moderate difficulty out of a car k. Walking 2 blocks Moderate difficulty l. Walking a mile A little bit of difficulty m. Going up or down A little bit of difficulty 10 stairs (about 1 flight of stairs) n. Standing for 1 A little bit of difficulty hour o. Sitting for 1 A little bit of difficulty hour p. Running on even Moderate difficulty ground q. Running on uneven Moderate difficulty ground r. Making sharp Moderate difficulty turns while running fast s. Hopping Extreme difficulty or unable to perform activity t. Rolling over in A little bit of difficulty bed LEFI Score Lower Extremity 47 Functional Index Score Miscellaneous Dx PT Eval Objective Objective TU seconds without AD. Outpatient Therapy Assessment Impairments Problems/ Impaired Range of Motion,Impaired Strength,Impaired Impairmments Endurance,Impaired Transfers,Impaired Gait Pattern, Impaired Walking,Impaired Sitting,Impaired Stair Climbing,Impaired Incline Stepping,Impaired Squatting, Impaired Bending,Impaired Recreational Activities, Impaired Balance,Subjective C/O Pain Prognosis Rehab Potential Good Comment Pt presents to PT ~10 weeks post-op L TKA and demonstrates impaired L knee AROM and strength. Pt would benefit from skilled OP PT to address deficits and return to PLOF. PT Patient Goals PT Patient Goals PT Short Term In 4 weeks, pt will: Patient Goals 1) Improve L knee ROM to 3-115 degrees to improve functional ROM. 2) Demo at least LLE MMT of 4/5 globally to improve functioning. 3) Tolerate one 10 min moderate intensity endurance task (ex: bike) 4) Improve LEFS to score of 55/80 to improve LE functioning. 5) Verbalize a 48 hour knee pain average of at most 3/ 10. 6) Verbalize compliance with home exercise program maximize positive post-surgical outcomes. PT Half-Way Patient In 8 weeks, pt will: Goals 1) Improve L knee ROM to 0-125 degrees to improve functional ROM. 2) Demo at least LLE MMT of 5/5 globally to improve functioning. 3) Negotiate 12 6 stair steps to improve community navigation. 4) Improve LEFS to score of 60/80 to improve LE functioning and return to PLOF 5) Verbalize a 48 hour knee pain average of 1-2/10 6) Verbalize compliance with home exercise program maximize positive post-surgical outcomes. 7) Demo 5 functional squats to demo functional knee AROM. Outpatient Therapy Plan of Care Treatment Plan May Include Therapeutic Exercise Yes Including Home Exercise Program Manual Therapy Yes Techniques Neuromuscular Re- Yes education Therapeutic Yes Activities to Return to Previous Functional/Work Level Gait Training Yes ADL/Self Care Yes Education Thermal Modalities Yes Electrical Yes Stimulation Ultrasound/ Yes Phonophoresis Iontophoresis Yes Orthotics/Bracing/ Yes Splinting Vasopneumatic Yes Compression Pump Massage Yes Eval/Re-Eval Yes Frequency Times per week 2x Duration Number of Weeks 6-8 weeks Addendums This patient is a No candidate for social or vocational rehab ? Patient/Guardian Yes verbally acknowledges understanding of treatment program and consents to further treatment? Patient/Guardian Yes verbally acknowledges understanding of diagnosis, prognosis and goals for treatment? Eval Complexity PT Charges 46669 - Moderate Complexity Shoulder/Elbow Eval Shoulder Objective Measurements Elbow Objective Measurements PHYSICIAN CERTIFICATION: I certify the specified therapy services for Cole Walters are required, authorized, and reviewed every 30 days.
== END 2025-03-20 23:59 | disposition home or self-care (01) ==
LOC: PT 13:00
PROVIDERS: PCP Internal Medicine Adolescent Medicine; Visit Provider Internal Medicine Adolescent Medicine
DX: Z47.89 Encounter for other orthopedic aftercare (principal); Z96.652 Presence of left artificial knee joint
CPT/HCPCS: 97110; 97140; 97162

== ENCOUNTER 2025-04-17 15:00 | Outpatient (RCR) | payer MEDICARE, OTHER, SELFPAY ==
--- NOTE | 2025-04-18 07:51 | HMH.RHREAS ---
Rehab Reassessment Rehab OP Re-assessment Start: 03/27/25 13:03 Freq: Status: Active Protocol: Document 04/18/25 07:45 KRISTIN (Rec: 04/18/25 07:50 KRISTIN [id number]) E-signed By José Miguel Noble PT Lower Extremity Functional Index Activities Today, do you or would you have any difficulty at all with: a.Any of your usual No difficulty work, housework or school activities b. Your usual Moderate difficulty hobbies, recreational or sporting activities c. Getting into or No difficulty out of the bath d. Walking between No difficulty rooms e. Putting on your No difficulty shoes or socks f. Squatting Moderate difficulty g. Lifting an object No difficulty , like a bag of groceries from the floor h. Performing light No difficulty activities around your home i. Performing heavy Moderate difficulty activities around your home j. Getting into or No difficulty out of a car k. Walking 2 blocks A little bit of difficulty l. Walking a mile Quite a bit of difficulty m. Going up or down A little bit of difficulty 10 stairs (about 1 flight of stairs) n. Standing for 1 A little bit of difficulty hour o. Sitting for 1 No difficulty hour p. Running on even Extreme difficulty or unable to perform activity ground q. Running on uneven Extreme difficulty or unable to perform activity ground r. Making sharp Extreme difficulty or unable to perform activity turns while running fast s. Hopping Extreme difficulty or unable to perform activity t. Rolling over in No difficulty bed LEFI Score Lower Extremity 52 Functional Index Score Rehab Re-assessment Subjective Subjective Pt reports that he is 90% improved this date. Reports that he would rate his pain at a 1-2/10 throughout today's reassessment. Pt reports that he continues to be independent with his HEP at this time. Pt reports that he is prepared to be discharged from PT this date. Objective Objective Notes LEFS: 52 ROM: 0 - 135 MMT: 5/5 to L knee/hip globally Gait: No apparent gait abnormalities Assessment Progress Assessment Progressing as Expected Assessment Notes Pt has met or nearly met all stated PT goals. Pt expresses preparedness and requests discharge to [facility] this date. Pt educated on the importance of continuing exercises. Pt is being discharged this date. PT Patient Goals PT Short Term In 4 weeks, pt will: Patient Goals 1) Improve L knee ROM to 3-115 degrees to improve functional ROM. 2) Demo at least LLE MMT of 4/5 globally to improve functioning. 3) Tolerate one 10 min moderate intensity endurance task (ex: bike) 4) Improve LEFS to score of 55/80 to improve LE functioning. NOT MET 5) Verbalize a 48 hour knee pain average of at most 3/ 10. 6) Verbalize compliance with home exercise program maximize positive post-surgical outcomes. PT Net Developer Programmer Patient In 8 weeks, pt will: Goals 1) Improve L knee ROM to 0-125 degrees to improve functional ROM. 2) Demo at least LLE MMT of 5/5 globally to improve functioning. 3) Negotiate 12 6 stair steps to improve community navigation. 4) Improve LEFS to score of 60/80 to improve LE functioning and return to PLOF 5) Verbalize a 48 hour knee pain average of 1-210 6) Verbalize compliance with home exercise program maximize positive post-surgical outcomes. 7) Demo 5 functional squats to demo functional knee AROM. Plan Plan Discharge pt to [facility]. Frequency of Therapy 1/week Duration of Therapy 1 week Therapeutic Exercise Yes Including Home Exercise Program Manual Therapy Yes Techniques Neuromuscular Re- Yes education Therapeutic Yes Activities to Return to Previous Functional/Work Level Gait Training Yes Thermal Modalities Yes Electrical Yes Stimulation Time and Billing Re-Eval Time 10 Re-Eval Billing 0 Units Charge for PT No reassessment? PHYSICIAN CERTIFICATION: I certify the specified therapy services for Cole Walters are required, authorized, and reviewed every 30 days.
== END 2025-04-17 23:59 | disposition home or self-care (01) ==
LOC: PT 15:00
PROVIDERS: PCP Internal Medicine Adolescent Medicine; Visit Provider Internal Medicine Adolescent Medicine
DX: Z47.1 Aftercare following joint replacement surgery (principal); Z96.652 Presence of left artificial knee joint
CPT/HCPCS: 97110; 97140; 97530

== ENCOUNTER 2025-05-01 11:26 | Outpatient (CLI) | payer MEDICARE, OTHER, SELFPAY ==
--- NOTE | 2025-05-01 11:30 | XR_ITS ---
PROCEDURE INFORMATION: Exam: XR Left Knee Exam date and time: 05/01/2025 11:32 AM Age: 80 years old Clinical indication: Left; Prior surgery; Surgery date: 1-6 months; Surgery type: Knee replacement feb 03. Has pain, ltd mobility, feels it is locking up; Additional info: Left knee pain TECHNIQUE: Imaging protocol: Radiologic exam of the left knee. Views: 3 views. COMPARISON: CR XR KNEE LT 3V 01/30/2025 9:07 AM FINDINGS: Bones/joints: Status post knee arthroplasty. No periprosthetic fracture or lucency. Soft tissues: Unremarkable. IMPRESSION: No acute findings.
[2025-05-01 13:40] LABS: Hematocrit 46.6 % (42.0-52.0); Hemoglobin 14.2 g/dL (14.1-18.0); Immature Granulocytes % 0.3 %; Mean Corpuscular HGB Conc 30.5 g/dL (31.8-35.4); Mean Corpuscular Hemoglobin 26.5 pg (27.0-31.2); Mean Corpuscular Volume 87.1 fl (80-94); Nucleated Red Blood Cells % 0 %; Platelet Count 272 K/mm3 (142-424); Red Blood Count 5.35 M/mm3 (4.60-6.20); Red Cell Distribution Width-SD 44.2 fL; White Blood Count 10.0 K/mm3 (4.8-10.8)
[2025-05-01 14:11] LABS: C-Reactive Protein 14.8 mg/L (0-4)
== END 2025-05-01 23:59 ==
PROVIDERS: PCP Internal Medicine Adolescent Medicine; Visit Provider Orthopaedic Surgery
DX: M17.12 Unilateral primary osteoarthritis, left knee (principal); I10 Essential (primary) hypertension; Z96.652 Presence of left artificial knee joint
CPT/HCPCS: 36415; 73562; 85025; 85651; 86140

== ENCOUNTER 2025-05-22 08:00 | Outpatient (RCR) | payer MEDICARE, OTHER, SELFPAY | END 2025-05-22 23:59 | disposition home or self-care (01) | LOC: PT 08:00 | PROVIDERS: PCP Internal Medicine Adolescent Medicine; Visit Provider Internal Medicine Adolescent Medicine | DX: Z96.652 Presence of left artificial knee joint (principal) | CPT/HCPCS: 97110 ==

== ENCOUNTER 2025-05-24 11:18 | Outpatient (CLI) | payer MEDICARE, OTHER, SELFPAY ==
--- NOTE | 2025-05-24 | CA_ITS ---
APPROVED REPORT Exam: Pharmacologic Technologist: Geeta Newsome Ht: 5 ft 11 in Wt: 200 lbs BSA: 2.11 m2 HR: 56 bpm BP: 154/80 mmHg Indications: Angina Stress Test Details Test: Lexiscan HR Resting HR: 56 bpm Max Heart Rate (APMHR): 138.290647 bpm Max HR Achieved: 81 bpm Target HR (85% APMHR): 117.048794 bpm % of APMHR: 58.70 Recovery HR: 73 bpm BP Resting BP: 154.0/80.0 mmHg Max BP: 161.0/75.0 mmHg Recovery BP: 147.0/72.0 mmHg ECG Resting ECG: Normal sinus rhythm, NSSTT wave abnormalities inferiorly and laterally Stress ECG Conclusion Symptoms: None Arrhythmias/Ectopy: Occasional PVCs ST-T Changes:< 1.[address] segment changes Conclusion: Non-diagnostic Lexiscan stress Electronically signed by : Clarissa Stock MD 05/26/2025 14:47:43
--- NOTE | 2025-05-24 11:22 | NM_ITS ---
APPROVED REPORT Exam: Nuclear Stress Test Indication: Chest pain, Fatigue, CAD, High cholesterol, Former tobacco use, Famiy history Patient Location: Outpatient Stress Tech: Geeta Newsome MS Tech:Chiara Jones, ARRT, RT (R)(N) Ht: 5 ft 11 in Wt: 202 lbs HR: 56 bpm BP: 154/80 mmHg BSA: 2.12 m2 TID: 0.99 BMI: 28.1 History: Chest pain, Fatigue, CAD, High cholesterol, Former tobacco use, Famiy history Procedure: Patient received 0.4 mg of intravenous Lexiscan, resting heart rate 56 bpm, resting blood pressure 154/80 mmHg, with Lexiscan maximum heart rate achieved was 81 bpm which is % of the maximum predicted heart rate and blood pressure was 161/75 mmHg. With Lexiscan, patient denied any complaint of chest pain. Cardiac Stress and Resting SPECT Images: Cardiac Stress and Resting SPECT images were obtained using technetium 99m Myoview 31.6 mCi stress and 10.81 mCi at rest. Resting and stress imaging in supine positions demonstrate a medium-sized, moderate, fixed perfusion defect in the inferior LV wall. This is no longer visualized with prone stress imaging. Findings are suggestive of diaphragmatic attenuation. Gated imaging demonstrates normal global LV systolic function. LVEF is calculated at 62%. Conclusion: Diaphragmatic attenuation is present. No evidence of fixed or reversible perfusion defects. Gated imaging demonstrates normal global LV systolic function. LVEF is calculated at 62%. Electronically signed by : Clarissa Stock MD 05/26/2025 14:39:51
--- OUTSIDE RECORDS SUMMARY | 2025-05-24 11:24 | XMS_ITS | Data Portability ---
Author Organization [facility] Address [address] [place] [address] Care Team Providers Care Lighter Name Role Phone RAKESH CARRILLO Primary Care Provider [phone] Assessment No assessment recorded. Plan of Treatment [...] By Organization Details Last Modified Time 02/17/2024 [id number] Arthritis Thumb-LC sumansky Not available 02/17/2024 14:26:55 Trigger Finger-LC sumansky Not availabl e 02/17/2024 14:26:54 Reason for Referral None Reported. Results Created Date Observation Date Name Description Value Unit Range Abnormal Flag Note LastModifiedBy Organization Detail LastModifiedTime 03/02/20 23 03/02/2023 XR, wrist , 3 or more view Beth car[place] [address] [place] [address] Triston son Name: JACK son : [id number] [...] oh MD on 023 9:39 AM mathieu [facility] [address] , [place], [address], 03/02/2023 10:00:00 02/05/2007/28/2022 elect romyo gram + nerve condu ction study No observ ation record ed. [email or web address] Not Available 2023 12:52:10 Result Notes Documentation Provider Name and Address Organization Details Recorded Time Xr, Wrist, 3 Or More View : [facility] [address] [place] [address] Patient Name: JACK WALTERS Patient : 1945 Patient Ordering Provider: RAKESH SMITH EXAM DATE: 03/02/2023 EXAM: XR RT WRIST [...] complication. Interpreted By: Clifton Reyes MD SH SMITH MD [address] [place] [address], [phone], [facility] 03/02/2023 10:00:00 Problems Name Problem SNOMED Code Status Onset Date Resolution Date Notes Provider Name and Address Organization Details Recorded Time Spinal stenosis of lumbar region 21884661 Active 2014 From Automated Load;Provi zuleika: Alejandro Arambula atus: Active Not Available [facility] 6 03:10:55 Chest pain Active 2015 From Automated Load;Provi zuleika: Richy Jorgensen;Statu s: Active Not Available [facility] 7 07:42:16 Problem Notes None recorded. Procedures Surgical History Date Name Laterality Status Provider Name and Address Organization Details Recorded Time 3 Orthotic Management; Subsequent Encounter completed GORDY HOLM JR, OTR/L, CHT [address] [place] [address], [phone], [facility] 03/02/2023 10:13:07 3 Op Note completed RAKESH SMITH MD [address] [place] [address], [address] [place] [address] 02/17/2023 11:54:24 3 Op Note completed RAKESH SMITH MD [address] [place] [address] 12/04/2022 09:21:15 3 Orthotic, WHFO, Static Custom completed GORDY HOLM JR, OTR/L, CHT [address] [place] [address], [address] [place] [address], [facility] 09/03/2022 13:59:27 Imaging Results None recorded. Procedure [...] Updated DateTime 02/17/2024 180.34 cm 30.1 kg/m2 88870.95 g [facility] 02/17/2024 14:06:29 Date Recorded Body height Body mass index (BMI) Body weight Provider Name and Address Organization Details Last Updated DateTime 03/02/2023 180.34 cm 28.6 kg/m2 33934.44 g Tanya [facility] 03/02/2023 09:29:36 Date Recorded Body height Body mass index (BMI) Body weight Pain severity - 0-10 verbal numeric rating [Score] - Reported Provider Name and Address Organization Details Last Updated DateTime 03/30/2023 180.34 cm 28.6 kg/m2 77333.44 g Nusrat Kirkpatrick [facility] 03/30/2023 13:39:17 Social History None recorded. Functional Status None recorded. Mental Status None recorded. Family History Nothing Reported. Medical History No medical history recorded. Past Encounters Encounter ID Performer Location Encounter Start Date Encounter Closed Date Diagnosis/Indication Diagnosis SNOMED-CT Code Diagnosis ICD10 Code Diagnosis IMO Codes Diagnosis Note [id number] RAKESH SMITH MD [facility] [address] [place] [address] 09/03/2022 12:52:00 09/03/2022 13:54:28 Osteoarthrosis of the carpometacarpal joint of the thumb 61544181 M18.9 And STT joint. 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 838101819 G56.21 6-year status post ulnar nerve release, recommend subcutaneo us ulnar nerve transposit ion Acquired t electronic imager finger 1901952 M65.30 Long andRight ring finger, release at the same time as cubital tunnel surgery, can consider basal joint surgery as a second stage after recovery if still symptomati c despite splint [id number] GORDY HOLM JR, OTR/L, CHT PHYSICAL THERAPY / HAND [facility]ERAPY [facility] [address] [address] 09/03/2022 13:48:23 09/04/2022 04:21:09 Osteoarthrosis of the carpometacarpal joint of the thumb 65877060 M18.9 [id number] RAKESH SMITH MD [facility] [address] [place] [address] 12/03/2022 11:28:55 12/03/2022 11:58:15 Abrasion of skin of hand 793945581 S60.511A I assured him this injury will not interfere with trigger finger release schedule for tomorrow. Minor injury; no interventi on necessary. F/U PRN. Acquired t electronic imager finger 4070651 M65.30 Upcoming Surgery Scheduled for 12/04/22 [id number] RAKESH SMITH MD SURGERY SCHEDULE [address] [place] [address] 12/04/2022 06:39:31 12/04/2022 06:40:05 [id number] RAKESH SMITH MD [facility]EDI [facility] [address] [address] 12/17/2022 13:17:20 12/17/2022 14:04:37 Postoperative care [id number] Z48.89 2 weeks s/p Release right long and ring trigger finger; Right subcutaneo us ulnar nerve transposit ion.Doing well, wants to schedule basal joint arthroplas ty. We will set this up. [id number] RAKESH SMITH MD SURGERY SCHEDULE [address] [place] [address] 02/17/2023 08:47:22 02/17/2023 08:48:55 [id number] RAKESH SMITH MD [facility] [address] [place] [address] 03/02/2023 09:05:58 03/02/2023 09:59:56 Postoperative care [id number] Z48.89 2 week s/p right thumb CMC [...] nothing over 5lbs.Follo w up 4 weeks [id number] GRODY HOLM JR, OTR/L, CHT PHYSICAL THERAPY / [facility]APY [facility] [address] [place] [address] 03/02/2023 10:03:33 03/03/2023 04:54:31 Osteoarthrosis of the carpometacarpal joint of the thumb 84736932 M18.9 [id number] OLE CAVAZOS PA-C [facility] [address] [place] [address] 03/30/2023 13:36:50 03/30/2023 13:51:04 Postoperative care [id number] Z48.89 6 weeks status post right thumb [...] up to 6 months after the surgery. [id number] RAKESH SMITH MD [facility] [address] [place] [address] 02/17/2024 13:57:38 02/17/2024 14:27:36 Acquired trigger finger 2899599 M65.30 Released, looks like he may need excision of one half of FDS of the long finger, possible ring, if necessary Osteoarthr osis of the carpometacarpal joint of the thumb 34053959 M18.9 Satisfacto ry result status post right basal joint arthroplas ty and partial trapezoid excision, has a little bit of a spasm of the thumb and the index finger which is more likely related to the ulnar nerve then to the thumb CMC procedure 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 OTHER RECENT SURGERIES: EMPLOYMENT STATUS: RAKESH SMITH MD [address] [place] [address], [address], [facility] 03/02/2023 09:57:49 3 text/html [id number] THUMB CMC ARTHROPLASTY, PARTIAL TRAPEZOID EXCISION, FCR LIG RECONSTRUCTIONPerformed by MD GORDY Hernandez JR, OTR/L, CHT [address] [place] [address], [phone], [facility] 03/02/2023 10:35:35 3 text/html Patient arrives for [...] na EMPLOYMENT STATUS: Retired OLE CAVAZOS PA-C [address] [place] [address], [address], [facility] 03/30/2023 16:06:18 4 text/html Consult [facility]: Dr. Rakesh Carrillo Hand dominance: RightLocation: Right Hand Pain level: 1 /10 Duration: a few months Recent Surgery: NoProcedure:Date of surgery:Surgeon(If Known): In office procedure? No Previous upper extremity surgery? YesProcedure: Right thumb CMC arthroplastySuture suspensionplastyPartial trapezoid excisionApproximate date of surgery: 02/17/2023Surgeon (if known): Dr. Umansky Procedure: Release right long trigger fingerRelease right ring trigger fingerRight subcutaneous ulnar nerve transpositionDate: 12/04/2022Have you or an immediate family member ever seen our hand surgeons before? 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 Walters is here for n/t in rt hand and elbow. He reports he still has n/t in his fingers and have occasional catching. He also reports the pain radiates up to his elbow. He reports his lt thumb has started to bother him like the right side did. No new EMG. No injury RAKESH SMITH MD [address] [place], [address], [facility] 02/17/2024 14:27:07
--- OUTSIDE RECORDS SUMMARY | 2025-05-24 11:24 | XMS_ITS | Clinical Summary ---
Author Organization Healthcare Address [address] [place] [address] Care Team Providers Care Die Repairer Stamping Name Role Phone Rakesh Jones MD Primary Care Provider [phone] Mago Levy Unavailable [phone] Allergies No known active allergies Medications donepezil [...] Do not crush, chew, or split. Active alfuzosin (Uroxatral) 10 MG 24 hr tabletIndicatio ns:Urinary retention Take 1 tablet by mouth daily. Do not crush, chew, or split. 90 tablet 3 5 02/25/20 26 Active finasteride (Proscar) 5 MG tabletIndicatio ns:Urinary retention Take 1 tablet by mouth daily. Do not crush, chew, or split. 90 tablet 3 5 Active clotrimazole-be tamethasone (Lotrisone) creamIndication s:Balanitis Apply topically 2 times a day. 30 g 5 Active Active Problems Problem Noted Date Diagnosed Date Urinary retention 01/19/2025 Coronary artery disease Hypertension Obesity Type 2 diabetes mellitus Hyperlipidemia Resolved Problems Problem Noted Date Diagnosed Date Resolved Date Hyperkalemia 01/16/2025 01/19/2025 MITZY (acute kidney injury) 01/16/2025 Hydronephrosis 01/16/2025 01/19/2025 Acute encephalopathy 01/15/2025 025 Depression 01/19/2025 Encounters Date Type Department Care Team Description 03/08/2025 1:40 PM EDT Office Visit [facility] [address] [place] [address] Mago Levy PA Urinary retention (Primary Dx); Benign prostatic hyperplasia with urinary retention; Balanitis; Dysuria 03/08/2025 Travel 02/24/2025 10:00 AM EDT Consult [facility] [address] [place] [address] Mago Levy PA Urinary retention (Primary Dx); Benign prostatic hyperplasia with urinary retention 02/24/2025 Travel from Last 3 Months Family History Medical History Relation Name Comments Aortic aneurysm Brother Heart attack Brother Heart disease Father Throat cancer Father Diabetes Mother Heart attack Mother Heart disease Mother Relation Name Status Comments Brother Father Mother Social History Tobacco Use Types Packs/Day Years Used Date Smoking Tobacco: Former Cigarettes Passive Smoke Exposure: Past Smokeless Tobacco: Never PHQ-2 Answer Date Recorded Patient Health Questionnaire-2 Score 0 03/08/2025 Humiliation, Afraid, Rape, a nd Kick questionnaire [...] any time in the past 12 m [facility], were you homeless or living in a jail (including now)? No 01/16/2025 Utilities Answer Date [...] Sign Reading Time Taken Comments Blood Pressure 117/73 03/08/2025 1:15 PM EDT Pulse 78 03/08/2025 1:15 PM EDT Temperature 36.4 C (97.5 F) 03/08/2025 1:15 PM EDT Respiratory Rate 18 03/08/2025 1:15 PM EDT Oxygen Saturation 98% 03/08/2025 1:15 PM EDT Inhaled Oxygen Concentration - - Weight 94.3 kg (207 lb 14.3 oz) 03/08/2025 1:15 PM EDT Height 180.3 cm (5' 11 ) 03/08/2025 1:15 PM EDT Body Mass Index 29 03/08/2025 1:15 PM EDT Plan of Treatment Upcoming Encounters Date Type Department Care Team (Late st Contact Info) Description 03/09/2026 1:40 PM EDT Office Visit [facility] [address] [place] [address] Mago Levy PA [address] [place] [address] Health Maintenance Due Date Last Done Comments [facility]-Medicare Annual Wellness (AWV) 1945 [facility]-/Child/Adol SDOH Screenings 1945 Diabetes: Dental Exam 1953 [facility]-DTaP,Tdap,and Td Vaccines (3 - Td or Tdap) 11/22/2016 11/22/2006, 05/25/2006, 07/26/1996 [facility]-Pneumococcal Vaccine: 50+ Years (2 of 2 - PCV) 03/30/2018 03/30/2017 [id number] Vaccine ( season) 2025 12/04/2021, 03/28/2021, 07/26/2020, Additional history exists [facility]-Influenza Vaccine (#1) 01/23/202501/31, 02/11/2023, 02/05/2022, Additional history exists [facility]-Diabetes: Hemoglobin A1C 07/16/2025 01/16/2025 [facility]- SDOH Screenings 07/19/2025 [facility]-Adult SDOH Screenings 07/19/2025 01/16/2025 [facility]-Depression Screening 03/08/2026 03/08/2025 [facility]-Zoster Vaccines Completed 06/01/2023, [facility]-RSV Vaccine: 60+ Years or Completed 02/01/2024, 03/30/2023 [facility]-Obesity Intervention Completed 025, 02/24/2025, 01/15/2025, Additional history exists HPV Vaccines (No Doses Required) Completed [facility]-HIB Vaccines Aged Out No longer e [...] Procedure Name Priority Date/Time Associated Diagnosis Comments URINE CULTURE Routine 03/08/2025 2:31 PM EDT Dysuria POCT URINALYSIS DIPSTICK Routine 03/08/2025 1:59 PM EDT POC US BLADDER SCAN FOR VOLUME Routine 03/08/2025 1:20 PM EDT Urinary retention Benign prostatic hyperplasia with urinary retention HEMOGLOBIN A1C Routine 01/16/2025 3:09 AM EDT from Last 3 Months or Most Recently Relevant to Health Maintenance Results * Urine Culture - Clinic Collect (03/08/2025 2:31 PM EDT) Pathologist [facility] Culture <10,000 CFU/mL Mixed urogenital, fecal, or skin marc present. 03/09/2025 12:50 PM EDT [facility] Urine Urine specimen obtained by clean catch procedure / Unknown Non-blood Collection / Unknown 03/08/2025 2:31 PM EDT 03/08/2025 4:08 PM EDT us Mago [facility] MICROBIOLOGY - GENERAL ORDERABLES Final Result Performing Organization Address City/State/[facility] Co de Phone Number [facility] [address] [place] [address] * (ABNORMAL) POCT URINALYSIS DIPSTICK (03/08/2025 1:59 PM EDT) POCT Urine Color Yellow 03/08/2025 2:01 PM EDT [facility] POCT Urine Clarity Clear 03/08/2025 2:01 PM EDT [facility] POCT Urine Glucose Negative Negative mg/dL 03/08/2025 2:01 PM EDT [facility] POCT Urine Bilirubin Negative Negative mg/dL 03/08/2025 2:01 PM EDT [facility] POCT Urine Ketones Trace(A) Negative mg/dL 03/08/2025 2:01 PM EDT [facility] POCT Urine Specific Traver 1.025 1.005 - 1.030 03/08/2025 2:01 PM EDT [facility] POCT Urine Blood Negative Negative 03/08/2025 2:01 PM EDT [facility] POCT pH, Urine 6.0 5.0 - 8.0 03/08/2025 2:01 PM EDT [facility] POCT Protein, Urine Negative Negative mg/dL 03/08/2025 2:01 PM EDT [facility] POCT Urobilinogen, Urine 1.0 0.2, 1.0 EU/dL 03/08/2025 2:01 PM EDT [facility] POCT Nitrite, Urine Negative Negative 03/08/2025 2:01 PM EDT [facility] POCT Urine Leukocyte Esterase Negative Negative 03/08/2025 2:01 PM EDT [facility] Urine 03/08/2025 1:59 PM EDT 03/08/2025 2:01 PM EDT us Mago [facility] POINT OF CARE TEST DOCKED DEVICE UNSOLICITED RESULTS Final Result Performing Organization Address City/State/[facility] Co de Phone Number [facility] [address], [place] * POC US Bladder Volume (03/08/2025 1:20 PM EDT) Urine, Volume 80 mL IMAGING Anatomical Region Laterality Modality Other us Mago [facility] IMG POINT OF CARE ULTRASOU ND Final Result * (ABNORMAL) Hemoglobin A1c (01/16/2025 3:09 AM EDT) Hemoglobin A1c 6.3(H) <5.7 % 01/16/2025 10:54 AM EDT [facility] Blood Venous blood specimen / Unknown Venipuncture / Unknown 01/16/2025 3:09 AM EDT 01/16/2025 3:21 AM EDT Narrative [facility] - 01/16/2025 10:54 AM EDT HA1C Interpretive Data: Diagnosis of Diabetes: Diabetic > or = 6.5% Pre-diabetic 5.7 to 6.4% Non-diabetic < or = 5.6% Glycemic Targets for Type I and Type II Diabetics: Non- Adults <7.0% Adults <6.0% Children and Adolescents <7.5% Source: [place] [employer]. Standards of medical care in diabetes,2017. Diabetes Care.2017:40 (suppl 1):S1-S135. Colby Kim APRN, DNP LAB BLOOD ORDERAB LES Final Result [facility] [address] [place] [address] from Last 3 Months or Most Recently Relevant to Health Maintenance Insurance [employer] Care Teams Die Repairer Stamping Relationship Specialty Start Date End Date Rakesh Jones [facility] [id number] PCP - General 10/05/20 Mago Levy PA [address] [facility] [address] [place] [address] Physician Nurse Care Manager Urology 02/24/25
[2025-05-24] MEDS: SODIUM CHLORIDE 0.9% 10ML SYR (RAD ONLY) 10 ML IV ×2 (13:09)
[2025-05-24] MEDS: ISOTOPE MYOVIEW (PER STUDY) 1 DOSE IV (13:09)
== END 2025-05-24 23:59 | disposition home or self-care (01) ==
LOC: RAD 11:19
PROVIDERS: PCP Internal Medicine Adolescent Medicine; Visit Provider Internal Medicine Adolescent Medicine
DX: I49.3 Ventricular premature depolarization (principal); I25.118 Atherosclerotic heart disease of native coronary artery with other forms of angina pectoris; E78.00 Pure hypercholesterolemia, unspecified; Z87.891 Personal history of nicotine dependence; R94.31 Abnormal electrocardiogram [ECG] [EKG]
CPT/HCPCS: 78452; 93017; 93018; A9502; J2785